=== PATIENT | female | born 1985 | race Caucasian/White ===

== ENCOUNTER 2018-05-10 10:38 | Emergency (ER) | payer MEDICAID ==
[2018-05-10] MEDS ORDERED: HYDROCOD 2.5mg-ACETAMIN 108mg/5mL Soln ONE (12:02)
[2018-05-10] MEDS ORDERED: DEXAMETHASONE 10 MG/ML VIAL ONE (12:02)
--- NOTE | 2018-05-10 12:57 | ER ---
Nurse's Notes [facility] Name: March Fernandes Age: 33 yrs Sex: Female : 1985 Arrival Date: 05/10/2018 Time: 10:41 Bed 15 Private MD: Diagnosis: Acute pharyngitis Presentation: 05/10 10:48 Presenting complaint: Patient states: Sinus pressure and pain with swallowing x 2 days. hb Denies fever. Transition of care: patient was not received from another setting of care. Onset of symptoms was May 09, 2018. Risk Assessment: Do you want to hurt yourself or someone else? Patient reports no desire to harm self or others. Initial Sepsis Screen: Does the patient meet any 2 criteria? No. Patient's initial sepsis screen is negative. Does the patient have a suspected source of infection? No. Patient's initial sepsis screen is negative. Care prior to arrival: None. 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 - Social history:: Smoking status: Patient uses tobacco products, smokes one-half pack cigarettes per day. - Ebola Screening: : No symptoms or risks identified at this time. Screenin:57 Abuse screen: Denies threats or abuse. Denies injuries from another. Nutritional aj1 screening: No deficits noted. Tuberculosis screening: No symptoms or risk factors identified. 13:26 Fall Risk None identified. aj1 Assessment: 10:57 General: Appears in no apparent distress. uncomfortable, Behavior is calm, cooperative, aj1 appropriate for age. Pain: Complains of pain in nose, left aspect of posterior pharynx, right aspect of posterior pharynx and submental area Pain does not radiate. Pain currently is 8 out of 10 on a pain scale. Quality of pain is described as "like somebody punched you in the throat" Pain began 1 day ago. Is continuous, Alleviated by nothing. Aggravated by swallowing. Neuro: Level of Consciousness is awake, alert, obeys commands, Oriented to person, place, time, situation, Speech is normal. Cardiovascular: Patient's skin is warm and dry. Respiratory: Airway is patent Respiratory effort is even, unlabored, Respiratory pattern is regular, symmetrical. GI: No signs and/or symptoms were reported involving the gastrointestinal system. : No signs and/or symptoms were reported regarding the genitourinary system. EENT: Throat is clear Patient has had a tonsilectomy. Reports nasal congestion pressure in her nose and pain with swallowing. Derm: No signs and/or symptoms reported regarding the dermatologic system. Skin is pink, warm \\T\\ dry. normal. Musculoskeletal: No signs and/or symptoms reported regarding the musculoskeletal system. Circulation, motion, and sensation intact. 12:21 Reassessment: Patient appears in no apparent distress at this time. No changes from aj1 previously documented assessment. Patient and/or family updated on plan of care and expected duration. Pain level reassessed. Patient is alert, oriented x 3, equal unlabored respirations, skin warm/dry/pink. 13:20 Reassessment: Patient appears in no apparent distress at this time. No changes from aj1 previously documented assessment. Patient and/or family updated on plan of care and expected duration. Pain level reassessed. Patient is alert, oriented x 3, equal unlabored respirations, skin warm/dry/pink. Vital Signs: 10:50 BP 139 / 98; Pulse 76; Resp 16; Temp 97.8(TE); Pulse Ox 100% ; Weight 111.13 kg; Height hb 5 ft. 3 in. (160.02 cm); Pain 8/10; 12:25 BP 112 / 58; Pulse 62; Resp 18; Pulse Ox 99% on R/A; aj1 13:20 BP 118 / 68; Pulse 76; Resp 18; Pulse Ox 100% on R/A; aj1 10:50 Body Mass Index 43.40 (111.13 kg, 160.02 cm) hb ED Course: 10:41 Patient arrived in ED. rg4 10:47 Gladys Verduzco FNP-C is PHCP. snw 10:47 Nicolas Gonzalez MD is Attending Physician. snw 10:49 Triage completed. hb 10:50 Arm band placed on right wrist. hb 10:52 Veena Mcdonough RN is Primary Nurse. aj1 10:57 Patient has correct armband on for positive identification. Bed in low position. Call aj1 light in reach. Side rails up X 1. 10:57 No provider procedures requiring assistance completed. aj1 13:26 Patient did not have IV access during this emergency room visit. aj1 Administered Medications: 12:11 Drug: Decadron - Dexamethasone 10 mg {Note: Given PO per orders.} Route: IVP; Site: [facility] Other; 13:27 Follow up: Response: No adverse reaction aj1 12:11 Drug: Lortab Liquid 10 ml Route: PO; aj1 13:26 Follow up: Response: No adverse reaction aj1 Outcome: 12:56 Discharge ordered by . kathrine 13:26 Discharged to home ambulatory. aj1 13:26 Condition: good 13:26 Discharge instructions given to patient. 13:26 Instructed on discharge instructions, follow up and referral plans. medication usage, Demonstrated understanding of instructions, follow-up care, medications, Prescriptions given X 1. 13:27 Patient left the ED. aj1 Signatures: Veena Mcdonough RN RN aj1 Gladys Verduzco, AIRLINE DISPATCHER-C AIRLINE DISPATCHER-Csnw Jimena Cruz, RN RN Irladna Boone rg4
--- NOTE | 2018-05-10 12:57 | EDPHYS ---
Physician Documentation [facility] Name: March Age: 33 yrs Sex: Female : 1985 Arrival Date: 05/10/2018 Time: 10:41 Bed 15 Private MD: ED Physician Nicolas Gonzalez HPI: 05/10 11:57 This 33 yrs old Female presents to ER via Ambulatory with complaints of Nose snw Pain, THROAT PAIN. 11:57 The patient presents with pressure. Onset: The symptoms/episode began/occurred snw suddenly, 2 day(s) ago, and became persistent. Modifying factors: The symptoms are alleviated by nothing. Associated signs and symptoms: Loss of consciousness: the patient experienced no loss of consciousness, Pertinent positives: sore throat, swelling to left anterior lymph node. Severity of symptoms: At their worst the symptoms were moderate. The patient has not experienced similar symptoms in the past. The patient has not recently seen a physician. 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 - Social history:: Smoking status: Patient uses tobacco products, smokes one-half pack cigarettes per day. - Ebola Screening: : No symptoms or risks identified at this time. ROS: 11:40 Constitutional: Negative for fever, chills, and weight loss, Eyes: Negative for injury, snw pain, redness, and discharge, Cardiovascular: Negative for chest pain, palpitations, and edema, Respiratory: Negative for shortness of breath, cough, wheezing, and pleuritic chest pain, Abdomen/GI: Negative for abdominal pain, nausea, vomiting, diarrhea, and constipation, Back: Negative for injury and pain, : Negative for injury, bleeding, discharge, and swelling, MS/Extremity: Negative for injury and deformity, Skin: Negative for injury, rash, and discoloration, Neuro: Negative for headache, weakness, numbness, tingling, and seizure. 11:40 ENT: Positive for sinus pain, sore throat. Exam: 11:38 Constitutional: This is a well developed, well nourished patient who is awake, alert, snw and in no acute distress. Head/Face: Normocephalic, atraumatic. Eyes: Pupils equal round and reactive to light, extra-ocular motions intact. Lids and lashes normal. Conjunctiva and sclera are non-icteric and not injected. Cornea within normal limits. Periorbital areas with no swelling, redness, or edema. Chest/axilla: Normal chest wall appearance and motion. Nontender with no deformity. No lesions are appreciated. Cardiovascular: Regular rate and rhythm with a normal S1 and S2. No gallops, murmurs, or rubs. Normal PMI, no JVD. No pulse deficits. Respiratory: Lungs have equal breath sounds bilaterally, clear to auscultation and percussion. No rales, rhonchi or wheezes noted. No increased work of breathing, no retractions or nasal flaring. Abdomen/GI: Soft, non-tender, with normal bowel sounds. No distension or tympany. No guarding or rebound. No evidence of tenderness throughout. Back: No spinal tenderness. No costovertebral tenderness. Full range of motion. Skin: Warm, dry with normal turgor. Normal color with no rashes, no lesions, and no evidence of cellulitis. MS/ Extremity: Pulses equal, no cyanosis. Neurovascular intact. Full, normal range of motion. Neuro: Awake and alert, GCS 15, oriented to person, place, time, and situation. Cranial nerves II-XII grossly intact. Motor strength 5/5 in all extremities. Sensory grossly intact. Cerebellar exam normal. Normal gait. Psych: Awake, alert, with orientation to person, place and time. Behavior, mood, and affect are within normal limits. 11:38 ENT: External ear(s): are unremarkable, Ear canal(s): are normal, TM's: are normal, Nose: is normal, Mouth: is normal, Posterior pharynx: erythema, that is moderate, Voice: is normal. 11:38 Neck: External neck: swelling, tenderness, that is moderate, of the left submandibular area, ROM/movement: is normal, Lymph nodes: lymphadenopathy is appreciated, anterior cervical nodes. Vital Signs: 10:50 BP 139 / 98; Pulse 76; Resp 16; Temp 97.8(TE); Pulse Ox 100% ; Weight 111.13 kg; Height hb 5 ft. 3 in. (160.02 cm); Pain 8/10; 12:25 BP 112 / 58; Pulse 62; Resp 18; Pulse Ox 99% on R/A; aj1 13:20 BP 118 / 68; Pulse 76; Resp 18; Pulse Ox 100% on R/A; aj1 10:50 Body Mass Index 43.40 (111.13 kg, 160.02 cm) hb MDM: 10:58 Patient medically screened. sparkle 12:58 Data reviewed: vital signs, nurses notes. Data interpreted: Pulse oximetry: on room air snw is 99 %. Interpretation: normal. Counseling: I had a detailed discussion with the patient and/or guardian regarding: the historical points, exam findings, and any diagnostic results supporting the discharge/admit diagnosis, lab results, the need for outpatient follow up, to return to the emergency department if symptoms worsen or persist or if there are any questions or concerns that arise at home. Special discussion: Based on the history and exam findings, there is no indication for further emergent testing or inpatient evaluation. I discussed with the patient/guardian the need to see the ENT specialist for further evaluation of the symptoms. I discussed with the patient/guardian the need to see the primary care provider for further evaluation of the symptoms. 05/10 11:12 Order name: Strep; Complete Time: 12:47 snw 05/10 12:31 Order name: Throat Culture EDMS Administered Medications: 12:11 Drug: Decadron - Dexamethasone 10 mg {Note: Given PO per orders.} Route: IVP; Site: [facility] Other; 13:27 Follow up: Response: No adverse reaction aj 12:11 Drug: Lortab Liquid 10 ml Route: PO; aj 13:26 Follow up: Response: No adverse reaction aj Disposition: 05/10/18 12:56 Discharged to Home. Impression: Acute pharyngitis. - Condition is Stable. - Discharge Instructions: Pharyngitis, Rehydration, Adult. - Prescriptions for Prednisone 20 mg Oral Tablet - take 1 tablet by ORAL route every 12 hours for 5 days; 10 tablet. - Medication Reconciliation Form, Thank You Letter, Antibiotic Education, Prescription Opioid Use form. - Follow up: Private Physician; When: 1 - 2 days; Reason: Recheck today's complaints, Continuance of care, Re-evaluation by your physician. Follow up: Emergency Department; When: As needed; Reason: Worsening of condition. Addendum: 05/12/2018 08:40 Co-signature as Attending Physician, Nicolas Gonzalez MD I agree with the assessment and c thakkar plan of care. Signatures: Dispatcher [employer] Veena Austin RN RN aj1 Nicolas Gnozalez MD MD cha Therrien, Shelly, GLOBAL RISK MANAGEMENT DIRECTOR-C GLOBAL RISK MANAGEMENT DIRECTOR-Csnw Jimena Cruz RN RN Corrections: (The following items were deleted from the chart) 05/10 13:27 12:56 05/10/2018 12:56 Discharged to Home. Impression: Acute pharyngitis. Condition is aj1 Stable. Forms are Medication Reconciliation Form, Thank You Letter, Antibiotic Education, Prescription Opioid Use. Follow up: Private Physician; When: 1 - 2 days; Reason: Recheck today's complaints, Continuance of care, Re-evaluation by your physician. Follow up: Emergency Department; When: As needed; Reason: Worsening of condition. snw
[2018-05-10 13:33] VITALS: TEMP 97.8
[2018-05-10 13:35] VITALS: BP 118/68; O2SAT 100
== END 2018-05-10 13:27 | disposition home or self-care (01) ==
LOC: ER 10:38
DX: J02.9 Acute pharyngitis, unspecified (principal); F17.210 Nicotine dependence, cigarettes, uncomplicated; Z88.0 Allergy status to penicillin
CPT/HCPCS: 87070; 87081; 96374; 99283; J1100

== ENCOUNTER 2018-08-13 03:28 | Emergency (ER) | payer MEDICAID ==
[2018-08-13] MEDS ORDERED: MORPHINE 4 MG/ML SYR ONE ×2 (04:13→05:57)
[2018-08-13] MEDS ORDERED: NA CHLORIDE 0.9% 1,000 ML ONE (04:14)
[2018-08-13] MEDS ORDERED: ONDANSETRON 4 MG/2 ML VIAL ONE ×2 (04:14→06:00)
[2018-08-13 04:32] LABS: Absolute Lymphocytes (CBC) 2.6 K/uL (0.7-4.9); Absolute Monocytes 1.2 K/uL (0.1-1.3); Absolute Neutrophil 8.8 K/uL (1.8-8.0); Basophils % 0.6 % (0-1.3); Eosinophils % 2.1 % (0-4.4); Hematocrit 39.5 % (36.0-45.0); MCH 31.2 pg (27.0-35.0); MCV 92.7 fL (80-100); MPV 8.5 fL (7.6-11.3); Monocytes % 9.1 % (3.3-12.3); RBC Red Blood Cell Count 4.26 M/uL (3.86-4.86)
[2018-08-13 04:47] LABS: BUN Blood Urea Nitrogen 10 mg/dL (7-18); Bicarbonate 23 mmol/L (21-32); Glucose Level 132 mg/dL (74-106); Potassium 4.1 mmol/L (3.5-5.1); Sodium Level 137 mmol/L (136-145)
--- NOTE | 2018-08-13 05:50 | EDPHYS ---
Physician Documentation [facility] Name: March Age: 33 yrs Sex: Female : 1985 Arrival Date: 08/13/2018 Time: 03:33 Bed 17 Private MD: None, None ED Physician Jah Morfin HPI: 08/13 04:06 This 33 yrs old Female presents to ER via Ambulatory with complaints of Ear pkl Pain, neck pain, Headache, Vomiting. 04:06 The patient presents with pain, that is acute. The complaints affect the right ear. pkl Onset: The symptoms/episode began/occurred 2 day(s) ago. Associated signs and symptoms: Pertinent positives: Pain right side neck, headache and vomiting, sore throat. 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 - Social history:: Smoking status: Patient uses tobacco products, denies chronic smoking, but will smoke occasionally. - Ebola Screening: : Patient negative for fever greater than or equal to 101.5 degrees Fahrenheit, and additional compatible Ebola Virus Disease symptoms. ROS: 04:06 Eyes: Negative for injury, pain, redness, and discharge. pkl 04:06 ENT: Positive for ear pain, of the right ear. 04:06 Neck: Positive for swollen nodes, of the right side of neck. 04:06 Cardiovascular: Negative for chest pain. 04:06 Respiratory: Negative for cough, shortness of breath. 04:06 Abdomen/GI: Positive for nausea and vomiting. 04:06 Back: Negative for acute changes. 04:06 : Negative for urinary symptoms. 04:06 MS/extremity: Negative for acute changes. 04:06 Skin: Negative for rash. 04:06 Neuro: Negative for altered mental status, loss of consciousness. Exam: 04:06 Head/Face: Normocephalic, atraumatic. Eyes: Pupils equal round and reactive to light, pkl extra-ocular motions intact. Lids and lashes normal. Conjunctiva and sclera are non-icteric and not injected. Cornea within normal limits. Periorbital areas with no swelling, redness, or edema. 04:06 ENT: TM's: erythema, that is mild, on the right. 04:06 Neck: Lymph nodes: lymphadenopathy is appreciated, right side neck. 04:06 Chest/axilla: Exam negative for acute changes. 04:06 Cardiovascular: Rate: normal, Rhythm: regular. 04:06 Respiratory: the patient does not display signs of respiratory distress, Respirations: normal, Breath sounds: are clear throughout. 04:06 Abdomen/GI: Bowel sounds: normal, Palpation: abdomen is soft and non-tender, in all quadrants. 04:06 Back: Exam negative for acute changes. 04:06 : Exam negative for acute changes. 04:06 Musculoskeletal/extremity: Exam is negative for acute changes. 04:06 Skin: Exam negative for rash. 04:06 Neuro: Orientation: is normal, Mentation: is normal, Cranial nerves: grossly normal, Motor: is normal, Gait: is steady. Vital Signs: 03:45 BP 125 / 79; Pulse 73; Resp 18 S; Temp 97.7(TE); Pulse Ox 98% on R/A; Weight 108.86 kg jd3 (R); Height 5 ft. 3 in. (160.02 cm) (R); Pain 9/10; 04:47 BP 118 / 61; Pulse 65; Resp 16 S; Pulse Ox 98% on R/A; jd3 05:32 Pulse 55; Resp 18 S; Pulse Ox 97% on R/A; jd3 06:44 BP 141 / 78; Pulse 67; Resp 16 S; Pulse Ox 98% on R/A; jd3 03:45 Body Mass Index 42.51 (108.86 kg, 160.02 cm) jd3 MDM: 03:54 Patient medically screened. pkl 05:48 Data reviewed: vital signs, nurses notes, lab test result(s). pkl 08/13 04:04 Order name: CBC with Diff; Complete Time: 05:02 pkl 08/13 04:04 Order name: Chem 7; Complete Time: 05:02 pkl 08/13 04:04 Order name: Strep; Complete Time: 05:44 pkl 08/13 04:05 Order name: [place] Screen Profile; Complete Time: 05:44 pkl Administered Medications: 04:22 Drug: morphine 4 mg Route: IVP; Site: left antecubital; jd3 05:49 Follow up: Response: No adverse reaction jd3 04:22 Drug: Zofran 4 mg Route: IVP; Site: left antecubital; jd3 05:49 Follow up: Response: No adverse reaction jd3 04:23 Drug: NS 0.9% 1000 ml Route: IV; Rate: 1000 ml; Site: left antecubital; jd3 05:49 Follow up: Response: No adverse reaction; IV Status: Completed infusion; IV Intake: jd3 1000ml 06:03 Drug: morphine 4 mg Route: IVP; Site: left antecubital; jd3 06:44 Follow up: Response: No adverse reaction jd3 06:03 Drug: Clindamycin 900 mg Route: IVPB; Infused Over: 30 mins; Site: left antecubital; jd3 06:45 Follow up: Response: No adverse reaction; IV Status: Completed infusion jd3 06:03 Drug: Zofran 4 mg Route: IVP; Site: left antecubital; jd3 06:45 Follow up: Response: No adverse reaction jd3 Disposition: 08/13/18 05:50 Discharged to Home. Impression: Strep Pharyngitis. - Condition is Stable. - Prescriptions for Clindamycin HCl 300 mg Oral Capsule - take 1 capsule by ORAL route every 6 hours for 7 days; 28 capsule. Ultram 50 mg Oral Tablet - take 1 tablet by ORAL route every 8 hours As needed; 20 tablet. - Medication Reconciliation Form, Thank You Letter, Antibiotic Education, Prescription Opioid Use, School release form form. - Follow up: Private Physician; When: 2 - 3 days; Reason: Re-evaluation by your physician. - Problem is new. - Symptoms have improved. Signatures: Dispatcher [employer] Jah Hollingsworth MD MD pkJosh Shoemaker RN RN jd3 Corrections: (The following items were deleted from the chart) 06:45 05:50 08/13/2018 05:50 Discharged to Home. Impression: Strep Pharyngitis. Condition is jd3 Stable. Forms are Medication Reconciliation Form, Thank You Letter, Antibiotic Education, Prescription Opioid Use. Follow up: Private Physician; When: 2 - 3 days; Reason: Re-evaluation by your physician. Problem is new. Symptoms have improved. pkl
--- NOTE | 2018-08-13 05:50 | ER ---
Nurse's Notes [facility] Name: March Dom Age: 33 yrs Sex: Female : 1985 Arrival Date: 08/13/2018 Time: 03:33 Bed 17 Private MD: None, None Diagnosis: Strep Pharyngitis Presentation: 08/13 03:43 Presenting complaint: Patient states: "I'm not sure if it's an ear infection or swollen jd3 lymph nodes, but my right ear and the right side of my throat and head is hurting really bad.". Transition of care: patient was not received from another setting of care. Onset of symptoms was August 13, 2018. Risk Assessment: Do you want to hurt yourself or someone else? Patient reports no desire to harm self or others. Initial Sepsis Screen: Does the patient meet any 2 criteria? No. Patient's initial sepsis screen is negative. Does the patient have a suspected source of infection? No. Patient's initial sepsis screen is negative. Care prior to arrival: None. 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 - Social history:: Smoking status: Patient uses tobacco products, denies chronic smoking, but will smoke occasionally. - Ebola Screening: : Patient negative for fever greater than or equal to 101.5 degrees Fahrenheit, and additional compatible Ebola Virus Disease symptoms. Screenin:50 Abuse screen: Denies threats or abuse. Nutritional screening: No deficits noted. jd3 Tuberculosis screening: No symptoms or risk factors identified. Fall Risk Ambulatory Aid- None/Bed Rest/Nurse Assist (0 pts). Gait- Normal/Bed Rest/Wheelchair (0 pts) Mental Status- Oriented to own ability (0 pts). Total Hightower Fall Scale indicates No Risk (0-24 pts). Assessment: 03:48 General: Appears in no apparent distress. uncomfortable, Behavior is calm, cooperative, jd3 appropriate for age. Pain: Complains of pain in right ear and right side of neck Quality of pain is described as aching, sharp, Also complains of nausea. Neuro: Level of Consciousness is awake, alert, obeys commands, Oriented to person, place, time, situation. Cardiovascular: Capillary refill < 3 seconds Patient's skin is warm and dry. Respiratory: Airway is patent Respiratory effort is even, unlabored, Respiratory pattern is regular, symmetrical, Breath sounds are clear bilaterally. GI: Abdomen is round non-distended, Bowel sounds present X 4 quads. Abd is soft and non tender X 4 quads. Reports nausea, vomiting. : No signs and/or symptoms were reported regarding the genitourinary system. EENT: Reports pain in right ear. Derm: Skin is intact, Skin is dry, Skin is normal, Skin temperature is warm. Musculoskeletal: Circulation, motion, and sensation intact. Range of motion: intact in all extremities, Swelling present in right side of neck. 04:47 Reassessment: Patient appears in no apparent distress at this time. No changes from jd3 previously documented assessment. Patient and/or family updated on plan of care and expected duration. Pain level reassessed. Patient is alert, oriented x 3, equal unlabored respirations, skin warm/dry/pink. pt reporting pain, provider notified, no new orders at this time. 05:32 Reassessment: Patient appears in no apparent distress at this time. No changes from jd3 previously documented assessment. Patient and/or family updated on plan of care and expected duration. Pain level reassessed. Patient is alert, oriented x 3, equal unlabored respirations, skin warm/dry/pink. 06:43 Reassessment: Patient appears in no apparent distress at this time. Patient and/or jd3 family updated on plan of care and expected duration. Pain level reassessed. Patient is alert, oriented x 3, equal unlabored respirations, skin warm/dry/pink. Vital Signs: 03:45 BP 125 / 79; Pulse 73; Resp 18 S; Temp 97.7(TE); Pulse Ox 98% on R/A; Weight 108.86 kg jd3 (R); Height 5 ft. 3 in. (160.02 cm) (R); Pain 9/10; 04:47 BP 118 / 61; Pulse 65; Resp 16 S; Pulse Ox 98% on R/A; jd3 05:32 Pulse 55; Resp 18 S; Pulse Ox 97% on R/A; jd3 06:44 BP 141 / 78; Pulse 67; Resp 16 S; Pulse Ox 98% on R/A; jd3 03:45 Body Mass Index 42.51 (108.86 kg, 160.02 cm) jd3 ED Course: 03:33 Patient arrived in ED. es 03:33 None, None is Private Physician. es 03:43 Josh Nixon, DUTCH is Primary Nurse. jd3 03:44 Triage completed. jd3 03:48 Arm band placed on. jd3 03:51 Patient has correct armband on for positive identification. Bed in low position. Call jd3 light in reach. Side rails up X 1. Adult w/ patient. 03:53 Jah Morfin MD is Attending Physician. pkl 04:20 Inserted saline lock: 22 gauge in left antecubital area, using aseptic technique. Blood mt collected. 06:43 No provider procedures requiring assistance completed. IV discontinued, intact, jd3 bleeding controlled, No redness/swelling at site. Pressure dressing applied. Administered Medications: 04:22 Drug: morphine 4 mg Route: IVP; Site: left antecubital; jd3 05:49 Follow up: Response: No adverse reaction jd3 04:22 Drug: Zofran 4 mg Route: IVP; Site: left antecubital; jd3 05:49 Follow up: Response: No adverse reaction jd3 04:23 Drug: NS 0.9% 1000 ml Route: IV; Rate: 1000 ml; Site: left antecubital; jd3 05:49 Follow up: Response: No adverse reaction; IV Status: Completed infusion; IV Intake: jd3 1000ml 06:03 Drug: morphine 4 mg Route: IVP; Site: left antecubital; jd3 06:44 Follow up: Response: No adverse reaction jd3 06:03 Drug: Clindamycin 900 mg Route: IVPB; Infused Over: 30 mins; Site: left antecubital; jd3 06:45 Follow up: Response: No adverse reaction; IV Status: Completed infusion jd3 06:03 Drug: Zofran 4 mg Route: IVP; Site: left antecubital; jd3 06:45 Follow up: Response: No adverse reaction jd3 Intake: 05:49 IV: 1000ml; Total: 1000ml. jd3 Outcome: 05:50 Discharge ordered by . [email or web address] 06:43 Discharged to home ambulatory, with family. jd3 06:43 Condition: stable 06:43 Discharge instructions given to patient, family, Instructed on discharge instructions, follow up and referral plans. medication usage, Demonstrated understanding of instructions, follow-up care, medications, Prescriptions given X 2. 06:45 Patient left the ED. jd3 Signatures: Jah Morfin MD MD pkl Salyer, Edna es Thompson, Moriah mt Davies, Jonathon, RN RN jd3 Corrections: (The following items were deleted from the chart) 03:51 03:48 Musculoskeletal: Circulation, motion, and sensation intact. Range of motion: jd3 intact in all extremities, jd3 04:49 04:47 Reassessment: Patient appears in no apparent distress at this time. No changes jd3 from previously documented assessment. Patient and/or family updated on plan of care and expected duration. Pain level reassessed. Patient is alert, oriented x 3, equal unlabored respirations, skin warm/dry/pink. jd3
[2018-08-13] MEDS ORDERED: CLINDAMYCIN 900MG/D5W 900 MG/50 ML BAG IV ONE (05:57)
[2018-08-13 06:54] VITALS: TEMP 97.7
[2018-08-13 06:58] VITALS: BP 141/78; O2SAT 98
== END 2018-08-13 06:45 | disposition home or self-care (01) ==
LOC: ER 03:28
DX: J02.0 Streptococcal pharyngitis (principal); Z72.0 Tobacco use; Z88.0 Allergy status to penicillin
CPT/HCPCS: 36415; 80048; 85025; 86308; 87081; 96361; 96365; 96375; 99284; J2405; J7030

== ENCOUNTER 2018-08-17 09:33 | Emergency (ER) | payer MEDICAID ==
[2018-08-17] MEDS ORDERED: ONDANSETRON 4 MG (ODT) TAB ONE (10:18)
[2018-08-17] MEDS ORDERED: BENZONATATE 100 MG CAP PO ONE (10:18)
[2018-08-17] MEDS ORDERED: ACETAMINOPHEN 500 MG TAB ONE (10:18)
--- NOTE | 2018-08-17 11:12 | EDPHYS ---
Physician Documentation [facility] Name: March Age: 33 yrs Sex: Female : 1985 Arrival Date: 08/17/2018 Time: 09:39 Bed 14 Private MD: None, None ED Physician Ascencion Brennan HPI: 08/17 10:10 This 33 yrs old Female presents to ER via Ambulatory with complaints of cp Cough, Headache, Vomiting/Diarrhea. 10:10 The patient or guardian reports cough, that is intermittent. cp 10:10 Onset: The symptoms/episode began/occurred last week. Severity of symptoms: in the emergency department the symptoms are unchanged. 10:10 Associated signs and symptoms: Pertinent positives: diarrhea, fever, rhinorrhea, cp vomiting, headache. The patient has been recently seen at the [facility] Emergency Department, last week, diagnosed with strep throat and currently taking clindamycin. patient reports vomiting and diarrhea after taking clindamycin. 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 - Social history:: Smoking status: Patient uses tobacco products, 2-3 cigarettes a day . - Ebola Screening: : No symptoms or risks identified at this time. ROS: 10:15 Constitutional: Negative for body aches, chills, fever, poor PO intake. cp 10:15 Eyes: Negative for injury, pain, redness, and discharge. cp 10:15 ENT: Positive for rhinorrhea, Negative for drainage from ear(s), ear pain, difficulty swallowing, difficulty handling secretions, hoarseness. 10:15 Neck: Negative for pain with movement, pain at rest, stiffness, tenderness. 10:15 Cardiovascular: Negative for chest pain. 10:15 Respiratory: Positive for cough, "sounds productive", Negative for shortness of breath, wheezing. 10:15 Abdomen/GI: Positive for nausea, vomiting, and diarrhea, anorexia, Negative for abdominal pain, constipation, black/tarry stool, rectal bleeding. 10:15 Back: Negative for pain at rest, pain with movement. 10:15 Skin: Negative for cellulitis, rash. 10:15 Neuro: Positive for headache, Negative for altered mental status, dizziness, weakness. 10:15 All other systems are negative. Exam: 10:22 Constitutional: The patient appears in no acute distress, alert, awake, non-toxic, well cp developed, well nourished. 10:22 Head/Face: Normocephalic, atraumatic. cp 10:22 Eyes: Periorbital structures: appear normal, Pupils: equal, round, and reactive to light and accomodation, Extraocular movements: intact throughout, Conjunctiva: normal, no exudate, no injection, Sclera: no appreciated abnormality, Lids and lashes: appear normal, bilaterally. 10:22 ENT: External ear(s): are unremarkable, Ear canal(s): are normal, clear, TM's: bulging, is not appreciated, bilaterally, dullness, bilaterally, erythema, is not appreciated, bilaterally, Nose: is normal, Mouth: Lips: moist, Oral mucosa: moist, Posterior pharynx: Airway: no evidence of obstruction, patent, Tonsils: with erythema, no enlargement, no exudate, Uvula: midline, swelling, is not appreciated, erythema, that is mild, exudate, is not appreciated, Voice: is normal. 10:22 Neck: ROM/movement: is normal, is supple, without pain, no range of motions limitations, no meningismus, no nuchal rigidity, Lymph nodes: no appreciated lymphadenopathy. 10:22 Chest/axilla: Inspection: normal, Palpation: is normal, no crepitus, no tenderness. 10:22 Cardiovascular: Rate: normal, Rhythm: regular. 10:22 Respiratory: the patient does not display signs of respiratory distress, Respirations: normal, no use of accessory muscles, no retractions, no splinting, no tachypnea, labored breathing, is not present, Breath sounds: bronchial sounds, that are mild, are heard diffusely, decreased breath sounds, are not appreciated, stridor, is not appreciated, + upper airway congestion. wheezing: is not appreciated. 10:22 Abdomen/GI: Inspection: abdomen appears normal, Bowel sounds: active, all quadrants, Palpation: soft, in all quadrants, nontender, in all quadrants, rebound tenderness, is not appreciated, involuntary guarding, is not appreciated. 10:22 Back: pain, is absent, ROM is normal. 10:22 Skin: cellulitis, is not appreciated, no rash present. 10:22 Neuro: Orientation: to person, place \\T\\ time. Mentation: lucid, able to follow commands, Cerebellar function: is grossly normal, Motor: moves all fours, strength is normal, Sensation: no obvious gross deficits, Gait: is steady. Vital Signs: 09:49 BP 137 / 102; Pulse 65; Resp 18; Temp 99.4(O); Pulse Ox 99% on R/A; Pain 8/10; tw2 11:00 BP 135 / 72; Pulse 65; Resp 17; Temp 99.1; Pulse Ox 98% on R/A; tw2 MDM: 09:47 Patient medically screened. cp 10:00 Differential Diagnosis: Bronchitis Influenza Pharyngitis Otitis Media Viral Syndrome cp Pneumonia. 11:10 Data reviewed: vital signs, nurses notes, lab test result(s), radiologic studies, plain cp films, and as a result, I will discharge patient. 11:10 Test interpretation: by ED physician or midlevel provider: plain radiologic studies. cp Counseling: I had a detailed discussion with the patient and/or guardian regarding: the historical points, exam findings, and any diagnostic results supporting the discharge/admit diagnosis, lab results, radiology results, to return to the emergency department if symptoms worsen or persist or if there are any questions or concerns that arise at home. Response to treatment: the patient's symptoms have markedly improved after treatment. ED course: VSS. Patient to stop clindamycin and start Z-aram. 08/17 10:24 Order name: Urine Dipstick--Ancillary (enter results) 08/17 10:24 Order name: Urine --Ancillary (enter results) ag 08/17 09:58 Order name: XRAY Chest Pa And Lat (2 Views) 08/17 09:58 Order name: Urine Dipstick-Ancillary (obtain specimen); Complete Time: 10:14 cp 08/17 09:58 Order name: Urine Test (obtain specimen); Complete Time: 10:14 cp Administered Medications: 10:14 Drug: Zofran 4 mg Route: PO; tw2 11:01 Follow up: Response: No adverse reaction tw2 10:14 Drug: Tessalon Perle 200 mg Route: PO; tw2 11:01 Follow up: Response: No adverse reaction tw2 10:14 Drug: Tylenol 1000 mg Route: PO; tw2 11:01 Follow up: Response: No adverse reaction tw2 Disposition: 08/17/18 11:11 Discharged to Home. Impression: Cough, Vomiting, Diarrhea, unspecified. - Condition is Stable. - Discharge Instructions: Diarrhea, Adult, Cool Mist Vaporizer, Cough, Adult, Vomiting, Adult. - Prescriptions for Zofran 4 mg Oral Tablet - take 1 tablet by ORAL route every 12 hours As needed; 20 tablet. Tessalon Perles 100 mg Oral Capsule - take 2 capsule by ORAL route every 8 hours As needed; 30 capsule. Zithromax Z- Aram 250 mg Oral Tablet - take 1 tablet by ORAL route as directed for 5 days Day 1 - take two (2) tablets one time. Day 2, 3, 4 , 5 take one (1) tablet once daily.; 6 tablet. - Medication Reconciliation Form, Thank You Letter, Antibiotic Education, Prescription Opioid Use, Work release form form. - Follow up: Private Physician; When: 2 - 3 days; Reason: Recheck today's complaints. - Problem is new. - Symptoms have improved. Signatures: Dispatcher [employer] EDСветлана Perez RN RN aa5 Nicolas Hager PA PA cp Wise, Tara, RN RN tw2 Corrections: (The following items were deleted from the chart) 11:19 11:11 08/17/2018 11:11 Discharged to Home. Impression: Cough; Vomiting; Diarrhea, tw2 unspecified. Condition is Stable. Forms are Work release form, Medication Reconciliation Form, Thank You Letter, Antibiotic Education, Prescription Opioid Use. Follow up: Private Physician; When: 2 - 3 days; Reason: Recheck today's complaints. Problem is new. Symptoms have improved. cp
--- NOTE | 2018-08-17 11:12 | ER ---
Nurse's Notes [facility] Name: March Dom Age: 33 yrs Sex: Female : 1985 Arrival Date: 08/17/2018 Time: 09:39 Bed 14 Private MD: None, None Diagnosis: Cough;Vomiting;Diarrhea, unspecified Presentation: 08/17 09:43 Presenting complaint: Patient states: cough, vomiting, diarrhea, and headache that aa5 began Saturday. Pt states "I had strep last week and I am still taking the clindamycin". Transition of care: patient was not received from another setting of care. Onset of symptoms was August 2018. Risk Assessment: Do you want to hurt yourself or someone else? Patient reports no desire to harm self or others. Initial Sepsis Screen: Does the patient meet any 2 criteria? No. Patient's initial sepsis screen is negative. Does the patient have a suspected source of infection? No. Patient's initial sepsis screen is negative. Care prior to arrival: None. 09:43 Method Of Arrival: Ambulatory aa5 09:43 Acuity: NAWAF 4 aa5 Triage Assessment: 09:56 Headache History: The patient has had previous headaches and this one is similar to tw2 previous episodes. General: Appears in no apparent distress. Pain: Pain currently is 8 out of 10 on a pain scale. Pain began 2-3 days ago. Also complains of cough and body aches. 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 - Social history:: Smoking status: Patient uses tobacco products, 2-3 cigarettes a day . - Ebola Screening: : No symptoms or risks identified at this time. Screenin:56 Abuse screen: Denies threats or abuse. Nutritional screening: No deficits noted. tw2 Tuberculosis screening: No symptoms or risk factors identified. Fall Risk None identified. Assessment: 09:54 General: Appears in no apparent distress. obese, Behavior is calm, cooperative, tw2 appropriate for age. Pain: Complains of pain in headache and body ache. Neuro: Level of Consciousness is awake, alert, obeys commands. Cardiovascular: Heart tones S1 S2. Respiratory: Reports cough that is non-productive, Airway is patent Respiratory effort is even, unlabored, Respiratory pattern is regular, symmetrical, Breath sounds are clear bilaterally. Respiratory: Reports i have strep throat and last week they put me on antibiotics. GI: Abdomen is round non-distended, obese, Bowel sounds present X 4 quads. : No signs and/or symptoms were reported regarding the genitourinary system. EENT: No signs and/or symptoms were reported regarding the EENT system. Derm: No signs and/or symptoms reported regarding the dermatologic system. Musculoskeletal: Range of motion: intact in all extremities. 11:01 Reassessment: Patient appears in no apparent distress at this time. No changes from tw2 previously documented assessment. Patient and/or family updated on plan of care and expected duration. Pain level reassessed. Patient is alert, oriented x 3, equal unlabored respirations, skin warm/dry/pink. 11:18 Reassessment: Patient appears in no apparent distress at this time. No changes from tw2 previously documented assessment. Patient and/or family updated on plan of care and expected duration. Pain level reassessed. Patient is alert, oriented x 3, equal unlabored respirations, skin warm/dry/pink. Vital Signs: 09:49 BP 137 / 102; Pulse 65; Resp 18; Temp 99.4(O); Pulse Ox 99% on R/A; Pain 8/10; tw2 11:00 BP 135 / 72; Pulse 65; Resp 17; Temp 99.1; Pulse Ox 98% on R/A; tw2 ED Course: 09:39 Patient arrived in ED. mr 09:40 None, None is Private Physician. mr 09:45 Triage completed. aa5 09:45 Arm band placed on. aa5 09:46 Nicolas Hager PA is PHCP. cp 09:47 Ascencion Brennan MD is Attending Physician. cp 09:48 Beti Galo, DUTCH is Primary Nurse. tw2 09:56 Bed in low position. Call light in reach. Pulse ox on. NIBP on. tw2 10:52 XRAY Chest Pa And Lat (2 Views) In Process Unspecified. EDMS 11:18 No provider procedures requiring assistance completed. Patient did not have IV access tw2 during this emergency room visit. Administered Medications: 10:14 Drug: Zofran 4 mg Route: PO; tw2 11:01 Follow up: Response: No adverse reaction tw2 10:14 Drug: Tessalon Perle 200 mg Route: PO; tw2 11:01 Follow up: Response: No adverse reaction tw2 10:14 Drug: Tylenol 1000 mg Route: PO; tw2 11:01 Follow up: Response: No adverse reaction tw2 Outcome: 11:11 Discharge ordered by . rickey 11:18 Discharged to home ambulatory. tw2 11:18 Condition: stable 11:18 Discharge instructions given to patient, Instructed on discharge instructions, follow up and referral plans. medication usage, Demonstrated understanding of instructions, follow-up care, medications, Prescriptions given X 3. 11:19 Patient left the ED. tw2 Signatures: Dispatcher [employer] Geno Jacobs PattenСветлана pacheco, RN RN aa5 Nicolas Hager PA PA cp Wise, Tara, RN RN tw2
--- NOTE | 2018-08-17 11:12 | RAD REPORT ---
EXAM DESCRIPTION: RAD - Chest Pa And Lat (2 Views) - 08/17/2018 10:53 am CLINICAL HISTORY: Cough, abdominal pain, smoking history COMPARISON: Portable chest December 2014, two view chest April 2012 TECHNIQUE: PA and lateral views of the chest were obtained. FINDINGS: The lungs are clear of a peripheral mass, consolidation or significant failure finding. In terstitial markings are increased fractionally over prior imaging. A very minimal interstitial edema or infiltrate would be a consideration. Heart size is normal and central vasculature is within norm al limits. No pleural effusion or pneumothorax seen. No acute bony finding noted. No aortic abnorm ality. IMPRESSION: No focal consolidation to suspect bacterial pneumonia. There is a minimal increase in the interstitial markings compared to prior imaging. A mild viral infi ltrate or minimal interstitial edema would be considerations.
[2018-08-17 11:25] VITALS: BP 135/72; TEMP 99.1; O2SAT 98
[2018-08-17 14:54] LABS: Urine Blood 2+ (NEG); Urine Glucose NEGATIVE (NEG); Urine Protein NEGATIVE (NEG); Urine pH 7.5 (5.0-7.0)
== END 2018-08-17 11:19 | disposition home or self-care (01) ==
LOC: ER 09:33
DX: R11.10 Vomiting, unspecified (principal); R19.7 Diarrhea, unspecified; F17.210 Nicotine dependence, cigarettes, uncomplicated; Z88.0 Allergy status to penicillin
CPT/HCPCS: 71046; 81003; 81025; 99284

== ENCOUNTER 2018-08-31 15:35 | Emergency (ER) | payer MEDICAID ==
[2018-08-31] MEDS ORDERED: KETOROLAC 30 MG/ML INJ ONE (16:56)
--- NOTE | 2018-08-31 17:14 | RAD REPORT ---
EXAM DESCRIPTION: RAD - Chest Pa And Lat (2 Views) - 08/31/2018 5:02 pm CLINICAL HISTORY: CHEST PAIN Chest pain. COMPARISON: Chest Pa And Lat (2 Views) dated 08/17/2018; CHEST SINGLE VIEW dated 12/25/2014; CHEST PA AND LAT 2 VIEW dated 04/02/2012 FINDINGS: The lungs are clear. The heart is normal in size. No displaced fractures. IMPRESSION: No acute or concerning finding suspected.
--- NOTE | 2018-08-31 17:16 | RAD REPORT ---
EXAM DESCRIPTION: RAD - Ribs Left - 08/31/2018 5:01 pm CLINICAL HISTORY: Left-sided rib pain COMPARISON: None. FINDINGS: No displaced rib fracture is evident. No aggressive rib lesion. No underlying pneumothorax, effusion, infiltrate or pulmunary contusion. IMPRESSION: Negative left rib series.
--- NOTE | 2018-08-31 17:32 | ER ---
Nurse's Notes [facility] Name: March Dom Age: 33 yrs Sex: Female : 1985 Arrival Date: 08/31/2018 Time: 15:37 Bed 5 Private MD: None, None Diagnosis: Pleurisy Presentation: 08/31 15:55 Transition of care: patient was not received from another setting of care. Onset of sg symptoms was August 31, 2018. Risk Assessment: Do you want to hurt yourself or someone else? Patient reports no desire to harm self or others. Care prior to arrival: None. 15:55 Acuity: NAWAF 4 sg 15:55 Method Of Arrival: Ambulatory sg 15:55 Presenting complaint: Patient states: for about a week now barb had a really bad cough, sg Barb been coughing up thick white spit and just havent felt right. 16:00 Initial Sepsis Screen: Does the patient meet any 2 criteria? No. Patient's initial iw sepsis screen is negative. Does the patient have a suspected source of infection? No. Patient's initial sepsis screen is negative. 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 - Social history:: Smoking status: Patient/guardian denies using tobacco. - Ebola Screening: : Patient negative for fever greater than or equal to 101.5 degrees Fahrenheit, and additional compatible Ebola Virus Disease symptoms Patient denies exposure to infectious person Patient denies travel to an Ebola-affected area in the 21 days before illness onset No symptoms or risks identified at this time. Screenin:35 Abuse screen: Denies threats or abuse. Denies injuries from another. Nutritional iw screening: No deficits noted. Tuberculosis screening: No symptoms or risk factors identified. Fall Risk None identified. Assessment: 16:34 General: Appears in no apparent distress. Behavior is calm, cooperative. Pain: iw Complains of pain in left low back and left mid back. Neuro: Level of Consciousness is awake, alert, obeys commands. 17:17 Reassessment: Patient appears in no apparent distress at this time. Patient and/or iw family updated on plan of care and expected duration. Pain level reassessed. Patient is alert, oriented x 3, equal unlabored respirations, skin warm/dry/pink. Vital Signs: 16:33 BP 117 / 74; Pulse 90; Resp 16 S; Temp 98.2; Pulse Ox 98% on R/A; Weight 107.95 kg; iw Height 5 ft. 3 in. (160.02 cm); Pain 9/10; 16:33 Body Mass Index 42.16 (107.95 kg, 160.02 cm) iw ED Course: 15:37 Patient arrived in ED. mr 15:37 None, None is Private Physician. mr 15:55 Arm band placed on. sg 15:56 Triage completed. sg 15:59 [facility] kb 15:59 Estuardo Ceballos MD is Attending Physician. kb 16:00 Patient has correct armband on for positive identification. iw 16:18 Tamra Brown is Primary Nurse. ag2 16:51 Jigna James, DUTCH is Primary Nurse. iw 17:00 Chest Pa And Lat (2 Views) XRAY In Process Unspecified. EDMS 17:00 Ribs Left XRAY In Process Unspecified. EDMS 17:17 No provider procedures requiring assistance completed. Patient did not have IV access iw during this emergency room visit. Administered Medications: 17:09 Drug: TORadol 60 mg Route: IM; Site: left gluteus; iw 17:30 Follow up: Response: No adverse reaction; Pain is decreased iw Outcome: 17:31 Discharge ordered by MD. kb 17:35 Discharged to home ambulatory. iw 17:35 Condition: good 17:35 Discharge instructions given to patient, Instructed on discharge instructions, follow up and referral plans. medication usage, Demonstrated understanding of instructions, follow-up care, medications, Prescriptions given X 2. 17:36 Patient left the ED. iw Signatures: Dispatcher [employer] EDMS Roz Fine FNP-C FNP-Ckb Gay, Steven RN DUTCH Pinky Villafuerte mr Jgina James, RN RN iw Tamra Brown ag2 Corrections: (The following items were deleted from the chart) 16:35 16:34 Pain: Complains of pain in right mid back and right low back iw iw
--- NOTE | 2018-08-31 17:32 | EDPHYS ---
Physician Documentation [facility] Name: March Age: 33 yrs Sex: Female : 1985 Arrival Date: 08/31/2018 Time: 15:37 Bed 5 Private MD: None, None ED Physician Estuardo Ceballos HPI: 08/31 17:08 This 33 yrs old Female presents to ER via Ambulatory with complaints of Back kb Pain. 17:08 The patient presents with pain that is acute, with no known mechanism of injury. The kb symptoms are located in the left subscapular area. Onset: The symptoms/episode began/occurred 1 week(s) ago. The pain radiates to the left lateral posterior chest and left lateral anterior chest. 17:08 Associated signs and symptoms: Pertinent positives: cough. The problem was sustained kb from unknown cause. Modifying factors: The patient symptoms are alleviated by nothing, the patient symptoms are aggravated by coughing, movement. Severity of symptoms: At their worst the symptoms were moderate, in the emergency department the symptoms are unchanged. The patient has not experienced similar symptoms in the past. The patient has not recently seen a physician. 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 - Social history:: Smoking status: Patient/guardian denies using tobacco. - Ebola Screening: : Patient negative for fever greater than or equal to 101.5 degrees Fahrenheit, and additional compatible Ebola Virus Disease symptoms Patient denies exposure to infectious person Patient denies travel to an Ebola-affected area in the 21 days before illness onset No symptoms or risks identified at this time. ROS: 17:08 Constitutional: Negative for fever, chills, and weight loss, Abdomen/GI: Negative for kb abdominal pain, nausea, vomiting, diarrhea, and constipation, Back: Negative for injury and pain, : Negative for injury, bleeding, discharge, and swelling, MS/Extremity: Negative for injury and deformity, Skin: Negative for injury, rash, and discoloration, Neuro: Negative for headache, weakness, numbness, tingling, and seizure. 17:08 Cardiovascular: Positive for chest pain, with cough, with movement, of the left lateral anterior chest and left lateral posterior chest and left subscapular area. 17:08 Respiratory: Positive for cough, Negative for dyspnea on exertion, hemoptysis, orthopnea, pleurisy, shortness of breath, sputum production, wheezing. Exam: 17:08 Constitutional: This is a well developed, well nourished patient who is awake, alert, kb and in no acute distress. Head/Face: Normocephalic, atraumatic. Cardiovascular: Regular rate and rhythm with a normal S1 and S2. No gallops, murmurs, or rubs. Normal PMI, no JVD. No pulse deficits. Respiratory: Lungs have equal breath sounds bilaterally, clear to auscultation and percussion. No rales, rhonchi or wheezes noted. No increased work of breathing, no retractions or nasal flaring. Abdomen/GI: Soft, non-tender, with normal bowel sounds. No distension or tympany. No guarding or rebound. No evidence of tenderness throughout. Back: No spinal tenderness. No costovertebral tenderness. Full range of motion. Skin: Warm, dry with normal turgor. Normal color with no rashes, no lesions, and no evidence of cellulitis. MS/ Extremity: Pulses equal, no cyanosis. Neurovascular intact. Full, normal range of motion. Neuro: Awake and alert, GCS 15, oriented to person, place, time, and situation. Cranial nerves II-XII grossly intact. Motor strength 5/5 in all extremities. Sensory grossly intact. Cerebellar exam normal. Normal gait. 17:08 Chest/axilla: Inspection: normal, Palpation: tenderness, that is moderate, of the left lateral posterior chest and left lateral anterior chest, that totally reproduces the patient's complaints. Vital Signs: 16:33 BP 117 / 74; Pulse 90; Resp 16 S; Temp 98.2; Pulse Ox 98% on R/A; Weight 107.95 kg; iw Height 5 ft. 3 in. (160.02 cm); Pain 9/10; 16:33 Body Mass Index 42.16 (107.95 kg, 160.02 cm) iw MDM: 15:59 Patient medically screened. kb 17:11 Data reviewed: vital signs, nurses notes. Data interpreted: Pulse oximetry: on room air kb is 98 %. Interpretation: normal. 17:31 Counseling: I had a detailed discussion with the patient and/or guardian regarding: the kb historical points, exam findings, and any diagnostic results supporting the discharge/admit diagnosis, radiology results, the need for outpatient follow up, a family practitioner, to return to the emergency department if symptoms worsen or persist or if there are any questions or concerns that arise at home. 08/31 16:03 Order name: Chest Pa And Lat (2 Views) XRAY; Complete Time: 17:16 kb 08/31 16:03 Order name: Ribs Left XRAY; Complete Time: 17:16 kb Administered Medications: 17:09 Drug: TORadol 60 mg Route: IM; Site: left gluteus; iw 17:30 Follow up: Response: No adverse reaction; Pain is decreased iw Disposition: 18:37 Co-signature as Attending Physician, Estuardo Ceballos MD. Disposition: 08/31/18 17:31 Discharged to Home. Impression: Pleurisy. - Condition is Stable. - Discharge Instructions: Pleurisy, [id number]. - Prescriptions for Prednisone 20 mg Oral Tablet - take 1 tablet by ORAL route once daily for 5 days; 5 tablet. Diclofenac Sodium 75 mg Oral Tablet, Delayed Release (E.C.) - take 1 tablet by ORAL route 2 times per day As needed; 30 tablet. - Medication Reconciliation Form, Thank You Letter, Antibiotic Education, Prescription Opioid Use form. - Follow up: Emergency Department; When: As needed; Reason: Worsening of condition. Follow up: Private Physician; When: 2 - 3 days; Reason: Recheck today's complaints, Continuance of care, Re-evaluation by your physician. Signatures: Dispatcher [employer] Roz Escalera, FRANCISCO JAVIER-C FILM MASKER-CkMichael Shannon RN RN Jigna Thomas RN RN iw Starr, Gregory, MD MD Corrections: (The following items were deleted from the chart) 17:36 17:31 08/31/2018 17:31 Discharged to Home. Impression: Pleurisy. Condition is Stable. iw Forms are Medication Reconciliation Form, Thank You Letter, Antibiotic Education, Prescription Opioid Use. Follow up: Emergency Department; When: As needed; Reason: Worsening of condition. Follow up: Private Physician; When: 2 - 3 days; Reason: Recheck today's complaints, Continuance of care, Re-evaluation by your physician. kb
[2018-08-31 17:48] VITALS: BP 117/74; TEMP 98.2; O2SAT 98
== END 2018-08-31 17:36 | disposition home or self-care (01) ==
LOC: ER 15:35
DX: R09.1 Pleurisy (principal); Z88.0 Allergy status to penicillin
CPT/HCPCS: 71046; 96372; 99283

== ENCOUNTER 2018-09-11 08:53 | Emergency (ER) | payer MEDICAID ==
[2018-09-11] MEDS ORDERED: KETOROLAC 30 MG/ML INJ ONE (09:47)
[2018-09-11 09:59] LABS: Absolute Lymphocytes (CBC) 2.8 K/uL (0.7-4.9); Absolute Monocytes 0.9 K/uL (0.1-1.3); Absolute Neutrophil 6.6 K/uL (1.8-8.0); Basophils % 0.7 % (0-1.3); Eosinophils % 2.4 % (0-4.4); Hematocrit 40.7 % (36.0-45.0); Lymphocytes % 26.7 % (15.3-44.8); MCH 31.9 pg (27.0-35.0); MCV 93.4 fL (80-100); MPV 8.8 fL (7.6-11.3); Monocytes % 8.2 % (3.3-12.3); RBC Red Blood Cell Count 4.36 M/uL (3.86-4.86)
[2018-09-11 10:15] LABS: Protime INR 0.93
[2018-09-11 10:19] LABS: ALT/SGPT 33 U/L (12-78); AST/SGOT 14 U/L (15-37); Albumin 3.6 g/dL (3.4-5.0); Alkaline Phosphatase 87 U/L (45-117); BUN Blood Urea Nitrogen 8 mg/dL (7-18); Bicarbonate 24 mmol/L (21-32); Bilirubin Direct 0.1 mg/dL (0-0.2); Bilirubin Total 0.3 mg/dL (0.2-1.0); Glucose Level 126 mg/dL (74-106); Magnesium 2.2 mg/dL (1.8-2.4); NT PRO-BNP 14 pg/mL (<125); Protein, Total 6.9 g/dL (6.4-8.2); Sodium Level 140 mmol/L (136-145); Troponin (Emerg Dept Use Only) < 0.02 ng/mL (0.0-0.045)
--- NOTE | 2018-09-11 10:46 | RAD REPORT ---
EXAM DESCRIPTION: Tony Single View09/11/2018 10:34 am CLINICAL HISTORY: Chest pain COMPARISON: August 2018 FINDINGS: The lungs appear clear of acute infiltrate. The heart is normal size IMPRESSION: No acute abnormalities displayed
[2018-09-11] MEDS ORDERED: MORPHINE 4 MG/ML SYR ONE (10:54)
[2018-09-11] MEDS ORDERED: ONDANSETRON 4 MG/2 ML VIAL ONE (10:54)
--- NOTE | 2018-09-11 12:06 | EDPHYS ---
Physician Documentation [facility] Name: March Age: 33 yrs Sex: Female : 1985 Arrival Date: 09/11/2018 Time: 08:55 Bed 24 Private MD: ED Physician Ashwin Liu HPI: 09/11 10:00 This 33 yrs old Female presents to ER via Ambulatory with complaints of Chest pm1 Pain, Shortness Of Breath. 10:00 The patient or guardian reports chest pain that is located primarily in the mid-sternal pm1 area. The pain does not radiate. Associated signs and symptoms: Pertinent positives: cough, shortness of breath, Pertinent negatives: abdominal pain, dizziness, headache, nausea, palpitations, vomiting. The chest pain is described as sharp. Modifying factors: the symptoms are aggravated by Deep breathing causes back pain and chest pain. Severity of pain: in the emergency department the pain is actually worse. The patient has been recently seen at the [facility] Emergency Department, for similar complaints X-rays were performed, 08/21/2018 for the same complaint. 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 - Social history:: Smoking status: Patient/guardian denies using tobacco. - Ebola Screening: : Patient negative for fever greater than or equal to 101.5 degrees Fahrenheit, and additional compatible Ebola Virus Disease symptoms Patient denies exposure to infectious person Patient denies travel to an Ebola-affected area in the 21 days before illness onset No symptoms or risks identified at this time. ROS: 10:30 Constitutional: Negative for fever, chills, and weight loss, Eyes: Negative for injury, pm1 pain, redness, and discharge, ENT: Negative for injury, pain, and discharge, Neck: Negative for injury, pain, and swelling, Respiratory: Negative for shortness of breath, cough, wheezing, and pleuritic chest pain, Abdomen/GI: Negative for abdominal pain, nausea, vomiting, diarrhea, and constipation. 10:30 Back: Negative for injury and pain, MS/Extremity: Negative for injury and deformity, Skin: Negative for injury, rash, and discoloration, Neuro: Negative for headache, weakness, numbness, tingling, and seizure. 10:30 Cardiovascular: Positive for chest pain, Negative for edema, orthopnea, palpitations. 10:30 Respiratory: Positive for cough, with no reported sputum, Negative for shortness of breath, sputum production, wheezing. Exam: 10:30 Constitutional: This is a well developed, well nourished patient who is awake, alert, pm1 and in no acute distress. Head/Face: Normocephalic, atraumatic. Neck: Trachea midline, no thyromegaly or masses palpated, and no cervical lymphadenopathy. Supple, full range of motion without nuchal rigidity, or vertebral point tenderness. No Meningismus. Chest/axilla: Normal chest wall appearance and motion. Nontender with no deformity. No lesions are appreciated. Cardiovascular: Regular rate and rhythm with a normal S1 and S2. No gallops, murmurs, or rubs. Normal PMI, no JVD. No pulse deficits. Respiratory: Lungs have equal breath sounds bilaterally, clear to auscultation and percussion. No rales, rhonchi or wheezes noted. No increased work of breathing, no retractions or nasal flaring. Abdomen/GI: Soft, non-tender, with normal bowel sounds. No distension or tympany. No guarding or rebound. No evidence of tenderness throughout. 10:30 Skin: Warm, dry with normal turgor. Normal color with no rashes, no lesions, and no evidence of cellulitis. MS/ Extremity: Pulses equal, no cyanosis. Neurovascular intact. Full, normal range of motion. 10:30 Back: normal spinal alignment noted, muscle spasm, is appreciated in the left scapular area, right scapular area, left subscapular area and right subscapular area. 10:30 Neuro: Orientation: is normal, Motor: is normal, moves all fours, Sensation: is normal, no obvious gross deficits. Vital Signs: 09:02 BP 121 / 64; Pulse 67; Resp 16; Temp 98.4; Pulse Ox 98% on R/A; Weight 107.95 kg; dm5 Height 5 ft. 3 in. (160.02 cm); Pain 10/10; 10:27 BP 105 / 74; Pulse 63; Resp 16; Pulse Ox 95% on R/A; Pain 8/10; em 11:00 BP 117 / 53; Pulse 58; Resp 18; Pulse Ox 99% on R/A; Pain 9/10; em 12:08 BP 114 / 67; Pulse 85; Resp 18; Pulse Ox 97% on R/A; Pain 7/10; em 09:02 Body Mass Index 42.16 (107.95 kg, 160.02 cm) dm5 MDM: 09:26 Patient medically screened. pm1 12:04 Data reviewed: vital signs. Data interpreted: Pulse oximetry: on room air is 95 %. pm1 Interpretation: normal. Counseling: I had a detailed discussion with the patient and/or guardian regarding: the historical points, exam findings, and any diagnostic results supporting the discharge/admit diagnosis, lab results, radiology results, the need for outpatient follow up, to return to the emergency department if symptoms worsen or persist or if there are any questions or concerns that arise at home. 09/11 09:33 Order name: Flu; Complete Time: 12:01 pm1 09/11 09:34 Order name: Basic Metabolic Panel; Complete Time: 10:39 pm1 09/11 09:34 Order name: CBC with Diff pm1 09/11 09:34 Order name: LFT's; Complete Time: 10:39 pm1 09/11 09:34 Order name: Magnesium; Complete Time: 10:39 pm1 09/11 09:34 Order name: NT PRO-BNP; Complete Time: 10:39 pm1 09/11 09:04 Order name: Chest Single View XRAY; Complete Time: 12:01 dm5 09/11 09:34 Order name: PT-INR; Complete Time: 10:39 pm1 09/11 09:34 Order name: Troponin (emerg Dept Use Only); Complete Time: 10:39 pm1 09/11 09:34 Order name: EKG; Complete Time: 09:35 pm1 09/11 10:43 Order name: CBC Smear Scan EDMS 09/11 09:34 Order name: Cardiac monitoring; Complete Time: 10:07 pm1 09/11 09:34 Order name: EKG - Nurse/Tech; Complete Time: 10:07 pm1 09/11 09:34 Order name: IV Saline Lock; Complete Time: 10:07 pm1 09/11 09:34 Order name: Labs collected and sent; Complete Time: 10:08 pm1 09/11 09:34 Order name: O2 Per Protocol; Complete Time: 10:08 pm1 09/11 09:34 Order name: O2 Sat Monitoring; Complete Time: 10:08 pm1 Administered Medications: 09:45 Drug: TORadol 30 mg Route: IVP; Site: right antecubital; hb 10:30 Follow up: Response: No adverse reaction; Pain is decreased iw 10:57 Drug: morphine 4 mg Route: IVP; Site: right antecubital; iw 12:06 Follow up: Response: No adverse reaction; Pain is decreased em 10:58 Drug: Zofran 4 mg Route: IVP; Site: right antecubital; iw 12:06 Follow up: Response: No adverse reaction em Disposition: 13:57 Co-signature as Attending Physician, Ashwin Liu MD I agree with the assessment and kdr plan of care. Disposition: 09/11/18 12:05 Discharged to Home. Impression: Chest pain, unspecified. - Condition is Stable. - Discharge Instructions: Nonspecific Chest Pain, Pleurisy. - Prescriptions for Naprosyn 500 mg Oral Tablet - take 1 tablet by ORAL route 2 times per day take with food; 30 tablet. Cyclobenzaprine 10 mg Oral Tablet - take 1 tablet by ORAL route every 8 hours As needed; 30 tablet. Guaifenesin AC 10- 100 mg/5 mL Oral Liquid - take 10 milliliter by ORAL route every 4 hours As needed; 240 milliliter. - Medication Reconciliation Form, Thank You Letter, Antibiotic Education, Prescription Opioid Use form. - Follow up: Emergency Department; When: As needed; Reason: Worsening of condition. Follow up: Private Physician; When: 2 - 3 days; Reason: Recheck today's complaints, Continuance of care, Re-evaluation by your physician. - Problem is new. - Symptoms have improved. Signatures: Dispatcher [employer] Fela Negrete RN RN dm5 Ashwin Liu MD MD kdr Julian Rucker, MULTIPLE PRESSURE RIVETER OPERATOR MULTIPLE PRESSURE RIVETER OPERATOR em Jigna James RN RN iw Ahmet Murphy, MADHU GEOSPATIAL APPLICATIONS DEVELOPER pm1 Jimena Cruz RN RN hb Corrections: (The following items were deleted from the chart) 12:29 12:05 09/11/2018 12:05 Discharged to Home. Impression: Chest pain, unspecified. em Condition is Stable. Forms are Medication Reconciliation Form, Thank You Letter, Antibiotic Education, Prescription Opioid Use. Follow up: Emergency Department; When: As needed; Reason: Worsening of condition. Follow up: Private Physician; When: 2 - 3 days; Reason: Recheck today's complaints, Continuance of care, Re-evaluation by your physician. Problem is new. Symptoms have improved. pm1
--- NOTE | 2018-09-11 12:06 | ER ---
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 Pain rated at 10/10 at this time. Transition of care: patient was not received from another setting of care. Onset of symptoms was August 21, 2018. Risk Assessment: Do you want to hurt yourself or someone else? Patient reports no desire to harm self or others. 09:01 Method Of Arrival: Ambulatory dm5 09:01 Acuity: NAWAF 3 dm5 10:26 Initial Sepsis Screen: Does the patient meet any 2 criteria? No. Patient's initial em sepsis screen is negative. Does the patient have a suspected source of infection? No. Patient's initial sepsis screen is negative. Care prior to arrival: None. 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 - Social history:: Smoking status: Patient/guardian denies using tobacco. - Ebola Screening: : Patient negative for fever greater than or equal to 101.5 degrees Fahrenheit, and additional compatible Ebola Virus Disease symptoms Patient denies exposure to infectious person Patient denies travel to an Ebola-affected area in the 21 days before illness onset No symptoms or risks identified at this time. Screenin:25 Abuse screen: Denies threats or abuse. Nutritional screening: No deficits noted. em Tuberculosis screening: No symptoms or risk factors identified. Fall Risk None identified. Assessment: 10:20 General: Appears in no apparent distress. uncomfortable, Behavior is calm, cooperative. em Pain: Complains of pain in left mid back and right mid back Pain does not radiate. Pain currently is 8 out of 10 on a pain scale. Pain began 10 days ago. Neuro: Level of Consciousness is awake, alert, obeys commands, Oriented to person, place, time, situation. Cardiovascular: Capillary refill < 3 seconds Patient's skin is warm and dry. Respiratory: Airway is patent Respiratory effort is even, unlabored, Respiratory pattern is regular, symmetrical, Breath sounds are clear bilaterally. GI: Abdomen is round non-distended. : No signs and/or symptoms were reported regarding the genitourinary system. Derm: Skin is intact. Musculoskeletal: Capillary refill < 3 seconds, Range of motion: intact in all extremities. 10:30 Reassessment: Patient appears in no apparent distress at this time. I agree with above iw assessment by Julian Rucker LVN. 10:55 Reassessment: Patient appears in no apparent distress at this time. Patient and/or em family updated on plan of care and expected duration. Pain level reassessed. Patient is alert, oriented x 3, equal unlabored respirations, skin warm/dry/pink. pt pain level is 9/10, provider notified, new medication orders received. 12:20 Reassessment: Patient appears in no apparent distress at this time. Patient and/or em family updated on plan of care and expected duration. Pain level reassessed. Patient is alert, oriented x 3, equal unlabored respirations, skin warm/dry/pink. Vital Signs: 09:02 BP 121 / 64; Pulse 67; Resp 16; Temp 98.4; Pulse Ox 98% on R/A; Weight 107.95 kg; dm5 Height 5 ft. 3 in. (160.02 cm); Pain 10/10; 10:27 BP 105 / 74; Pulse 63; Resp 16; Pulse Ox 95% on R/A; Pain 8/10; em 11:00 BP 117 / 53; Pulse 58; Resp 18; Pulse Ox 99% on R/A; Pain 9/10; em 12:08 BP 114 / 67; Pulse 85; Resp 18; Pulse Ox 97% on R/A; Pain 7/10; em 09:02 Body Mass Index 42.16 (107.95 kg, 160.02 cm) dm5 ED Course: 08:55 Patient arrived in ED. as 09:02 Triage completed. dm5 09:02 Arm band placed on right wrist. EKG completed in triage. Results shown to MD. dm5 09:23 Ahmet Murphy NP is PHCP. pm1 09:23 Ashwin Liu MD is Attending Physician. pm1 10:19 Julian Rucker LVN is Primary Nurse. em 10:25 Patient has correct armband on for positive identification. personnel monitor on. Pulse em ox on. NIBP on. 10:25 No provider procedures requiring assistance completed. Inserted saline lock: 22 gauge. em Patient maintains SpO2 saturation greater than 95% on room air. 10:33 X-ray completed. Portable x-ray completed in exam room. Patient tolerated procedure ml well. 10:34 Chest Single View XRAY In Process Unspecified. EDMS 10:40 EKG done, by tool technician. reviewed by Ashwin Liu MD. tc 12:26 IV discontinued, intact, bleeding controlled, No redness/swelling at site. Pressure em dressing applied. Administered Medications: 09:45 Drug: TORadol 30 mg Route: IVP; Site: right antecubital; hb 10:30 Follow up: Response: No adverse reaction; Pain is decreased iw 10:57 Drug: morphine 4 mg Route: IVP; Site: right antecubital; iw 12:06 Follow up: Response: No adverse reaction; Pain is decreased em 10:58 Drug: Zofran 4 mg Route: IVP; Site: right antecubital; iw 12:06 Follow up: Response: No adverse reaction em Outcome: 12:05 Discharge ordered by MD. pm1 12:26 Discharged to home ambulatory. em 12:26 Condition: good 12:26 Discharge instructions given to patient, Instructed on discharge instructions, follow up and referral plans. medication usage, Demonstrated understanding of instructions, follow-up care, medications, Prescriptions given X 3. 12:29 Patient left the ED. em Signatures: Dispatcher [employer] Fela Negrete, RN RN dm5 Julian Rucker, BACK GRINDER BACK GRINDER em Karina Del Cid Irene, Jessica Mckeon RN, Tiffany, computer processing scheduler EKG Ttc Ahmet Murphy, STAIN DIPPER STAIN DIPPER pm1 Jimena Cruz, DUTCH JUDD hb
--- NOTE | 2018-09-11 12:26 | EKG ---
Test Date: 2018-09-11 Test Time: 09:00:34 Crozer: GENEVIEVE MEASUREMENT RESULTS: Intervals: Rate: 78 AK: 102 QRSD: 90 QT: 348 QTc: 396 [place]: P: 10 AK: 102 QRS: 38 T: 43 INTERPRETIVE STATEMENTS: Sinus rhythm with marked sinus arrhythmia with short AK Otherwise normal ECG Compared to ECG 12/25/2014 08:24:39 No significant changes Electronically Signed On 09-11-18 12:25:23 CDT by Mal Hill
[2018-09-11 12:34] VITALS: TEMP 98.4
[2018-09-11 12:38] VITALS: BP 114/67; O2SAT 97
[2018-09-11 12:56] LABS: Blood Morphology Comment NOT SEEN (NOT SEEN); Platelet Estimate ADEQ; Urine White Blood Cell Casts OK
--- NOTE | 2018-09-12 08:16 | EKG ---
Test Date: 2018-09-11 Test Time: 10:23:47 Continuing Education Director: HUBERT MEASUREMENT RESULTS: Intervals: Rate: 67 VA: 100 QRSD: 100 QT: 364 QTc: 384 [place]: P: 11 VA: 100 QRS: 40 T: 39 INTERPRETIVE STATEMENTS: Sinus rhythm with short VA Otherwise normal ECG Compared to ECG 09/11/2018 09:00:34 Sinus arrhythmia no longer present Electronically Signed On 09-12-18 08:15:39 CDT by Mal Hill
== END 2018-09-11 12:29 | disposition home or self-care (01) ==
LOC: ER 08:53
DX: R07.9 Chest pain, unspecified (principal); Z88.0 Allergy status to penicillin
CPT/HCPCS: 36415; 71045; 80048; 80076; 83735; 83880; 84484; 85025; 85610; 87804; 93005; 96374; 96375; 99285; J2405

== ENCOUNTER 2018-10-06 19:16 | Emergency (ER) | payer MEDICAID ==
--- NOTE | 2018-10-06 19:41 | ER ---
Nurse's Notes [facility] Name: March Dom Age: 33 yrs Sex: Female : 1985 Arrival Date: 10/06/2018 Time: 19:18 Bed 26 Private MD: Diagnosis: Cracked tooth;Unspecified diseases of pulp and periapical tissues Presentation: 10/06 19:21 Presenting complaint: Patient states: left sided facial pain, left ear and jaw started tl3 hurting yesterday afternoon, feels like she has been running fever, vomited X 5-6, diarrhea X 4 all started yesterday. Transition of care: patient was not received from another setting of care. Onset of symptoms was October 05, 2018. Risk Assessment: Do you want to hurt yourself or someone else? Patient reports no desire to harm self or others. Initial Sepsis Screen: Does the patient meet any 2 criteria? No. Patient's initial sepsis screen is negative. Does the patient have a suspected source of infection? No. Patient's initial sepsis screen is negative. Care prior to arrival: None. 19:21 Method Of Arrival: Ambulatory tl3 19:21 Acuity: NAWAF 3 tl3 Triage Assessment: 19:24 General: Appears distressed, uncomfortable, Behavior is calm, cooperative, appropriate tl3 for age. Pain: Complains of pain in left ear and left jaw. 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 - Social history:: Smoking status: Patient uses tobacco products, smokes one-half pack cigarettes per day. - Ebola Screening: : No symptoms or risks identified at this time. Screenin:34 Abuse screen: Denies threats or abuse. Denies injuries from another. Nutritional mg2 screening: No deficits noted. Tuberculosis screening: No symptoms or risk factors identified. Fall Risk None identified. Assessment: 19:56 General: Appears uncomfortable, Behavior is cooperative, crying. Pain: Complains of mg2 pain in left mandible and left cheek and left jaw Pain does not radiate. Pain currently is 8 out of 10 on a pain scale. Quality of pain is described as aching, Pain began gradually, 2-3 days ago. Neuro: Level of Consciousness is awake, alert, obeys commands, Oriented to person, place, time, situation. Cardiovascular: Capillary refill < 3 seconds Patient's skin is warm and dry. Respiratory: Airway is patent Respiratory effort is even, unlabored, Respiratory pattern is regular, symmetrical. GI: Reports nausea, vomiting. : No deficits noted. EENT: dental caries. Derm: Skin is intact, is healthy with good turgor, Skin is pink, warm \T\ dry. normal. Musculoskeletal: No signs and/or symptoms reported regarding the musculoskeletal system. Vital Signs: 19:24 BP 129 / 86; Pulse 76; Resp 18; Temp 99.2; Pulse Ox 98% on R/A; tl3 ED Course: 19:18 Patient arrived in ED. am2 19:22 Gladys Verduzco [facility]-C [facility]. snw 19:22 Estuardo Ceballos MD is Attending Physician. snw 19:23 Triage completed. tl3 19:24 Arm band placed on right wrist. tl3 19:33 Carlos Lindsey, DUTCH is Primary Nurse. mg2 19:58 No provider procedures requiring assistance completed. Patient did not have IV access mg2 during this emergency room visit. 19:59 Patient has correct armband on for positive identification. mg2 Administered Medications: 19:54 Drug: fentaNYL (PF) 50 mcg Route: IM; Site: right gluteus; mg2 19:56 Follow up: Response: No adverse reaction; Medication administered at discharge. mg2 19:54 Drug: Clindamycin 300 mg Route: PO; mg2 19:56 Follow up: Response: No adverse reaction; Medication administered at discharge. mg2 Outcome: 19:40 Discharge ordered by . snw 19:59 Discharged to home ambulatory, with family. mg2 19:59 Condition: stable 19:59 Discharge instructions given to patient, family, Instructed on discharge instructions, follow up and referral plans. medication usage, Demonstrated understanding of instructions, follow-up care, medications, Prescriptions given X 3. 20:00 Patient left the ED. mg2 Signatures: Gladys Verduzco FNP-C TERRAZZO LAYER HELPER-Csnw Jillian Branch am2 Barbara Arciniega RN RN tl3 Carlos Lindsey RN RN mg2
--- NOTE | 2018-10-06 19:41 | EDPHYS ---
Physician Documentation [facility] Name: March Age: 33 yrs Sex: Female : 1985 Arrival Date: 10/06/2018 Time: 19:18 Bed 26 Private MD: ED Physician Estuardo Ceballos HPI: 10/06 19:44 This 33 yrs old Female presents to ER via Ambulatory with complaints of Ear snw Pain, left Facial pain, Nausea/Vomiting/Diarrhea. 19:44 The patient presents with pain, that is acute. The complaints affect the left ear, left snw jaw, left zygomatic area, left cheek and left mandible. Onset: The symptoms/episode began/occurred suddenly, today. Modifying factors: The symptoms are alleviated by nothing. Severity of symptoms: At their worst the symptoms were moderate. The patient has experienced similar episodes in the past. The patient has not recently seen a physician. 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 - Social history:: Smoking status: Patient uses tobacco products, smokes one-half pack cigarettes per day. - Ebola Screening: : No symptoms or risks identified at this time. ROS: 19:43 Constitutional: Negative for fever, chills, and weight loss, Eyes: Negative for injury, snw pain, redness, and discharge, Neck: Negative for injury, pain, and swelling, Cardiovascular: Negative for chest pain, palpitations, and edema, Respiratory: Negative for shortness of breath, cough, wheezing, and pleuritic chest pain, Abdomen/GI: Negative for abdominal pain, nausea, vomiting, diarrhea, and constipation, Back: Negative for injury and pain, : Negative for injury, bleeding, discharge, and swelling, MS/Extremity: Negative for injury and deformity, Skin: Negative for injury, rash, and discoloration, Neuro: Negative for headache, weakness, numbness, tingling, and seizure. 19:43 ENT: Positive for dental pain, ear pain, left facial and submandibular pain. Exam: 19:42 Constitutional: This is a well developed, well nourished patient who is awake, alert, snw and in no acute distress. Head/Face: Normocephalic, atraumatic. Eyes: Pupils equal round and reactive to light, extra-ocular motions intact. Lids and lashes normal. Conjunctiva and sclera are non-icteric and not injected. Cornea within normal limits. Periorbital areas with no swelling, redness, or edema. Chest/axilla: Normal chest wall appearance and motion. Nontender with no deformity. No lesions are appreciated. Cardiovascular: Regular rate and rhythm with a normal S1 and S2. No gallops, murmurs, or rubs. Normal PMI, no JVD. No pulse deficits. Respiratory: Lungs have equal breath sounds bilaterally, clear to auscultation and percussion. No rales, rhonchi or wheezes noted. No increased work of breathing, no retractions or nasal flaring. Abdomen/GI: Soft, non-tender, with normal bowel sounds. No distension or tympany. No guarding or rebound. No evidence of tenderness throughout. Back: No spinal tenderness. No costovertebral tenderness. Full range of motion. Skin: Warm, dry with normal turgor. Normal color with no rashes, no lesions, and no evidence of cellulitis. MS/ Extremity: Pulses equal, no cyanosis. Neurovascular intact. Full, normal range of motion. Neuro: Awake and alert, GCS 15, oriented to person, place, time, and situation. Cranial nerves II-XII grossly intact. Motor strength 5/5 in all extremities. Sensory grossly intact. Cerebellar exam normal. Normal gait. 19:42 ENT: External ear(s): are unremarkable, Ear canal(s): are normal, TM's: are normal, Nose: is normal, Mouth: is normal, Posterior pharynx: is normal, Dental exam: missing teeth, diffusely, pain, that is moderate, that is severe, specifically in the lower left second molar (#18). Vital Signs: 19:24 BP 129 / 86; Pulse 76; Resp 18; Temp 99.2; Pulse Ox 98% on R/A; tl3 MDM: 19:28 Patient medically screened. snw 19:44 Data reviewed: vital signs, nurses notes. Data interpreted: Pulse oximetry: on room air snw is 98 %. Interpretation: normal. Counseling: I had a detailed discussion with the patient and/or guardian regarding: the historical points, exam findings, and any diagnostic results supporting the discharge/admit diagnosis, the presence of at least one elevated blood pressure reading (>120/80) during this emergency department visit, the need for outpatient follow up, to return to the emergency department if symptoms worsen or persist or if there are any questions or concerns that arise at home. Special discussion: I have referred the patient to see his PCP for further evaluation of high blood pressure. Based on the history and exam findings, there is no indication for further emergent testing or inpatient evaluation. I discussed with the patient/guardian the need to see a dentist for further evaluation of the symptoms. I discussed with the patient/guardian the need to see the primary care provider for further evaluation of the symptoms. Administered Medications: 19:54 Drug: fentaNYL (PF) 50 mcg Route: IM; Site: right gluteus; mg2 19:56 Follow up: Response: No adverse reaction; Medication administered at discharge. mg2 19:54 Drug: Clindamycin 300 mg Route: PO; mg2 19:56 Follow up: Response: No adverse reaction; Medication administered at discharge. mg2 Disposition: 10/07 17:24 Co-signature as Attending Physician, Estuardo Ceballos MD. gs Disposition: 10/06/18 19:40 Discharged to Home. Impression: Cracked tooth, Unspecified diseases of pulp and periapical tissues. - Condition is Stable. - Discharge Instructions: Dental Pain, Tooth Injuries, Dental Pain, [id number], Diet and Dental Disease, Preventive Dental Care, Adult. - Prescriptions for chlorhexidine gluconate 0.12 % Mucous Membrane mouthwash - place 15 milliliter by MUCOUS MEMBRANE route 2 times per day after brushing teeth, swish in mouth for 30 seconds then spit out; 480 milliliter. Clindamycin HCl 300 mg Oral Capsule - take 1 capsule by ORAL route every 6 hours for 10 days; 40 capsule. Diclofenac Sodium 75 mg Oral Tablet Sustained Release - take 1 tablet by ORAL route 2 times per day; 30 tablet. - Medication Reconciliation Form, Thank You Letter, Antibiotic Education, Prescription Opioid Use form. - Follow up: Private Physician; When: Tomorrow; Reason: Recheck today's complaints, Continuance of care, Re-evaluation by your physician. Follow up: Emergency Department; When: As needed; Reason: Worsening of condition. Signatures: Gladys Verduzco, INSURANCE AGENCY SALES MANAGER-C INSURANCE AGENCY SALES MANAGER-Csnw Estuardo Ceballos MD MD gs Barabra Arciniega, RN RN tl3 Carlos Lindsey, DUTCH RN mg2 Corrections: (The following items were deleted from the chart) 10/06 20:00 19:40 10/06/2018 19:40 Discharged to Home. Impression: Cracked tooth; Unspecified mg2 diseases of pulp and periapical tissues. Condition is Stable. Forms are Medication Reconciliation Form, Thank You Letter, Antibiotic Education, Prescription Opioid Use. Follow up: Private Physician; When: Tomorrow; Reason: Recheck today's complaints, Continuance of care, Re-evaluation by your physician. Follow up: Emergency Department; When: As needed; Reason: Worsening of condition. snw
[2018-10-06] MEDS ORDERED: FENTANYL CITR 100 MCG/2 ML ONE (19:49)
[2018-10-06] MEDS ORDERED: CLINDAMYCIN HCL 150 MG CAP ONE (19:49)
[2018-10-06 20:08] VITALS: BP 129/86; TEMP 99.2; O2SAT 98
== END 2018-10-06 20:00 | disposition home or self-care (01) ==
LOC: ER 19:16
DX: K03.81 Cracked tooth (principal); K04.90 Unspecified diseases of pulp and periapical tissues; F17.210 Nicotine dependence, cigarettes, uncomplicated
CPT/HCPCS: 96372; 99283; J3010

== ENCOUNTER 2018-10-07 14:31 | Emergency (ER) | payer MEDICAID, SELFPAY ==
--- NOTE | 2018-10-07 15:31 | RAD REPORT ---
EXAM DESCRIPTION: CT - Soft Tissue Neck W/Contr CLINICAL HISTORY: FACIAL PAIN Fever COMPARISON: Soft Tissue Neck W/Contr dated 07/17/[address] scans are performed using dose optimization technique as appropriate and may includ e automated exposure control or mA/KV adjustment according to patient size. FINDINGS: Nasopharyngeal tissues are normal in appearance. Fossa Rosenmller are normal. The tongue base region and palatine tonsils are mildly prominent. No peritonsillar abscess seen. No p revertebral fluid collection or abscess present. No bulky adenopathy along the jugular chains.. Dental caries are present with periapical abscesses involving several of the molars bilaterally. IMPRESSION: No acute abnormality is detected.
--- NOTE | 2018-10-07 15:37 | ER ---
Nurse's Notes [facility] Name: March Dom Age: 33 yrs Sex: Female : 1985 Arrival Date: 10/07/2018 Time: 14:32 Bed 23 Private MD: Diagnosis: Periapical abscess without sinus Presentation: 10/07 14:33 Presenting complaint: Patient states: i came in last night for neck pain, was told from a tooth problem, its gotten worse over night, reports fever, nausea and vomiting and diarrhea; T- 101.1;. Transition of care: patient was not received from another setting of care. Acute neurological deficit: none identified. Onset of symptoms was October 07, 2018. Risk Assessment: Do you want to hurt yourself or someone else? Patient reports no desire to harm self or others. Initial Sepsis Screen: Does the patient meet any 2 criteria? No. Patient's initial sepsis screen is negative. Does the patient have a suspected source of infection? No. Patient's initial sepsis screen is negative. Care prior to arrival: None. 14:33 Method Of Arrival: Ambulatory 14:33 Acuity: NAWAF 3 Triage Assessment: 14:36 General: Appears in no apparent distress. uncomfortable, Behavior is calm, cooperative, hj appropriate for age. Pain: Complains of pain in jaw, neck. 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 - Social history:: Smoking status: Patient/guardian denies using tobacco, Patient/guardian denies using alcohol. - Ebola Screening: : Patient negative for fever greater than or equal to 101.5 degrees Fahrenheit, and additional compatible Ebola Virus Disease symptoms Patient denies exposure to infectious person Patient denies travel to an Ebola-affected area in the 21 days before illness onset. Screenin:36 Abuse screen: Denies threats or abuse. Denies injuries from another. Nutritional screening: No deficits noted. Tuberculosis screening: No symptoms or risk factors identified. Fall Risk None identified. Assessment: 14:36 Neuro: Level of Consciousness is awake, alert, obeys commands. hj 14:54 General: Appears in no apparent distress. uncomfortable, Behavior is calm, cooperative. aj1 Pain: Complains of pain in left jaw Pain radiates to anterior aspect of left shoulder, posterior aspect of left shoulder and neck Pain currently is 10 out of 10 on a pain scale. Quality of pain is described as "like someone is trying to rip my jaw off". Neuro: Level of Consciousness is awake, alert, obeys commands. Cardiovascular: Patient's skin is warm and dry. Respiratory: Airway is patent Respiratory effort is even, unlabored, Respiratory pattern is regular, symmetrical. GI: No signs and/or symptoms were reported involving the gastrointestinal system. : No signs and/or symptoms were reported regarding the genitourinary system. EENT: Reports jaw pain, started on antibiotics and pain medication yesterday with no relief. Derm: No signs and/or symptoms reported regarding the dermatologic system. Skin is pink, warm \\T\\ dry. normal. Musculoskeletal: No signs and/or symptoms reported regarding the musculoskeletal system. Circulation, motion, and sensation intact. 16:09 Reassessment: Patient states that she is still in a lot of pain despite previously [facility] administered pain medication, she would like to stay until the [place] has had a change to kick in prior to being discharged. 16:48 Reassessment: Patient states that she is ready to go now. aj1 Vital Signs: 14:37 BP 139 / 86; Pulse 69; Resp 18; Temp 97.6(TE); Pulse Ox 100% on R/A; Weight 112.49 kg; hj Height 5 ft. 3 in. (160.02 cm); Pain 10/10; 14:37 Body Mass Index 43.93 (112.49 kg, 160.02 cm) ED Course: 14:32 Patient arrived in ED. as 14:35 Triage completed. hj 14:36 Arm band placed on right wrist. hj 14:38 Patient has correct armband on for positive identification. Bed in low position. Call light in reach. Side rails up X 1. 14:40 Veena Mcdonough RN is Primary Nurse. aj1 14:49 Roz Fine FNP-C is PHCP. kb 14:49 David Jim MD is Attending Physician. kb 14:54 No provider procedures requiring assistance completed. aj1 15:[address] vr 15:10 Inserted saline lock: 22 gauge in left antecubital area, using aseptic technique. Blood ds4 collected. 15:11 CT completed. Patient tolerated procedure well. Patient moved back from CT. vr 15:11 Creatinine for Radiology Sent. ds4 15:15 CT Soft Tissue Neck W/contr In Process Unspecified. EDMS 16:49 IV discontinued, intact, bleeding controlled, No redness/swelling at site. Pressure aj1 dressing applied. Administered Medications: 15:37 Drug: Zofran 4 mg Route: IVP; Site: left antecubital; iw 16:48 Follow up: Response: No adverse reaction aj1 15:37 Drug: fentaNYL (PF) 50 mcg Route: IVP; Site: left antecubital; iw 16:48 Follow up: Response: No adverse reaction aj1 15:48 Drug: [place] 10 mg-325 mg 1 tabs Route: PO; iw 16:48 Follow up: Response: No adverse reaction aj1 Outcome: 15:37 Discharge ordered by MD. kb 16:49 Discharged to home ambulatory. aj1 16:49 Condition: good 16:49 Discharge instructions given to patient, Instructed on discharge instructions, follow up and referral plans. medication usage, Demonstrated understanding of instructions, follow-up care, medications, Prescriptions given X 2. 16:49 Patient left the ED. aj1 Signatures: Dispatcher [employer] EDMS Roz Fine, BOX SEALING MACHINE FEEDER-C BOX SEALING MACHINE FEEDER-CkVeena Plascencia RN RN aj1 Karina Del Cid Irene, Leila Durant RN, Donovan ds4 Josué Roberto RN RN hj Corrections: (The following items were deleted from the chart) 14:39 14:37 Pulse 69bpm; Resp 18bpm; Pulse Ox 100% RA; Temp 97.6F Temporal; 112.49 kg; Height hj 5 ft. 3 in.; BMI: 43.9; Pain 10/10; hj 14:42 14:33 Presenting complaint: Patient states: i came in last night for neck pain, from a hj tooth problem, its gotten worse over night, reports fever, nausea and vomiting and diarrhea; T- 101.1; hj
--- NOTE | 2018-10-07 15:37 | EDPHYS ---
Physician Documentation [facility] Name: March Age: 33 yrs Sex: Female : 1985 Arrival Date: 10/07/2018 Time: 14:32 Bed 23 Private MD: ED Physician David Jim HPI: 10/07 14:58 This 33 yrs old Female presents to ER via Ambulatory with complaints of Jaw kb Pain, Neck Pain, >24Hrs Old, Nausea/Vomiting. 14:59 The patient or guardian complains of pain, swelling, tenderness. The symptoms are kb located on the left jaw and left zygomatic area. Onset: The symptoms/episode began/occurred 3 day(s) ago, and became worse last night. Context: The neck injury/problem resulted from from unknown cause. Associated signs and symptoms: Pertinent positives: nausea, vomiting, The patient denies any alcohol use. The patient is not apparently intoxicated. No neurological symptoms were experienced by the patient prior to arrival in the emergency department. The pain does not radiate. Modifying factors: The symptoms are alleviated by nothing. the symptoms are aggravated by pressure. Severity of symptoms: At their worst the symptoms were moderate, in the emergency department the symptoms are unchanged. The patient has not experienced similar symptoms in the past. The patient has been recently seen at the [facility] Emergency Department, yesterday, for similar complaints was given a prescription for antibiotics, was given a prescription for pain medications. 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 - Social history:: Smoking status: Patient/guardian denies using tobacco, Patient/guardian denies using alcohol. - Ebola Screening: : Patient negative for fever greater than or equal to 101.5 degrees Fahrenheit, and additional compatible Ebola Virus Disease symptoms Patient denies exposure to infectious person Patient denies travel to an Ebola-affected area in the 21 days before illness onset. ROS: 14:59 Constitutional: Negative for fever, chills, and weight loss, Cardiovascular: Negative kb for chest pain, palpitations, and edema, Respiratory: Negative for shortness of breath, cough, wheezing, and pleuritic chest pain, Abdomen/GI: Negative for abdominal pain, nausea, vomiting, diarrhea, and constipation, MS/Extremity: Negative for injury and deformity, Skin: Negative for injury, rash, and discoloration, Neuro: Negative for headache, weakness, numbness, tingling, and seizure. 14:59 ENT: Positive for dental pain, jaw pain. Exam: 14:59 Constitutional: This is a well developed, well nourished patient who is awake, alert, kb and in no acute distress. Head/Face: Normocephalic, atraumatic. Chest/axilla: Normal chest wall appearance and motion. Nontender with no deformity. No lesions are appreciated. Cardiovascular: Regular rate and rhythm with a normal S1 and S2. No gallops, murmurs, or rubs. Normal PMI, no JVD. No pulse deficits. Respiratory: Lungs have equal breath sounds bilaterally, clear to auscultation and percussion. No rales, rhonchi or wheezes noted. No increased work of breathing, no retractions or nasal flaring. Abdomen/GI: Soft, non-tender, with normal bowel sounds. No distension or tympany. No guarding or rebound. No evidence of tenderness throughout. Skin: Warm, dry with normal turgor. Normal color with no rashes, no lesions, and no evidence of cellulitis. MS/ Extremity: Pulses equal, no cyanosis. Neurovascular intact. Full, normal range of motion. Neuro: Awake and alert, GCS 15, oriented to person, place, time, and situation. Cranial nerves II-XII grossly intact. Motor strength 5/5 in all extremities. Sensory grossly intact. Cerebellar exam normal. Normal gait. 14:59 ENT: Dental exam: dental caries, that is moderate, specifically in the lower left first molar (#19), pain, that is moderate. Vital Signs: 14:37 BP 139 / 86; Pulse 69; Resp 18; Temp 97.6(TE); Pulse Ox 100% on R/A; Weight 112.49 kg; hj Height 5 ft. 3 in. (160.02 cm); Pain 10/10; 14:37 Body Mass Index 43.93 (112.49 kg, 160.02 cm) hj MDM: 14:49 Patient medically screened. kb 15:12 Data reviewed: vital signs, nurses notes. Data interpreted: Pulse oximetry: on room air kb is 100 %. Interpretation: normal. 15:36 Counseling: I had a detailed discussion with the patient and/or guardian regarding: the kb historical points, exam findings, and any diagnostic results supporting the discharge/admit diagnosis, radiology results, the need for outpatient follow up, a dentist, to return to the emergency department if symptoms worsen or persist or if there are any questions or concerns that arise at home. ED course: Pt has appt with dentist next week. Educated to continue previously prescribed antibiotics for periapical abscess. . 10/07 14:53 Order name: Creatinine for Radiology; Complete Time: 16:11 kb 10/07 14:53 Order name: CT Soft Tissue Neck W/contr; Complete Time: 15:32 kb 10/07 14:53 Order name: IV Start; Complete Time: 15:11 kb Administered Medications: 15:37 Drug: Zofran 4 mg Route: IVP; Site: left antecubital; iw 16:48 Follow up: Response: No adverse reaction aj1 15:37 Drug: fentaNYL (PF) 50 mcg Route: IVP; Site: left antecubital; iw 16:48 Follow up: Response: No adverse reaction aj1 15:48 Drug: [place] 10 mg-325 mg 1 tabs Route: PO; iw 16:48 Follow up: Response: No adverse reaction aj1 Disposition: 17:45 Co-signature as Attending Physician, David Jim MD. rn Disposition: 10/07/18 15:37 Discharged to Home. Impression: Periapical abscess without sinus. - Condition is Stable. - Discharge Instructions: Dental Pain, [id number], Dental Abscess, [id number]. - Prescriptions for Zofran 4 mg Oral Tablet - take 1 tablet by ORAL route every 6 hours As needed; 20 tablet. Tramadol 50 mg Oral Tablet - take 1 tablet by ORAL route every 8 hours as needed; 12 tablet. - Medication Reconciliation Form, Thank You Letter, Antibiotic Education, Prescription Opioid Use form. - Follow up: Emergency Department; When: As needed; Reason: Worsening of condition. Follow up: Private Physician; When: 2 - 3 days; Reason: Recheck today's complaints, Continuance of care, Re-evaluation by your physician. Signatures: Dispatcher [employer] EDRoz Villanueva, ENGINEERING INSPECTOR-C ENGINEERING INSPECTOR-Veena Cates RN RN aj1 Jigna James RN RN iw Nieto, Roman, MD MD rn Joaquin, Henry, RN RN hj Corrections: (The following items were deleted from the chart) 16:49 15:37 10/07/2018 15:37 Discharged to Home. Impression: Periapical abscess without aj1 sinus. Condition is Stable. Forms are Medication Reconciliation Form, Thank You Letter, Antibiotic Education, Prescription Opioid Use. Follow up: Emergency Department; When: As needed; Reason: Worsening of condition. Follow up: Private Physician; When: 2 - 3 days; Reason: Recheck today's complaints, Continuance of care, Re-evaluation by your physician. kb
[2018-10-07] MEDS ORDERED: FENTANYL CITR 100 MCG/2 ML ONE (15:40)
[2018-10-07] MEDS ORDERED: ONDANSETRON 4 MG/2 ML VIAL ONE (15:40)
[2018-10-07] MEDS ORDERED: HYDROCODONE/APAP 10/325 TAB ONE (15:53)
[2018-10-07 17:00] VITALS: BP 139/86; TEMP 97.6; O2SAT 100
== END 2018-10-07 16:49 | disposition home or self-care (01) ==
LOC: ER 14:31
DX: K04.7 Periapical abscess without sinus (principal); Z88.0 Allergy status to penicillin
CPT/HCPCS: 36415; 70491; 96374; 96375; 99284; J2405; J3010; Q9967

== ENCOUNTER 2018-10-27 15:40 | Emergency (ER) | payer SELFPAY ==
--- NOTE | 2018-10-27 17:45 | ER ---
Nurse's Notes [facility] Name: March Fernandes Age: 33 yrs Sex: Female : 1985 Arrival Date: 10/27/2018 Time: 15:44 Bed 9 Private MD: None, None Diagnosis: Otitis media, unspecified, left ear;Acute sinusitis Presentation: 10/27 16:01 Presenting complaint: Patient states: pain to left side of neck, intermittent, feels sg like an ear infection, also has vomiting that started last night, fever since Saturday and also diarrhea, hx of Crohns disease. Transition of care: patient was not received from another setting of care. Onset of symptoms was October 25, 2018. Risk Assessment: Do you want to hurt yourself or someone else? Patient reports no desire to harm self or others. Initial Sepsis Screen: Does the patient meet any 2 criteria? No. Patient's initial sepsis screen is negative. Does the patient have a suspected source of infection? No. Patient's initial sepsis screen is negative. Care prior to arrival: None. 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 - Social history:: Smoking status: Patient uses tobacco products, smokes one-half pack cigarettes per day. - Ebola Screening: : Patient negative for fever greater than or equal to 101.5 degrees Fahrenheit, and additional compatible Ebola Virus Disease symptoms Patient denies exposure to infectious person Patient denies travel to an Ebola-affected area in the 21 days before illness onset No symptoms or risks identified at this time. Screenin:20 Abuse screen: Denies threats or abuse. Denies injuries from another. Nutritional mg2 screening: No deficits noted. Tuberculosis screening: No symptoms or risk factors identified. Fall Risk None identified. Assessment: 17:25 General: Appears in no apparent distress. uncomfortable, Behavior is calm, cooperative. mg2 Pain: Complains of pain in throat, neck, upper abdomen Pain does not radiate. Pain currently is 8 out of 10 on a pain scale. Quality of pain is described as aching, Pain began gradually, Is intermittent. Neuro: Level of Consciousness is awake, alert, obeys commands, Oriented to person, place, time, situation. Cardiovascular: Capillary refill < 3 seconds Patient's skin is warm and dry. Respiratory: Airway is patent Respiratory effort is even, unlabored, Respiratory pattern is regular, symmetrical. GI: Abdomen is round non-distended, Reports upper abdominal pain, vomiting. : No signs and/or symptoms were reported regarding the genitourinary system. EENT: Reports pain in throat. Derm: Skin is intact, is healthy with good turgor, Skin is pink, warm \T\ dry. normal. Musculoskeletal: No signs and/or symptoms reported regarding the musculoskeletal system. Vital Signs: 16:03 BP 137 / 82; Pulse 84; Resp 18; Temp 98.3; Pulse Ox 98% on R/A; Weight 112.49 kg; sg Height 5 ft. 3 in. (160.02 cm); Pain 10/10; 17:28 BP 145 / 75; Pulse 63; Resp 17; Temp 97.7; Pulse Ox 97% on R/A; Pain 8/10; mg2 16:03 Body Mass Index 43.93 (112.49 kg, 160.02 cm) sg ED Course: 15:44 Patient arrived in ED. sb2 15:45 None, None is Private Physician. sb2 16:03 Triage completed. sg 16:03 Arm band placed on. sg 17:04 Cralos Lindsey, DUTCH is Primary Nurse. mg2 17:05 Ahmet Murphy NP is PHCP. pm1 17:05 Nicolas Gonzalez MD is Attending Physician. pm1 17:20 No provider procedures requiring assistance completed. mg2 17:28 Patient has correct armband on for positive identification. mg2 18:03 Patient did not have IV access during this emergency room visit. mg2 Administered Medications: 18:02 Drug: SOLU-Medrol 125 mg Route: IM; Site: left gluteus; mg2 18:02 Follow up: Response: No adverse reaction; Medication administered at discharge. mg2 18:02 Drug: [place] 5 mg-325 mg 1 tabs Route: PO; mg2 18:03 Follow up: Response: No adverse reaction; Medication administered at discharge. mg2 Outcome: 17:44 Discharge ordered by MD. pm1 18:03 Discharged to home ambulatory, with family. mg2 18:03 Condition: stable 18:03 Discharge instructions given to patient, family, Instructed on discharge instructions, follow up and referral plans. medication usage, Demonstrated understanding of instructions, follow-up care, medications, Prescriptions given X 4. 18:03 Patient left the ED. mg2 Signatures: Michael Collier RN RN Ahmet Murphy NP CUTTING PRESSMAN pm1 Sparkle Alvarez sb2 Carlos Lindsey RN RN mg2 Corrections: (The following items were deleted from the chart) 17:27 16:03 Home Meds: None; mg2
--- NOTE | 2018-10-27 17:45 | EDPHYS ---
Physician Documentation [facility] Name: March Fernandes Age: 33 yrs Sex: Female : 1985 Arrival Date: 10/27/2018 Time: 15:44 Bed 9 Private MD: None, None ED Physician Nicolas Gonzalez HPI: 10/27 18:00 This 33 yrs old Female presents to ER via Ambulatory with complaints of Left pm1 ear pain. 18:00 The patient reports fever, not measured (subjective). Onset: The symptoms/episode pm1 began/occurred today. Modifying factors: there are no obvious modifying factors. Associated signs and symptoms: Pertinent positives: earache, Pertinent negatives: cough, nausea, shortness of breath, sore throat, vomiting. Severity of symptoms:. The patient has not experienced similar symptoms in the past. The patient has not recently seen a physician. Patient presenting with left ear pain with pain to lymph nodes on the left side of her neck. Left ear pain with nausea and dizziness. Patient denies abdominal pain to me. Had one episode of diarrhea yesterday. 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 - Social history:: Smoking status: Patient uses tobacco products, smokes one-half pack cigarettes per day. - Ebola Screening: : Patient negative for fever greater than or equal to 101.5 degrees Fahrenheit, and additional compatible Ebola Virus Disease symptoms Patient denies exposure to infectious person Patient denies travel to an Ebola-affected area in the 21 days before illness onset No symptoms or risks identified at this time. ROS: 18:00 Constitutional: Negative for fever, chills, and weight loss, Eyes: Negative for injury, pm1 pain, redness, and discharge. 18:00 Cardiovascular: Negative for chest pain, palpitations, and edema. 18:00 Respiratory: Negative for shortness of breath, cough, wheezing, and pleuritic chest pain, Abdomen/GI: Negative for abdominal pain, nausea, vomiting, diarrhea, and constipation, Back: Negative for injury and pain, MS/Extremity: Negative for injury and deformity, Skin: Negative for injury, rash, and discoloration. 18:00 ENT: Positive for ear pain, Negative for drainage from ear(s), sore throat, dental pain, difficulty swallowing, difficulty handling secretions. 18:00 Neck: Positive for swollen nodes. 18:00 Neuro: Positive for dizziness, Negative for headache, numbness, tingling, weakness. Exam: 18:00 Constitutional: This is a well developed, well nourished patient who is awake, alert, pm1 and in no acute distress. Eyes: Pupils equal round and reactive to light, extra-ocular motions intact. Lids and lashes normal. Conjunctiva and sclera are non-icteric and not injected. Cornea within normal limits. Periorbital areas with no swelling, redness, or edema. 18:00 Neck: Trachea midline, no thyromegaly or masses palpated, and no cervical lymphadenopathy. Supple, full range of motion without nuchal rigidity, or vertebral point tenderness. No Meningismus. Chest/axilla: Normal chest wall appearance and motion. Nontender with no deformity. No lesions are appreciated. Cardiovascular: Regular rate and rhythm with a normal S1 and S2. No gallops, murmurs, or rubs. Normal PMI, no JVD. No pulse deficits. Respiratory: Lungs have equal breath sounds bilaterally, clear to auscultation and percussion. No rales, rhonchi or wheezes noted. No increased work of breathing, no retractions or nasal flaring. Abdomen/GI: Soft, non-tender, with normal bowel sounds. No distension or tympany. No guarding or rebound. No evidence of tenderness throughout. Back: No spinal tenderness. No costovertebral tenderness. Full range of motion. Skin: Warm, dry with normal turgor. Normal color with no rashes, no lesions, and no evidence of cellulitis. MS/ Extremity: Pulses equal, no cyanosis. Neurovascular intact. Full, normal range of motion. 18:00 Head/face: Sinus tenderness, that is moderate, is located over the right frontal sinus, left frontal sinus and left maxillary sinus. 18:00 ENT: External ear(s): are unremarkable, Ear canal(s): are normal, TM's: bulging, on the left, erythema, on the left. 18:00 Neuro: Orientation: is normal, Motor: moves all fours, Gait: is steady, at a normal pace, without difficulty. Vital Signs: 16:03 BP 137 / 82; Pulse 84; Resp 18; Temp 98.3; Pulse Ox 98% on R/A; Weight 112.49 kg; sg Height 5 ft. 3 in. (160.02 cm); Pain 10/10; 17:28 BP 145 / 75; Pulse 63; Resp 17; Temp 97.7; Pulse Ox 97% on R/A; Pain 8/10; mg2 16:03 Body Mass Index 43.93 (112.49 kg, 160.02 cm) sg MDM: 17:[address] [facility] 17:43 Data reviewed: vital signs. Data interpreted: Pulse oximetry: on room air is 97 %. pm1 Interpretation: normal. Counseling: I had a detailed discussion with the patient and/or guardian regarding: the historical points, exam findings, and any diagnostic results supporting the discharge/admit diagnosis, the need for outpatient follow up, to return to the emergency department if symptoms worsen or persist or if there are any questions or concerns that arise at home. Administered Medications: 18:02 Drug: SOLU-Medrol 125 mg Route: IM; Site: left gluteus; mg2 18:02 Follow up: Response: No adverse reaction; Medication administered at discharge. mg2 18:02 Drug: Echo 5 mg-325 mg 1 tabs Route: PO; mg2 18:03 Follow up: Response: No adverse reaction; Medication administered at discharge. mg2 Disposition: 10/28 07:23 Co-signature as Attending Physician, Nicolas Gonzalez MD I agree with the assessment and [facility] plan of care. Disposition: 10/27/18 17:44 Discharged to Home. Impression: Otitis media, unspecified, left ear, Acute sinusitis. - Condition is Stable. - Discharge Instructions: Otitis Media, Adult, Sinusitis, Adult. - Prescriptions for Tylenol- Codeine #3 300-30 mg Oral Tablet - take 2 tablets by ORAL route every 6 hours As needed; 20 tablet. Zyrtec- D 5-120 mg Oral Tablet Sustained Release 12 hr - take 1 tablet by ORAL route every 12 hours As needed; 20 tablet. Medrol (Aram) 4 mg Oral Tablets, Dose Pack - take 1 tablet by ORAL route as directed - follow package instructions; 1 packet. Zithromax 500 mg Oral Tablet - take 1 tablet by ORAL route once daily for 3 days; 3 tablet. - Medication Reconciliation Form, Thank You Letter, Antibiotic Education, Prescription Opioid Use form. - Follow up: Emergency Department; When: As needed; Reason: Worsening of condition. Follow up: Private Physician; When: 2 - 3 days; Reason: Recheck today's complaints, Continuance of care, Re-evaluation by your physician. - Problem is new. - Symptoms have improved. Signatures: Michael Collier RN RN Nicolas Dietz MD MD cha Marinas, Patrick, PLANT UTILITY PERSON PLANT UTILITY PERSON pm1 Carlos Lindsey RN RN mg2 Corrections: (The following items were deleted from the chart) 10/27 17:27 16:03 Home Meds: None; sg mg2 18:03 17:44 10/27/2018 17:44 Discharged to Home. Impression: Otitis media, unspecified, left mg2 ear; Acute sinusitis. Condition is Stable. Forms are Medication Reconciliation Form, Thank You Letter, Antibiotic Education, Prescription Opioid Use. Follow up: Emergency Department; When: As needed; Reason: Worsening of condition. Follow up: Private Physician; When: 2 - 3 days; Reason: Recheck today's complaints, Continuance of care, Re-evaluation by your physician. Problem is new. Symptoms have improved. pm1
[2018-10-27] MEDS ORDERED: HYDROCODONE/APAP 5/325 MG TAB ONE (17:58)
[2018-10-27] MEDS ORDERED: METHYLPREDNISOLONE 125 MG INJ ONE (17:58)
[2018-10-27 23:27] VITALS: BP 145/75; TEMP 97.7; O2SAT 97
== END 2018-10-27 18:03 | disposition home or self-care (01) ==
LOC: ER 15:40
DX: H66.92 Otitis media, unspecified, left ear (principal); J01.90 Acute sinusitis, unspecified; F17.210 Nicotine dependence, cigarettes, uncomplicated; K50.90 Crohn's disease, unspecified, without complications; Z79.1 Long term (current) use of non-steroidal anti-inflammatories (NSAID)
CPT/HCPCS: 96372; 99283; J2930

== ENCOUNTER 2018-11-24 23:35 | Emergency (ER) | payer SELFPAY ==
[2018-11-25] MEDS ORDERED: MEPERIDINE HCL 50 MG/ML AMP ONE (00:55)
[2018-11-25] MEDS ORDERED: DIPHENOX/ATROP SULF 1 TAB PO ONE (00:56)
[2018-11-25] MEDS ORDERED: ONDANSETRON 4 MG/2 ML VIAL ONE (00:56)
[2018-11-25] MEDS ORDERED: NA CHLORIDE 0.9% 1,000 ML ONE (00:56)
[2018-11-25 01:30] LABS: Absolute Lymphocytes (CBC) 3.2 K/uL (0.7-4.9); Absolute Monocytes 0.8 K/uL (0.1-1.3); Absolute Neutrophil 5.3 K/uL (1.8-8.0); Basophils % 0.8 % (0-1.3); Eosinophils % 2.6 % (0-4.4); Hematocrit 39.3 % (36.0-45.0); Lymphocytes % 33.2 % (15.3-44.8); MPV 8.9 fL (7.6-11.3); Monocytes % 8.1 % (3.3-12.3); RBC Red Blood Cell Count 4.09 M/uL (3.86-4.86)
[2018-11-25 01:47] LABS: ALT/SGPT 29 U/L (12-78); AST/SGOT 15 U/L (15-37); Albumin 3.6 g/dL (3.4-5.0); Alkaline Phosphatase 81 U/L (45-117); BUN Blood Urea Nitrogen 9 mg/dL (7-18); Bicarbonate 26 mmol/L (21-32); Bilirubin Direct < 0.1 mg/dL (0-0.2); Bilirubin Total 0.2 mg/dL (0.2-1.0); Glucose Level 89 mg/dL (74-106); Lipase 65 U/L (73-393); Potassium 3.7 mmol/L (3.5-5.1); Protein, Total 6.6 g/dL (6.4-8.2); Sodium Level 141 mmol/L (136-145)
--- NOTE | 2018-11-25 01:58 | ER ---
Nurse's Notes [facility] Name: March Dom Age: 33 yrs Sex: Female : 1985 Arrival Date: 11/24/2018 Time: 23:39 Bed 14 Private MD: None, None Diagnosis: Gastroenteritis Presentation: 11/24 23:55 Presenting complaint: Patient states: I have been having nausea, vomiting and diarrhea kr2 since Saturday, I started having some bladder pain on Saturday. I get hot and cold but have not checked my temperature. Transition of care: patient was not received from another setting of care. Onset of symptoms was November 21, 2018. Risk Assessment: Do you want to hurt yourself or someone else? Patient reports no desire to harm self or others. Initial Sepsis Screen: Does the patient meet any 2 criteria? No. Patient's initial sepsis screen is negative. Does the patient have a suspected source of infection? Yes: Dysuria/Frequency/Urgency/UTI. Care prior to arrival: None. 23:55 Method Of Arrival: Ambulatory kr2 23:55 Acuity: NAWAF 4 kr2 Triage Assessment: 23:58 General: Appears in no apparent distress. comfortable, obese, Behavior is calm, kr2 cooperative, appropriate for age. Pain: Complains of pain in back of head, bladder. GI: Reports diarrhea, nausea, vomiting. 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 - Social history:: Smoking status: Patient uses tobacco products, denies chronic smoking, but will smoke occasionally. - Ebola Screening: : No symptoms or risks identified at this time. Screenin/25 00:00 Abuse screen: Denies threats or abuse. Nutritional screening: No deficits noted. jb4 Tuberculosis screening: No symptoms or risk factors identified. Fall Risk None identified. Assessment: 00:00 General: Appears in no apparent distress. comfortable, Behavior is calm, cooperative, jb4 appropriate for age. Pain: Complains of pain in abdomen Pain currently is 8 out of 10 on a pain scale. Quality of pain is described as crampy. Neuro: Level of Consciousness is awake, alert, obeys commands, Oriented to person, place, time, situation. Cardiovascular: Patient's skin is warm and dry. Respiratory: Airway is patent Respiratory effort is even, unlabored, Respiratory pattern is regular, symmetrical. GI: Abdomen is non-distended, obese, Bowel sounds present X 4 quads. Abd is soft X 4 quads Abd is non tender in right upper quadrant and left upper quadrant Abdomen is tender to palpation in suprapubic area, right lower quadrant and left lower quadrant. : No signs and/or symptoms were reported regarding the genitourinary system. EENT: No signs and/or symptoms were reported regarding the EENT system. Derm: Skin is intact, Skin is pink, warm \T\ dry. Musculoskeletal: Circulation, motion, and sensation intact. 01:00 Reassessment: Patient appears in no apparent distress at this time. Patient and/or jb4 family updated on plan of care and expected duration. Pain level reassessed. Patient is alert, oriented x 3, equal unlabored respirations, skin warm/dry/pink. 02:01 Reassessment: Patient appears in no apparent distress at this time. Patient and/or jb4 family updated on plan of care and expected duration. Pain level reassessed. Patient is alert, oriented x 3, equal unlabored respirations, skin warm/dry/pink. Vital Signs: 11/24 23:57 BP 134 / 90; Pulse 66; Resp 17; Temp 98.2; Pulse Ox 98% on R/A; Weight 117.93 kg; kr2 Height 5 ft. 3 in. (160.02 cm); Pain 7/10; 11/25 01:50 BP 118 / 75; Pulse 56; Resp 16; Pulse Ox 100% on R/A; jb4 11/24 23:57 Body Mass Index 46.06 (117.93 kg, 160.02 cm) kr2 ED Course: 11/24 23:39 Patient arrived in ED. es 23:40 None, None is Private Physician. es 23:53 Jah Morfin MD is Attending Physician. pkl 23:55 Vickie Mejia, DUTCH is Primary Nurse. kr2 23:56 Triage completed. kr2 23:59 Arm band placed on left wrist. kr2 11/25 00:00 Patient has correct armband on for positive identification. Bed in low position. Call jb4 light in reach. Side rails up X 1. Pulse ox on. NIBP on. 00:40 Initial lab(s) drawn, by me, sent to lab. gm 00:41 Román Mullen, RN is Primary Nurse. jb4 00:45 Inserted saline lock: 22 gauge in left antecubital area, using aseptic technique. Blood gm collected. 02:10 No provider procedures requiring assistance completed. IV discontinued, intact, jb4 bleeding controlled. Administered Medications: 01:00 Drug: LoMOTIL 2 tabs Route: PO; jb4 02:14 Follow up: Response: No adverse reaction jb4 01:05 Drug: NS 0.9% 1000 ml Route: IV; Rate: 1000 ml; Site: left antecubital; jb4 02:14 Follow up: Response: No adverse reaction; IV Status: Completed infusion jb4 01:06 Drug: Zofran 4 mg Route: IVP; Site: left antecubital; jb4 02:14 Follow up: Response: No adverse reaction; Nausea is decreased jb4 01:10 Drug: Demerol 50 mg Route: IVP; Site: left antecubital; jb4 02:14 Follow up: Response: No adverse reaction; Pain is decreased jb4 Outcome: 01:57 Discharge ordered by . [email or web address] 02:10 Discharged to home ambulatory, with family. jb4 02:10 Condition: stable 02:10 Discharge instructions given to patient, significant other, Instructed on discharge instructions, follow up and referral plans. medication usage, Demonstrated understanding of instructions, follow-up care, medications, Prescriptions given X 3. 02:15 Patient left the ED. jb4 Signatures: Jah Morfin MD MD pkStephanie Escoto James, RN RN jb4 Vickie Mejia RN RN kr2 Khadijah Ann
--- NOTE | 2018-11-25 01:58 | EDPHYS ---
Physician Documentation [facility] Name: March Age: 33 yrs Sex: Female : 1985 Arrival Date: 11/24/2018 Time: 23:39 Bed 14 Private MD: None, None ED Physician Jah Morfin HPI: 11/25 00:21 This 33 yrs old Female presents to ER via Ambulatory with complaints of pkl Nausea/Vomiting/Diarrhea, Headache, Urinary Problem. 00:21 The patient presents to the emergency department with nausea, vomiting, diarrhea. pkl Onset: The symptoms/episode began/occurred 3 day(s) ago. Associated signs and symptoms: Pertinent positives: headache. 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 - Social history:: Smoking status: Patient uses tobacco products, denies chronic smoking, but will smoke occasionally. - Ebola Screening: : No symptoms or risks identified at this time. ROS: 11/25 00:21 Eyes: Negative for injury, pain, redness, and discharge, ENT: Negative for injury, pkl pain, and discharge, Neck: Negative for injury, pain, and swelling, Cardiovascular: Negative for chest pain, palpitations, and edema, Respiratory: Negative for shortness of breath, cough, wheezing, and pleuritic chest pain. Abdomen/GI: Positive for nausea, vomiting, and diarrhea. Back: Negative for acute changes. : Positive for bladder pain. MS/extremity: Negative for acute changes. Skin: Negative for rash. Neuro: Negative for altered mental status. Exam: 00:21 Head/Face: Normocephalic, atraumatic. Eyes: Pupils equal round and reactive to light, pkl extra-ocular motions intact. Lids and lashes normal. Conjunctiva and sclera are non-icteric and not injected. Cornea within normal limits. Periorbital areas with no swelling, redness, or edema. ENT: Nares patent. No nasal discharge, no septal abnormalities noted. Tympanic membranes are normal and external auditory canals are clear. Oropharynx with no redness, swelling, or masses, exudates, or evidence of obstruction, uvula midline. Mucous membranes moist. Neck: Trachea midline, no thyromegaly or masses palpated, and no cervical lymphadenopathy. Supple, full range of motion without nuchal rigidity, or vertebral point tenderness. No Meningismus. Chest/axilla: Normal chest wall appearance and motion. Nontender with no deformity. No lesions are appreciated. Cardiovascular: Regular rate and rhythm with a normal S1 and S2. No gallops, murmurs, or rubs. Normal PMI, no JVD. No pulse deficits. Respiratory: Lungs have equal breath sounds bilaterally, clear to auscultation and percussion. No rales, rhonchi or wheezes noted. No increased work of breathing, no retractions or nasal flaring. 00:21 Abdomen/GI: Bowel sounds: active, Palpation: soft, mild abdominal tenderness, in the suprapubic area. 00:21 Back: Exam negative for acute changes. 00:21 : Exam negative for acute changes. 00:21 Musculoskeletal/extremity: Exam is negative for acute changes. 00:21 Skin: Exam negative for rash. 00:21 Neuro: Orientation: is normal, Mentation: is normal, Cranial nerves: grossly normal, Motor: is normal. Vital Signs: 11/24 23:57 BP 134 / 90; Pulse 66; Resp 17; Temp 98.2; Pulse Ox 98% on R/A; Weight 117.93 kg; kr2 Height 5 ft. 3 in. (160.02 cm); Pain 7/10; 11/25 01:50 BP 118 / 75; Pulse 56; Resp 16; Pulse Ox 100% on R/A; jb4 11/24 23:57 Body Mass Index 46.06 (117.93 kg, 160.02 cm) kr2 MDM: 11/24 23:53 Patient medically screened. pkl 11/25 01:57 Data reviewed: vital signs, nurses notes, lab test result(s). pkl 11/25 00:20 Order name: UA; Complete Time: 02:27 pkl 11/25 00:54 Order name: Basic Metabolic Panel; Complete Time: 02:01 EDMS 11/25 00:54 Order name: Liver (Hepatic) Function; Complete Time: 02:01 EDMS 11/25 00:54 Order name: Lipase; Complete Time: 02:01 EDMS 11/25 00:54 Order name: Creatinine (Radiology Only); Complete Time: 01:46 EDMS 11/25 00:54 Order name: CBC with Automated Diff; Complete Time: :46 EDAZ 11/25 01:56 Order name: Urine Dipstick--Ancillary (enter results); Complete Time: 02:27 em1 11/25 01:56 Order name: Urine --Ancillary (enter results); Complete Time: 02: em1 11/25 00:20 Order name: IV Saline Lock; Complete Time: 00:50 pkl 11/25 00:20 Order name: Labs collected and sent; Complete Time: 00:50 pkl Administered Medications: 01:00 Drug: LoMOTIL 2 tabs Route: PO; jb4 02:14 Follow up: Response: No adverse reaction jb4 01:05 Drug: NS 0.9% 1000 ml Route: IV; Rate: 1000 ml; Site: left antecubital; jb4 02:14 Follow up: Response: No adverse reaction; IV Status: Completed infusion jb4 01:06 Drug: Zofran 4 mg Route: IVP; Site: left antecubital; jb4 02:14 Follow up: Response: No adverse reaction; Nausea is decreased jb4 01:10 Drug: Demerol 50 mg Route: IVP; Site: left antecubital; jb4 02:14 Follow up: Response: No adverse reaction; Pain is decreased jb4 Disposition: 11/25/18 01:57 Discharged to Home. Impression: Gastroenteritis. - Condition is Stable. - Prescriptions for Cipro 500 mg Oral Tablet - take 1 tablet by ORAL route every 12 hours for 5 days; 10 tablet. Zofran 4 mg Oral Tablet - take 1 tablet by ORAL route every 12 hours As needed; 6 tablet. Lomotil 2.5- 0.025 mg Oral Tablet - take 2 tablets by ORAL route once daily As needed; 10 tablet. - Work release form, Medication Reconciliation Form, Thank You Letter, Antibiotic Education, Prescription Opioid Use form. - Follow up: Private Physician; When: 2 - 3 days; Reason: Re-evaluation by your physician. - Problem is new. - Symptoms have improved. Signatures: [facility] Jah Morfin MD MD pkl Román Mullen RN RN jb4 Jackie, Vickie, RN RN kr2 Corrections: (The following items were deleted from the chart) 01:45 01:38 Creatinine for Radiology+C.LAB.BRZ ordered. EDAZ EDMS 01:46 01:38 BASIC METABOLIC PANEL+C.LAB.BRZ ordered. EDAZ EDMS 01:46 01:38 CBC+H.LAB.BRZ ordered. EDAZ EDMS 01:46 01:38 HEPATIC FUNCTION+C.LAB.BRZ ordered. EDAZ EDMS 01:46 01:38 LIPASE+C.LAB.BRZ ordered. [facility] EDMS 02:15 01:57 11/25/2018 01:57 Discharged to Home. Impression: Gastroenteritis. Condition is jb4 Stable. Forms are Medication Reconciliation Form, Thank You Letter, Antibiotic Education, Prescription Opioid Use. Follow up: Private Physician; When: 2 - 3 days; Reason: Re-evaluation by your physician. Problem is new. Symptoms have improved. pkl
[2018-11-25 02:00] LABS: Urine Appearance CLEAR; Urine Bilirubin NEGATIVE (NEG); Urine Blood NEGATIVE (NEG); Urine Color YELLOW; Urine Glucose NEGATIVE (NEG); Urine Protein NEGATIVE (NEG); Urine Urobilinogen 0.2 mg/dL (0.2-1.0)
[2018-11-25 02:05] LABS: Urine Microscopic Reflex NO UMIC
[2018-11-25 02:07] LABS: Urine Blood NEGATIVE (NEG); Urine Glucose NEGATIVE (NEG); Urine Protein NEGATIVE (NEG)
[2018-11-25 02:23] VITALS: TEMP 98.2
[2018-11-25 02:25] VITALS: BP 118/75; O2SAT 100
== END 2018-11-25 02:15 | disposition home or self-care (01) ==
LOC: ER 23:35
DX: K29.70 Gastritis, unspecified, without bleeding (principal); Z72.0 Tobacco use; Z88.0 Allergy status to penicillin
CPT/HCPCS: 36415; 80048; 80076; 81003; 81025; 83690; 85025; 96361; 96374; 96375; 99284; J2175; J2405; J7030

== ENCOUNTER 2018-11-29 09:41 | Emergency (ER) | payer SELFPAY ==
[2018-11-29] MEDS ORDERED: NA CHLORIDE 0.9% 1,000 ML ONE (11:16)
--- NOTE | 2018-11-29 11:55 | RAD REPORT ---
EXAM DESCRIPTION: RAD - Chest Pa And Lat (2 Views) - 11/29/2018 10:20 am CLINICAL HISTORY: Chest congestion, fever COMPARISON: September 11, 2018, August 31, 2018 TECHNIQUE: PA and lateral views of the chest were obtained. FINDINGS: The lungs are normal volume. Patient has prominent pericardial fat at the left base. There is subtle increase opacification along the lateral lower left heart border not seen on prior imaging . Early anterior lung base pneumonia should be considered. Heart size is normal and central vasculature is within normal limits. No pleural effusion or pneu mothorax seen. No acute bony finding noted. No aortic abnormality. IMPRESSION: Possible early anterior left lung base pneumonia. Correlation is needed with exam nel torres.
[2018-11-29 12:06] LABS: Absolute Lymphocytes (CBC) 2.4 K/uL (0.7-4.9); Absolute Monocytes 0.9 K/uL (0.1-1.3); Absolute Neutrophil 6.1 K/uL (1.8-8.0); Basophils % 1.3 % (0-1.3); Eosinophils % 1.7 % (0-4.4); Hematocrit 42.8 % (36.0-45.0); Lymphocytes % 25.1 % (15.3-44.8); MPV 9.1 fL (7.6-11.3); Monocytes % 8.8 % (3.3-12.3); RBC Red Blood Cell Count 4.45 M/uL (3.86-4.86)
[2018-11-29 12:14] LABS: Potassium 3.8 mmol/L (3.5-5.1)
--- NOTE | 2018-11-29 12:33 | ER ---
Nurse's Notes [facility] Name: March Fernandes Age: 33 yrs Sex: Female : 1985 Arrival Date: 11/29/2018 Time: 09:45 Bed 6 Private MD: None, None Diagnosis: Pneumonia, unspecified organism;Nausea and vomiting;Diarrhea, unspecified;Hemorrhoids and perianal venous thrombosis Presentation: 11/29 09:46 Presenting complaint: Patient states: n/v/d, chest congestion, productive green sputum, sv chills, TMax 100.4 started 11/24/18. Transition of care: patient was not received from another setting of care. Onset of symptoms was November 24, 2018. Care prior to arrival: None. 09:46 Method Of Arrival: Ambulatory sv 09:46 Acuity: NAWAF 3 sv 11:24 Risk Assessment: Do you want to hurt yourself or someone else? Patient reports no tw2 desire to harm self or others. Initial Sepsis Screen: Does the patient meet any 2 criteria? No. Patient's initial sepsis screen is negative. Does the patient have a suspected source of infection? No. Patient's initial sepsis screen is negative. Triage Assessment: 09:46 General: Appears in no apparent distress. uncomfortable, Behavior is calm, cooperative, sv appropriate for age. General: Reports fever. Neuro: Level of Consciousness is awake, alert, obeys commands, Oriented to person, place, time, situation, Moves all extremities. Full function Gait is steady. Respiratory: Respiratory effort is even, unlabored, Respiratory pattern is regular, symmetrical. GI: Reports diarrhea, nausea, vomiting. 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 - Social history:: Smoking status: Patient uses tobacco products, smokes one-half pack cigarettes per day. - Ebola Screening: : No symptoms or risks identified at this time. Screenin:22 Abuse screen: Denies threats or abuse. Nutritional screening: No deficits noted. tw2 Tuberculosis screening: No symptoms or risk factors identified. Fall Risk None identified. Assessment: 11:22 General: Appears in no apparent distress. slender, Behavior is calm, cooperative, tw2 appropriate for age. Pain: Denies pain. Neuro: Level of Consciousness is awake, alert, obeys commands, Oriented to person, place, time, situation. Cardiovascular: Heart tones S1 S2 Capillary refill < 3 seconds Patient's skin is warm and dry. Respiratory: Airway is patent Respiratory effort is even, unlabored, Respiratory pattern is regular, symmetrical, Breath sounds are clear bilaterally. Respiratory: Reports cough that is. GI: Reports diarrhea. : No signs and/or symptoms were reported regarding the genitourinary system. EENT: Reports nasal congestion nasal discharge. Derm: No signs and/or symptoms reported regarding the dermatologic system. Musculoskeletal: No signs and/or symptoms reported regarding the musculoskeletal system. Range of motion: intact in all extremities. 12:00 Reassessment: Patient appears in no apparent distress at this time. No changes from tw2 previously documented assessment. Patient and/or family updated on plan of care and expected duration. Pain level reassessed. Patient is alert, oriented x 3, equal unlabored respirations, skin warm/dry/pink. 13:02 Reassessment: Patient appears in no apparent distress at this time. No changes from tw2 previously documented assessment. Patient and/or family updated on plan of care and expected duration. Pain level reassessed. Patient is alert, oriented x 3, equal unlabored respirations, skin warm/dry/pink. Vital Signs: 09:48 BP 127 / 76; Pulse 66; Resp 20; Temp 98.9; Pulse Ox 96% ; Weight 97.98 kg; Height 5 ft. sv 3 in. (160.02 cm); Pain 7/10; 11:21 BP 117 / 61; Pulse 75; Resp 17; Pulse Ox 97% on R/A; tw2 13:01 BP 108 / 65; Pulse 69; Resp 17; Pulse Ox 99% on R/A; tw2 09:48 Body Mass Index 38.26 (97.98 kg, 160.02 cm) sv ED Course: 09:45 Patient arrived in ED. sb2 09:46 None, None is Private Physician. sb2 09:46 Triage completed. sv 09:48 Arm band placed on. sv 10:17 X-ray completed. Patient tolerated procedure well. sg4 10:18 Chest Pa And Lat (2 Views) XRAY In Process Unspecified. EDMS 10:43 Bed in low position. Call light in reach. Adult w/ patient. Pulse ox on. NIBP on. tw2 10:44 [facility]oz Fine [facility]C [facility]. kb 10:44 Ascencion Brennan MD is Attending Physician. kb 10:56 Beti Galo, RN is Primary Nurse. tw2 11:15 Inserted saline lock: 22 gauge in left antecubital area, using aseptic technique. Blood tw2 collected. 11:24 No provider procedures requiring assistance completed. tw2 13:03 IV discontinued, intact, bleeding controlled, No redness/swelling at site. Pressure tw2 dressing applied. Administered Medications: 11:20 Drug: NS 0.9% 1000 ml Route: IV; Rate: 1000 ml; Site: left antecubital; tw2 12:30 Follow up: Response: No adverse reaction; IV Status: Completed infusion; IV Intake: tw2 1000ml 13:01 Drug: LevaQUIN 500 mg Route: PO; tw2 13:03 Follow up: Response: No adverse reaction; per pt she has taken this medicine before tw2 Intake: 12:30 IV: 1000ml; Total: 1000ml. tw2 Outcome: 12:32 Discharge ordered by . kb 13:02 Discharged to home ambulatory, with family. tw2 13:02 Condition: stable 13:02 Discharge instructions given to patient, family, Instructed on discharge instructions, follow up and referral plans. medication usage, Demonstrated understanding of instructions, follow-up care, medications, Prescriptions given X 3. 13:04 Patient left the ED. tw2 Signatures: Dispatcher [employer] [facility] Roz Fine FNP-C FNP-Ckb Verde, Stephanie, RN RN sv Beti aGlo, RN RN tw2 Sparkle Alvarez Susana 4
--- NOTE | 2018-11-29 12:33 | EDPHYS ---
Physician Documentation [facility] Name: March Age: 33 yrs Sex: Female : 1985 Arrival Date: 11/29/2018 Time: 09:45 Bed 6 Private MD: None, None ED Physician Ascencion Brennan HPI: 11/29 12:30 This 33 yrs old Female presents to ER via Ambulatory with complaints of kb Diarrhea, Flu Symptoms. 12:30 The patient presents to the emergency department with nausea, vomiting, diarrhea, kb abdominal pain. Onset: The symptoms/episode began/occurred 1 week(s) ago. Possible causes: unknown. The symptoms are aggravated by nothing. The symptoms are alleviated by nothing. Associated signs and symptoms: Pertinent positives: abdominal pain, diarrhea, fever, nausea, vomiting, Pertinent negatives: anorexia, belching, constipation, dysuria, flatulence, GI bleeding, hematuria, vaginal discharge. Severity of symptoms: At their worst the symptoms were moderate in the emergency department the symptoms are unchanged. The patient has not experienced similar symptoms in the past. The patient has been recently seen at the [facility] Emergency Department, last week. Pt reports n/v/d and fever for a week. Was seen here 5 days ago for same symptoms and is not any better. Also reports cough and congestion for the last 2 days. C/o bleeding external hemorrhoid for 3 days.. 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 - Social history:: Smoking status: Patient uses tobacco products, smokes one-half pack cigarettes per day. - Ebola Screening: : No symptoms or risks identified at this time. ROS: 12:28 ENT: Negative for injury, pain, and discharge, Neck: Negative for injury, pain, and kb swelling, Cardiovascular: Negative for chest pain, palpitations, and edema, Back: Negative for injury and pain, : Negative for injury, bleeding, discharge, and swelling, MS/Extremity: Negative for injury and deformity, Skin: Negative for injury, rash, and discoloration, Neuro: Negative for headache, weakness, numbness, tingling, and seizure. 12:28 Constitutional: Positive for fever, Negative for body aches, chills, fatigue, malaise, poor PO intake, weight loss. 12:28 Respiratory: Positive for cough, with no reported sputum, Negative for dyspnea on exertion, hemoptysis, orthopnea, pleurisy, shortness of breath, sputum production, wheezing. 12:28 Abdomen/GI: Positive for abdominal pain, nausea, vomiting, and diarrhea. Exam: 12:29 Constitutional: This is a well developed, well nourished patient who is awake, alert, kb and in no acute distress. Head/Face: Normocephalic, atraumatic. ENT: Nares patent. No nasal discharge, no septal abnormalities noted. Tympanic membranes are normal and external auditory canals are clear. Oropharynx with no redness, swelling, or masses, exudates, or evidence of obstruction, uvula midline. Mucous membranes moist. Neck: Trachea midline, no thyromegaly or masses palpated, and no cervical lymphadenopathy. Supple, full range of motion without nuchal rigidity, or vertebral point tenderness. No Meningismus. Chest/axilla: Normal chest wall appearance and motion. Nontender with no deformity. No lesions are appreciated. Cardiovascular: Regular rate and rhythm with a normal S1 and S2. No gallops, murmurs, or rubs. Normal PMI, no JVD. No pulse deficits. Respiratory: Lungs have equal breath sounds bilaterally, clear to auscultation and percussion. No rales, rhonchi or wheezes noted. No increased work of breathing, no retractions or nasal flaring. Skin: Warm, dry with normal turgor. Normal color with no rashes, no lesions, and no evidence of cellulitis. MS/ Extremity: Pulses equal, no cyanosis. Neurovascular intact. Full, normal range of motion. Neuro: Awake and alert, GCS 15, oriented to person, place, time, and situation. Cranial nerves II-XII grossly intact. Motor strength 5/5 in all extremities. Sensory grossly intact. Cerebellar exam normal. Normal gait. 12:29 Abdomen/GI: Inspection: abdomen appears normal, Bowel sounds: normal, in all quadrants, Palpation: soft, in all quadrants, mild abdominal tenderness, in the right upper quadrant and right lower quadrant, moderate abdominal tenderness, in the left upper quadrant and left lower quadrant, Rectal exam: hemorrhoid(s), external, with inflammation, with pain, without bleeding, without thrombosis. Vital Signs: 09:48 BP 127 / 76; Pulse 66; Resp 20; Temp 98.9; Pulse Ox 96% ; Weight 97.98 kg; Height 5 ft. sv 3 in. (160.02 cm); Pain 7/10; 11:21 BP 117 / 61; Pulse 75; Resp 17; Pulse Ox 97% on R/A; tw2 13:01 BP 108 / 65; Pulse 69; Resp 17; Pulse Ox 99% on R/A; tw2 09:48 Body Mass Index 38.26 (97.98 kg, 160.02 cm) sv MDM: 10:45 Patient medically screened. kb 12:28 Data reviewed: vital signs, nurses notes. Data interpreted: Pulse oximetry: on room air kb is 97 %. Interpretation: normal. Counseling: I had a detailed discussion with the patient and/or guardian regarding: the historical points, exam findings, and any diagnostic results supporting the discharge/admit diagnosis, lab results, radiology results, the need for outpatient follow up, a family practitioner, to return to the emergency department if symptoms worsen or persist or if there are any questions or concerns that arise at home. 11/29 09:49 Order name: Flu; Complete Time: 10:45 sv 11/29 11:44 Order name: Basic Metabolic Panel; Complete Time: 12:16 EDMS 11/29 11:44 Order name: CBC with Automated Diff; Complete Time: 12:11 EDMS 11/29 09:49 Order name: Chest Pa And Lat (2 Views) XRAY; Complete Time: 12:06 sv 11/29 10:53 Order name: IV Saline Lock; Complete Time: 11:20 kb 11/29 10:53 Order name: Labs collected and sent; Complete Time: 11:20 kb 11/29 11:44 Order name: Group A Streptococcus Rapid Sc; Complete Time: 12:26 EDMS 11/29 12:22 Order name: Throat Culture EDMS Administered Medications: 11:20 Drug: NS 0.9% 1000 ml Route: IV; Rate: 1000 ml; Site: left antecubital; tw2 12:30 Follow up: Response: No adverse reaction; IV Status: Completed infusion; IV Intake: tw2 1000ml 13:01 Drug: LevaQUIN 500 mg Route: PO; tw2 13:03 Follow up: Response: No adverse reaction; per pt she has taken this medicine before tw2 Disposition: 17:26 Co-signature as Attending Physician, Ascencion Brennan MD. ma2 Disposition: 11/29/18 12:32 Discharged to Home. Impression: Pneumonia, unspecified organism, Nausea and vomiting, Diarrhea, unspecified, Hemorrhoids and perianal venous thrombosis. - Condition is Stable. - Discharge Instructions: Food Choices to Help Relieve Diarrhea, Adult, Nausea and Vomiting, Adult, [id number], Diarrhea, Adult, [id number], Community-Acquired Pneumonia, Adult, [id number]-[id number], Hemorrhoids, [id number]. - Prescriptions for Anusol- HC 2.5 % Rectal Cream - Apply to affected area 1 application by TOPICAL route every 8 hours As needed; 30 gram. Levaquin 500 mg Oral Tablet - take 1 tablet by ORAL route once daily for 7 days; 7 tablet. Zofran 4 mg Oral Tablet - take 1 tablet by ORAL route every 6 hours As needed; 20 tablet. - Medication Reconciliation Form, Thank You Letter, Antibiotic Education, Prescription Opioid Use, Work release form form. - Follow up: Private Physician; When: 2 - 3 days; Reason: Recheck today's complaints, Continuance of care, Re-evaluation by your physician. Follow up: Emergency Department; When: As needed; Reason: Worsening of condition. Signatures: Dispatcher [employer] Roz Escalera FNP-C FNP-Ckb Verde, Stephanie, RN RN sv Wise, Tara, RN RN [facility] Ascencion Brennan MD MD [facility] Corrections: (The following items were deleted from the chart) 12:31 12:29 Abdomen/GI: Inspection: abdomen appears normal, Bowel sounds: normal, in all kb quadrants, Palpation: soft, in all quadrants, mild abdominal tenderness, in the right upper quadrant and right lower quadrant, moderate abdominal tenderness, in the left upper quadrant and left lower quadrant, kb 12:31 12:30 Pt reports n/v/d and fever for a week. Was seen here 5 days ago for same symptoms kb and is not any better. Also reports cough and congestion for the last 2 days. . kb 13:04 12:32 11/29/2018 12:32 Discharged to Home. Impression: Pneumonia, unspecified organism; tw2 Nausea and vomiting; Diarrhea, unspecified; Hemorrhoids and perianal venous thrombosis. Condition is Stable. Forms are Work release form, Medication Reconciliation Form, Thank You Letter, Antibiotic Education, Prescription Opioid Use. Follow up: Private Physician; When: 2 - 3 days; Reason: Recheck today's complaints, Continuance of care, Re-evaluation by your physician. Follow up: Emergency Department; When: As needed; Reason: Worsening of condition. kb
[2018-11-29] MEDS ORDERED: levoFLOXacin 500 MG TAB ONE (13:07)
[2018-11-29 13:22] VITALS: TEMP 98.9
[2018-11-29 13:23] VITALS: BP 108/65; O2SAT 99
== END 2018-11-29 13:04 | disposition home or self-care (01) ==
LOC: ER 09:41
DX: J18.9 Pneumonia, unspecified organism (principal); R11.2 Nausea with vomiting, unspecified; R19.7 Diarrhea, unspecified; K64.5 Perianal venous thrombosis; K64.4 Residual hemorrhoidal skin tags; F17.210 Nicotine dependence, cigarettes, uncomplicated
CPT/HCPCS: 36415; 71046; 80048; 85025; 87070; 87081; 87804; 96360; 99284; J7030

== ENCOUNTER 2019-01-12 17:29 | Emergency (ER) | payer SELFPAY ==
[2019-01-12 17:50] LABS: Absolute Lymphocytes (CBC) 3.4 K/uL (0.7-4.9); Absolute Monocytes 0.9 K/uL (0.1-1.3); Absolute Neutrophil 6.2 K/uL (1.8-8.0); Eosinophils % 1.6 % (0-4.4); Hematocrit 40.5 % (36.0-45.0); Lymphocytes % 31.1 % (15.3-44.8); MPV 8.2 fL (7.6-11.3); Monocytes % 8.7 % (3.3-12.3); RBC Red Blood Cell Count 4.23 M/uL (3.86-4.86)
[2019-01-12 18:14] LABS: ALT/SGPT 26 U/L (12-78); AST/SGOT 18 U/L (15-37); Albumin 3.9 g/dL (3.4-5.0); Alkaline Phosphatase 89 U/L (45-117); BUN Blood Urea Nitrogen 9 mg/dL (7-18); Bicarbonate 26 mmol/L (21-32); Bilirubin Direct < 0.1 mg/dL (0-0.2); Bilirubin Total 0.3 mg/dL (0.2-1.0); Glucose Level 104 mg/dL (74-106); Lipase 212 U/L (73-393); Potassium 3.9 mmol/L (3.5-5.1); Sodium Level 142 mmol/L (136-145)
[2019-01-12] MEDS ORDERED: METHYLPREDNISOLONE 125 MG INJ ONE (18:47)
[2019-01-12] MEDS ORDERED: NA CHLORIDE 0.9% 1,000 ML ONE (18:48)
[2019-01-12] MEDS ORDERED: ONDANSETRON 4 MG/2 ML VIAL ONE ×2 (18:48→19:44)
[2019-01-12] MEDS ORDERED: MORPHINE 4 MG/ML SYR ONE ×2 (18:48→19:44)
[2019-01-12 19:22] LABS: Urine Blood NEGATIVE (NEG); Urine Glucose NEGATIVE (NEG); Urine Protein NEGATIVE (NEG); Urine Specific Gravity 1.015 (1.005-1.030)
--- NOTE | 2019-01-12 20:33 | ER ---
Nurse's Notes [facility] Name: March Age: 33 yrs Sex: Female : 1985 Arrival Date: 01/12/2019 Time: 17:26 Bed 28 Private MD: Diagnosis: Generalized abdominal pain Presentation: 01/12 17:34 Presenting complaint: EMS states: Crohns flare up, hx of same. Transition of care: tl3 patient was not received from another setting of care. Onset of symptoms was January 12, 2019. Risk Assessment: Do you want to hurt yourself or someone else? Patient reports no desire to harm self or others. Initial Sepsis Screen: Does the patient meet any 2 criteria? No. Patient's initial sepsis screen is negative. Does the patient have a suspected source of infection? No. Patient's initial sepsis screen is negative. Care prior to arrival: None. 17:34 Method Of Arrival: EMS: [facility] tl3 17:34 Acuity: NAWAF 3 tl3 Triage Assessment: 17:36 General: Appears uncomfortable, well groomed, well developed, well nourished, Behavior tl3 is calm, cooperative, appropriate for age. Pain: Complains of pain in abdomen Pain currently is 7 out of 10 on a pain scale. EENT: No signs and/or symptoms were reported regarding the EENT system. Neuro: Level of Consciousness is awake, alert, obeys commands, Oriented to person, place, time, situation, Appropriate for age. GI: Bowel sounds Reports cramping. PATIENT REPRESENTATIVE: 17:41 LMP 12/2018 tl3 Historical: - Allergies: 17:36 PENICILLINS; tl3 - PMHx: 17:36 Crohn's; tl3 - PSHx: 17:36 Tonsillectomy; Adenoids; Tubal ligation; tl3 - Immunization history:: Adult Immunizations up to date. - Social history:: Smoking status: unknown Patient/guardian denies using alcohol, street drugs, The patient lives with family. - Ebola Screening: : No symptoms or risks identified at this time. - Family history:: not pertinent. Screenin:42 Abuse screen: Denies threats or abuse. Nutritional screening: No deficits noted. tl3 Tuberculosis screening: No symptoms or risk factors identified. Fall Risk None identified. Assessment: 17:42 Reassessment: No changes from previously documented assessment. tl3 18:48 Reassessment: No changes from previously documented assessment. Patient and/or family tl3 updated on plan of care and expected duration. Pain level reassessed. Patient is alert, oriented x 3, equal unlabored respirations, skin warm/dry/pink. pt lights dimmed, meds administered, no other needs at this time. 19:43 Reassessment: Patient and/or family updated on plan of care and expected duration. Pain tl3 level reassessed. Patient is alert, oriented x 3, equal unlabored respirations, skin warm/dry/pink. pt complains of pain again, new orders received. 21:16 GI: Abd is soft and non tender X 4 quads. mg2 Vital Signs: 17:41 BP 147 / 87; Pulse 102; Resp 18; Temp 98.7(O); tl3 ED Course: 17:26 Patient arrived in ED. tl3 17:27 Barbara Arciniega, RN is Primary Nurse. tl3 17:35 Triage completed. tl3 17:41 Arm band placed on right wrist. tl3 17:42 Patient has correct armband on for positive identification. Bed in low position. NIBP tl3 on. Warm blanket given. 17:42 No provider procedures requiring assistance completed. Inserted saline lock: 20 gauge tl3 in left forearm, using aseptic technique. Blood collected. 18:05 Ascencion Brennan MD is Attending Physician. ma2 21:15 IV discontinued, intact, bleeding controlled, No redness/swelling at site. Pressure mg2 dressing applied. Administered Medications: 18:47 Drug: Zofran 4 mg Route: IVP; Infused Over: 2 mins; Site: left antecubital; tl3 20:14 Follow up: Response: No adverse reaction tl3 18:47 Drug: MethylPrednisoLONE 125 mg Route: IVP; Infused Over: 2 mins; Site: left tl3 antecubital; 20:14 Follow up: Response: No adverse reaction tl3 18:48 Drug: NS 0.9% 1000 ml Route: IV; Rate: 1 bolus; Site: left antecubital; Delivery: tl3 Primary tubing; 19:45 Follow up: IV Status: Completed infusion; IV Intake: 1000ml tl3 18:48 Drug: morphine 4 mg Route: IVP; Infused Over: 2 mins; Site: left antecubital; tl3 20:15 Follow up: Response: No adverse reaction tl3 19:34 Drug: Zofran 4 mg Route: IVP; Infused Over: 2 mins; Site: left antecubital; tl3 20:14 Follow up: Response: No adverse reaction tl3 19:35 Drug: morphine 4 mg Route: IVP; Infused Over: 2 mins; Site: left antecubital; tl3 20:14 Follow up: Response: Pain is decreased tl3 Intake: 19:45 IV: 1000ml; Total: 1000ml. tl3 Outcome: 20:32 Discharge ordered by . ricardo 21:15 Discharged to Law Enforcement mg2 21:15 Condition: stable 21:15 Discharge instructions given to patient, Instructed on discharge instructions, follow up and referral plans. medication usage, Demonstrated understanding of instructions, follow-up care, medications, Prescriptions given X 3. 21:16 Patient left the ED. mg2 Signatures: Ascencion Brennan MD MD ma2 Barbara Arciniega RN RN tl3 Carlos Lindsey RN RN mg2
--- NOTE | 2019-01-12 20:33 | EDPHYS ---
Physician Documentation [facility] Name: March Age: 33 yrs Sex: Female : 1985 Arrival Date: 01/12/2019 Time: 17:26 Bed 28 Private MD: ED Physician Ascencion Brennan HPI: 01/12 18:37 This 33 yrs old Female presents to ER via EMS with complaints of Abdominal ma2 Pain. 18:37 The patient presents with abdominal pain. Onset: The symptoms/episode began/occurred ma2 gradually, 1 day(s) ago. Associated signs and symptoms: Pertinent negatives: anorexia, constipation, diarrhea, palpitations, vomiting blood. Severity of pain: At its worst the pain was moderate in the emergency department the pain is unchanged. The patient has experienced similar episodes in the past, has Crohns disease. 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 - Social history:: Smoking status: unknown Patient/guardian denies using alcohol, street drugs, The patient lives with family. - Ebola Screening: : No symptoms or risks identified at this time. - Family history:: not pertinent. ROS: 18:37 Constitutional: Negative for fever, chills, and weight loss, Neck: Negative for injury, ma2 pain, and swelling, Cardiovascular: Negative for chest pain, palpitations, and edema. 18:37 Abdomen/GI: Positive for abdominal pain, abdominal cramps, Negative for nausea, rectal pain, rectal bleeding. 18:37 All other systems are negative. Exam: 18:37 Constitutional: This is a well developed, well nourished patient who is awake, alert, ma2 and in no acute distress. Chest/axilla: Normal chest wall appearance and motion. Nontender with no deformity. No lesions are appreciated. Cardiovascular: Regular rate and rhythm with a normal S1 and S2. No gallops, murmurs, or rubs. Normal PMI, no JVD. No pulse deficits. Respiratory: Lungs have equal breath sounds bilaterally, clear to auscultation and percussion. No rales, rhonchi or wheezes noted. No increased work of breathing, no retractions or nasal flaring. Abdomen/GI: Soft, non-tender, with normal bowel sounds. No distension or tympany. No guarding or rebound. No evidence of tenderness throughout. MS/ Extremity: Pulses equal, no cyanosis. Neurovascular intact. Full, normal range of motion. Neuro: Awake and alert, GCS 15, oriented to person, place, time, and situation. Cranial nerves II-XII grossly intact. Motor strength 5/5 in all extremities. Sensory grossly intact. Cerebellar exam normal. Normal gait. Vital Signs: 17:41 BP 147 / 87; Pulse 102; Resp 18; Temp 98.7(O); tl3 MDM: 18:05 Patient medically screened. ma2 18:37 Differential diagnosis: Ectopic , gastritis, gastroesophageal reflux disease, ma2 Irritable bowel syndrome, pancreatitis. Data reviewed: vital signs, nurses notes. Counseling: I had a detailed discussion with the patient and/or guardian regarding: the historical points, exam findings, and any diagnostic results supporting the discharge/admit diagnosis, the presence of at least one elevated blood pressure reading (>120/80) during this emergency department visit, the need for outpatient follow up. Response to treatment: the patient's symptoms have markedly improved after treatment. 01/12 17:37 Order name: Basic Metabolic Panel; Complete Time: 18:25 tl3 01/12 17:37 Order name: CBC with Diff; Complete Time: 18:06 3 01/12 17:37 Order name: Creatinine for Radiology; Complete Time: 18:25 3 01/12 17:37 Order name: Hepatic Function; Complete Time: 18:25 3 01/12 17:37 Order name: Lipase; Complete Time: 18:25 3 01/12 17:51 Order name: Urine Dipstick--Ancillary (enter results); Complete Time: 19:28 eb 01/12 17:37 Order name: IV Saline Lock; Complete Time: 17:37 tl3 01/12 17:51 Order name: Urine --Ancillary (enter results); Complete Time: 19:28 eb 01/12 17:37 Order name: Labs collected and sent; Complete Time: 17:37 tl3 Administered Medications: 18:47 Drug: Zofran 4 mg Route: IVP; Infused Over: 2 mins; Site: left antecubital; tl3 20:14 Follow up: Response: No adverse reaction tl3 18:47 Drug: MethylPrednisoLONE 125 mg Route: IVP; Infused Over: 2 mins; Site: left tl3 antecubital; 20:14 Follow up: Response: No adverse reaction tl3 18:48 Drug: NS 0.9% 1000 ml Route: IV; Rate: 1 bolus; Site: left antecubital; Delivery: tl3 Primary tubing; 19:45 Follow up: IV Status: Completed infusion; IV Intake: 1000ml tl3 18:48 Drug: morphine 4 mg Route: IVP; Infused Over: 2 mins; Site: left antecubital; tl3 20:15 Follow up: Response: No adverse reaction tl3 19:34 Drug: Zofran 4 mg Route: IVP; Infused Over: 2 mins; Site: left antecubital; tl3 20:14 Follow up: Response: No adverse reaction tl3 19:35 Drug: morphine 4 mg Route: IVP; Infused Over: 2 mins; Site: left antecubital; tl3 20:14 Follow up: Response: Pain is decreased tl3 Disposition: 01/12/19 20:32 Discharged to Home. Impression: Generalized abdominal pain. - Condition is Fair. - Discharge Instructions: Abdominal Pain, Adult. - Prescriptions for Tylenol- Codeine #3 300-30 mg Oral Tablet - take 2 tablet by ORAL route every 6 hours As needed; 30 tablet. Medrol (Aram) 4 mg Oral Tablets, Dose Pack - take 1 tablet by ORAL route as directed - follow package instructions; 1 packet. Pepcid 20 mg Oral Tablet - take 1 tablet by ORAL route once daily for 10 days; 10 tablet. - Medication Reconciliation Form, Thank You Letter, Antibiotic Education, Prescription Opioid Use form. - Follow up: Private Physician; When: Tomorrow; Reason: Continuance of care. Signatures: Dispatcher [employer] EDMS Ascencion Brennan MD MD ma2 Barbara Arciniega RN RN tl3 Carlos Lindsey RN RN mg2 Corrections: (The following items were deleted from the chart) 21:16 20:32 01/12/2019 20:32 Discharged to Home. Impression: Generalized abdominal pain. mg2 Condition is Fair. Prescriptions for Tylenol-Codeine #3 300-30 mg Oral Tablet - take 2 tablet by ORAL route every 6 hours As needed; 30 tablet, Medrol (Aram) 4 mg Oral Tablets, Dose Pack - take 1 tablet by ORAL route as directed - follow package instructions; 1 packet. and Forms are Medication Reconciliation Form, Thank You Letter, Antibiotic Education, Prescription Opioid Use. Follow up: Private Physician; When: Tomorrow; Reason: Continuance of care. ma2
[2019-01-12] MEDS ORDERED: ACETAMINOPHEN 500 MG TAB ONE (21:12)
[2019-01-12 21:50] VITALS: BP 147/87; TEMP 98.7
== END 2019-01-12 21:16 | disposition home or self-care (01) ==
LOC: ER 17:29
DX: R10.84 Generalized abdominal pain (principal); K50.90 Crohn's disease, unspecified, without complications; Z88.0 Allergy status to penicillin
CPT/HCPCS: 36415; 80048; 80076; 81003; 81025; 83690; 85025; 96361; 96374; 96375; 99284; J2405; J2930; J7030

== ENCOUNTER 2019-08-23 16:14 | Emergency (ER) | payer SELFPAY ==
--- OUTSIDE RECORDS SUMMARY | 2019-08-23 16:16 | XMS REPORT ---
:1985 [facility] Address [address] [place] [address] Dr. Villa [address] [place] [id number] Care Team Providers Name Role Phone Unavailable Unavailable Unavailable Problems This patient has no known problems. Allergies, Adverse Reactions, Alerts This patient has no known allergies or adverse reactions. Medications This patient has no known medications.
--- NOTE | 2019-08-23 17:37 | EDPHYS ---
Physician Documentation [facility] Name: Yina Dom Age: 34 yrs Sex: Female : 1985 Arrival Date: 08/23/2019 Time: 16:17 Bed 8 Private MD: ED Physician Ascencion Brennan HPI: 08/23 16:41 This 34 yrs old Female presents to ER via Ambulatory with complaints of kb Fever, Sinus Congestion. 16:41 The patient or guardian reports cough, that is intermittent, described as mild, flu kb symptoms, low-grade fever, myalgias. Onset: The symptoms/episode began/occurred 3 day(s) ago. Severity of symptoms: At their worst the symptoms were moderate, in the emergency department the symptoms are unchanged. Modifying factors: The symptoms are alleviated by nothing, the symptoms are aggravated by nothing. Associated signs and symptoms: Pertinent positives: fever, sore throat, Pertinent negatives: chest pain, diarrhea, ear ache, nausea, rhinorrhea, vomiting. The patient has not experienced similar symptoms in the past. The patient has not recently seen a physician. Historical: - Allergies: 16:20 PENICILLINS; la1 - PMHx: 16:20 Crohn's; la1 - Immunization history:: Adult Immunizations up to date. - Social history:: Smoking status: Patient uses tobacco products, denies chronic smoking, but will smoke occasionally. - Ebola Screening: : No symptoms or risks identified at this time. ROS: 16:41 Neck: Negative for injury, pain, and swelling, Cardiovascular: Negative for chest pain, kb palpitations, and edema, Abdomen/GI: Negative for abdominal pain, nausea, vomiting, diarrhea, and constipation, Back: Negative for injury and pain, MS/Extremity: Negative for injury and deformity, Skin: Negative for injury, rash, and discoloration, Neuro: Negative for headache, weakness, numbness, tingling, and seizure. 16:41 Constitutional: Positive for chills, fatigue, fever. 16:41 ENT: Positive for sinus congestion, sinus pain, sore throat. Exam: 16:40 Constitutional: This is a well developed, well nourished patient who is awake, alert, kb and in no acute distress. Head/Face: Normocephalic, atraumatic. Neck: Trachea midline, no thyromegaly or masses palpated, and no cervical lymphadenopathy. Supple, full range of motion without nuchal rigidity, or vertebral point tenderness. No Meningismus. Chest/axilla: Normal chest wall appearance and motion. Nontender with no deformity. No lesions are appreciated. Cardiovascular: Regular rate and rhythm with a normal S1 and S2. No gallops, murmurs, or rubs. Normal PMI, no JVD. No pulse deficits. Respiratory: Lungs have equal breath sounds bilaterally, clear to auscultation and percussion. No rales, rhonchi or wheezes noted. No increased work of breathing, no retractions or nasal flaring. Abdomen/GI: Soft, non-tender, with normal bowel sounds. No distension or tympany. No guarding or rebound. No evidence of tenderness throughout. Skin: Warm, dry with normal turgor. Normal color with no rashes, no lesions, and no evidence of cellulitis. MS/ Extremity: Pulses equal, no cyanosis. Neurovascular intact. Full, normal range of motion. Neuro: Awake and alert, GCS 15, oriented to person, place, time, and situation. Cranial nerves II-XII grossly intact. Motor strength 5/5 in all extremities. Sensory grossly intact. Cerebellar exam normal. Normal gait. 16:40 Head/face: Sinus tenderness, that is moderate, is located over the right frontal sinus, left frontal sinus, right maxillary sinus and left maxillary sinus. 16:40 ENT: External ear(s): are unremarkable, Ear canal(s): are normal, TM's: are normal, Nose: is normal, Mouth: is normal, Posterior pharynx: erythema, that is moderate. Vital Signs: 16:21 BP 133 / 91; Pulse 94; Resp 16; Temp 99.1; Pulse Ox 100% on R/A; Weight 107.05 kg; la1 Height 5 ft. 3 in. (160.02 cm); 17:46 BP 131 / 85; Pulse 85; Resp 17; Temp 98; Pulse Ox 100% ; bp 16:21 Body Mass Index 41.81 (107.05 kg, 160.02 cm) la1 MDM: 16:21 Patient medically screened. kb 16:40 Data reviewed: vital signs, nurses notes. Data interpreted: Pulse oximetry: on room air kb is 100 %. Interpretation: normal. 08/23 16:22 Order name: Flu; Complete Time: 17:19 kb 08/23 16:31 Order name: Strep; Complete Time: 17:13 kb 08/23 17:14 Order name: Throat Culture EDMS Administered Medications: 17:45 Drug: Decadron 8 mg Route: PO; bp 17:45 Drug: Pepcid 20 mg Route: PO; bp Disposition: 18:23 Co-signature as Attending Physician, Ascencion Brennan MD. ma2 Disposition: 08/23/19 17:36 Discharged to Home. Impression: Acute sinusitis. - Condition is Stable. - Discharge Instructions: Sinusitis, Adult. - Prescriptions for Bactroban 2 % Topical Ointment - apply 1 application by INTRANASAL route every 12 hours for 5 days; 15 gram. Zyrtec 10 mg Oral Tablet - take 1 tablet by ORAL route once daily As needed; 20 tablet. Prednisone 20 mg Oral Tablet - take 2 tablet by ORAL route once daily for 5 days; 10 tablet. Pepcid 20 mg Oral Tablet - take 1 tablet by ORAL route once daily; 20 tablet. - Medication Reconciliation Form, Thank You Letter, Antibiotic Education, Prescription Opioid Use form. - Follow up: Emergency Department; When: As needed; Reason: Worsening of condition. Follow up: Private Physician; When: 2 - 3 days; Reason: Recheck today's complaints, Continuance of care, Re-evaluation by your physician. Signatures: Dispatcher [employer] EDIA Roz Fine, WAX BLEACHER-C WAX BLEACHER-Ckb Gladys Verduzco FNP-C WAX BLEACHER-Csnw Kvng Piña RN RN la1 Peltier, Brian, RN RN bp Alzahri, Mohammad, MD MD ma2 Corrections: (The following items were deleted from the chart) 17:47 17:36 08/23/2019 17:36 Discharged to Home. Impression: Acute sinusitis. Condition is bp Stable. Prescriptions for Bactroban 2 % Topical Ointment - apply 1 application by INTRANASAL route every 12 hours for 5 days; 15 gram. and Forms are Medication Reconciliation Form, Thank You Letter, Antibiotic Education, Prescription Opioid Use. Follow up: Emergency Department; When: As needed; Reason: Worsening of condition. Follow up: Private Physician; When: 2 - 3 days; Reason: Recheck today's complaints, Continuance of care, Re-evaluation by your physician. snw
--- NOTE | 2019-08-23 17:37 | ER ---
Nurse's Notes [facility] Name: Yina Fernandes Age: 34 yrs Sex: Female : 1985 Arrival Date: 08/23/2019 Time: 16:17 Bed 8 Private MD: Diagnosis: Acute sinusitis Presentation: 08/23 16:20 Presenting complaint: Patient states: I am all congested, cant breathe through my nose, la1 running fever for the last three days. Transition of care: patient was not received from another setting of care. Onset of symptoms was August 23, 2019. Risk Assessment: Do you want to hurt yourself or someone else? Patient reports no desire to harm self or others. Initial Sepsis Screen: Does the patient meet any 2 criteria? No. Patient's initial sepsis screen is negative. Does the patient have a suspected source of infection? No. Patient's initial sepsis screen is negative. Care prior to arrival: None. 16:20 Method Of Arrival: Ambulatory la1 16:20 Acuity: NAWAF 4 la1 Triage Assessment: 16:20 General: Appears in no apparent distress. comfortable, Behavior is calm, cooperative, bp appropriate for age. Pain: Complains of pain in left maxillary sinus and right maxillary sinus and left frontal sinus and right frontal sinus. EENT: Reports nasal congestion. Neuro: No deficits noted. Cardiovascular: No deficits noted. Respiratory: No deficits noted. GI: No signs and/or symptoms were reported involving the gastrointestinal system. : No signs and/or symptoms were reported regarding the genitourinary system. Derm: No deficits noted. Musculoskeletal: No deficits noted. Historical: - Allergies: 16:20 PENICILLINS; la1 - PMHx: 16:20 Crohn's; la1 - Immunization history:: Adult Immunizations up to date. - Social history:: Smoking status: Patient uses tobacco products, denies chronic smoking, but will smoke occasionally. - Ebola Screening: : No symptoms or risks identified at this time. Screenin:44 Abuse screen: Denies threats or abuse. Denies injuries from another. Nutritional iw screening: No deficits noted. Tuberculosis screening: No symptoms or risk factors identified. Fall Risk None identified. Assessment: 16:43 General: Appears in no apparent distress. Behavior is calm, cooperative. Pain: iw Complains of pain in left frontal sinus and right frontal sinus. Neuro: Level of Consciousness is awake, alert, obeys commands, Oriented to person, place, time, situation, Moves all extremities. Cardiovascular: Patient's skin is warm and dry. Respiratory: Respiratory effort is even, unlabored, Respiratory pattern is regular, symmetrical. Derm: Skin is intact, is healthy with good turgor. 17:45 Reassessment: PT D/C HOME AMBULATORY WITH FAMILY, DX WITH SINUSITIS. bp Vital Signs: 16:21 BP 133 / 91; Pulse 94; Resp 16; Temp 99.1; Pulse Ox 100% on R/A; Weight 107.05 kg; la1 Height 5 ft. 3 in. (160.02 cm); 17:46 BP 131 / 85; Pulse 85; Resp 17; Temp 98; Pulse Ox 100% ; bp 16:21 Body Mass Index 41.81 (107.05 kg, 160.02 cm) la1 ED Course: 16:17 Patient arrived in ED. mr 16:20 Triage completed. la1 16:21 Roz Fine FNP-C is PHCP. kb 16:21 Ascencion Brennan MD is Attending Physician. kb 16:21 Arm band placed on right wrist. la1 16:27 Josh Enciso, DUTCH is Primary Nurse. bp 16:43 No provider procedures requiring assistance completed. Flu and/or RSV swab sent to lab. iw Strep swab sent to lab. Patient did not have IV access during this emergency room visit. 17:10 PHCP role handed off by Roz Fine FNP-C snw 17:10 Gladys Verduzco FNP-C is PHCP. snw 17:47 Patient has correct armband on for positive identification. Bed in low position. Call bp light in reach. Side rails up X2. Adult w/ patient. Administered Medications: 17:45 Drug: Decadron 8 mg Route: PO; bp 17:45 Drug: Pepcid 20 mg Route: PO; bp Outcome: 17:36 Discharge ordered by . snw 17:47 Discharged to home ambulatory, with family. bp 17:47 Condition: stable 17:47 Discharge instructions given to patient, Instructed on discharge instructions, follow up and referral plans. medication usage, Demonstrated understanding of instructions, follow-up care, medications, Prescriptions given X 4. 17:47 Patient left the ED. bp Signatures: Roz Fine JEWELRY BENCH MOLDER-C JEWELRY BENCH MOLDER-Ckb Gladys Verduzco, JEWELRY BENCH MOLDER-C JEWELRY BENCH MOLDER-Csnw Pinky Villafuerte mr Jigna James, RN RN iw Kvng Piña RN RN la1 Josh Enciso, RN RN bp
[2019-08-23] MEDS ORDERED: predniSONE 20 MG TAB ONE (17:41)
[2019-08-23] MEDS ORDERED: dexAMETHasone 4 MG TAB ONE (17:41)
[2019-08-23] MEDS ORDERED: FAMOTIDINE 20 MG TAB ONE (17:50)
[2019-08-23 18:09] VITALS: O2SAT 100
[2019-08-23 18:10] VITALS: BP 131/85; TEMP 98
== END 2019-08-23 17:47 | disposition home or self-care (01) ==
LOC: ER 16:14
DX: J01.90 Acute sinusitis, unspecified (principal); Z72.0 Tobacco use; Z88.0 Allergy status to penicillin
CPT/HCPCS: 87070; 87081; 87804; 99283; J7512

== ENCOUNTER 2019-10-11 13:22 | Emergency (ER) | payer MEDICAID ==
[2019-10-11] MEDS ORDERED: ALBUTEROL 2.5 MG/3 ML NEB SOL ONE (14:31)
[2019-10-11] MEDS ORDERED: dexAMETHasone 4 MG TAB ONE (14:31)
--- NOTE | 2019-10-11 15:13 | ER ---
Nurse's Notes [facility] Michelle Name: Yina Fernandes Age: 34 yrs Sex: Female : 1985 Arrival Date: 10/11/2019 Time: 13:26 Bed 12 Private MD: None, None Diagnosis: Acute bronchitis Presentation: 10/11 13:30 Presenting complaint: Patient states: for the the last 4-5 days I have been having a la1 lot of congestion, body aches, productive cough. Transition of care: patient was not received from another setting of care. Onset of symptoms was October 11, 2019. Risk Assessment: Do you want to hurt yourself or someone else? Patient reports no desire to harm self or others. Initial Sepsis Screen: Does the patient meet any 2 criteria? No. Patient's initial sepsis screen is negative. Does the patient have a suspected source of infection? No. Patient's initial sepsis screen is negative. Care prior to arrival: None. 13:30 Method Of Arrival: Ambulatory la1 13:30 Acuity: NAWAF 4 la1 Historical: - Allergies: 13:31 PENICILLINS; la1 - PMHx: 13:31 Crohn's; la1 - Immunization history:: Adult Immunizations up to date. - Social history:: Smoking status: Patient uses tobacco products, smokes one-half pack cigarettes per day. - Ebola Screening: : No symptoms or risks identified at this time. Screenin:59 Abuse screen: Denies threats or abuse. Nutritional screening: No deficits noted. la1 Tuberculosis screening: No symptoms or risk factors identified. Fall Risk None identified. Assessment: 13:58 General: Appears in no apparent distress. Behavior is calm, cooperative. Pain: Denies la1 pain. Neuro: Level of Consciousness is awake, alert, obeys commands, Oriented to person, place, time, situation, Gait is steady. Cardiovascular: Capillary refill < 3 seconds Thorax. Respiratory: Airway is patent Respiratory effort is even, unlabored, Respiratory pattern is regular, symmetrical, Breath sounds are clear bilaterally. GI: No signs and/or symptoms were reported involving the gastrointestinal system. : No signs and/or symptoms were reported regarding the genitourinary system. Vital Signs: 13:31 BP 115 / 76; Pulse 79; Resp 18; Temp 98.5(TE); Pulse Ox 98% on R/A; Weight 99.79 kg; la1 Height 5 ft. 3 in. (160.02 cm); 13:31 Body Mass Index 38.97 (99.79 kg, 160.02 cm) la1 ED Course: 13:26 Patient arrived in ED. mr 13:26 None, None is Private Physician. mr 13:31 Triage completed. la1 13:31 Arm band placed on left wrist. la1 13:32 Gladys Verduzco [facility]-C [facility]. snw 13:32 Ascencion Brennan MD is Attending Physician. snw 13:58 Kvng Piña, DUTCH is Primary Nurse. la1 13:59 Patient has correct armband on for positive identification. la1 13:59 No provider procedures requiring assistance completed. Patient did not have IV access la1 during this emergency room visit. Administered Medications: 14:35 Drug: Albuterol 2.5 mg Route: Inhalation; ss 14:35 Drug: Decadron 8 mg Route: PO; ss Outcome: 15:12 Discharge ordered by . snw 15:38 Discharged to home ambulatory. la1 15:38 Condition: stable 15:38 Discharge instructions given to patient, Instructed on discharge instructions, follow up and referral plans. medication usage, Demonstrated understanding of instructions, follow-up care, medications, Prescriptions given X 4. 15:39 Patient left the ED. la1 Signatures: Gladys Verduzco FNP-C FNP-Xiao Pinky VillafuertePattie RN RN Kvng Piña RN RN la1
--- NOTE | 2019-10-11 15:13 | EDPHYS ---
Physician Documentation [facility] Michelle Name: Yina Fernandes Age: 34 yrs Sex: Female : 1985 Arrival Date: 10/11/2019 Time: 13:26 Bed 12 Private MD: None, None ED Physician Ascencion Brennan HPI: 10/11 14:34 This 34 yrs old Female presents to ER via Ambulatory with complaints of Flu snw Symptoms. 14:34 Onset: The symptoms/episode began/occurred suddenly, 4 day(s) ago, and became snw persistent. Associated signs and symptoms: Pertinent positives: cough, shortness of breath, sore throat, Pertinent negatives: fever. It is unknown whether or not the patient has had similar symptoms in the past. The patient has not recently seen a physician. Historical: - Allergies: 13:31 PENICILLINS; la1 - PMHx: 13:31 Crohn's; la1 - Immunization history:: Adult Immunizations up to date. - Social history:: Smoking status: Patient uses tobacco products, smokes one-half pack cigarettes per day. - Ebola Screening: : No symptoms or risks identified at this time. ROS: 14:33 Eyes: Negative for injury, pain, redness, and discharge. snw 14:33 Neck: Negative for injury, pain, and swelling, Cardiovascular: Negative for chest pain, palpitations, and edema. 14:33 Abdomen/GI: Negative for abdominal pain, nausea, vomiting, diarrhea, and constipation, Back: Negative for injury and pain, : Negative for injury, bleeding, discharge, and swelling, MS/Extremity: Negative for injury and deformity, Skin: Negative for injury, rash, and discoloration, Neuro: Negative for headache, weakness, numbness, tingling, and seizure. 14:33 Constitutional: Positive for body aches, malaise. 14:33 ENT: Positive for sore throat. 14:33 Respiratory: Positive for cough, wheezing. Exam: 14:21 Constitutional: This is a well developed, well nourished patient who is awake, alert, snw and in no acute distress. Head/Face: Normocephalic, atraumatic. Eyes: Pupils equal round and reactive to light, extra-ocular motions intact. Lids and lashes normal. Conjunctiva and sclera are non-icteric and not injected. Cornea within normal limits. Periorbital areas with no swelling, redness, or edema. 14:21 Neck: Trachea midline, no thyromegaly or masses palpated, and no cervical lymphadenopathy. Supple, full range of motion without nuchal rigidity, or vertebral point tenderness. No Meningismus. Chest/axilla: Normal chest wall appearance and motion. Nontender with no deformity. No lesions are appreciated. Cardiovascular: Regular rate and rhythm with a normal S1 and S2. No gallops, murmurs, or rubs. Normal PMI, no JVD. No pulse deficits. 14:21 Abdomen/GI: Soft, non-tender, with normal bowel sounds. No distension or tympany. No guarding or rebound. No evidence of tenderness throughout. Back: No spinal tenderness. No costovertebral tenderness. Full range of motion. Skin: Warm, dry with normal turgor. Normal color with no rashes, no lesions, and no evidence of cellulitis. MS/ Extremity: Pulses equal, no cyanosis. Neurovascular intact. Full, normal range of motion. Neuro: Awake and alert, GCS 15, oriented to person, place, time, and situation. Cranial nerves II-XII grossly intact. Motor strength 5/5 in all extremities. Sensory grossly intact. Cerebellar exam normal. Normal gait. Psych: Awake, alert, with orientation to person, place and time. Behavior, mood, and affect are within normal limits. 14:21 ENT: TM's: are normal, Nose: is normal, Mouth: is normal, Posterior pharynx: swelling, that is mild, erythema, that is moderate, Voice: is normal. 14:21 Respiratory: the patient does not display signs of respiratory distress, Respirations: normal, Breath sounds: + upper airway congestion. wheezing: bronchitic cough. Vital Signs: 13:31 BP 115 / 76; Pulse 79; Resp 18; Temp 98.5(TE); Pulse Ox 98% on R/A; Weight 99.79 kg; la1 Height 5 ft. 3 in. (160.02 cm); 13:31 Body Mass Index 38.97 (99.79 kg, 160.02 cm) la1 MDM: 13:57 Patient medically screened. snw 15:13 Data reviewed: vital signs, nurses notes. Data interpreted: Pulse oximetry: on room air snw is 98 %. Interpretation: normal. Counseling: I had a detailed discussion with the patient and/or guardian regarding: the historical points, exam findings, and any diagnostic results supporting the discharge/admit diagnosis, lab results, the need for outpatient follow up, to return to the emergency department if symptoms worsen or persist or if there are any questions or concerns that arise at home. Special discussion: Based on the history and exam findings, there is no indication for further emergent testing or inpatient evaluation. I discussed with the patient/guardian the need to see the primary care provider for further evaluation of the symptoms. 10/11 13:32 Order name: Flu; Complete Time: 14:13 la1 10/11 14:20 Order name: Strep; Complete Time: 15:13 snw 10/11 14:56 Order name: Throat Culture EDMS Administered Medications: 14:35 Drug: Albuterol 2.5 mg Route: Inhalation; ss 14:35 Drug: Decadron 8 mg Route: PO; ss Disposition: 10/11/19 15:12 Discharged to Home. Impression: Acute bronchitis. - Condition is Stable. - Discharge Instructions: Acute Bronchitis, Adult, Fever, Adult, Cough, Adult, Rehydration, Adult. - Prescriptions for Zyrtec 10 mg Oral Tablet - take 1 tablet by ORAL route once daily As needed; 20 tablet. Tessalon Perles 100 mg Oral Capsule - take 1 capsule by ORAL route every 8 hours As needed; 15 capsule. Albuterol Sulfate 90 mcg/actuation - inhale 1-2 puff by INHALATION route every 4-6 hours; 1 Inhaler. - Work release form, Medication Reconciliation Form, Thank You Letter, Antibiotic Education, Prescription Opioid Use form. - Follow up: Private Physician; When: 2 - 3 days; Reason: Recheck today's complaints, Continuance of care, Re-evaluation by your physician. Follow up: Emergency Department; When: As needed; Reason: Worsening of condition. Addendum: 10/12/2019 16:44 Co-signature as Attending Physician, Ascencion Brennan MD. m a2 Signatures: Dispatcher [employer] EDPR Gladys Verduzco, FRANCISCO JAVIER-C [employer] MANAGER [employer]ibran[employer] Pattie Paul RN RN ss Kvng Piña RN RN la1 Ascencion Brennan MD MD ma2 Corrections: (The following items were deleted from the chart) 10/11 15:39 15:12 10/11/2019 15:12 Discharged to Home. Impression: Acute bronchitis. Condition is la1 Stable. Forms are Medication Reconciliation Form, Thank You Letter, Antibiotic Education, Prescription Opioid Use. Follow up: Private Physician; When: 2 - 3 days; Reason: Recheck today's complaints, Continuance of care, Re-evaluation by your physician. Follow up: Emergency Department; When: As needed; Reason: Worsening of condition. snw
[2019-10-11 16:03] VITALS: BP 115/76; TEMP 98.5; O2SAT 98
--- OUTSIDE RECORDS SUMMARY | 2019-10-12 07:09 | XMS REPORT ---
:1985 [facility] Address [address] [place] [address] Care Team Providers Name Role Phone Unavailable Unavailable Unavailable Problems This patient has no known problems. Allergies, Adverse Reactions, Alerts This patient has no known allergies or adverse reactions. Medications This patient has no known medications.
== END 2019-10-11 15:39 | disposition home or self-care (01) ==
LOC: ER 13:22
DX: J20.9 Acute bronchitis, unspecified (principal); F17.210 Nicotine dependence, cigarettes, uncomplicated; Z88.0 Allergy status to penicillin
CPT/HCPCS: 87070; 87081; 87804 ×2; 99284; J8540

== ENCOUNTER 2019-10-16 21:52 | Emergency (ER) | payer MEDICAID ==
--- OUTSIDE RECORDS SUMMARY | 2019-10-16 21:55 | XMS REPORT ---
:1985 [facility] [address] [place] [address] Care Team Providers Name Role Phone Unavailable Unavailable Unavailable Problems This patient has no known problems. Allergies, Adverse Reactions, Alerts This patient has no known allergies or adverse reactions. Medications This patient has no known medications.
[2019-10-16] MEDS ORDERED: dexAMETHasone 10 MG/ML VIAL ONE (22:44)
[2019-10-16] MEDS ORDERED: ALBUTEROL 2.5 MG/3 ML NEB SOL ONE (23:51)
--- NOTE | 2019-10-16 23:54 | EDPHYS ---
Physician Documentation [facility] Name: Yina Fernandes Age: 34 yrs Sex: Female : 1985 Arrival Date: 10/16/2019 Time: 21:56 Bed 28 Private MD: ED Physician John Clements HPI: 10/16 22:32 This 34 yrs old Female presents to ER via Ambulatory with complaints of Chest jmm Congestion, Nausea, Fever. 22:32 The patient or guardian reports cough. Onset: The symptoms/episode began/occurred jmm gradually, 1 week(s) ago. Modifying factors: The symptoms are alleviated by nothing. the symptoms are aggravated by nothing. This is a 34 year old female with a history of crohns that presents to the ED with complaints of cough, sore throat beginning 1 week ago. Cough is productive. Patient complains of subjective fever and chills. . Historical: - Allergies: 22:13 PENICILLINS; rv - Home Meds: 22:13 None [Active]; rv - PMHx: 22:13 Crohn's; rv - PSHx: 22:13 Tubal ligation; Adenoids; Cholecystectomy; rv - Immunization history:: Adult Immunizations up to date, Flu vaccine is not up to date. - Social history:: Smoking status: Patient uses tobacco products, 1/2 pack per week. - Ebola Screening: : No symptoms or risks identified at this time. ROS: 22:32 Abdomen/GI: Negative for abdominal pain, nausea, vomiting, diarrhea, and constipation, jmm Back: Negative for injury and pain, Neuro: Negative for headache, weakness, numbness, tingling, and seizure. 22:32 Constitutional: Positive for body aches, fever. 22:32 ENT: Positive for sore throat. 22:32 Cardiovascular: Positive for chest pain, with cough. 22:32 Respiratory: Positive for cough. 22:32 All other systems are negative. Exam: 22:32 Head/Face: atraumatic. Eyes: EOMI, no conjunctival erythema appreciated jmm 22:32 Neck: Trachea midline, Supple Chest/axilla: Normal chest wall appearance and motion. 22:32 Abdomen/GI: Non distended, soft Back: Normal ROM Skin: General appearance color normal MS/ Extremity: Moves all extremities, no obvious deformities appreciated, no edema noted to the lower extremities Neuro: Awake and alert, normal gait Psych: Behavior is normal, Mood is normal, Patient is cooperative and pleasant 22:32 Constitutional: The patient appears in no acute distress, alert, awake. 22:32 ENT: TM's: erythema, that is moderate, bilaterally, Posterior pharynx: erythema, that is moderate. 22:32 Cardiovascular: Rate: normal, Rhythm: regular, Pulses: no pulse deficits are appreciated. 22:32 Respiratory: the patient does not display signs of respiratory distress, Respirations: normal, Breath sounds: are clear throughout. Vital Signs: 22:11 BP 124 / 80; Pulse 92; Resp 17; Temp 98.1; Pulse Ox 97% on R/A; Weight 58.74 kg; Height rv 5 ft. 3 in. (160.02 cm); 23:00 BP 107 / 66; Pulse 89; Resp 18; Pulse Ox 97% on R/A; rv 10/17 00:29 BP 118 / 84; Pulse 86; Resp 19; Temp 98; Pulse Ox 98% on R/A; rv 10/16 22:11 Body Mass Index 22.94 (58.74 kg, 160.02 cm) rv MDM: 10/16 22:32 Patient medically screened. clyde 23:52 Data reviewed: vital signs, nurses notes. Counseling: I had a detailed discussion with clyde the patient and/or guardian regarding: the historical points, exam findings, and any diagnostic results supporting the discharge/admit diagnosis, lab results, radiology results, the need for outpatient follow up, to return to the emergency department if symptoms worsen or persist or if there are any questions or concerns that arise at home. ED course: Patient is alert and non toxic in appearance in the ED. Patient advised to follow up with pcp and otherwise given strict return precautions. patient understood and agrees with the plan of care. . 10/16 22:41 Order name: Flu; Complete Time: 23:47 rv 10/16 22:41 Order name: Strep; Complete Time: 23:47 rv 10/16 23:40 Order name: Throat Culture EDMS Administered Medications: 22:54 Drug: Decadron 10 mg Route: IM; Site: left deltoid; rv 23:28 Follow up: Response: No adverse reaction rv 23:54 Drug: Albuterol 2.5 mg Route: Inhalation; rv 10/17 00:29 Follow up: Response: Marked relief of symptoms rv Disposition: 10/16/19 23:53 Discharged to Home. Impression: Acute bronchitis, Acute pharyngitis. - Condition is Stable. - Discharge Instructions: Acute Bronchitis, Adult, Pharyngitis. - Prescriptions for Bromfed DM 2- 30-10 mg/5 mL Oral syrup - take 10 milliliter by ORAL route every 4 hours; 120 milliliter. Zithromax Z- Aram 250 mg Oral Tablet - take 1 tablet by ORAL route as directed for 5 days Day 1 - take two (2) tablets one time. Day 2, 3, 4 , 5 take one (1) tablet once daily.; 6 tablet. Albuterol Sulfate 90 mcg/actuation - inhale 1-2 puff by INHALATION route every 4-6 hours; 1 Inhaler. - Medication Reconciliation Form, Thank You Letter, Antibiotic Education, Prescription Opioid Use form. - Follow up: Private Physician; When: 2 - 3 days; Reason: Recheck today's complaints, Continuance of care, Re-evaluation by your physician. Addendum: 10/19/2019 21:57 Co-signature as Attending Physician, John Clements MD I agree with the assessment and t w4 plan of care. Signatures: Dispatcher [employer] EDMS Heber Zeng, John Moran MD MD tw4 Rob Trinidad RN RN rv Corrections: (The following items were deleted from the chart) 10/17 00:31 10/16 23:53 10/16/2019 23:53 Discharged to Home. Impression: Acute bronchitis; Acute rv pharyngitis. Condition is Stable. Forms are Medication Reconciliation Form, Thank You Letter, Antibiotic Education, Prescription Opioid Use. Follow up: Private Physician; When: 2 - 3 days; Reason: Recheck today's complaints, Continuance of care, Re-evaluation by your physician. clyde
--- NOTE | 2019-10-16 23:54 | ER ---
Nurse's Notes [facility] Michelle Name: Yina Fernandes Age: 34 yrs Sex: Female : 1985 Arrival Date: 10/16/2019 Time: 21:56 Bed 28 Private MD: Diagnosis: Acute bronchitis;Acute pharyngitis Presentation: 10/16 22:07 Presenting complaint: Patient states: I was here last week diagnosed and treated for rv Bronchitis. the pill for cough and congestion that was prescribed to me is not working. i am not getting better. and my chest is hurting. patient claims is a smoker and claims to have not smoke for two days now. Transition of care: patient was not received from another setting of care. Onset of symptoms was October 16, 2019 at 15:00. Risk Assessment: Do you want to hurt yourself or someone else? Patient reports no desire to harm self or others. Initial Sepsis Screen: Does the patient meet any 2 criteria? No. Patient's initial sepsis screen is negative. Does the patient have a suspected source of infection? No. Patient's initial sepsis screen is negative. Care prior to arrival: None. 22:07 Method Of Arrival: Ambulatory rv 22:07 Acuity: NAWAF 4 rv Triage Assessment: 23:30 General: Appears in no apparent distress. comfortable, Behavior is calm, cooperative. rv GI: Reports nausea. Historical: - Allergies: 22:13 PENICILLINS; rv - Home Meds: 22:13 None [Active]; rv - PMHx: 22:13 Crohn's; rv - PSHx: 22:13 Tubal ligation; Adenoids; Cholecystectomy; rv - Immunization history:: Adult Immunizations up to date, Flu vaccine is not up to date. - Social history:: Smoking status: Patient uses tobacco products, 1/2 pack per week. - Ebola Screening: : No symptoms or risks identified at this time. Screenin:29 Abuse screen: Denies threats or abuse. Denies injuries from another. Nutritional rv screening: No deficits noted. Tuberculosis screening: No symptoms or risk factors identified. Fall Risk None identified. Assessment: 23:28 General: Appears in no apparent distress. comfortable, Behavior is calm, cooperative. rv Pain: Complains of pain in chest. Neuro: Level of Consciousness is awake, alert, obeys commands, Oriented to person, place, time, situation. Cardiovascular: Patient's skin is warm and dry. Respiratory: Airway is patent Breath sounds are clear bilaterally. GI: Abdomen is round non-distended. : No signs and/or symptoms were reported regarding the genitourinary system. EENT: No signs and/or symptoms were reported regarding the EENT system. Derm: Skin is intact. Musculoskeletal: No signs and/or symptoms reported regarding the musculoskeletal system. Vital Signs: 22:11 BP 124 / 80; Pulse 92; Resp 17; Temp 98.1; Pulse Ox 97% on R/A; Weight 58.74 kg; Height rv 5 ft. 3 in. (160.02 cm); 23:00 BP 107 / 66; Pulse 89; Resp 18; Pulse Ox 97% on R/A; rv 10/17 00:29 BP 118 / 84; Pulse 86; Resp 19; Temp 98; Pulse Ox 98% on R/A; rv 10/16 22:11 Body Mass Index 22.94 (58.74 kg, 160.02 cm) rv ED Course: 10/16 21:56 Patient arrived in ED. es 22:02 Rob Trinidad, DUTCH is Primary Nurse. rv 22:10 Triage completed. rv 22:20 Heber Zeng PA is PHCP. [facility] 22:20 John Clements MD is Attending Physician. [facility] 23:29 Patient has correct armband on for positive identification. Placed in gown. Bed in low rv position. Call light in reach. Side rails up X 1. Pulse ox on. NIBP on. 23:30 Patient placed in the treatment room, on a stretcher, on pulse oximetry, Patient rv notified of wait time. 10/17 00:30 No provider procedures requiring assistance completed. Patient did not have IV access rv during this emergency room visit. Administered Medications: 10/16 22:54 Drug: Decadron 10 mg Route: IM; Site: left deltoid; rv 23:28 Follow up: Response: No adverse reaction rv 23:54 Drug: Albuterol 2.5 mg Route: Inhalation; rv 10/17 00:29 Follow up: Response: Marked relief of symptoms rv Outcome: 10/16 23:53 Discharge ordered by . clyde 10/17 00:31 Discharged to home ambulatory. rv Condition: good Discharge instructions given to patient, Instructed on discharge instructions, follow up and referral plans. medication usage, Demonstrated understanding of instructions, follow-up care, medications, Prescriptions given X 3. 00:31 Patient left the ED. rv Signatures: Heber Zeng PA PA jmm Salyer, Edna es Vicente, Ronaldo RN RN rv
[2019-10-17 01:18] VITALS: BP 118/84; TEMP 98; O2SAT 98
== END 2019-10-17 00:31 | disposition home or self-care (01) ==
LOC: ER 21:52
DX: J20.9 Acute bronchitis, unspecified (principal); J02.9 Acute pharyngitis, unspecified; Z72.0 Tobacco use; Z88.0 Allergy status to penicillin
CPT/HCPCS: 87070; 87081; 87804 ×2; 96372; 99284; J1100

== ENCOUNTER 2019-12-28 11:22 | Emergency (ER) | payer MEDICAID ==
--- OUTSIDE RECORDS SUMMARY | 2019-12-28 11:24 | XMS REPORT ---
:1985 [facility] Address [address] [place] [id number] Care Team Providers Name Role Phone Unavailable Unavailable Unavailable Problems This patient has no known problems. Allergies, Adverse Reactions, Alerts This patient has no known allergies or adverse reactions. Medications This patient has no known medications.
--- NOTE | 2019-12-28 13:06 | EDPHYS ---
Physician Documentation [facility] – [place], [place] Michelle Name: Yina Fernandes Age: 34 yrs Sex: Female : 1985 Arrival Date: 12/28/2019 Time: 11:25 Bed 23 Private MD: ED Physician Nicolas Gonzalez HPI: 12/28 12:41 This 34 yrs old Female presents to ER via Ambulatory with complaints of Flu pm1 Symptoms. 12:41 The patient or guardian reports congestion, runny nose, and left ear pain. Onset: The pm1 symptoms/episode began/occurred 4 day(s) ago. Severity of symptoms: in the emergency department the symptoms are unchanged. Modifying factors: The symptoms are alleviated by nothing, the symptoms are aggravated by nothing. Associated signs and symptoms: Pertinent negatives: chest pain, fever, sore throat. The patient has been recently seen by a physician: Mary FRANCES yesterday and given ear drops. Patient presenting to the ER with her daughter who has the same complaints for the same number of days. 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 - Coronavirus screen:: The patient has NOT traveled to [place], [place], or [place] in the past 14 days. Proceed with normal triage process as indicated. - Social history:: Smoking status: Patient reports the use of cigarette tobacco products, smokes one-half pack cigarettes per day, Patient/guardian denies using street drugs, IV drugs. - Ebola Screening: : No symptoms or risks identified at this time. ROS: 12:45 Eyes: Negative for injury, pain, redness, and discharge. pm1 12:45 Neck: Negative for injury, pain, and swelling, Cardiovascular: Negative for chest pain, palpitations, and edema, Respiratory: Negative for shortness of breath, cough, wheezing, and pleuritic chest pain, Abdomen/GI: Negative for abdominal pain, nausea, vomiting, diarrhea, and constipation, Back: Negative for injury and pain, MS/Extremity: Negative for injury and deformity, Skin: Negative for injury, rash, and discoloration, Neuro: Negative for headache, weakness, numbness, tingling, and seizure. 12:45 Constitutional: Positive for body aches, Negative for fever, poor PO intake. 12:45 ENT: Positive for ear pain, rhinorrhea, sinus congestion, Negative for sore throat. Exam: 12:45 Constitutional: This is a well developed, well nourished patient who is awake, alert, pm1 and in no acute distress. Head/Face: Normocephalic, atraumatic. Eyes: Pupils equal round and reactive to light, extra-ocular motions intact. Lids and lashes normal. Conjunctiva and sclera are non-icteric and not injected. Cornea within normal limits. Periorbital areas with no swelling, redness, or edema. ENT: Nares patent. No nasal discharge, no septal abnormalities noted. Tympanic membranes are normal and external auditory canals are clear. Oropharynx with no redness, swelling, or masses, exudates, or evidence of obstruction, uvula midline. Mucous membranes moist. Neck: Trachea midline, no thyromegaly or masses palpated, and no cervical lymphadenopathy. Supple, full range of motion without nuchal rigidity, or vertebral point tenderness. No Meningismus. Chest/axilla: Normal chest wall appearance and motion. Nontender with no deformity. No lesions are appreciated. Cardiovascular: Regular rate and rhythm with a normal S1 and S2. No gallops, murmurs, or rubs. Normal PMI, no JVD. No pulse deficits. Respiratory: Lungs have equal breath sounds bilaterally, clear to auscultation and percussion. No rales, rhonchi or wheezes noted. No increased work of breathing, no retractions or nasal flaring. Abdomen/GI: Soft, non-tender, with normal bowel sounds. No distension or tympany. No guarding or rebound. No evidence of tenderness throughout. Back: No spinal tenderness. No costovertebral tenderness. Full range of motion. Skin: Warm, dry with normal turgor. Normal color with no rashes, no lesions, and no evidence of cellulitis. MS/ Extremity: Pulses equal, no cyanosis. Neurovascular intact. Full, normal range of motion. 12:45 Neuro: Orientation: is normal, Motor: is normal, moves all fours. Vital Signs: 12:19 BP 114 / 96; Pulse 79; Resp 18; Temp 98.7; Pulse Ox 98% on R/A; Weight 108.86 kg; mg2 Height 5 ft. 2 in. (157.48 cm); 13:13 BP 115 / 78; Pulse 85; Resp 18; Temp 98; Pulse Ox 100% on R/A; mg2 12:19 Body Mass Index 43.90 (108.86 kg, 157.48 cm) mg2 MDM: 11:40 Patient medically screened. [facility] 13:02 Data reviewed: vital signs. Data interpreted: Pulse oximetry: on room air is 98 %. pm1 Interpretation: normal. Counseling: I had a detailed discussion with the patient and/or guardian regarding: the historical points, exam findings, and any diagnostic results supporting the discharge/admit diagnosis, lab results, the need for outpatient follow up, to return to the emergency department if symptoms worsen or persist or if there are any questions or concerns that arise at home. 12/28 11:55 Order name: Strep; Complete Time: 13:02 pm1 12/28 11:55 Order name: Flu; Complete Time: 12:41 pm1 12/28 12:49 Order name: Throat Culture EDMS Administered Medications: No medications were administered Disposition: 14:49 Co-signature as Attending Physician, Nicolas Gonzalez MD I agree with the assessment and [facility] plan of care. Disposition: 12/28/19 13:04 Discharged to Home. Impression: Acute upper respiratory infection, unspecified. - Condition is Stable. - Discharge Instructions: Antibiotic Resistance, Upper Respiratory Infection, Adult, Viral Respiratory Infection. - Medication Reconciliation Form, Thank You Letter, Antibiotic Education, Prescription Opioid Use form. - Follow up: Emergency Department; When: As needed; Reason: Worsening of condition. Follow up: Private Physician; When: 2 - 3 days; Reason: Recheck today's complaints, Continuance of care, Re-evaluation by your physician. - Problem is new. - Symptoms have improved. Signatures: Dispatcher [employer] EDMS Nicolas Gonzalez MD MD cha Marinas, Patrick, WIRE FRAME LAMP SHADE MAKER WIRE FRAME LAMP SHADE MAKER pm1 Carlos Lindsey RN RN mg2 Corrections: (The following items were deleted from the chart) 13:14 13:04 12/28/2019 13:04 Discharged to Home. Impression: Acute upper respiratory mg2 infection, unspecified. Condition is Stable. Forms are Medication Reconciliation Form, Thank You Letter, Antibiotic Education, Prescription Opioid Use. Follow up: Emergency Department; When: As needed; Reason: Worsening of condition. Follow up: Private Physician; When: 2 - 3 days; Reason: Recheck today's complaints, Continuance of care, Re-evaluation by your physician. Problem is new. Symptoms have improved. pm1
--- NOTE | 2019-12-28 13:06 | ER ---
Nurse's Notes [facility] Name: Yina Fernandes Age: 34 yrs Sex: Female : 1985 Arrival Date: 12/28/2019 Time: 11:25 Bed 23 Private MD: Diagnosis: Acute upper respiratory infection, unspecified Presentation: 12/28 12:01 Presenting complaint: Patient states: i have colds and cough for the last 4 days. mg2 Transition of care: patient was not received from another setting of care. Onset of symptoms was December 2019. Risk Assessment: Do you want to hurt yourself or someone else? Patient reports no desire to harm self or others. Initial Sepsis Screen: Does the patient meet any 2 criteria? No. Patient's initial sepsis screen is negative. Does the patient have a suspected source of infection? No. Patient's initial sepsis screen is negative. Care prior to arrival: None. 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 - Coronavirus screen:: The patient has NOT traveled to [place], [place], or [place] in the past 14 days. Proceed with normal triage process as indicated. - Social history:: Smoking status: Patient reports the use of cigarette tobacco products, smokes one-half pack cigarettes per day, Patient/guardian denies using street drugs, IV drugs. - Ebola Screening: : No symptoms or risks identified at this time. Screenin:45 Abuse screen: Denies threats or abuse. Denies injuries from another. Nutritional mg2 screening: No deficits noted. Tuberculosis screening: No symptoms or risk factors identified. Fall Risk None identified. Assessment: 12:44 General: Appears in no apparent distress. comfortable, Behavior is calm, cooperative. mg2 Pain: Denies pain. Neuro: Level of Consciousness is awake, alert, obeys commands, Oriented to person, place, time, situation. Cardiovascular: Capillary refill < 3 seconds Patient's skin is warm and dry. Respiratory: Reports cough that is Airway is patent Respiratory effort is even, unlabored, Respiratory pattern is regular, symmetrical. GI: No signs and/or symptoms were reported involving the gastrointestinal system. : No signs and/or symptoms were reported regarding the genitourinary system. EENT: No signs and/or symptoms were reported regarding the EENT system. Derm: Skin is intact, is healthy with good turgor, Skin is pink, warm \T\ dry. normal. Musculoskeletal: Circulation, motion, and sensation intact. Capillary refill < 3 seconds. 13:13 Reassessment: No changes from previously documented assessment. mg2 Vital Signs: 12:19 BP 114 / 96; Pulse 79; Resp 18; Temp 98.7; Pulse Ox 98% on R/A; Weight 108.86 kg; mg2 Height 5 ft. 2 in. (157.48 cm); 13:13 BP 115 / 78; Pulse 85; Resp 18; Temp 98; Pulse Ox 100% on R/A; mg2 12:19 Body Mass Index 43.90 (108.86 kg, 157.48 cm) mg2 ED Course: 11:25 Patient arrived in ED. mr 11:39 Ahmet Murphy NP is PHCP. pm1 11:39 Nicolas Gonzalez MD is Attending Physician. pm1 11:51 Carlos Lindsey, DUTCH is Primary Nurse. mg2 12:19 Triage completed. mg2 12:44 Arm band placed on. mg2 12:45 Patient has correct armband on for positive identification. mg2 12:45 No provider procedures requiring assistance completed. Patient did not have IV access mg2 during this emergency room visit. Administered Medications: No medications were administered Outcome: 13:04 Discharge ordered by . pm1 13:13 Discharged to home ambulatory, with family. mg2 13:13 Condition: good 13:13 Discharge instructions given to patient, family, Instructed on discharge instructions, follow up and referral plans. Demonstrated understanding of instructions, follow-up care. 13:14 Patient left the ED. mg2 Signatures: Christo Pinky pena Ahmet Murphy, REAL ESTATE APPRAISER REAL ESTATE APPRAISER pm1 Carlos Lindsey, RN RN mg2
[2019-12-28 13:50] VITALS: BP 115/78; TEMP 98; O2SAT 100
== END 2019-12-28 13:14 | disposition home or self-care (01) ==
LOC: ER 11:22
DX: J06.9 Acute upper respiratory infection, unspecified (principal); Z88.0 Allergy status to penicillin
CPT/HCPCS: 87070; 87081; 87804; 99281

== ENCOUNTER 2020-05-29 15:36 | Emergency (ER) | payer MEDICAID ==
--- OUTSIDE RECORDS SUMMARY | 2020-05-29 15:38 | XMS REPORT | Continuity of Care Document ---
:1985 Author Organization [facility] t Address [address] [place] [address] Care Team Providers Name Role Phone Ileana Alas Attending Clinician Torrey Guardado MD Attending Clinician Sergei MCINTYRE Attending Clinician Bessie Lewis MD Attending Clinician Problems This patient has no known problems. Allergies, Adverse Reactions, Alerts This patient has no known allergies or adverse reactions. Medications This patient has no known medications. Procedures This patient has no known procedures. Encounters Start End Encounter Admission Attending Care Care Encounter Source Date/Time Date/Time Type Type Clinicians Facility Department ID 2020-04-09 2020-04-09 Emergency [place] [facility] [id number] 13:11:51 16:26:00 Leigh Perdomo [id number] [place] [id number] [place] [id number] 2019-12-26 2019-12-26 Emergency Deb[place] [facility] [id number] 02:03:08 03:42:00 Adrian Perdomo [id number] [place] [id number] [place] [id number] 2019-12-19 2019-12-19 Emergency Radha Mai [facility] [id number] 14:29:58 16:35:00 Kat Lewis [place] [id number] [place] [id number] [place] [id number] Results This patient has no known results.
--- OUTSIDE RECORDS SUMMARY | 2020-05-29 15:39 | XMS REPORT | Summary of Care ---
:1985 Author Organization [facility] - [facility] Address [address] [place] [id number] Care Team Providers Name Role Phone Pcp, Does Not Have A Primary Care Provider Reason for Referral MRI/CAT Scan (STAT) Status Reason Specialty Diagnoses / Referred By Referred To Procedures Contact Contact New Request Diagnostic Diagnoses Right flank pain Leigh Wang Radiology Procedures CT ABDOMEN PELVIS WO CONTRAST R, EMNP [address] [facility] [id number] [place] [id number] Reason for Visit Reason Comments Flank Pain right Auth/Cert Status Reason Specialty Diagnoses / Referred By Referred To Procedures Contact Contact Emergency Medicine [facility] Em ergency Dept [address] [place] [address] Fax: Encounter Details Date Type Department Care Team Description 04/09/2020 Emergency ADC-Emergency Leigh Wang R, Right flan k pain (Primary Dx); Department EMNP Adrenal nodule; [address] [place] [address] [address] [facility] [place] [address] [id number] [place], [place] [id number] Allergies Active Allergy Reactions Severity Noted Date Comments Penicillin Swelling 02/18/2016 documented as of this encounter (statuses as of 04/09/2020) Medications Medication Sig Dispensed Refills Start Date End Date Status pantoprazole 40 mg EC Take 1 tablet 30 tablet 0 09/15/2019 Active tabletIndications: by mouth daily. Generalized abdominal pain, Lower GI bleed albuterol 90 Inhale 2 Puffs 8.5 g 0 09/19/2019 A ctive mcg/actuation every 4 (four) inhalerIndications: hours as needed Cough with fever, Viral for Wheezing or pharyngitis Shortness of Breath. benzonatate 100 mg Take 1 capsule 14 capsule 0 09/19/2019 Active capsuleIndications: by mouth 3 Cough with fever, Viral (three) times pharyngitis daily as needed for Cough. traMADol (ULTRAM) 50 mg Take 1 tablet 9 tablet 0 11/22/2019 Active tabletIndications: TMJ by mouth every (dislocation of 8 (eight) hours temporomandibular as needed for joint), initial Pain (scale encounter 4-6). dicyclomine 20 mg Take 1 tablet 20 tablet 0 12/19/2019 Active tabletIndications: Lower by mouth every abdominal pain 6 (six) hours as needed for Abdominal pain. ondansetron (ZOFRAN) 4 Take 1 tablet 12 tablet 0 12/19/2019 Active mg tabletIndications: by mouth every Lower abdominal pain 8 (eight) hours as needed for Nausea and Vomiting (N/V). phenazopyridine 200 mg Take 1 tablet 9 tablet 0 12/19/2019 Active tabletIndications: by mouth 3 Dysuria (three) times daily. ibuprofen 800 mg Take 1 tablet 40 tablet 0 04/09/2020 Active tabletIndications: Right by mouth every flank pain 6 (six) hours as needed for Pain (scale 4-6). traMADol 50 mg Take 1 tablet 12 tablet 0 04/09/2020 Active tabletIndications: Right by mouth every flank pain 6 (six) hours as needed for Pain (scale 7-10). documented as of this encounter (statuses as of 04/09/2020) Active Problems Problem Noted Date Drug-seeking behavior 10/20/2017 Obesity (BMI 30-39.9) 10/23/2016 documented as of this encounter (statuses as of 04/09/2020) Social History Tobacco Use Types Packs/Day Years Used Date Current Every Day Smoker Cigarettes 0.5 13 Smokeless Tobacco: Never Used Alcohol Use Drinks/Week oz/Week Comments No 0 Standard drinks or equivalent 0.0 Sex Assigned at Date Recorded Not on file Job Start Date Occupation Industry Not on file Not on file Not on file Travel History Travel Start Travel End No recent travel history available. COVID-19 Exposure Response Date Recorded In the last month, have you been in contact with No / Unsure 04/09/2020 1:04 PM CDT someone who was confirmed or suspected to have Coronavirus / COVID-19? documented as of this encounter Last Filed Vital Signs Vital Sign Reading Time Taken Comments Blood Pressure 142/77 04/09/2020 4:00 PM CDT Pulse 62 04/09/2020 4:00 PM CDT Temperature 36.9 C (98.4 F) 04/09/2020 1:10 PM CDT Respiratory Rate 18 04/09/2020 4:00 PM CDT Oxygen Saturation 98% 04/09/2020 4:00 PM CDT Inhaled Oxygen Concentration - - Weight 108.9 kg (240 lb) 04/09/2020 1:10 PM CDT Height - - Body Mass Index 43.9 12/26/2019 2:07 AM [employer] documented in this encounter Discharge Instructions Leigh Robb EMNP - 04/09/2020NO LIFE-THREATENING FINDINGS ON TODAY'S EXAM. SPECIAL INSTRUCTIONS: 1. Take medicines as prescribed 2. May take 2 tylenol every 4 hours for pain 3. Increase fluids 4. See attached information FOLLOW-UP RECOMMENDATIONS: RECOMMEND FOLLOW-UP WITH A PRIMARY CARE PROVIDER OR SPECIALIST IN 2-5 DAYS, ESPECIALLY IF NO IMPROVEMENT IN SYMPTOMS. TO FOLLOW-UP WITHIN THE [facility], TRY THESE OPTIONS (CLINIC APPOINTMENTS AVAILABLE ON [id number] BASIS): 1. SCHEDULE AN APPOINTMENT ONLINE AT [email or web address].[facility] 2. OR CALL THE [facility] AT OR 3. OR CALL YOUR [facility] PHYSICIAN'S OFFICE DIRECTLY IF YOU ARE ALREADY AN ESTABLISHED [facility] PATIENT. OR, YOU MAY FOLLOW-UP WITH A PROVIDER OF YOUR CHOICE, SUCH : 1. A PHYSICIAN OF YOUR CHOICE 2. [facility] AND [facility], . LOCATIONS IN [place] AND [place] 3. [facility], [address] [facility], [place], [place]; [phone] RETURN TO ER FOR WORSENING OF SYMPTOMS. AttachmentsThe following attachments cannot be sent through Care Everywhere. Flank Pain, Uncertain Cause (Taiwanese)Ibuprofen tablets and capsules (Taiwanese) Tramadol tablets (Taiwanese)documented in this encounter Plan of Treatment Health Maintenance Due Date Last Done Comments VARICELLA VACCINES (1 of 2 - 2-dose childhood series) 1985 PNEUMOCOCCAL 0-64 YEARS COMBINED SERIES (1 of 1 - 1990 PPSV23) DTaP,Tdap,and Td Vaccines (1 - Tdap) 1995 PAP SMEAR 2005 INFLUENZA VACCINE (Season Ended) 2020 documented as of this encounter Procedures Procedure Name Priority Date/Time Associated Comments Diagnosis CT ABDOMEN PELVIS WO STAT 04/09/2020 3:27 Right flank pain Results for this CONTRAST PM CDT procedure are i n the results section. CBC WITH DIFFERENTIAL STAT 04/09/2020 1:25 Right flank sally n Results for this PM CDT procedure are i n the results section. URINALYSIS STAT 04/09/2020 1:25 Right flank pain Results for this PM CDT procedure are i n the results section. COMP. METABOLIC PANEL STAT 04/09/2020 1:25 Right flank sally n Results for this (50244) PM CDT procedure are i n the results section. POCT TEST FARIDA 04/09/2020 1:19 Right flank pain Results for this PM CDT procedure are i n the results section. documented in this encounter Results CT ABDOMEN PELVIS WO CONTRAST (04/09/2020 3:27 PM CDT) Specimen Impressions Performed At PACS/VR/DOSE No hydronephrosis or radiopaque nephroli thiasis. Right adrenal nodule measuring 2.1 cm with central den sity of 14 Hounsfield units, stable from at least September 2019 , likely representing lipid poor adenoma. Attention to follow-up exam is recommended to document two-year stability. Focal opacity in the right lower lobe is nonspecific, possibly related to atelectasis versus an early infectious or inflammatory process. Recommend a follow-up chest CT in 6 months to ensure resolution. Preliminary Report Dictated by Resident: William Garcia I, Odell Bojorquez MD., have reviewed this study and agree with the above report. Narrative Performed At CT ABDOMEN PELVIS WO CONTRAST PACS/VR/DOSE HISTORY: 35 years-old; Female; Flank sally n, stone disease suspected COMPARISON: 12/19/2019 TECHNIQUE AND FINDINGS: Contiguous axial imaging from the level of the lung bases through the pubic symphysis was pe rformed without the intravenous administration of contrast. Coronal and sagittal reconstructions were obtained. Auto mA and/or iterative rec onstruction were used to reduce radiation dose. FINDINGS: LOWER THORAX: A focal opacity is noted i n the right lower lobe (2:9). LIVER: The liver is enlarged measuring approximately 2 0 cm craniocaudally. GALLBLADDER AND BILIARY TREE: Prior chol ecystectomy. No intra or extrahepatic biliary ductal dilatation. SPLEEN: Unremarkable. PANCREAS: No ductal dilation or masses. ADRENAL GLANDS: Right adrenal nodule measuring 2.1 cm with average central density of 14 Hounsfield units. Left adr enal is unremarkable. KIDNEYS: No hydronephrosis, stones, or m asses. PERITONEUM AND RETROPERITONEUM: No free air or fluid collection. LYMPH NODES: No intra-abdominal or pelvi c lymph node enlargement. GI TRACT: No dilation or bowel wall thic kening. Appendix is normal. PELVIS/BLADDER: Bladder is distended wit h no wall thickening. The uterus and adnexa are unremarkable. VESSELS: Unremarkable. BONES AND SOFT TISSUES: No suspicious ly tic or sclerotic bony lesions. Chronic healed fracture of left ninth ri b. Procedure Note [facility], Radiant Results Inft User - 2019 4:[address] ABDOMEN PELVIS WO CONTRAST HISTORY: 35 years-old; Female; Flank sally n, stone disease suspected COMPARISON: 12/19/2019 TECHNIQUE AND FINDINGS: Contiguous axial imaging from the level of the lung bases through the pubic symphysis was pe rformed without the intravenous administration of contrast. Coronal and sagittal reconstructions were obtained. Auto mA and/or iterative elena nstruction were used to reduce radiation dose. FINDINGS: LOWER THORAX: A focal opacity is noted i n the right lower lobe (2:9). LIVER: The liver is enlarged measuring a pproximately 20 cm craniocaudally. GALLBLADDER AND BILIARY TREE: Prior chol ecystectomy. No intra or extrahepatic biliary ductal dilatation. SPLEEN: Unremarkable. PANCREAS: No ductal dilation or masses. ADRENAL GLANDS: Right adrenal nodule nayana suring 2.1 cm with average central density of 14 Hounsfield units. Left adr enal is unremarkable. KIDNEYS: No hydronephrosis, stones, or m asses. PERITONEUM AND RETROPERITONEUM: No free air or fluid collection. LYMPH NODES: No intra-abdominal or pelvi c lymph node enlargement. GI TRACT: No dilation or bowel wall thic kening. Appendix is normal. PELVIS/BLADDER: Bladder is distended wit h no wall thickening. The uterus and adnexa are unremarkable. VESSELS: Unremarkable. BONES AND SOFT TISSUES: No suspicious ly tic or sclerotic bony lesions. Chronic healed fracture of left ninth ri b. IMPRESSION No hydronephrosis or radiopaque nephroli thiasis. Right adrenal nodule measuring 2.1 cm wi th central density of 14 Hounsfield units, stable from at least September 2019 , likely representing lipid poor adenoma. Attention to follow-up exam is recommended to document two-year stability. Focal opacity in the right lower lobe is nonspecific, possibly related to atelectasis versus an early infectious o r inflammatory process. Recommend a follow-up chest CT in 6 months to ensure resolution. Preliminary Report Dictated by Resident: William Garcia I, Odell Bojorquez MD., have reviewed this study and agree with the above report. Performing Organization Address City/State/Zipcode Phone Number PACS/VR/DOSE COMP. METABOLIC PANEL (43302) (04/09/2020 1:25 PM CDT) Pathologist Sig nature NA 140 135 - 145 mmol/L [facility] K 4.2 3.5 - 5.0 mmol/L [facility] CL 108 98 - 108 mmol/L [facility] CO2 TOTAL 25 23 - 31 mmol/L [facility] AGAP 7 2 - 16 [facility] BUN 13 7 - 23 mg/dL [facility] GLUCOSE 97 70 - 110 mg/dL [facility] CREATININE 0.98 0.50 - 1.04 [facility] mg/dL [facility] TOTAL BILI 0.1 0.1 - 1.1 mg/dL [facility] CALCIUM 9.2 8.6 - 10.6 mg/dL [facility] T PROTEIN 6.8 6.3 - 8.2 g/dL [facility] ALBUMIN 4.1 3.5 - 5.0 g/dL [facility] ALK PHOS 68 34 - 122 U/L [facility] ALTv 19 5 - 35 U/L [facility] AST(SGOT) 24 13 - 40 U/L [facility] eGFR Calculation 64.2 mL/min/1.73m2 [facility] (Non-) [facility] Y eGFR Calculation 77.8 mL/min/1.73m2 [facility] () [facility] Specimen Blood - ARM, RIGHT Narrative Performed At Association of Glomerular Filtration Rate (GFR) [facility] and Staging of Kidney Disease* + + +- + | GFR (mL/min/1.73 m2) | With Kidney Damage | Without Kidney Damage + + +- + | >90 | Stage one | Normal + + +- + | 60-89 | Stage two | Decreased GFR + + +- + | 30-59 | Stage three | Stage three + + +- + | 15-29 | Stage four | Stage four + + +- + | <15 (or dialysis) | Stage five | Stage five + + +- + *Each stage assumes the associated GFR level has been in effect for at least three months. Stages 1 to 5, with or without kidney disease, indicate chronic kidney disease. Notes: Determination of stages one and two (with eGFR >59mL/min/1.73 m2) requires estimation of kidney damage for at least three months as defined by structural or functional abnormalities of the kidney, manifested by either: Pathological abnormalities or Markers of kidney damage (including abnormalities in the composition of the blood or urine or abnormalities in imaging tests). Performing Organization Address City/State/Zipcode Phone Number [facility] CLIA: [id number], [address] [place] [address] CBC WITH DIFFERENTIAL (04/09/2020 1:25 PM CDT) Pathologist [facility] nature WBC 11.59 (H) 4.30 - 11.10 [facility] 10*3/L [facility] RBC 4.18 3.93 - 5.25 [facility] 10*6/L [facility] HGB 13.0 11.6 - 15.0 [facility] g/dL [facility] HCT 38.6 35.7 - 45.2 % [facility] MCV 92.3 80.6 - 95.5 fL [facility] MCH 31.1 25.9 - 32.8 pg [facility] MCHC 33.7 31.6 - 35.1 [facility] g/dL [facility] RDW-SD 43.3 39.0 - 49.9 fL [facility] RDW-CV 12.8 12.0 - 15.5 % [facility] PLT 385 (H) 166 - 358 [facility] 10*3/L [facility] MPV 9.6 9.5 - 12.9 fL [facility] NRBC/100 WBC 0.0 0.0 - 10.0 /100 [facility] WBCs [facility] NRBC x10^3 <0.01 10*3/L [facility] GRAN MAT (NEUT) % 61.2 % [facility] IMM GRAN % 0.40 % [facility] LYMPH % 25.5 % [facility] MONO % 9.3 % [facility] EOS % 2.9 % [facility] BASO % 0.7 % [facility] GRAN MAT x10^3(ANC) 7.09 1.88 - 7.09 [facility] 10*3/uL [facility] IMM GRAN x10^3 0.05 0.00 - 0.06 [facility] 10*3/uL [facility] LYMPH x10^3 2.95 1.32 - 3.29 [facility] 10*3/uL [facility] MONO x10^3 1.08 (H) 0.33 - 0.92 [facility] 10*3/uL [facility] EOS x10^3 0.34 0.03 - 0.39 [facility] 10*3/uL [facility] BASO x10^3 0.08 (H) 0.01 - 0.07 [facility] 10*3/uL [facility] Specimen Blood - ARM, RIGHT Performing Organization Address City/State/Zipcode Phone Number [facility] CLIA: [id number], [address] [place], [place] [address] URINALYSIS (04/09/2020 1:25 PM CDT) Pathologist Sig nature APPEARANCE Hazy (A) Clear [facility] COLOR Yellow Yellow [facility] PH 5.0 4.8 - 8.0 [facility] SP GRAVITY 1.032 (H) 1.003 - 1.030 [facility] GLU U QUAL Normal Normal [facility] BLOOD 3+ (A) Negative [facility] KETONES Negative Negative [facility] PROTEIN Negative Negative [facility] UROBILIN Normal Normal [facility] BILIRUBIN Negative Negative [facility] NITRITE Negative Negative [facility] LEUK RACHAEL Negative Negative [facility] RBC/HPF 5 (H) 0 - 3 HPF [facility] WBC/HPF 1 0 - 5 HPF [facility] BACTERIA Negative Negative [facility] MUCOUS Slight (A) Negative LPF [facility] SQ EPITH 14 HPF [facility] Specimen Urine - URINE, CLEAN CATCH Performing Organization Address City/State/Zipcode Phone Number [facility] CLIA: [id number], [address] [place], [place] [address] POCT TEST (04/09/2020 1:19 PM CDT) Pathologist Sig nature POCT PREG negative On board controls acceptable present with C Line Specimen Urine - URINE, CLEAN CATCH documented in this encounter Visit Diagnoses Diagnosis Right flank pain - Primary Abdominal pain, unspecified site Adrenal nodule Benign neoplasm of adrenal gland Microscopic hematuria documented in this encounter Administered Medications Medication Order MAR Action Action Date Dose Rate Site FENTanyl PF (SUBLIMAZE (PF)) Given 04/09/2020 3:01 PM CDT 50 mc g injection 50 mcg 50 mcg, Slow IV Push, ONCE, 1 dose, 04/09/20 at 1530, Routine ketorolac (TORADOL) injection 15 mg Given 04/09/2020 1:27 PM CDT 15 mg 15 mg, Slow IV Push, ONCE, 1 dose, 04/09/20 at 1430, Routine, hospitality team member approving Restricted medication: LEIGH WANG ondansetron (ZOFRAN (PF)) injection 4 mg Given 04/09/2020 3:01 PM CDT 4 mg 4 mg, Slow IV Push, ONCE, 1 dose, 04/09/20 at 1530, FARIDA documented in this encounter Insurance Payer Benefit Plan / Subscriber ID Effective Phone Address [facility] [employer] Dates PETR HUMPHREYS xxxxxxxxx 2014-Pres [address] [employer] - [place]ALTHCARE ent [id number] MANAGED MEDICAID [place], [place]ICA[place] documented as of this encounter"
[2020-05-29] MEDS ORDERED: KETOROLAC 30 MG/ML INJ ONE (16:54)
[2020-05-29] MEDS ORDERED: NA CHLORIDE 0.9% 1,000 ML ONE (16:54)
--- NOTE | 2020-05-29 17:02 | RAD REPORT ---
EXAM DESCRIPTION: CT - Stone Protocol - 05/29/2020 4:44 pm CLINICAL HISTORY: Abdominal pain. Flank pain COMPARISON: 2017 TECHNIQUE: Computed axial tomography of the abdomen pelvis was obtained without oral or IV contrast. Lack of IV and oral contrast limits evaluation of solid organs, bowel, and vessels. Coronal reformat alex images were obtained and reviewed. All CT scans are performed using dose optimization technique as appropriate and may include automated exposure control or mA/KV adjustment according to patient size. FINDINGS: A renal calculus is not seen. An ureteral calculus is not noted. A bladder calculus is not present. The liver, spleen, pancreas and right adrenal gland appear grossly normal. 20 millimeter right adrenal mass is unchanged. Hounsfield unit 5 There is no evidence of diverticulitis. The appendix appears normal Cholecystectomy IMPRESSION: Negative for a genitourinary calculus 20 millimeter right adrenal mass is unchanged probably an adenoma
[2020-05-29 17:23] LABS: Absolute Lymphocytes (CBC) 2.9 K/uL (0.7-4.9); Basophils % 1.3 % (0-1.3); Hematocrit 39.7 % (36.0-45.0); Lymphocytes % 26.3 % (15.3-44.8); MPV 8.5 fL (7.6-11.3); RBC Red Blood Cell Count 4.29 M/uL (3.86-4.86)
[2020-05-29] MEDS ORDERED: TRAMADOL HCL 50 MG TAB ONE (17:30)
[2020-05-29 17:32] LABS: ALT/SGPT 22 U/L (12-78); AST/SGOT 15 U/L (15-37); Albumin 3.4 g/dL (3.4-5.0); Alkaline Phosphatase 93 U/L (45-117); BUN Blood Urea Nitrogen 11 mg/dL (7-18); Bicarbonate 26 mmol/L (21-32); Bilirubin Direct < 0.1 mg/dL (0-0.2); Bilirubin Total 0.2 mg/dL (0.2-1.0); Glucose Level 117 mg/dL (74-106); Lipase 72 U/L (73-393); Potassium 4.3 mmol/L (3.5-5.1); Protein, Total 6.8 g/dL (6.4-8.2); Sodium Level 140 mmol/L (136-145)
[2020-05-29 17:36] LABS: Urine Blood 2+ (NEG); Urine Glucose NEGATIVE (NEG); Urine Protein NEGATIVE (NEG)
[2020-05-29 18:29] LABS: Urine Bacteria >50 /HPF (<20); Urine Culture Reflex Order REFLEXED
--- NOTE | 2020-05-29 18:35 | EDPHYS ---
Physician Documentation [facility] Name: Yina Fernandes Age: 35 yrs Sex: Female : 1985 Arrival Date: 05/29/2020 Time: 15:38 Bed 15 Private MD: ED Physician David Jim HPI: 05/29 16:30 This 35 yrs old Female presents to ER via Ambulatory with complaints of cp Kidney Problem. 16:30 The patient complains of pain in the right flank. cp 16:30 The pain radiates to the abdomen. Onset: The symptoms/episode began/occurred this morning, at 03:00. Associated signs and symptoms: Pertinent negatives: diarrhea, dysuria, fever, hematuria, pain radiating to the lower extremities, vomiting. Severity of pain: in the emergency department the pain is unchanged despite home interventions. 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 - Social history:: Smoking status: Patient reports the use of cigarette tobacco products, smokes one-half pack cigarettes per day. ROS: 16:35 Back: Positive for flank pain, on the right, Negative for injury or acute deformity. cp 16:35 Constitutional: Negative for body aches, chills, fever. cp 16:35 Cardiovascular: Negative for chest pain, palpitations. 16:35 Respiratory: Negative for cough, shortness of breath, wheezing. 16:35 Abdomen/GI: Positive for abdominal pain, of the posterior aspect of right lateral abdomen, anterior aspect of right lateral abdomen and right lower quadrant, Negative for vomiting, diarrhea, constipation. 16:35 : Negative for urinary symptoms, vaginal bleeding, vaginal discharge. 16:35 Skin: Negative for rash. 16:35 Neuro: Negative for altered mental status, headache, weakness. 16:35 All other systems are negative. Exam: 16:40 Constitutional: The patient appears in no acute distress, alert, awake, non-toxic, well cp developed, well nourished, obese. 16:40 Head/Face: Normocephalic, atraumatic. cp 16:40 Eyes: Periorbital structures: appear normal, Conjunctiva: normal, no exudate, no injection, Sclera: no appreciated abnormality, Lids and lashes: appear normal, bilaterally. 16:40 ENT: External ear(s): are unremarkable, Nose: is normal, Mouth: Lips: moist, Oral mucosa: moist, Posterior pharynx: is normal, airway is patent, no erythema, no exudate. 16:40 Chest/axilla: Inspection: normal, Palpation: is normal, no crepitus, no tenderness. 16:40 Cardiovascular: Rate: normal, Rhythm: regular. 16:40 Respiratory: the patient does not display signs of respiratory distress, Respirations: normal, no use of accessory muscles, no retractions, labored breathing, is not present, Breath sounds: are clear throughout, no decreased breath sounds. 16:40 Abdomen/GI: Inspection: abdomen appears normal, Bowel sounds: active, all quadrants, Palpation: soft, in all quadrants, moderate abdominal tenderness, in the posterior aspect of right lateral abdomen, anterior aspect of right lateral abdomen and right lower quadrant, rebound tenderness, is not appreciated, involuntary guarding, is not appreciated. 16:40 Back: pain, that is moderate, of the right mid back and right low back, ROM is painful, with flexion, muscle spasm, is not present, Straight leg raises: of both lower extremities does not illicit pain. 16:40 Skin: no rash present. Vital Signs: 15:46 BP 144 / 91; Pulse 98; Resp 17; Temp 97.2; Pulse Ox 98% ; Weight 113.4 kg; Height 5 ft. jl7 3 in. (160.02 cm); Pain 8/10; 17:14 BP 128 / 74; Pulse 84; Resp 17; Pulse Ox 98% on R/A; Pain 7/10; ls4 15:46 Body Mass Index 44.29 (113.40 kg, 160.02 cm) jl7 MDM: 15:56 Patient medically screened. cp 16:30 Differential diagnosis: nephrolithiasis, pyelonephritis, UTI, appendicitis, ovarian cp cyst. 18:32 ED course: No active prescriptions for narcotic medications noted on website of [facility] prescription monitoring program. 18:33 Data reviewed: vital signs, nurses notes, lab test result(s), radiologic studies, CT cp scan. 18:33 Counseling: I had a detailed discussion with the patient and/or guardian regarding: the cp historical points, exam findings, and any diagnostic results supporting the discharge/admit diagnosis, lab results, radiology results, to return to the emergency department if symptoms worsen or persist or if there are any questions or concerns that arise at home. 18:33 Response to treatment: the patient's symptoms have mildly improved after treatment, and cp as a result, I will discharge patient. 05/29 16:28 Order name: Urine Microscopic Only; Complete Time: 18:29 cp 05/29 18:29 Interpretation: Normal except: URBC 5-10; UBACT >50; SQEPI 10-20. cp 05/29 16:28 Order name: Basic Metabolic Panel; Complete Time: 17:40 cp 05/29 17:40 Interpretation: Normal except: CL 108; GLUC 117. 05/29 16:28 Order name: CBC with Diff; Complete Time: 17:40 cp 05/29 17:40 Interpretation: Normal except: WBC 11.0; MCV 92.3. cp 05/29 16:28 Order name: Hepatic Function; Complete Time: 17:40 cp 05/29 16:28 Order name: Lipase; Complete Time: 17:40 cp 05/29 17:24 Order name: Urine Dipstick--Ancillary (enter results); Complete Time: 17:40 eb 05/29 17:41 Interpretation: Normal except: UBLD 2+; UESTR TRACE. 05/29 16:28 Order name: CT Stone Protocol; Complete Time: 17:07 cp 05/29 17:24 Order name: Urine --Ancillary (enter results); Complete Time: 17:40 eb 05/29 18:29 Order name: Urine Culture EDWI 05/29 16:28 Order name: Urine Dipstick-Ancillary (obtain specimen); Complete Time: 18:03 cp 05/29 16:28 Order name: IV Saline Lock; Complete Time: 18:03 cp 05/29 16:28 Order name: Labs collected and sent; Complete Time: 18:03 cp 05/29 16:28 Order name: Urine Test (obtain specimen); Complete Time: 18:02 cp 05/29 17:41 Order name: PO challenge; Complete Time: 18:02 cp Administered Medications: 17:07 Drug: NS 0.9% 1000 ml Route: IV; Rate: 1 bolus; Site: right antecubital; ls4 18:07 Follow up: IV Status: Completed infusion; IV Intake: 1000ml ls4 17:07 Drug: TORadol - Ketorolac 15 mg Route: IVP; Site: right antecubital; ls4 18:30 Drug: [place] (7.5 mg-325 mg) 1 tabs Route: PO; ls4 18:45 Follow up: Response: No adverse reaction; Marked relief of symptoms ls4 18:56 Not Given (Other Intervention Used; o): Bactrim (160 mg-800 mg (DS) 1 tablet PO once ls4 18:56 Not Given (Duplicate Order): Hydrocodone-Acetaminophen (7.5 mg-325 mg) 1 tabs PO once; ls4 RASS on ADMIN: Combtv4, Very Agttd3, Agttd2, Rstlss1, AlertClm0, Drwsy-1, Lt Sdtn-2, Mod Sdtn-3, Dp Sdtn-4, UnArsble-5 Disposition: 19:00 Chart complete. cp Disposition: 05/29/20 18:34 Discharged to Home. Impression: Low back pain. - Condition is Stable. - Discharge Instructions: Back Pain, Adult, Back Exercises. - Prescriptions for Cyclobenzaprine 10 mg Oral Tablet - take 1 tablet by ORAL route every 8 hours As needed no driving while taking medication; 20 tablet. Tramadol 50 mg Oral Tablet - take 1 tablet by ORAL route every 8 hours as needed. no driving while taking medication; 12 tablet. Bactrim DS 800- 160 mg Oral Tablet - take 1 tablet by ORAL route every 12 hours for 5 days; 10 tablet. - Medication Reconciliation Form, Thank You Letter, Antibiotic Education, Prescription Opioid Use form. - Follow up: Private Physician; When: 2 - 3 days; Reason: Recheck today's complaints. - Problem is new. - Symptoms have improved. Addendum: 06/04/2020 21:06 Co-signature as Attending Physician, David Jim MD. r n Signatures: Dispatcher [employer] David Vora MD MD rn Nicolas Hager PA PA cp Leal, Jahala, RN RN jl7 Cristy hCavis RN RN ls4 Corrections: (The following items were deleted from the chart) 05/29 18:57 18:34 05/29/2020 18:34 Discharged to Home. Impression: Low back pain. Condition is ls4 Stable. Forms are Medication Reconciliation Form, Thank You Letter, Antibiotic Education, Prescription Opioid Use. Follow up: Private Physician; When: 2 - 3 days; Reason: Recheck today's complaints. Problem is new. Symptoms have improved. cp
--- NOTE | 2020-05-29 18:35 | ER ---
Nurse's Notes [facility] Name: Yina Fernandes Age: 35 yrs Sex: Female : 1985 Arrival Date: 05/29/2020 Time: 15:38 Bed 15 Private MD: Diagnosis: Low back pain Presentation: 05/29 15:46 Chief complaint: Patient states: "I know I have a 2 MM mass on my right kidney, I have jl7 not had it checked out or anything though." Reports severe right flank pain since 299 and it's just getting worse. Denies urinary symptoms. Coronavirus screen: Proceed with normal triage. Patient denies a cough. Patient denies shortness of breath or difficulty breathing. Patient denies measured and/or subjective temperature greater than 100.4F prior to today's visit. Patient denies travel on a cruise ship or to a country the [facility] currently lists as an affected area. Patient denies contact with known and/or suspected case of COVID-19. Ebola Screen: No symptoms or risks identified at this time. Initial Sepsis Screen: Does the patient meet any 2 criteria? No. Patient's initial sepsis screen is negative. Does the patient have a suspected source of infection? No. Patient's initial sepsis screen is negative. Risk Assessment: Do you want to hurt yourself or someone else? Patient reports no desire to harm self or others. Onset of symptoms was May 29, 2020 at 03:00. Care prior to arrival: None. 15:46 Method Of Arrival: Ambulatory jl7 15:46 Acuity: NAWAF 3 jl7 Triage Assessment: 15:50 General: Appears in no apparent distress. uncomfortable, Behavior is calm, cooperative, jl7 appropriate for age. Pain: Complains of pain in right flank Pain currently is 8 out of 10 on a pain scale. 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 - Social history:: Smoking status: Patient reports the use of cigarette tobacco products, smokes one-half pack cigarettes per day. Screenin:15 Abuse screen: Denies threats or abuse. Denies injuries from another. Nutritional ls4 screening: No deficits noted. Tuberculosis screening: No symptoms or risk factors identified. Fall Risk None identified. Assessment: 18:04 Reassessment: Patient appears in no apparent distress at this time. Patient and/or ls4 family updated on plan of care and expected duration. Pain level reassessed. Patient is alert, oriented x 3, equal unlabored respirations, skin warm/dry/pink. Vital Signs: 15:46 BP 144 / 91; Pulse 98; Resp 17; Temp 97.2; Pulse Ox 98% ; Weight 113.4 kg; Height 5 ft. jl7 3 in. (160.02 cm); Pain 8/10; 17:14 BP 128 / 74; Pulse 84; Resp 17; Pulse Ox 98% on R/A; Pain 7/10; ls4 15:46 Body Mass Index 44.29 (113.40 kg, 160.02 cm) jl7 ED Course: 15:38 Patient arrived in ED. ag5 15:49 Triage completed. jl7 15:50 Arm band placed on right wrist. jl7 15:53 Nicolas Hager PA is PHCP. cp 15:53 David Jim MD is Attending Physician. cp 15:58 Cristy Chavis, DUTCH is Primary Nurse. ls4 16:44 CT Stone Protocol In Process Unspecified. EDMS 17:02 No provider procedures requiring assistance completed. Initial lab(s) drawn, by nc, ls4 sent to lab. Inserted saline lock: 20 gauge in left antecubital area, using aseptic technique. Blood collected. 17:02 Patient maintains SpO2 saturation greater than 95% on room air. ls4 17:16 No apparent distress. Resting quietly. ls4 18:04 No apparent distress. Resting quietly. ls4 18:57 IV discontinued, intact, bleeding controlled, No redness/swelling at site. Pressure ls4 dressing applied. 23:10 Patient has correct armband on for positive identification. Bed in low position. Call ls4 light in reach. Side rails up X 1. Pulse ox on. NIBP on. Warm blanket given. Verbal reassurance given. Administered Medications: 17:07 Drug: NS 0.9% 1000 ml Route: IV; Rate: 1 bolus; Site: right antecubital; ls4 18:07 Follow up: IV Status: Completed infusion; IV Intake: 1000ml ls4 17:07 Drug: TORadol - Ketorolac 15 mg Route: IVP; Site: right antecubital; ls4 18:30 Drug: [place] (7.5 mg-325 mg) 1 tabs Route: PO; ls4 18:45 Follow up: Response: No adverse reaction; Marked relief of symptoms ls4 18:56 Not Given (Other Intervention Used; o): Bactrim (160 mg-800 mg (DS) 1 tablet PO once ls4 18:56 Not Given (Duplicate Order): Hydrocodone-Acetaminophen (7.5 mg-325 mg) 1 tabs PO once; ls4 RASS on ADMIN: Combtv4, Very Agttd3, Agttd2, Rstlss1, AlertClm0, Drwsy-1, Lt Sdtn-2, Mod Sdtn-3, Dp Sdtn-4, UnArsble-5 Intake: 18:07 IV: 1000ml; Total: 1000ml. ls4 Outcome: 18:34 Discharge ordered by . rickey 18:57 Patient left the ED. ls4 18:57 Discharged to home ls4 18:57 Condition: stable 18:57 Discharge instructions given to patient, Instructed on discharge instructions, follow up and referral plans. medication usage, Demonstrated understanding of instructions, follow-up care, medications, Prescriptions given X 2. Signatures: Dispatcher [employer] EDNicolas Desir PA PA cp Leal, Jahala, RN RN jl7 Cristy Chavis RN RN ls4 Ebony Patrick 5
[2020-05-29] MEDS ORDERED: HYDROCODONE/APAP 7.5/325 MG TAB ONE (18:37)
[2020-05-29 19:09] VITALS: TEMP 97.2; O2SAT 98
[2020-05-29 19:40] VITALS: BP 128/74
== END 2020-05-29 18:57 | disposition home or self-care (01) ==
LOC: ER 15:36
DX: M54.5 Low back pain (principal); F17.210 Nicotine dependence, cigarettes, uncomplicated; Z88.0 Allergy status to penicillin
CPT/HCPCS: 96361; 87088; 85025; 87086; 80048; 36415; 81025; 80076; 83690; 76377; 74176; 96374; 99284; J7030; 81003; 81015

== ENCOUNTER 2022-04-18 17:12 | Emergency (ER) | payer SELFPAY ==
--- OUTSIDE RECORDS SUMMARY | 2022-04-18 17:17 | XMS REPORT | Continuity of Care Document ---
:1985 Author Organization [facility] t Address [address] [place] [address] Care Team Providers Name Role Phone PCP, DOES NOT HAVE A Primary Care Physician Unavailable DAYA SOTO Attending Clinician Unavailable DAYA SOTO Attending Clinician Unavailable Burak MCINTYRE Attending Clinician RADIOLOGY Attending Clinician Unavailable Daya Soto MD Attending Clinician Doctor Unassigned, Name Attending Clinician Unavailable Marc MCINTYRE, F Attending Clinician Sergei MCINTYRE Attending Clinician Cary Acosta Attending Clinician Cary GRANDE, R Attending Clinician Ileana WANG Attending Clinician Unavailable Torrey Guardado MD Attending Clinician Debbie VELA S Attending Clinician Ileana WANG Admitting Clinician Unavailable Payers Payer Name Policy Type Policy Number Effective Date Expiration Date [facility] [id number] 2014 MEDICAID 00:00:00 Problems Condition Condition Condition Status Onset Resolution Last Treating Co mments Source Name Details Category Date Date Treatment Clinician Date Drug-seeki Drug-seeki Disease Active 2016-12 U gabbie alarcon ng - ity of behavior behavior 00:00: [place] 00 Medical Branch Obesity Obesity Disease Active 2015-12 Univers (BMI (BMI 1-22 ity of 30-39.9) 30-39.9) 00:00: [place] 00 Medical Branch Allergies, Adverse Reactions, Alerts Allergy Allergy Status Severity Reaction(s) Onset Inactive Treating Comm ents Source Name Type Date Date Clinician Penicill Propensi Active Swelling Univ ers in ty to 02-17 ity of adverse 00:00: [place] reaction 00 Medical s Branch PENICILL DRUG Active Swelling Univer s IN INGREDI 02-17 ity of 00:00: [place] 00 Medical Branch Penicill Propensi Active Swelling Univ ers in ty to 02-17 ity of adverse 00:00: [place] reaction 00 Medical s Branch Social History Social Habit Start Date Stop Date Quantity Comments Source Exposure to Not sure [facility] SARS-CoV-2 (event) [facility] History of tobacco Cigarette Smoker University of use [facility] Tobacco use and 2021-04-21 2021-04-21 Never used Universit y of exposure 00:00:00 00:00:00 [facility] Cigarettes smoked 2021-04-21 2021-04-21 Univers ity of current (pack per 00:00:00 00:00:00 ) - Reported Branch Cigarette 2021-04-21 2021-04-21 University of pack-years 00:00:00 00:00:00 [facility] Alcohol intake 2021-04-21 2021-04-21 Current University of 00:00:00 00:00:00 non-drinker of [facility] alcohol Branch (finding) Sex [birth year] Universit y of 00:00:00 00:00:00 [facility] Smoking Status Start Date Stop Date Source Current every day smoker 2021-04-21 00:00:00 Uni versity of [facility] Medications Ordered Filled Start Stop Current Ordering Indication Dosage Frequency Signature Comments Components Source Medication Medication Date Date Medication? Clinician (SIG) Name Name predniSONE 2020- No [id number] 40mg Take 2 Univers 20 mg 6-25 06-29 tablets by ity of tablet 00:00: 04:59 mouth [place] 00 :00 daily for Medical 3 days. Branch ketorolac No 60mg 60 mg, Unive rs (TORADOL) 05-25 Intramuscu ity of injection 17:45: 16:37 lar, ONCE, [place] 60 mg 00 :00 1 dose, Medical Karen Branch 05/25/21 at 1245, FARIDA
Fa culty member approving Restricted medication : EMERGENCY ROOM, dexamethaso 2020- No 10mg 10 mg, Uni vers ne 05-25 Intramuscu ity of (DECADRON 17:30: 16:36 lar, ONCE, [place] PHOSPHATE) 00 :00 1 dose, Medica l injection Karen Branch 10 mg 05/25/21 at 1230, STAT ciprofloxac 2020- No [id number] 4[drp] Place 4 Univers in-dexameth 05-25 07-05 Drops in ity of asone 00:00: 04:59 left ear 2 [place] 0.3-0.1 % 00 :00 (two) Medical otic drops times Branch daily for 10 days. ketorolac No 30mg 30 mg, Unive rs (TORADOL) 04-21 Slow IV ity of injection 18:15: 17:14 Push, [place] 30 mg 00 :00 ONCE, 1 Medical dose, Fri Branch 04/21/21 at 1315, FARIDA
Fa culty member approving Restricted medication : CARLOS TRAN ondansetron 2020- No 4mg 4 mg, Univ ers (ZOFRAN-ODT 04-21 Oral, ity of ) 18:15: 17:07 ONCE, 1 [place] disintegrat 00 :00 dose, Fri Med ical ing tablet 04/21/21 at [facility] 4 mg 1315, Routine diphenhydrA 2020- No 25mg 25 mg, Uni vers MINE 04-21 Oral, ity of (BENADRYL) 17:00: 17:03 ONCE, 1 [place] tablet 25 00 :00 dose, Fri Medic al mg 04/21/21 at Branch 1200, FARIDA dexamethaso 2020- No 10mg 10 mg, Uni vers ne 04-21- Oral, ity of (DECADRON 17:00: 17:02 ONCE, 1 [place] PHOSPHATE) 00 :00 dose, Fri Medi ricky injection 04/21/21 at Bran ch 10 mg 1200, Routine albuterol 2020- No 2{puff} 2 Puff, U nivers (VENTOLIN) 04-21 Inhalation it y of inhaler 2 17:00: 16:05 , ONCE, 1 [place] Puff 00 :00 dose, Fri Medical 04/21/21 at Branch 1200, FARIDA
Is this order for a patient with suspected or confirmed COVID-19 infection? Yes benzonatate Yes [id number] 100mg Take 1 Univers 100 mg 5-21 capsule by ity of capsule 00:00: mouth 3 [place] 00 (three) Medical times Branch daily as needed for Cough. albuterol Yes [id number] 2{puff} Inhale 2 Univers 90 5-21 Puffs ity of mcg/actuati 00:00: every 4 [place] as on inhaler 00 (four) Medical hours as Branch needed for Wheezing or Shortness of Breath. benzonatate Yes [id number] 100mg Take 1 Univers 100 mg 5-21 capsule by ity of capsule 00:00: mouth 3 (three) Medical times Branch daily as needed for Cough. albuterol Yes [id number] 2{puff} Inhale 2 Univers 90 5-21 Puffs ity of mcg/actuati 00:00: every 4 [place] on inhaler 00 (four) Medical hours as Branch needed for Wheezing or Shortness of Breath. benzonatate Yes [id number] 100mg Take 1 [facility] 100 mg 5-21 capsule by ity of capsule 00:00: mouth 3 00 (three) Medical times Branch daily as needed for Cough. albuterol 0 Yes [id number] 2{puff} Inhale 2 Univers 90 5-21 Puffs ity of mcg/actuati 00:00: every 4 [place] on inhaler 00 (four) Medical hours as Branch needed for Wheezing or Shortness of Breath. benzonatate Yes [id number] 100mg Take 1 Univers 100 mg 5-21 capsule by ity of capsule 00:00: mouth 3 [place] 00 (three) Medical times Branch daily as needed for Cough. albuterol Yes [id number] 2{puff} Inhale 2 Univers 90 5-21 Puffs ity of mcg/actuati 00:00: every 4 [place] on inhaler 00 (four) Medical hours as Branch needed for Wheezing or Shortness of Breath. dicyclomine No 20mg 20 mg, Uni vers (BENTYL) 01-14 Oral, ONCE ity of tablet 20 03:30: 02:40 NOW, 1 [place] mg 00 :00 dose, Fri Medical 01/13/21 at Branch 2130, Routine NaCl 0.9% No 1000mL at 999 Uni vers (NS) bolus 01-14 mL/hr, ity of infusion 03:30: 04:06 1,000 mL, [place] 1,000 mL 00 :00 IV Medical Infusion, Branch ONCE, 1 dose, 01/13/21 at 2130, STAT ondansetron No 4mg 4 mg, Slow Univers (ZOFRAN 01-14 IV Push, ity of (PF)) 03:30: 02:34 ONCE, 1 [place] injection 4 00 :00 dose, Fri Med ical mg 01/13/21 at Branch 2130, Routine ondansetron 2020-0 Yes [id number] 4mg Take 1 Univers (ZOFRAN 2-12 tablet by ity of ODT) 4 mg 00:00: mouth [place] disintegrat 00 every 8 Medic al ing tablet (eight) Branch hours as needed for Nausea and Vomiting (N/V). dicyclomine 2020-0 Yes [id number] 20mg Take 1 Univers 20 mg 2-12 tablet by ity of tablet 00:00: mouth 3 [place] 00 (three) Medical times Branch daily as needed for Abdominal pain. ondansetron 2020-0 Yes [id number] 4mg Take 1 Univers (ZOFRAN 2-12 tablet by ity of ODT) 4 mg 00:00: mouth [place] disintegrat 00 every 8 Medic al ing tablet (eight) Branch hours as needed for Nausea and Vomiting (N/V). dicyclomine 2020-0 Yes [id number] 20mg Take 1 Univers 20 mg 2-12 tablet by ity of tablet 00:00: mouth 3 [place] 00 (three) Medical times Branch daily as needed for Abdominal pain. ondansetron 2020-0 Yes [id number] 4mg Take 1 Univers (ZOFRAN 2-12 tablet by ity of ODT) 4 mg 00:00: mouth [place] disintegrat 00 every 8 Medic al ing tablet (eight) Branch hours as needed for Nausea and Vomiting (N/V). dicyclomine 0 Yes [id number] 20mg Take 1 Univers 20 mg 2-12 tablet by ity of tablet 00:00: mouth 3 [place] 00 (three) Medical times Branch daily as needed for Abdominal pain. ondansetron 0 Yes [id number] 4mg Take 1 Univers (ZOFRAN 2-12 tablet by ity of ODT) 4 mg 00:00: mouth [place] disintegrat 00 every 8 Medic al ing tablet (eight) Branch hours as needed for Nausea and Vomiting (N/V). dicyclomine 0 Yes [id number] 20mg Take 1 Univers 20 mg 2-12 tablet by ity of tablet 00:00: mouth 3 [place] 00 (three) Medical times Branch daily as needed for Abdominal pain. ondansetron 0 Yes [id number] 4mg Take 1 Univers (ZOFRAN 2-12 tablet by ity of ODT) 4 mg 00:00: mouth [place] disintegrat 00 every 8 Medic al ing tablet (eight) Branch hours as needed for Nausea and Vomiting (N/V). dicyclomine 0 Yes [id number] 20mg Take 1 Univers 20 mg 2-12 tablet by ity of tablet 00:00: mouth 3 [place] 00 (three) Medical times Branch daily as needed for Abdominal pain. dicyclomine 2019-12- No 20mg 20 mg, Uni vers (BENTYL) 09-27 Oral, ity of capsule 20 20:00: 19:04 ONCE, 1 [place] mg 00 :00 dose, [facility] 09/27/20 Branch at 1500, Routine maalox:diph 2019-12- No 15mL 15 mL, Uni vers enhydrAMINE 09-27 Oral ity of :lidocaine 19:30: 18:25 ([place] & [place] 2 % viscous 00 :00 Swallow), Med ical 1:1:1 ONCE, 1 Branch (FIRST-MOUT dose, [facility] BLM) 09/27/20 oral at 1430, suspension Routine 15 mL iohexol 2019-12 2020- No 120mL 120 mL, Unive rs (OMNIPAQUE 0-27 10-27 Intravenou it y of 350 18:15: 17:57 s, ONCE, 1 [place] BULK-150 00 :00 dose, Tue Medica l mL) 09/27/20 Branch injection at 1315, 120 mL Routine ondansetron 2019-12 2020- No 4mg 4 mg, Slow Univers (ZOFRAN 0-27 10-27 IV Push, ity of (PF)) 18:00: 16:56 ONCE, 1 [place] injection 4 00 :00 dose, [facility] Med ical mg 09/27/20 Branch at 1300, FARIDA morpHINE 2019-12 2020- No 4mg 4 mg, Slow Un marine injection 4 0-27 10-27 IV Push, ity of mg 18:00: 16:57 ONCE, 1 [place] 00 :00 dose, [facility] Medical 09/27/20 Branch at 1300, STAT famotidine 2019-12 Yes [id number] 40mg Take 1 Univers (PEPCID) 40 0-27 tablet by ity of mg tablet 00:00: mouth [place] 00 daily. Medical Branch dicyclomine 2019-12 Yes [id number] 20mg Take 1 Univers 20 mg 0-27 tablet by ity of tablet 00:00: mouth 4 [place] 00 (four) Medical times Branch daily. famotidine 2019-12 Yes [id number] 40mg Take 1 Univers (PEPCID) 40 0-27 tablet by ity of mg tablet 00:00: mouth [place] 00 daily. Medical Branch dicyclomine 2019-12 Yes [id number] 20mg Take 1 Univers 20 mg 0-27 tablet by ity of tablet 00:00: mouth 4 [place] 00 (four) Medical times Branch daily. famotidine 2019-12 Yes [id number] 40mg Take 1 Univers (PEPCID) 40 0-27 tablet by ity of mg tablet 00:00: mouth [place] 00 daily. Medical Branch dicyclomine 2019-12 Yes [id number] 20mg Take 1 Univers 20 mg 0-27 tablet by ity of tablet 00:00: mouth 4 [place] 00 (four) Medical times Branch daily. famotidine 2019- Yes [id number] 40mg Take 1 Univers (PEPCID) 40 0-27 tablet by ity of mg tablet 00:00: mouth [place] 00 daily. Medical Branch dicyclomine 2019-12 Yes [id number] 20mg Take 1 Univers 20 mg 0-27 tablet by ity of tablet 00:00: mouth 4 [place] (four) Medical times Branch daily. famotidine 2019-12 Yes [id number] 40mg Take 1 Univers (PEPCID) 40 0-27 tablet by ity of mg tablet 00:00: mouth [place] 00 daily. Medical Branch dicyclomine 2019-12 Yes [id number] 20mg Take 1 Univers 20 mg 0-27 tablet by ity of tablet 00:00: mouth 4 [place] ([facility]) Medical times Branch daily. famotidine 2019-12 Yes [id number] 40mg Take 1 Univers (PEPCID) 40 0-27 tablet by ity of mg tablet 00:00: mouth [place] 00 daily. Medical Branch dicyclomine 2019-12 Yes [id number] 20mg Take 1 Univers 20 mg 0-27 tablet by ity of tablet 00:00: mouth [place] ([facility]) Medical times Branch daily. ondansetron 2019- No 4mg 4 mg, Slow Univers (ZOFRAN 04-09 IV Push, ity of (PF)) 20:30: 20:01 ONCE, 1 [place] injection 4 00 :00 dose, Sat Med ical mg 04/09/20 at Branch 1530, FARIDA FENTanyl PF 2019- No 50ug 50 mcg, Un marine (SUBLIMAZE 04-09 Slow IV ity o f (PF)) 20:30: 20:01 Push, [place] injection 00 :00 ONCE, 1 Medical 50 mcg dose, [facility] 04/09/20 at 1530, Routine ketorolac 2019- No 15mg 15 mg, Unive rs (TORADOL) 04-09 Slow IV ity of injection 19:30: 18:27 Push, [place] 15 mg 00 :00 ONCE, 1 Medical dose, [facility] 04/09/20 at 1430, Routine
solar crew member approving Restricted medication : WILLIS WANG ibuprofen 2020-0 Yes [id number] 800mg Take 1 Univers 800 mg 5-09 tablet by ity of tablet 00:00: mouth [place] 00 every 6 Medical (six) Branch hours as needed for Pain (scale 4-6). traMADol 50 2020-0 Yes [id number] 50mg Take 1 Univers mg tablet 5-09 tablet by ity o f 00:00: mouth [place] 00 every 6 Medical (six) Branch hours as needed for Pain (scale 7-10). ibuprofen 2020-0 Yes [id number] 800mg Take 1 Univers 800 mg 5-09 tablet by ity of tablet 00:00: mouth [place] 00 every 6 Medical (six) Branch hours as needed for Pain (scale 4-6). traMADol 50 2020-0 Yes [id number] 50mg Take 1 Univers mg tablet 5-09 tablet by ity o f 00:00: mouth [place] 00 every 6 Medical (six) Branch hours as needed for Pain (scale 7-10). ibuprofen 2020-0 Yes [id number] 800mg Take 1 Univers 800 mg 5-09 tablet by ity of tablet 00:00: mouth [place] 00 every 6 Medical (six) Branch hours as needed for Pain (scale 4-6). traMADol 50 2020-0 Yes [id number] 50mg Take 1 Univers mg tablet 5-09 tablet by ity o f 00:00: mouth [place] 00 every 6 Medical (six) Branch hours as needed for Pain (scale 7-10). ibuprofen 2020-0 Yes [id number] 800mg Take 1 Univers 800 mg 5-09 tablet by ity of tablet 00:00: mouth [place] 00 every 6 Medical (six) Branch hours as needed for Pain (scale 4-6). traMADol 50 2020-0 Yes [id number] 50mg Take 1 Univers mg tablet 5-09 tablet by ity o f 00:00: mouth [place] 00 every 6 Medical (six) Branch hours as needed for Pain (scale 7-10). ibuprofen 2020-0 Yes [id number] 800mg Take 1 Univers 800 mg 5-09 tablet by ity of tablet 00:00: mouth [place] 00 every 6 Medical (six) Branch hours as needed for Pain (scale 4-6). traMADol 50 2020-0 Yes [id number] 50mg Take 1 Univers mg tablet 5-09 tablet by ity o f 00:00: mouth [place] 00 every 6 Medical (six) Branch hours as needed for Pain (scale 7-10). ibuprofen 2020-0 Yes [id number] 800mg Take 1 Univers 800 mg 5-09 tablet by ity of tablet 00:00: mouth [place] 00 every 6 Medical (six) Branch hours as needed for Pain (scale 4-6). traMADol 50 2020-0 Yes [id number] 50mg Take 1 Univers mg tablet 5-09 tablet by ity o f 00:00: mouth [place] 00 every 6 Medical (six) Branch hours as needed for Pain (scale 7-10). ibuprofen 2020-0 Yes [id number] 800mg Take 1 Univers 800 mg 5-09 tablet by ity of tablet 00:00: mouth [place] 00 every 6 Medical (six) Branch hours as needed for Pain (scale 4-6). traMADol 50 2020-0 Yes [id number] 50mg Take 1 Univers mg tablet 5-09 tablet by ity o f 00:00: mouth [place] 00 every 6 Medical (six) Branch hours as needed for Pain (scale 7-10). ibuprofen 2020-0 Yes [id number] 800mg Take 1 Univers 800 mg 5-09 tablet by ity of tablet 00:00: mouth [place] 00 every 6 Medical (six) Branch hours as needed for Pain (scale 4-6). traMADol 50 2020-0 Yes [id number] 50mg Take 1 Univers mg tablet 5-09 tablet by ity o f 00:00: mouth [place] 00 every 6 Medical (six) Branch hours as needed for Pain (scale 7-10). ondansetron 2019- No 4mg 4 mg, Univ ers (ZOFRAN-ODT 12-26 Oral, ity of ) 10:00: 08:58 ONCE, 1 [place] disintegrat 00 :00 dose, Sat Med ical ing tablet 12/26/19 at Bra nch 4 mg 0400, Routine ketorolac 2019- No 60mg 60 mg, Unive rs (TORADOL) 12-26 Intramuscu ity of injection 09:45: 09:07 lar, ONCE, [place] 60 mg 00 :00 1 dose, Medical Sat Branch 12/26/19 at 0345, FARIDA
Fa culty member approving Restricted medication : ADRIAN GUARDADO FENTanyl PF 2019-2019- No 50ug 50 mcg, Un marine (SUBLIMAZE 12-26 Intramuscu it y of (PF)) 09:45: 08:59 lar, ONCE, [place] injection 00 :00 1 dose, Medical 50 mcg Sat Branch 12/26/19 at 0345, Routine ofloxacin 2019-0 2020- No [id number] 5[drp] Place 5 Univers 0.3 % otic 12-26 [id number] Drops in ity of drops 00:00: 05:59 left ear 2 [place] 00 :00 (two) Medical times Branch daily for 7 days. ketorolac 2019-2019- No 30mg 30 mg, Unive rs (TORADOL) 12-19 Slow IV ity of injection 22:00: 21:03 Push, [place] 30 mg 00 :00 ONCE, 1 Medical dose, Sat Branch 12/19/19 at 1600, Routine
solar crew member approving Restricted medication : KATALINA LEWIS iohexol 2019- No 120mL 120 mL, Unive rs (OMNIPAQUE 12-19 Intravenou it y of 350 21:30: 21:24 s, ONCE, 1 [place] BULK-100 00 :00 dose, Sat Medica l mL) 12/19/19 at Branch injection 1530, 120 mL Routine dicyclomine 2019-0 Yes [id number] 20mg Take 1 Univers 20 mg 1-18 tablet by ity of tablet 00:00: mouth [place] 00 every 6 Medical (six) Branch hours as needed for Abdominal pain. ondansetron 2019-0 Yes [id number] 4mg Take 1 Univers (ZOFRAN) 4 1-18 tablet by ity of mg tablet 00:00: mouth [place] 00 every 8 Medical (eight) Branch hours as needed for Nausea and Vomiting (N/V). phenazopyri 2020-0 Yes [id number] 200mg Take 1 Univers dine 200 mg 1-18 tablet by ity of tablet 00:00: mouth 3 [place] 00 (three) Medical times Branch daily. dicyclomine 2020-0 Yes [id number] 20mg Take 1 Univers 20 mg 1-18 tablet by ity of tablet 00:00: mouth [place] 00 every 6 Medical (six) Branch hours as needed for Abdominal pain. ondansetron 2020-0 Yes [id number] 4mg Take 1 Univers (ZOFRAN) 4 1-18 tablet by ity of mg tablet 00:00: mouth [place] 00 every 8 Medical (eight) Branch hours as needed for Nausea and Vomiting (N/V). phenazopyri 2020-0 Yes [id number] 200mg Take 1 Univers dine 200 mg 1-18 tablet by ity of tablet 00:00: mouth 3 [place] 00 (three) Medical times Branch daily. dicyclomine 2020-0 Yes [id number] 20mg Take 1 Univers 20 mg 1-18 tablet by ity of tablet 00:00: mouth [place] 00 every 6 Medical (six) Branch hours as needed for Abdominal pain. ondansetron 2020-0 Yes [id number] 4mg Take 1 Univers (ZOFRAN) 4 1-18 tablet by ity of mg tablet 00:00: mouth [place] 00 every 8 Medical (eight) Branch hours as needed for Nausea and Vomiting (N/V). phenazopyri 2020-0 Yes [id number] 200mg Take 1 Univers dine 200 mg 1-18 tablet by ity of tablet 00:00: mouth 3 [place] 00 (three) Medical times Branch daily. dicyclomine 2020-0 Yes [id number] 20mg Take 1 Univers 20 mg 1-18 tablet by ity of tablet 00:00: mouth [place] 00 every 6 Medical (six) Branch hours as needed for Abdominal pain. ondansetron 2020-0 Yes [id number] 4mg Take 1 Univers (ZOFRAN) 4 1-18 tablet by ity of mg tablet 00:00: mouth [place] 00 every 8 Medical (eight) Branch hours as needed for Nausea and Vomiting (N/V). phenazopyri 2020-0 Yes [id number] 200mg Take 1 Univers dine 200 mg 1-18 tablet by ity of tablet 00:00: mouth 3 [place] 00 (three) Medical times Branch daily. dicyclomine 2020-0 Yes [id number] 20mg Take 1 Univers 20 mg 1-18 tablet by ity of tablet 00:00: mouth [place] 00 every 6 Medical (six) Branch hours as needed for Abdominal pain. ondansetron 2020-0 Yes [id number] 4mg Take 1 Univers (ZOFRAN) 4 1-18 tablet by ity of mg tablet 00:00: mouth [place] 00 every 8 Medical (eight) Branch hours as needed for Nausea and Vomiting (N/V). phenazopyri 2020-0 Yes [id number] 200mg Take 1 Univers dine 200 mg 1-18 tablet by ity of tablet 00:00: mouth 3 [place] 00 (three) Medical times Branch daily. dicyclomine 2020-0 Yes [id number] 20mg Take 1 Univers 20 mg 1-18 tablet by ity of tablet 00:00: mouth [place] 00 every 6 Medical (six) Branch hours as needed for Abdominal pain. ondansetron 2020-0 Yes [id number] 4mg Take 1 Univers (ZOFRAN) 4 1-18 tablet by ity of mg tablet 00:00: mouth [place] 00 every 8 Medical (eight) Branch hours as needed for Nausea and Vomiting (N/V). phenazopyri 2020-0 Yes [id number] 200mg Take 1 Univers dine 200 mg 1-18 tablet by ity of tablet 00:00: mouth 3 00 (three) Medical times Branch daily. dicyclomine 2020-0 Yes [id number] 20mg Take 1 Univers 20 mg 1-18 tablet by ity of tablet 00:00: mouth [place] 00 every 6 Medical (six) Branch hours as needed for Abdominal pain. ondansetron 2020-0 Yes [id number] 4mg Take 1 Univers (ZOFRAN) 4 1-18 tablet by ity of mg tablet 00:00: mouth [place] 00 every 8 Medical (eight) Branch hours as needed for Nausea and Vomiting (N/V). phenazopyri 2020-0 Yes [id number] 200mg Take 1 Univers dine 200 mg 1-18 tablet by ity of tablet 00:00: mouth 3 00 (three) Medical times Branch daily. dicyclomine 2020-0 Yes [id number] 20mg Take 1 Univers 20 mg 1-18 tablet by ity of tablet 00:00: mouth [place] 00 every 6 Medical (six) Branch hours as needed for Abdominal pain. ondansetron 2020-0 Yes [id number] 4mg Take 1 Univers (ZOFRAN) 4 1-18 tablet by ity of mg tablet 00:00: mouth [place] 00 every 8 Medical (eight) Branch hours as needed for Nausea and Vomiting (N/V). phenazopyri 2020-0 Yes [id number] 200mg Take 1 Univers dine 200 mg 1-18 tablet by ity of tablet 00:00: mouth 3 [place] 00 (three) Medical times Branch daily. dicyclomine 2020-0 Yes [id number] 20mg Take 1 Univers 20 mg 1-18 tablet by ity of tablet 00:00: mouth [place] 00 every 6 Medical (six) Branch hours as needed for Abdominal pain. ondansetron 2020-0 Yes [id number] 4mg Take 1 Univers (ZOFRAN) 4 1-18 tablet by ity of mg tablet 00:00: mouth [place] 00 every 8 Medical (eight) Branch hours as needed for Nausea and Vomiting (N/V). phenazopyri 2020-0 Yes [id number] 200mg Take 1 Univers dine 200 mg 1-18 tablet by ity of tablet 00:00: mouth 3 [place] 00 (three) Medical times Branch daily. dicyclomine 2020-0 Yes [id number] 20mg Take 1 Univers 20 mg 1-18 tablet by ity of tablet 00:00: mouth [place] 00 every 6 Medical (six) Branch hours as needed for Abdominal pain. ondansetron 2020-0 Yes [id number] 4mg Take 1 Univers (ZOFRAN) 4 1-18 tablet by ity of mg tablet 00:00: mouth [place] 00 every 8 Medical (eight) Branch hours as needed for Nausea and Vomiting (N/V). phenazopyri 2020-0 Yes [id number] 200mg Take 1 Univers dine 200 mg 1-18 tablet by ity of tablet 00:00: mouth 3 00 (three) Medical times Branch daily. traMADol 2018-12 Yes [id number] 50mg Take 1 Un marine (ULTRAM) 50 2-22 tablet by ity of mg tablet 00:00: mouth [place] 00 every 8 Medical (eight) Branch hours as needed for Pain (scale 4-6). traMADol 2018-12 Yes [id number] 50mg Take 1 Un marine (ULTRAM) 50 2-22 tablet by ity of mg tablet 00:00: mouth [place] 00 every 8 Medical (eight) Branch hours as needed for Pain (scale 4-6). traMADol 2018-12 Yes [id number] 50mg Take 1 Un marine (ULTRAM) 50 2-22 tablet by ity of mg tablet 00:00: mouth [place] 00 every 8 Medical (eight) Branch hours as needed for Pain (scale 4-6). traMADol 2018-12 Yes [id number] 50mg Take 1 Un marine (ULTRAM) 50 2-22 tablet by ity of mg tablet 00:00: mouth [place] 00 every 8 Medical (eight) Branch hours as needed for Pain (scale 4-6). traMADol 2018-12 Yes [id number] 50mg Take 1 Un marine (ULTRAM) 50 2-22 tablet by ity of mg tablet 00:00: mouth [place] 00 every 8 Medical (eight) Branch hours as needed for Pain (scale 4-6). traMADol 2018-12 Yes [id number] 50mg Take 1 Un marine (ULTRAM) 50 2-22 tablet by ity of mg tablet 00:00: mouth [place] 00 every 8 Medical (eight) Branch hours as needed for Pain (scale 4-6). traMADol 2018-12 Yes [id number] 50mg Take 1 Un marine (ULTRAM) 50 2-22 tablet by ity of mg tablet 00:00: mouth [place] 00 every 8 Medical (eight) Branch hours as needed for Pain (scale 4-6). traMADol 2018-12 Yes [id number] 50mg Take 1 Un marine (ULTRAM) 50 2-22 tablet by ity of mg tablet 00:00: mouth [place] 00 every 8 Medical (eight) Branch hours as needed for Pain (scale 4-6). traMADol 2018-12 Yes [id number] 50mg Take 1 Un marine (ULTRAM) 50 2-22 tablet by ity of mg tablet 00:00: mouth [place] 00 every 8 Medical (eight) Branch hours as needed for Pain (scale 4-6). traMADol 2018-12 Yes [id number] 50mg Take 1 Un marine (ULTRAM) 50 2-22 tablet by ity of mg tablet 00:00: mouth [place] 00 every 8 Medical (eight) Branch hours as needed for Pain (scale 4-6). albuterol 2018-12 Yes [id number] 2{puff} Inhale 2 Univers 90 0-19 Puffs ity of mcg/actuati 00:00: every 4 [place] on inhaler 00 (four) Medical hours as Branch needed for Wheezing or Shortness of Breath. benzonatate 2018-12 Yes [id number] 100mg Take 1 Univers 100 mg 0-19 capsule by ity of capsule 00:00: mouth 3 [place] 00 (three) Medical times Branch daily as needed for Cough. albuterol 2018-12 Yes [id number] 2{puff} Inhale 2 Univers 90 0-19 Puffs ity of mcg/actuati 00:00: every 4 [place] on inhaler 00 (four) Medical hours as Branch needed for Wheezing or Shortness of Breath. benzonatate 2018-12 Yes [id number] 100mg Take 1 Univers 100 mg 0-19 capsule by ity of capsule 00:00: mouth 3 (three) Medical times Branch daily as needed for Cough. albuterol 2018-12 Yes [id number] 2{puff} Inhale 2 Univers 90 0-19 Puffs ity of mcg/actuati 00:00: every 4 Nathen as on inhaler 00 (four) Medical hours as Branch needed for Wheezing or Shortness of Breath. benzonatate 2018-12 Yes [id number] 100mg Take 1 Univers 100 mg 0-19 capsule by ity of capsule 00:00: mouth 3 (three) Medical times Branch daily as needed for Cough. albuterol 2018-12 Yes [id number] 2{puff} Inhale 2 Univers 90 0-19 Puffs ity of mcg/actuati 00:00: every 4 Nathen as on inhaler 00 (four) Medical hours as Branch needed for Wheezing or Shortness of Breath. benzonatate 2018-12 Yes [id number] 100mg Take 1 Univers 100 mg 0-19 capsule by ity of capsule 00:00: mouth 3 (three) Medical times Branch daily as needed for Cough. albuterol 2018-12 Yes [id number] 2{puff} Inhale 2 Univers 90 0-19 Puffs ity of mcg/actuati 00:00: every 4 Nathen as on inhaler 00 (four) Medical hours as Branch needed for Wheezing or Shortness of Breath. benzonatate 2018-12 Yes [id number] 100mg Take 1 Univers 100 mg 0-19 capsule by ity of capsule 00:00: mouth 3 00 (three) Medical times Branch daily as needed for Cough. albuterol 2018-12 Yes [id number] 2{puff} Inhale 2 Univers 90 0-19 Puffs ity of mcg/actuati 00:00: every 4 Nathen as on inhaler 00 (four) Medical hours as Branch needed for Wheezing or Shortness of Breath. benzonatate 2018-12 Yes [id number] 100mg Take 1 Univers 100 mg 0-19 capsule by ity of capsule 00:00: mouth 3 [place] 00 (three) Medical times Branch daily as needed for Cough. albuterol 2018-12 Yes [id number] 2{puff} Inhale 2 Univers 90 0-19 Puffs ity of mcg/actuati 00:00: every 4 Nathen as on inhaler 00 (four) Medical hours as Branch needed for Wheezing or Shortness of Breath. benzonatate 2018-12 Yes [id number] 100mg Take 1 [facility] 100 mg 0-19 capsule by ity of capsule 00:00: mouth 3 (three) Medical times Branch daily as needed for Cough. albuterol 2018-12 Yes [id number] 2{puff} Inhale 2 Univers 90 0-19 Puffs ity of mcg/actuati 00:00: every 4 Nathen as on inhaler 00 (four) Medical hours as Branch needed for Wheezing or Shortness of Breath. benzonatate 2018-12 Yes [id number] 100mg Take 1 [facility] 100 mg 0-19 capsule by ity of capsule 00:00: mouth 3 (three) Medical times Branch daily as needed for Cough. albuterol 2018-12 Yes [id number] 2{puff} Inhale 2 Univers 90 0-19 Puffs ity of mcg/actuati 00:00: every 4 Nathen as on inhaler 00 (four) Medical hours as Branch needed for Wheezing or Shortness of Breath. benzonatate 2018-12 Yes [id number] 100mg Take 1 [facility] 100 mg 0-19 capsule by ity of capsule 00:00: mouth 3 [place] 00 (three) Medical times Branch daily as needed for Cough. albuterol 2018-12 Yes [id number] 2{puff} Inhale 2 Univers 90 0-19 Puffs ity of mcg/actuati 00:00: every 4 [place] as on inhaler 00 (four) Medical hours as Branch needed for Wheezing or Shortness of Breath. benzonatate 2018-12 Yes [id number] 100mg Take 1 [facility] 100 mg 0-19 capsule by ity of capsule 00:00: mouth 3 [place] 00 (three) Medical times Branch daily as needed for Cough. pantoprazol 2018-12 Yes [id number] 40mg Take 1 Univers e 40 mg EC 0-15 tablet by ity of tablet 00:00: mouth [place] 00 daily. Medical Branch pantoprazol 2018-12 Yes [id number] 40mg Take 1 Univers e 40 mg EC 0-15 tablet by ity of tablet 00:00: mouth [place] 00 daily. Medical Branch pantoprazol 2018-12 Yes [id number] 40mg Take 1 Univers e 40 mg EC 0-15 tablet by ity of tablet 00:00: mouth [place] 00 daily. Medical Branch pantoprazol 2018-12 Yes [id number] 40mg Take 1 Univers e 40 mg EC 0-15 tablet by ity of tablet 00:00: mouth [place] 00 daily. Medical Branch pantoprazol 2018-12 Yes [id number] 40mg Take 1 Univers e 40 mg EC 0-15 tablet by ity of tablet 00:00: mouth [place] 00 daily. Medical Branch pantoprazol 2018-12 Yes [id number] 40mg Take 1 Univers e 40 mg EC 0-15 tablet by ity of tablet 00:00: mouth [place] 00 daily. Medical Branch pantoprazol 2018-12 Yes [id number] 40mg Take 1 Univers e 40 mg EC 0-15 tablet by ity of tablet 00:00: mouth [place] 00 daily. Medical Branch pantoprazol 2018-12 Yes [id number] 40mg Take 1 Univers e 40 mg EC 0-15 tablet by ity of tablet 00:00: mouth [place] 00 daily. Medical Branch pantoprazol 2018-12 Yes [id number] 40mg Take 1 Univers e 40 mg EC 0-15 tablet by ity of tablet 00:00: mouth [place] 00 daily. Medical Branch pantoprazol 2018-12 Yes [id number] 40mg Take 1 Univers e 40 mg EC 0-15 tablet by ity of tablet 00:00: mouth [place] 00 daily. Medical Branch Vital Signs Vital Name Observation Time Observation Value Comments Source Systolic blood 2021-05-25 16:22:03 135 mm[Hg] Univer sity [facility] Diastolic blood 2021-05-25 16:22:03 [facility] 2021-05-25 16:22:03 75 /min [facility]i [facility] Body temperature 2021-05-25 16:22:03 37.67 Suha [facility] [place] [facility] Respiratory rate 2021-05-25 16:22:03 17 /min [facility] [place] [facility] Body height 2021-05-25 16:18:00 160 cm [facility] [place] [facility] Body weight 2021-05-25 16:18:00 101.152 kg [facility] [place] [facility] BMI 2021-05-25 16:18:00 39.50 kg/m2 [facility] [place] [facility] Oxygen saturation in 2021-05-25 16:18:00 98 /min University of Arterial blood by [facility] ricky Pulse oximetry Branch Systolic blood 2021-04-21 18:22:31 132 mm[Hg] Univer [facility]ity [facility] [place] [facility] Diastolic blood 2021-04-21 18:22:31 89 mm[Hg] Unive rsity [facility] [place] [facility] Heart rate 2021-04-21 18:22:31 77 /min [facility] [place] [facility] Respiratory rate 2021-04-21 18:22:31 16 /min [facility] [place] [facility] Oxygen saturation in 2021-04-21 18:22:31 97 /min University of Arterial blood by [facility] Pulse oximetry Branch Body temperature 2021-04-21 15:20:00 36.78 Suha [facility] [place] [facility] Body weight 2021-04-21 15:20:00 127.007 kg [facility] [place] [facility] BMI 2021-04-21 15:20:00 51.21 kg/m2 [facility] [place] [facility] Systolic blood 2021-01-14 04:08:00 124 mm[Hg] Univer sity [facility] [place] [facility] Diastolic blood 2021-01-14 04:08:00 84 mm[Hg] Unive rsity [facility] [place] [facility] Heart rate 2021-01-14 04:08:00 69 /min [facility] [place] [facility] Respiratory rate 2021-01-14 04:08:00 16 /min [facility] [place] [facility] Oxygen saturation in 2021-01-14 04:08:00 98 /min University of Arterial blood by [facility] Pulse oximetry Branch Body temperature 2021-01-14 00:34:00 37.56 Suha [facility] [place] [facility] Body weight 2021-01-14 00:34:00 127.007 kg [facility] [place] [facility] BMI 2021-01-14 00:34:00 51.21 kg/m2 [facility] [place] [facility] Systolic blood 2020-09-27 18:30:00 127 mm[Hg] [facility] [place] [facility] Diastolic blood 2020-09-27 18:30:00 77 mm[Hg] Unive rsity [facility] [place] [facility] Heart rate 2020-09-27 18:30:00 66 /min [facility] [place] [facility] Respiratory rate 2020-09-27 18:30:00 18 /min [facility] [place] [facility] Oxygen saturation in 2020-09-27 18:30:00 97 /min [facility] of Arterial blood by [facility] ricky Pulse oximetry Branch Body temperature 2020-09-27 16:14:00 37.33 Suha [facility] [place] [facility] Body weight 2020-09-27 16:14:00 127.007 kg [facility] [place] [facility] BMI 2020-09-27 16:14:00 51.21 kg/m2 [facility] [place] [facility] Systolic blood 2020-04-09 21:00:00 142 mm[Hg] [facility] [place] [facility] Diastolic blood 2020-04-09 21:00:00 77 mm[Hg] Unive rsity [facility] [place] [facility] Heart rate 2020-04-09 21:00:00 62 /min [facility] [place] [facility] Respiratory rate 2020-04-09 21:00:00 18 /min [facility] [place] [facility] Oxygen saturation in 2020-04-09 21:00:00 98 /min [facility] of Arterial blood by [facility] ricky Pulse oximetry Branch Body temperature 2020-04-09 18:10:00 36.89 Suha [facility] [place] [facility] Body weight 2020-04-09 18:10:00 108.863 kg [facility] [place] [facility] BMI 2020-04-09 18:10:00 43.90 kg/m2 [facility] [place] [facility] Systolic blood 2020-04-09 21:00:00 142 mm[Hg] Univer [facility]ity [facility] [place] [facility] Diastolic blood 2020-04-09 21:00:00 77 mm[Hg] Unive rsity [facility] [place] [facility] Heart rate 2020-04-09 21:00:00 62 /min [facility] [place] [facility] Respiratory rate 2020-04-09 21:00:00 18 /min [facility] [place] [facility] Oxygen saturation in 2020-04-09 21:00:00 98 /min [facility] Arterial blood by [facility] ricky Pulse oximetry Branch Body temperature 2020-04-09 18:10:00 36.89 Suha [facility] [place] [facility] Body weight 2020-04-09 18:10:00 108.863 kg [facility] [place] [facility] BMI 2020-04-09 18:10:00 43.90 kg/m2 [facility] [place] [facility] Systolic blood 2019-12-26 09:36:00 130 mm[Hg] [facility] [place] [facility] Diastolic blood 2019-12-26 09:36:00 81 mm[Hg] Unive rsity [facility] [place] [facility] Heart rate 2019-12-26 09:36:00 77 /min [facility] [place] [facility] Respiratory rate 2019-12-26 09:36:00 18 /min [facility] [place] [facility] Oxygen saturation in 2019-12-26 09:36:00 98 /min University of Arterial blood by [facility] Pulse oximetry Branch Body temperature 2019-12-26 08:07:00 36.61 Suha [facility] [place] [facility] Body height 2019-12-26 08:07:00 157.5 cm [facility] [place] [facility] Body weight 2019-12-26 08:07:00 108.863 kg [facility] [place] [facility] BMI 2019-12-26 08:07:00 43.90 kg/m2 [facility] [place] [facility] Systolic blood 2019-12-26 09:36:00 130 mm[Hg] [facility]iver [facility] [place] [facility] Diastolic blood 2019-12-26 09:36:00 81 mm[Hg] Unive rsity [facility] [place] [facility] Heart rate 2019-12-26 09:36:00 77 /min [facility] [place] [facility] Respiratory rate 2019-12-26 09:36:00 18 /min [facility] [place] [facility] Oxygen saturation in 2019-12-26 09:36:00 98 /min University of Arterial blood by [facility] ricky Pulse oximetry Branch Body temperature 2019-12-26 08:07:00 36.61 Suha [facility] [place] [facility] Body height 2019-12-26 08:07:00 157.5 cm [facility] [place] [facility] Body weight 2019-12-26 08:07:00 108.863 kg [facility] [place] [facility] BMI 2019-12-26 08:07:00 43.90 kg/m2 [facility] [place] [facility] Systolic blood 2019-12-19 22:00:00 140 mm[Hg] [facility] [place] [facility] Diastolic blood 2019-12-19 22:00:00 79 mm[Hg] Unive rsity [facility] [place] [facility] Heart rate 2019-12-19 22:00:00 77 /min [facility] [place] [facility] Oxygen saturation in 2019-12-19 22:00:00 98 /min [facility] Arterial blood by [place] [facility]icky Pulse oximetry Branch Respiratory rate 2019-12-19 21:00:00 18 /min Univ ersity of [facility] Body temperature 2019-12-19 20:36:00 37.33 Suha [facility] [place] [facility] Body weight 2019-12-19 20:36:00 108.863 kg [facility] [place] [facility] BMI 2019-12-19 20:36:00 42.51 kg/m2 [facility] [place] [facility] Systolic blood 2019-12-19 22:00:00 140 mm[Hg] [facility]iver [facility]ity [facility] [place] [facility] Diastolic blood 2019-12-19 22:00:00 79 mm[Hg] Unive rsity [facility] [place] [facility] Heart rate 2019-12-19 22:00:00 77 /min [facility] [place] [facility] Oxygen saturation in 2019-12-19 22:00:00 98 /min [facility] [place] by [place] [facility] Pulse oximetry Branch Respiratory rate 2019-12-19 21:00:00 18 /min [facility] [place] [facility] Body temperature 2019-12-19 20:36:00 37.33 Suha [facility] [place] [facility] Body weight 2019-12-19 20:36:00 108.863 kg [facility] [place] [facility] BMI 2019-12-19 20:36:00 42.51 kg/m2 [facility] [place] [facility] Procedures Procedure Date / Time Performing Clinician Source Performed NOTICE OF PRIVACY 2021-05-25 16:10:28 [facility] 2021-05-25 16:09:55 Doctor Unassigned, No [facility] Name Medical Branch REFERRAL- 2021-05-18 05:01:00 Doctor Unassigned, No [facility] REQUEST/RESPONSE Name Medical Branch XR CHEST 1 VW 2021-04-21 17:07:37 Carlos Tran [facility] COVID-19 (ID NOW RAPID 2021-04-21 17:02:00 Carlos Tran [facility] TESTING) Medical Branch CONSENT/REFUSAL FOR 2021-04-21 15:01:21 [facility], [facility] Name Medical Branch LIPASE 2021-01-14 01:45:00 [facility] HEPATIC FUNCTION PANEL 2021-01-14 01:45:00 Burak [facility] ([id number]) (ALB,T.PRO,BILI [facility] Branch T,BU/BC,ALT,AST,ALK PHOS) BASIC METABOLIC PANEL 2021-01-14 01:45:00 [facility] (NA, K, CL, CO2, Medical Branch GLUCOSE, BUN, CREATININE, CA) CBC WITH DIFF 2021-01-14 01:45[facility] 2021-01-14 01:41:00 Burak [facility] POCT TEST 2021-01-14 01:41:00 Celena Sumner [facility] CONSENT/REFUSAL FOR 2021-01-14 00:30:05 Doctor Unassigned, No [facility] Name Medical Branch CT ABDOMEN PELVIS W 2020-09-27 18:03:47 Daily Howell [facility] CONTRAST Medical Branch LIPASE 2020-09-27 16:54:00 Daily Howell Cary [facility] COMP. METABOLIC PANEL 2020-09-27 16:54:00 Daily Howell [facility] ([id number]) Medical Branch CBC WITH DIFF 2020-09-27 16:22:00 Daily Howell [place] [facility] URINALYSIS 2020-09-27 16:22:00 Daily Howell [facility] POCT TEST 2020-09-27 16:22:00 Daily Howell [facility] NOTICE OF PRIVACY 2020-09-27 15:51:58 Doctor Unassigned, No Univ [facility] PRACTICES Name [facility] Branch CONSENT/REFUSAL FOR 2020-09-27 15:51:41 Doctor Unassigned, No [facility] DIAGNOSIS AND TREATMENT Name Medical Branch CT ABDOMEN PELVIS WO 2020-04-09 20:27:49 Willis Wang [facility] COMP. METABOLIC PANEL 2020-04-09 18:25:00 Willis Wang [facility] ([id number]) [facility] Branch URINALYSIS 2020-04-09 18:25:00 Willis Wang [facility] CBC WITH DIFFERENTIAL 2020-04-09 18:25:00 Willis Wang [facility] POCT TEST 2020-04-09 18:19:00 Willis Wang [facility] EKG-12 LEAD 2019-12-26 08:35:47 Adrian Guardado [facility] CT ABDOMEN PELVIS W 2019-12-19 21:28:52 Katalina Lewis [facility] URINALYSIS 2019-12-19 21:09:00 Katalina Lewis [facility] LIPASE 2019-12-19 20:46:00 Katalina Lewis [facility] COMP. METABOLIC PANEL 2019-12-19 20:46:00 Katalina Lewis [facility] ([id number]) [facility] CBC WITH DIFFERENTIAL 2019-12-19 20:46:00 JudikyKatalina lópez [facility] Encounters Start End Encounter Admission Attending Care Care Encounter Source Date/Time Date/Time Type Type Clinicians Facility Department ID 2021-10-02 Emergency [facility] [id number] Univers 03:34:33 ity of [facility] 2021-10-01 Emergency [facility] [id number] Univers 20:30:16 ity [facility] 2021-09-30 Emergency [facility] [id number] Univers 23:28:28 ity of [facility] 2021-09-30 Emergency [facility] [id number] Univers 01:18:04 ity of [facility] 2021-06-02 2021-06-02 Outpatient VINCENT MUNOZ [facility] [id number] Univers 10:00:00 10:00:00 VINCENT SOTO [id number] ity of [facility] 2021-06-02 2021-06-02 Outpatient VINCENT MUNOZ [facility] [id number] Univers 10:00:00 10:00:00 VINCENT SOTO ity of [facility] 2021-05-25 2021-05-25 [facility] [id number] Univers 11:22:00 12:01:00 Celena Perdomo [id number] i ty [place] [id number] [facility] 084 Branch 2021-05-25 2021-05-25 Outpatient [facility] [id number] Univers 11:00:00 11:00:00 [id number] ity of [facility] 2021-05-25 2021-05-25 Outpatient R RADIOLOGY [facility] [id number] Univers 00:00:00 00:00:00 ity of [facility] 2021-05-23 2021-05-23 Candi Brittany [facility] [id number] Univers 00:00:00 00:00:00 (Out) Vincent Perdomo [id number] ity [id number] [place] [address] [facility] [phone] Nm dical nal 092 Branch [facility] 2021-05-18 2021-05-18 Orders Doctor ISHAN [id number] Univers 00:00:00 00:00:00 Only Unassigned, ALE [id number] ity of [place] [facility] [id number] [place] as [phone] [facility] 009 Branch 2021-04-21 2021-04-21 [facility] [id number] Univers 10:21:00 13:26:00 Carlos Cormier Leanne [id number] ity of [place] [id number] [facility] [id number] [address] 2021-01-13 2021-01-13 [facility] [id number] Univers 18:36:00 22:10:00 Radha Leanne [id number] i ty of [place] [id number] [facility] [id number] [address] 2020-09-27 2020-09-27 Emergency Lynda, K [facility] [id number] Univers 11:07:00 14:11:00 Cary Perdomo [id number] i ty of [place] [address] [place] [id number] 2020-09-27 2020-09-27 Orders Doctor ISHAN [id number] Univers 00:00:00 00:00:00 Only Unassigned, ALE [id number] ity of [place] [facility] [id number] [facility] [id number] [address] 2020-04-09 2020-04-09 Emergency [facility] [id number] 13:11:51 16:26:00 Willis Perdomo [id number] [place] 4.2.7.2.686 [place] [id number] [facility] 2020-04-09 2020-04-09 Emergency [facility] [id number] Univers 13:11:51 16:26:00 Willis Perdomo [id number] i ty of [place] [id number] [facility] [id number] [address] 2020-04-09 2020-04-09 Emergency X [facility] ERT [id number] Univers 13:11:51 16:26:00 WILLIS ity of [facility] 2019-12-26 2019-12-26 Emergency Debby [facility] [id number] Univers 02:03:08 03:42:00 Chilango [place] [id number] i ty of [place] [id number] [facility] [id number] [place] [id number] [place] 2019-12-26 2019-12-26 Emergency Debby [facility] [id number] 02:03:08 03:42:00 Ch[place] [id number] [place] [id number] [place] [id number] 084 2019-12-19 2019-12-19 Emergency Radha Mai [facility] 1.2.840. [id number] [facility] 14:29:58 16:35:00 Katalina Lewis [place] [id number] ity of [place] [id number] [facility] [id number] [address] 2019-12-19 2019-12-19 Emergency Radha Mai [facility] 1.2.840. 114 [id number] 14:29:58 16:35:00 Katalina Lewis [place] [id number] [place] [id number] [place] [address] [phone] 084 Results Test Description Test Time Test Comments Results Result [facility] e Comments Chest 1 View 2021-04-02 No acute University o f 1 cardiopulmonary [facility] 18:21:45 abnormality. Mere[place] Preliminary Report Dictated by Resident: Jabari Gaytan MD., have reviewed this study and agree with theabove report.EXAM: XR CHEST 1 VW HISTORY: 36 years-old Female; cough "Cough, congestion, ear "itchiness" x3days "when the rain started".?" TECHNIQUE: Single frontal view of the chest. COMPARISON: Chest radiographs dated 09/19/2019 FINDINGS: The lungs are moderately well-expanded, and clear apart from mild perihilarvascular congestion. A trace opacity in the lingula, unchanged from theprior x-ray consistent with atelectasis. No focal consolidation, pleuraleffusion, or pneumothorax is visualized. The cardiomediastinal silhouette is normal. No acute osseous abnormality is present. [facility], Radiant Results Inft User - 04/21/2021 1:22 PM CDTEXAM: XR CHEST 1 VWHISTORY: 36 years-old Female; cough "Cough, congestion, ear "itchiness" x3days "when the rain started".?"TECHNIQUE: Single frontal view of the chest.COMPARISON: Chest radiographs dated 09/19/2019FINDINGS:Th e lungs are moderately well-expanded, and clear apart from mild perihilarvascular congestion. A trace opacity in the lingula, unchanged from theprior x-ray consistent with atelectasis. No focal consolidation, pleuraleffusion, or pneumothorax is visualized. The cardiomediastinal silhouette is normal. No acute osseous abnormality is present. IMPRESSIONNo acute cardiopulmonary abnormality.Prelimina ry Report Dictated by Resident: Nikita Smith, Jabari Kaur MD., have reviewed this study and agree with theabove report. COVID-19 (ID NOW RAPID TESTING) 2021-04-21 17:28:13 Test Item Value Reference Range Interpretation Comme [facility] SARS-CoV-2 Rapid ID NOW (test code Not Detected Not Detected = 18373-8) PATT (test code = PATT) ID NOW COVID-19 Assay is an isothermal nucleic acid amplification test intended for the qualitative detection of nucleic acid from SARS-CoV-2 viral RNA in nasopharyngeal (REED OR WIND INSTRUMENT TUNER) specimens. It is used under Emergency Use Authorization (EUA) by FDA. The limit of detection (LOD) of the assay is 125 Genome Equivalents/mL. A positive result is indicative of the presence of SARS-CoV-2 RNA. ?Clinical correlation with patient history and other diagnostic information is necessary to determine patient infection status. A negative (Not Detected) result does not preclude SARS-CoV-2 infection. In patients with clinical symptoms and other tests that are consistent with SARS-CoV-2 infection, negative results should be treated as presumptive negative and a new specimen should be tested with alternative PCR molecular test. Invalid: Please collect a new specimen for repeat patient testing if clinically indicated. Lab Interpretation (test code = Normal 61793-3) [facility] Test Item Value Reference Range Interpretation Comments APPEARANCE (test code = Cloudy Clear A 9665089533) COLOR (test code = Natalie Yellow A 3128555465) PH (test code = 4.8-8.0 4384764081) SP GRAVITY (test code = 1.003-1.030 3938979556) GLU U QUAL (test code = Normal Normal 1641083748) BLOOD (test code = Negative Negative 5882590970) KETONES (test code = 5 mg/dL Negative A 6645333253) PROTEIN (test code = 100 mg/dL Negative A 2887-8) UROBILIN (test code = 2.0 mg/dL Normal A 9016425398) BILIRUBIN (test code = 2 mg/dL Negative A 0736581278) NITRITE (test code = Negative Negative 3727544568) LEUK RACHAEL (test code = 25/uL Negative A 0632246530) RBC/HPF (test code = See_Comment H [Autom ated message] 3171784588) The system [employer] generated this result transmit alex reference range : 0 - 3 HPF. The refe rence range was not u sed to interpret th is result as normal/abnormal . WBC/HPF (test code = See_Comment [Autom ated message] 5546491558) The system [employer] generated this result transmit alex reference range : 0 - 5 HPF. The refe rence range was not u sed to interpret th is result as normal/abnormal . BACTERIA (test code = Moderate Negative A 8775346675) MUCOUS (test code = Marked Negative LPF A 3672408473) AMORPHOUS (test code = Rare Rare HPF 0255499162) SQ EPITH (test code = HPF 7117552441) Lab Interpretation (test Abnormal code = 45127-4) [facility] (NA, K, CL, CO2, GLUCOSE, BUN, CREATININE, CA)2021-01-14 02:18:00 Test Item Value Reference Range Interpretation Comments NA (test code = 137 mmol/L 135-145 5115154585) K (test code = 4.1 mmol/L 3.5-5 9514005417) CL (test code = 103 mmol/L 98-108 0913004105) CO2 TOTAL (test code = 29 mmol/L 23-31 6889089606) AGAP (test code = 2-16 5123301994) BUN (test code = 10 mg/dL 7-23 6239761697) GLUCOSE (test code = 100 mg/dL 70-110 4515534122) CREATININE (test code 0.66 mg/dL 0.5-1.04 = 3523037060) CALCIUM (test code = 9.0 mg/dL 8.6-10.6 8498214477) eGFR Calculation mL/min/1.73m2 (Non-) (test code = 2213739763) eGFR Calculation mL/min/1.73m2 () (test code = 8165575762) PATT (test code = PATT) Association of Glomerular Filtration Rate (GFR) and Staging of Kidney Disease* + -+ + ---+| GFR (mL/min/1.73 m2) ?| With Kidney Damage ?| ?Without Kidney Damage+ -------+ ------+ ---------+| ?>90 ?| ?Stage one ?| ? Normal ?+ --+ -+ ----+| ?60-89 ?| ?Stage two ?| ? Decreased GFR ? + -+ + ---+| ?30-59 ?| ?Stage three ?| ? Stage three ? + -+ + ---+| ?15-29 ?| ?Stage four ? | ? Stage four ?+ --+ -+ ----+| ?<15 (or dialysis) ? ?| ?Stage five ? | ? Stage five ?+ --+ -+ ----+ *Each stage assumes the associated GFR level has been in effect for at least three months. ?Stages 1 to 5, with or without kidney disease, indicate chronic kidney disease. Notes: Determination of stages one and two (with eGFR >59mL/min/1.73 m2) requires estimation of kidney damage for at least three months as defined by structural or functional abnormalities of the kidney, manifested by either:Pathological abnormalities or Markers of kidney damage (including abnormalities in the composition of the blood or urine or abnormalities in imaging tests). [facility] (ALB, T.PRO, BILI T, BU/BC, ALT, AST, ALK PHOS)2021-01-14 02:18:00 Test Item Value Reference Range Interpretation Comments TOTAL BILI (test code = 9336200534) 0.4 mg/dL 0.1-1.1 BILI UNCON (test code = 7304340758) 0.3 mg/dL 0.1-1.1 BILI CONJ (test code = 9004334838) 0.0 mg/dL 0-0.3 T PROTEIN (test code = 1570222580) 7.1 g/dL 6.3-8.2 ALBUMIN (test code = 2644401179) 4.3 g/dL 3.5-5 ALK PHOS (test code = 0027464992) 80 U/L 34-122 ALTv (test code = 1742-6) 19 U/L 5-35 AST(SGOT) (test code = 1155279116) 24 U/L 13-40 Lab Interpretation (test code = Normal 05408-9) [facility] [id number] 02:18:00 Test Item Value Reference Range Interpretation Comments LIPASE (test code = 7908223491) 27 U/L 0-220 Lab Interpretation (test code = Normal 55320-5) [facility] with [id number] 02:03:00 Test Item Value Reference Range Interpretation Comments WBC (test code = See_Comment [Automated 7990-2) message] The sy stem which generated this result transmitted reference range : 4.30 - 11.10 10*3/?L. The reference range was not used to interpret this result as normal/abnormal . RBC (test code = See_Comment [Automated 533-8) message] The sy stem which generated this result transmitted reference range : 3.93 - 5.25 10*6/?L. The reference range was not used to interpret this result as normal/abnormal . HGB (test code = 14.0 g/dL 11.6-15 718-7) HCT (test code = 42.9 % 35.7-45.2 4544-3) MCV (test code = 93.5 fL 80.6-95.5 787-2) MCH (test code = 30.5 pg 25.9-32.8 785-6) MCHC (test code = 32.6 g/dL 31.6-35.1 786-4) RDW-SD (test code = 47.5 fL 39-49.9 23335-6) RDW-CV (test code = 13.8 % 12-15.5 788-0) PLT (test code = See_Comment [Automated 777-3) message] The sy stem which generated this result transmitted reference range : 166 - 358 10*3/ ?L. The reference r kwaku was not used to interpret this result as normal/abnormal . MPV (test code = 9.6 fL 9.5-12.9 39996-9) NRBC/100 WBC (test See_Comment [Automat ed code = 7332766990) message] The system which generated this result transmitted reference range : 0.0 - 10.0 /100 WBCs. The refer ence range was not u sed to interpret th is result as normal/abnormal . NRBC x10^3 (test code <0.01 See_Comment [Auto mated = 0414042702) message] The s ystem which generated this result transmitted reference range : 10*3/?L. The reference range was not used to interpret this result as normal/abnormal . GRAN MAT (NEUT) % 54.6 % (test code = 770-8) IMM GRAN % (test code 0.40 % = 7718826235) LYMPH % (test code = 30.3 % 736-9) MONO % (test code = 12.3 % 5905-5) EOS % (test code = 1.6 % 713-8) BASO % (test code = 0.8 % 706-2) GRAN MAT x10^3(ANC) 5.07 10*3/uL 1.88-7.09 (test code = 9480472912) IMM GRAN x10^3 (test 0.04 10*3/uL 0-0.06 code = 1238745291) LYMPH x10^3 (test code 2.81 10*3/uL 1.32-3.29 = 731-0) MONO x10^3 (test code 1.14 10*3/uL 0.33-0.92 H = 742-7) EOS x10^3 (test code = 0.15 10*3/uL 0.03-0.39 711-2) BASO x10^3 (test code 0.07 10*3/uL 0.01-0.07 = 704-7) Lab Interpretation Abnormal (test code = 52677-1) [id number] 01:41:00 Test Item Value Reference Range Interpretation Comments POCT PREG (test code = 1605) Negative On board controls acceptable with Present C Line (test code = 3574) POCT PREG LOT # (test code = HCG [id number]) POCT PREG TEST DATE (test 08/31/2022 code = 3576) Lab Interpretation (test code = Normal 96005-1) [facility] ABDOMEN PELVIS W [id number] 18:13:13CT Abdomen and Pelvis with intravenous contrast. CLINICAL HISTORY: Abdominal infection including peritonitis. DOSE: Up-to-date CT equipment and radiation dose reduction techniques wereemployed. CTDIvol: 16.17 mGy. DLP: 889 mGy-cm. TECHNIQUE : Contiguous axial imaging from the level of the lung basesth rough the pubic symphysis were performed after the uncomplicatedadministration of Omnipaque contrastmaterial. Coronal and sagittalreconstructions were obtained. Auto mA and/or iterative reconstructionwereused to reduce radiation dose. FINDINGS: Comparison is made with 04/09/2020 study. Lower lungs: Clear. Previously described focal opacity in the right lowerlung is not appreciated at the current time. No pleural effusion orpericardial effusion. Liver, Gallbladder and Spleen: Liver is enlarged, measuring 19 cm inlength. Cholecystectomy noted. There is mild generalized dilatation of theintrahepatic as well as extrahepatic bile duct. Pancreatic duct is notdilated. Spleen measures 11.5 x 5 cm. Peritone um: ?No free air or free fluid. No lymphadenopathy. Pancreas and Adrenals: ?Unremarkable pancreas. 21 mm right adrenal glandnodule is unchanged. There is mild hypertrophy noted in the lateral limb ofthe left adrenal gland. Kidneys and Ureters: ?No visible calculi in the renal collecting systems. No hydroureter or hydronephrosis. Vessels: Normal. Retroperitoneum: No abnormal fluid or lymphadenopathy.Bowel: Generalized diverticulosis of the large bowel without any acutechanges. Normal appendix is visualized. Small bowel gas pattern isunremarkable. Bladder and Reproductive Organs: Slightly enlarged left ovary due tomultiple cysts including one corpus luteum of 14 mm size. Multiple smallcystic lesions also noted in the right ovary, consistent with physiologicchanges. Grossly unremarkable unopacified urinary bladder. Bones: Unremarkable. Soft tissues: Unremarkable. CONCLUSION:1. No acute intra-abdominal or pelvic abnormalities.2. Mild hepatomegaly. S/P cholecystectomy. Mild generalized dilatation ofthe biliary ducts could be secondary to cholecystectomy.3. Stable right adrenal gland nodule.4. Bilateral cystic lesions in the ovaries, consistent with physiologicchanges. [facility], Radiant Results Inf t User - 09/27/2020 1:14 PM CDTCT Abdomen and Pelvis with intravenous contrast.CLINICAL HISTORY: Abdominal infection including peritonitis.DOSE: Up-to-date CT equipment and radiation dose reduction techniques wereemployed. CTDIvol: 16.17 mGy. DLP: 889 mGy-cm.TECHNIQUE : Contiguous axial imaging from t he level of the lung basesthrough the pubic symphysis were performed after the uncomplicatedadministration of Omnipaque contrast material. Coronal and sagittalreconstructions were obtained. Auto mA and/or iterative reconstruction wereused to reduce radiation dose.FINDINGS: Comparison is made with 04/09/2020 study.Lower lungs: Clear. Previously described focal opacity in the right lowerlung is not appreciated at the current time. No pleural effusion orpericardial effusion.Liver, Gallbladder and Spleen:Liver is enlarged, measuring 19 cm inlength. Cholecystectomy noted. There is mild generalized dilatation of theintrahepatic as well as extrahepatic bile duct. Pancreatic duct is notdilated. Spleen measures 11.5 x 5 cm.Peritoneum: No free air or free fluid. No lymphadenopathy.Pancreas and Adrenals: Unremarkable pancreas. 21 mm right adrenal glandnodule is unchanged. There is mild hypertrophy noted in the lateral limb ofthe left adrenal gland.Kidneys and Ureters: No visible calculi in the renal collecting systems. No hydroureter or hydronephrosis. Vessels: Normal.Retroperitoneum: No abnormal fluid or lymphadenopathy.Bowel: Generalized diverticulosis of the large bowel without any acutechanges. Normal appendix is visualized. Small bowel gas pattern isunremarkable.Bladder and Reproductive Organs:Slightly enlarged left ovary due tomultiple cysts including one corpus luteum of 14 mm size. Multiple smallcystic lesions also noted in the right ovary, consistent with physiologicchanges.Grossly unremarkable unopacified urinary bladder.Bones: Unremarkable.Soft tissues: Unremarkable.CONCLUSION:1. No acute intra-abdominal or pelvic abnormalities.2. Mild hepatomegaly. S/P cholecystectomy. Mild generalized dilatation ofthe biliary ducts could be secondary to cholecystectomy.3. Stable right adrenal gland nodule.4. Bilateral cystic lesions in the ovaries, consistent with physiologicchanges.[facility] Metabolic [id number] 17:18:00 Test Item Value Reference Range Interpretation Comments NA (test code = 136 mmol/L 135-145 2553885840) K (test code = 4.4 mmol/L 3.5-5 1919255619) CL (test code = 108 mmol/L 98-108 5659832485) CO2 TOTAL (test code = 25 mmol/L 23-31 8592423808) AGAP (test code = 2-16 7942192024) BUN (test code = 7 mg/dL 7-23 0936390255) GLUCOSE (test code = 105 mg/dL 70-110 8108322062) CREATININE (test code 0.57 mg/dL 0.5-1.04 = 5964367180) TOTAL BILI (test code 0.6 mg/dL 0.1-1.1 = 0939150403) CALCIUM (test code = 9.0 mg/dL 8.6-10.6 1585108524) T PROTEIN (test code = 6.5 g/dL 6.3-8.2 4342477455) ALBUMIN (test code = 3.9 g/dL 3.5-5 5117964357) ALK PHOS (test code = 58 U/L 34-122 2600038958) ALTv (test code = 15 U/L 5-35 1742-6) AST(SGOT) (test code = 25 U/L 13-40 8169038261) eGFR Calculation mL/min/1.73m2 (Non-) (test code = 2576048841) eGFR Calculation mL/min/1.73m2 () (test code = 1408323574) PATT (test code = PATT) Association of Glomerular Filtration Rate (GFR) and Staging of Kidney Disease* + -+ + ---+| GFR (mL/min/1.73 m2) ?| With Kidney Damage ?| ?Without Kidney Damage+ -------+ ------+ ---------+| ?>90 ?| ?Stage one ?| ? Normal ?+ --+ -+ ----+| ?60-89 ?| ?Stage two ?| ? Decreased GFR ? + -+ + ---+| ?30-59 ?| ?Stage three ?| ? Stage three ? + -+ + ---+| ?15-29 ?| ?Stage four ? | ? Stage four ?+ --+ -+ ----+| ?<15 (or dialysis) ? ?| ?Stage five ? | ? Stage five ?+ --+ -+ ----+ *Each stage assumes the associated GFR level has been in effect for at least three months. ?Stages 1 to 5, with or without kidney disease, indicate chronic kidney disease. Notes: Determination of stages one and two (with eGFR >59mL/min/1.73 m2) requires estimation of kidney damage for at least three months as defined by structural or functional abnormalities of the kidney, manifested by either:Pathological abnormalities or Markers of kidney damage (including abnormalities in the composition of the blood or urine or abnormalities in imaging tests). [facility], [id number] 17:17:00 Test Item Value Reference Range Interpretation Comments LIPASE (test code = 5150325014) 352 U/L 0-220 H Lab Interpretation (test code = Abnormal 26358-9) [facility] Center[facility]inalysis2020-[facility] 17:16:00 Test Item Value Reference Range Interpretation Comments APPEARANCE (test code = Clear Clear 7434924332) COLOR (test code = Pale Yellow Yellow A 5647767587) PH (test code = 4.8-8.0 8876883919) SP GRAVITY (test code = 1.003-1.030 5385090461) GLU U QUAL (test code = Negative Negative 2933421352) BLOOD (test code = Negative Negative 9301072387) KETONES (test code = Negative Negative 1026827832) PROTEIN (test code = Negative Negative 2887-8) UROBILIN (test code = 0.2 mg/dL See_Comment [Auto mated 5059490055) message] The sy stem which generated this result transmitted reference range : 0-1.0 mg/dL. Th e reference range was not used to interpret this result as normal/abnormal . BILIRUBIN (test code = Negative Negative 5578870975) NITRITE (test code = Negative Negative 3464806432) LEUK RACHAEL (test code = Negative Negative 9490757394) RBC/HPF (test code = See_Comment [Autom ated 3363854095) message] The sy stem which generated this result transmitted reference range : 0 - 3 HPF. The reference range was not used to interpret this result as normal/abnormal . WBC/HPF (test code = See_Comment [Autom ated 4337517149) message] The sy stem which generated this result transmitted reference range : 0 - 5 HPF. The reference range was not used to interpret this result as normal/abnormal . BACTERIA (test code = Few Negative A 0585859471) MUCOUS (test code = Slight Negative LPF A 0876731572) AMORPHOUS (test code = Few Rare HPF A 0469528476) SQ EPITH (test code = HPF 0283366122) Lab Interpretation Abnormal (test code = 77337-2) [facility] with [id number] 16:34:00 Test Item Value Reference Range Interpretation Comments WBC (test code = See_Comment [Automated message] 6690-2) The system [employer] generated this result transmitted ref erence range: 4.30 - 1 1.10 10*3/?L. The re ference range was not u sed to interpret this result as normal/abnor mal. RBC (test code = See_Comment [Automated message] 789-8) The system [employer] generated this result transmitted ref erence range: 3.93 - 5 .25 10*6/?L. The re ference range was not u sed to interpret this result as normal/abnor mal. HGB (test code = 13.1 g/dL 11.6-15 718-7) HCT (test code = 38.5 % 35.7-45.2 4544-3) MCV (test code = 89.7 fL 80.6-95.5 787-2) MCH (test code = 30.5 pg 25.9-32.8 785-6) MCHC (test code = 34.0 g/dL 31.6-35.1 786-4) RDW-SD (test code 42.7 fL 39-49.9 = 23012-3) RDW-CV (test code 13.1 % 12-15.5 = 788-0) PLT (test code = See_Comment [Automated message] 777-3) The system whic h generated this result transmitted ref erence range: 166 - 35 8 10*3/?L. The re ference range was not u sed to interpret this result as normal/abnor mal. MPV (test code = 9.9 fL 9.5-12.9 67220-9) NRBC/100 WBC (test See_Comment [Automat ed message] code = 3868468550) The syste m which generated this result transmitted ref erence range: 0.0 - 10 .0 /100 WBCs. The refer ence range was not u sed to interpret this result as normal/abnor mal. NRBC x10^3 (test <0.01 See_Comment [Automated message] code = 3488904042) The syste m which generated this result transmitted ref erence range: 10*3/?L. The reference range was not used to interpr et this result as normal/abnormal . GRAN MAT (NEUT) % 58.9 % (test code = 770-8) IMM GRAN % (test 0.10 % code = 4081612755) LYMPH % (test code 29.6 % = 736-9) MONO % (test code 8.6 % = 5905-5) EOS % (test code = 2.3 % 713-8) BASO % (test code 0.5 % = 706-2) GRAN MAT 5.94 10*3/uL 1.88-7.09 x10^3(ANC) (test code = 1290848482) IMM GRAN x10^3 <0.03 0-0.06 (test code = 7669812680) LYMPH x10^3 (test 2.99 10*3/uL 1.32-3.29 code = 731-0) MONO x10^3 (test 0.87 10*3/uL 0.33-0.92 code = 742-7) EOS x10^3 (test 0.23 10*3/uL 0.03-0.39 code = 711-2) BASO x10^3 (test 0.05 10*3/uL 0.01-0.07 code = 704-7) [facility] [id number] 16:22:00 Test Item Value Reference Range Interpretation Comments POCT PREG (test code = 1605) negative On board controls acceptable with present C Line (test code = 3574) POCT PREG LOT # (test code = 3575) [id number] POCT PREG TEST DATE (test 2022-03-01 code = 3576) Lab Interpretation (test code = Normal 06137-7) [facility] [id number] 21:25:29 No hydronephrosis or radiopaque nephrolithiasis. 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 Attention to follow-up exam is recommended to document two-yearstability. Focal opacity in the right lower lobe is nonspecific, possibly related toatelectasis versus an early infectious or inflammatory process. Recommend afollow-up chest CT in 6 months to ensure resolution. Preliminary Report Dictated by Resident: William Garcia I, Odell Bojorquez MD., have reviewed this study and agree with the abovereport.CT ABDOMEN PELVIS WO CONTRAST HISTORY: 35 years-old; Female; Flank pain, stone disease suspected COMPARISON: 12/19/2019 TECHNIQUE AND FINDINGS: Contiguous axial imaging from the level of the lungbases through the pubic symphysis was performed without the intravenousadministration of contrast. Coronal and sagittal reconstructions wereobtained. ?Auto mA and/or iterative reconstruction were usedto reduceradiation dose. FINDINGS: LOWER THORAX: A focal opacity is noted in the right lower lobe (2:9). LIVER: The liver is enlarged measuring approximately 20 cm craniocaudally. GALLBLADDER AND BILIARY TREE: Prior cholecystectomy. No intra orextrahepatic biliary ductal dilatation. SPLEEN: Unremarkable. PANCREAS: No ductal dilation or masses. ADRENAL GLANDS: Right adrenal nodule measuring 2.1 cm with average centraldensity of 14 Hounsfield units. Left adrenal is unremarkable. KIDNEYS: No hydronephrosis, stones, or masses. PERITONEUM AND RETROPERITONEUM: No free air or fluid collection. LYMPH NODES: No intra-abdominal or pelvic lymph node enlargement. GI TRACT: No dilation or bowel wall thickening. Appendix is normal. PELVIS/BLADDER: Bladder is distended with no wall thickening. The uterusand adnexa are unremarkable. VESSELS: Unremarkable. BONES AND SOFT TISSUES: No suspicious lytic or sclerotic bony lesions.Chronic healed fracture of left ninth rib. [facility], Radiant Results Inft User - 04/09/2020 4:26 PM CDTCT ABDOMEN PELVIS WO CONTRASTHISTORY: 35 years-old; Female; Flank pain, stone disease suspected COMPARISON: 12/19/2019TECHNIQUE AND FINDINGS: Contiguous axial imaging from the level of the lungbases through the pubic symphysis was performed without the intravenousadministration of contrast.Coronal and sagittal reconstructions wereobtained. Auto mA and/or iterative reconstruction were used to reduceradiation dose.FINDINGS:LOWER THORAX: A focal opacity is noted in the right lower lobe (2:9).LIVER: The liver is enlarged measuring approximately 20 cm craniocaudally.GALLBLADDER AND BILIARY TREE: Prior cholecystectomy. No intra orextrahepatic biliary ductal dilatation.SPLEEN: Unremarkable.PANCREAS: No ductal dilation or masses.ADRENAL GLANDS: Right adrenal nodule measuring 2.1 cm with average centraldensity of 14 Hounsfield units. Left adrenal is unremarkable.KIDNEYS: No hydronephrosis, stones, or masses.PERITONEUM AND RETROPERITONEUM: No free air or fluid collection.LYMPH NODES: No intra-abdominal or pelvic lymph node enlargement.GI TRACT: No dilation or bowel wall thickening. Appendixis normal.PELVIS/BLADDER: Bladder is distended with no wall thickening. 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 Attention to follow-up exam is recommended to document two-yearstability.Focal opacity in the right lower lobe is nonspecific, possibly related toatelectasis versus an early infectious or inflammatory process. Recommend afollow-up chest CT in 6 months to ensure resolution.Preliminary Report Dictated by Resident: Odell Escalante MD., have reviewed this study and agree with the abovereport.[facility] [id number] 19:13:00 Test Item Value Reference Range Interpretation Comments APPEARANCE (test code = Hazy Clear A 9191789273) COLOR (test code = Yellow Yellow 9848695523) PH (test code = 4.8-8.0 2143294446) SP GRAVITY (test code = 1.003-1.030 H 2125010511) GLU U QUAL (test code = Normal Normal 3762904159) BLOOD (test code = 3+ Negative A 5791458654) KETONES (test code = Negative Negative 0884414540) PROTEIN (test code = Negative Negative 2887-8) UROBILIN (test code = Normal Normal 3355106541) BILIRUBIN (test code = Negative Negative 5124883580) NITRITE (test code = Negative Negative 1568430939) LEUK RACHAEL (test code = Negative Negative 7965164610) RBC/HPF (test code = See_Comment H [Autom ated message] 2491288136) The system [employer] generated this result transmitted ref erence range: 0 - 3 HP F. The reference range was not used to int erpret this result as normal/abnormal . WBC/HPF (test code = See_Comment [Autom ated message] 7617479656) The system [employer] generated this result transmitted ref erence range: 0 - 5 HP F. The reference range was not used to int erpret this result as normal/abnormal . BACTERIA (test code = Negative Negative 2612508117) MUCOUS (test code = Slight Negative LPF A 6106329461) SQ EPITH (test code = HPF 9037831201) Lab Interpretation (test Abnormal code = 93267-6) [facility]. METABOLIC PANEL (79380)2020-04-09 18:52:00 Test Item Value Reference Range Interpretation Comments NA (test code = 140 mmol/L 135-145 5851405748) K (test code = 4.2 mmol/L 3.5-5 2830356303) CL (test code = 108 mmol/L 98-108 2025379186) CO2 TOTAL (test code = 25 mmol/L 23-31 2048994651) AGAP (test code = 2-16 5942078228) BUN (test code = 13 mg/dL 7-23 9996529914) GLUCOSE (test code = 97 mg/dL 70-110 7061567433) CREATININE (test code 0.98 mg/dL 0.5-1.04 = 0806500724) TOTAL BILI (test code 0.1 mg/dL 0.1-1.1 = 0250148228) CALCIUM (test code = 9.2 mg/dL 8.6-10.6 0015575592) T PROTEIN (test code = 6.8 g/dL 6.3-8.2 9674695641) ALBUMIN (test code = 4.1 g/dL 3.5-5 3109043819) ALK PHOS (test code = 68 U/L 34-122 4066008692) ALTv (test code = 19 U/L 5-35 1742-6) AST(SGOT) (test code = 24 U/L 13-40 8394963943) eGFR Calculation mL/min/1.73m2 (Non-) (test code = 8606563872) eGFR Calculation mL/min/1.73m2 () (test code = 3970283567) PATT (test code = PATT) Association of Glomerular Filtration Rate (GFR) and Staging of Kidney Disease* + -+ + ---+| GFR (mL/min/1.73 m2) ?| With Kidney Damage ?| ?Without Kidney Damage+ -------+ ------+ ---------+| ?>90 ?| ?Stage one ?| ? Normal ?+ --+ -+ ----+| ?60-89 ?| ?Stage two ?| ? Decreased GFR ? + -+ + ---+| ?30-59 ?| ?Stage three ?| ? Stage three ? + -+ + ---+| ?15-29 ?| ?Stage four ? | ? Stage four ?+ --+ -+ ----+| ?<15 (or dialysis) ? ?| ?Stage five ? | ? Stage five ?+ --+ -+ ----+ *Each stage assumes the associated GFR level has been in effect for at least three months. ?Stages 1 to 5, with or without kidney disease, indicate chronic kidney disease. Notes: Determination of stages one and two (with eGFR >59mL/min/1.73 m2) requires estimation of kidney damage for at least three months as defined by structural or functional abnormalities of the kidney, manifested by either:Pathological abnormalities or Markers of kidney damage (including abnormalities in the composition of the blood or urine or abnormalities in imaging tests). [facility] WITH [id number] 18:40:00 Test Item Value Reference Range Interpretation Comments WBC (test code = See_Comment H [Automated 6690-2) message] The sy stem which generated this result transmitted reference range : 4.30 - 11.10 10*3/?L. The reference range was not used to interpret this result as normal/abnormal . RBC (test code = See_Comment [Automated 789-8) message] The sy stem which generated this result transmitted reference range : 3.93 - 5.25 10*6/?L. The reference range was not used to interpret this result as normal/abnormal . HGB (test code = 13.0 g/dL 11.6-15 718-7) HCT (test code = 38.6 % 35.7-45.2 4544-3) MCV (test code = 92.3 fL 80.6-95.5 787-2) MCH (test code = 31.1 pg 25.9-32.8 785-6) MCHC (test code = 33.7 g/dL 31.6-35.1 786-4) RDW-SD (test code = 43.3 fL 39-49.9 60658-0) RDW-CV (test code = 12.8 % 12-15.5 788-0) PLT (test code = See_Comment H [Automated 777-3) message] The sy stem which generated this result transmitted reference range : 166 - 358 10*3/ ?L. The reference r kwaku was not used to interpret this result as normal/abnormal . MPV (test code = 9.6 fL 9.5-12.9 03037-1) NRBC/100 WBC (test See_Comment [Automat ed code = 4759452016) message] The system which generated this result transmitted reference range : 0.0 - 10.0 /100 WBCs. The refer ence range was not u sed to interpret th is result as normal/abnormal . NRBC x10^3 (test code <0.01 See_Comment [Auto mated = 7228768783) message] The s ystem which generated this result transmitted reference range : 10*3/?L. The reference range was not used to interpret this result as normal/abnormal . GRAN MAT (NEUT) % 61.2 % (test code = 770-8) IMM GRAN % (test code 0.40 % = 7456949230) LYMPH % (test code = 25.5 % 736-9) MONO % (test code = 9.3 % 5905-5) EOS % (test code = 2.9 % 713-8) BASO % (test code = 0.7 % 706-2) GRAN MAT x10^3(ANC) 7.09 10*3/uL 1.88-7.09 (test code = 5265950631) IMM GRAN x10^3 (test 0.05 10*3/uL 0-0.06 code = 5610250853) LYMPH x10^3 (test code 2.95 10*3/uL 1.32-3.29 = 731-0) MONO x10^3 (test code 1.08 10*3/uL 0.33-0.92 H = 742-7) EOS x10^3 (test code = 0.34 10*3/uL 0.03-0.39 711-2) BASO x10^3 (test code 0.08 10*3/uL 0.01-0.07 H = 704-7) Lab Interpretation Abnormal (test code = 37406-7) [id number] 18:19:00 Test Item Value Reference Range Interpretation Comments POCT PREG (test code = 1605) negative On board controls acceptable with C present Line (test code = 3574) Lab Interpretation (test code = Normal 18220-1) [facility] CenterUrinalysis2020-01-18 21:59:00 Test Item Value Reference Range Interpretation Comments APPEARANCE (test code = Clear Clear 7540306813) COLOR (test code = Straw Yellow A 8404004116) PH (test code = 4.8-8.0 3641468320) SP GRAVITY (test code = 1.003-1.030 5110663338) GLU U QUAL (test code = Normal Normal 1836496097) BLOOD (test code = 1+ Negative A 8912253924) KETONES (test code = 20 mg/dL Negative A 9628181498) PROTEIN (test code = Negative Negative 2887-8) UROBILIN (test code = Normal Normal 7728647862) BILIRUBIN (test code = Negative Negative 7531904374) NITRITE (test code = Negative Negative 3877362915) LEUK RACHAEL (test code = Negative Negative 6241113218) RBC/HPF (test code = See_Comment [Autom ated message] 0729703024) The system [employer] generated this result transmitted ref erence range: 0 - 3 HP F. The reference range was not used to int erpret this result as normal/abnormal . WBC/HPF (test code = <1 See_Comment [Autom ated message] 2564363244) The system [employer] generated this result transmitted ref erence range: 0 - 5 HP F. The reference range was not used to int erpret this result as normal/abnormal . BACTERIA (test code = Few Negative A 7276867565) SQ EPITH (test code = HPF 5558499271) Lab Interpretation (test Abnormal code = 51925-9) [facility] P[facility] W [id number] 21:42:26 1. No acute inflammatory changes or signs of bowel obstruction.2. No signs of kidney stones or hydronephrosis.3. 3. A 1.7 cm right adrenal gland nodule is noted. Comparisons priorstudies/reports is recommended. AFC: 48705.RL: 21339. Ordering Physician: Katalina Lewis History: Abdominal pain. Comparison Study: None. Technique: Abdomen andpelvis CT with intravenous contrast. CT scan doneaccording to ALARA (As Low as Reasonably Achievable). Findings: ? Lungs: No infiltrates or effusions. No pneumothorax. No pulmonary nodulesor masses.Cardiovascular: Heart is not enlarged. Aorta and IVC are unremarkable.Liver: Normal.Gallbladder: Surgically absent.Pancreas: Normal.Spleen: Normal.Kidneys: Normal. Adrenal glands: A 1.8 cm heterogeneous nodule involves the right adrenalgland with Hounsfield units in the 70s. Left adrenal gland is unremarkable.Bowel: Normal stomach. Normal small bowel. Normal appendix. Normal colon.Free air or free fluid:None.Lymphadenopathy: None.Reproductive organs: Uterus and adnexal structures are unremarkable.Urinary bladder: Normal.Groins: No signs of hernia or lymphadenopathy.Bones and soft tissues: Bones are unremarkable. Soft tissues areunremarkable. [facility], Radiant Results Inft User - 12/19/2019 3:43 PM CSTOrd ering Physician: Katalina LewisHistory: Abdominal pain.Comparison Study: None. Technique: Abdomen and pelvis CT with intravenous contrast. CT scan doneaccording to ALARA (As Low as Reasonably Achievable).Findings: Lungs: No infiltrates or effusions. No pneumothorax. No pulmonary nodulesor masses.Card iovascular: Heart is not enlarged. Aorta and IVC are unremarkable.Liver: Normal.Gallbladder: Surgically absent.Pancreas: Normal.Spleen: Normal.Kidneys: Normal. Adrenal glands: A 1.8 cm heterogeneous nodule involves the right adrenalgland with Hounsfield units in the 70s. Left adrenal gland is unremarka ble.Bowel: Normal stomach. Normal small bowel. Normal appendix. Normal colon.Free air or free fluid:None.Lymphadenopathy: None.Reproductive organs: Uterus and adnexal structures are unremarkable.Urinary bladder: Normal.Groins: No signs of hernia or lymphadenopathy.Bones and soft tissues: Bones are unr emarkable. Soft tissues areunremarkable.IMPRESSION1. No acute inflammatory changes or signs of bowelobstruction.2. No signs of kidney stones or hydronephrosis.3. 3. A 1.7 cm right adrenal gland noduleis noted. Comparisons priorstudies/reports is recommended.AFC: 22283.RL: 91762.Electronically signedby Yevgeniy Mccoy MD at 12/19/2019 3:42 PMUnHCA [facility] NorthwestComplete Metabolic [id number] 21:13:00 Test Item Value Reference Range Interpretation Comments NA (test code = 139 mmol/L 135-145 1168474673) K (test code = 4.1 mmol/L 3.5-5 6819295164) CL (test code = 106 mmol/L 98-108 5433505385) CO2 TOTAL (test code = 25 mmol/L 23-31 0034091995) AGAP (test code = 2-16 3259453023) BUN (test code = 12 mg/dL 7-23 1615471898) GLUCOSE (test code = 102 mg/dL 70-110 7360987919) CREATININE (test code 0.63 mg/dL 0.5-1.04 = 2817597876) TOTAL BILI (test code 0.4 mg/dL 0.1-1.1 = 0229141166) CALCIUM (test code = 9.8 mg/dL 8.6-10.6 4832334812) T PROTEIN (test code = 7.9 g/dL 6.3-8.2 0390830114) ALBUMIN (test code = 4.6 g/dL 3.5-5 0925309016) ALK PHOS (test code = 78 U/L 34-122 1399346501) ALTv (test code = 19 U/L 5-35 1742-6) AST(SGOT) (test code = 22 U/L 13-40 5335500418) eGFR Calculation mL/min/1.73m2 (Non-) (test code = 1898931411) eGFR Calculation mL/min/1.73m2 () (test code = 3144439552) PATT (test code = PATT) Association of Glomerular Filtration Rate (GFR) and Staging of Kidney Disease* + -+ + ---+| GFR (mL/min/1.73 m2) ?| With Kidney Damage ?| ?Without Kidney Damage+ -------+ ------+ ---------+| ?>90 ?| ?Stage one ?| ? Normal ?+ --+ -+ ----+| ?60-89 ?| ?Stage two ?| ? Decreased GFR ? + -+ + ---+| ?30-59 ?| ?Stage three ?| ? Stage three ? + -+ + ---+| ?15-29 ?| ?Stage four ? | ? Stage four ?+ --+ -+ ----+| ?<15 (or dialysis) ? ?| ?Stage five ? | ? Stage five ?+ --+ -+ ----+ *Each stage assumes the associated GFR level has been in effect for at least three months. ?Stages 1 to 5, with or without kidney disease, indicate chronic kidney disease. Notes: Determination of stages one and two (with eGFR >59mL/min/1.73 m2) requires estimation of kidney damage for at least three months as defined by structural or functional abnormalities of the kidney, manifested by either:Pathological abnormalities or Markers of kidney damage (including abnormalities in the composition of the blood or urine or abnormalities in imaging tests). [facility] CenterLipase, [id number] 21:13:00 Test Item Value Reference Range Interpretation Comments LIPASE (test code = 1277766140) 22 U/L 0-220 Lab Interpretation (test code = Normal 89987-1) [facility] CenterCBC WITH [id number] 20:58:00 Test Item Value Reference Range Interpretation Comments WBC (test code = See_Comment H [Automated 5090-2) message] The sy stem which generated this result transmitted reference range : 4.30 - 11.10 10*3/?L. The reference range was not used to interpret this result as normal/abnormal . RBC (test code = See_Comment [Automated 789-8) message] The sy stem which generated this result transmitted reference range : 3.93 - 5.25 10*6/?L. The reference range was not used to interpret this result as normal/abnormal . HGB (test code = 13.3 g/dL 11.6-15 718-7) HCT (test code = 40.5 % 35.7-45.2 4544-3) MCV (test code = 92.0 fL 80.6-95.5 787-2) MCH (test code = 30.2 pg 25.9-32.8 785-6) MCHC (test code = 32.8 g/dL 31.6-35.1 786-4) RDW-SD (test code = 41.2 fL 39-49.9 42726-4) RDW-CV (test code = 12.2 % 12-15.5 788-0) PLT (test code = See_Comment H [Automated 777-3) message] The sy stem which generated this result transmitted reference range : 166 - 358 10*3/ ?L. The reference r kwaku was not used to interpret this result as normal/abnormal . MPV (test code = 9.8 fL 9.5-12.9 86511-3) NRBC/100 WBC (test See_Comment [Automat ed code = 4442773358) message] The system which generated this result transmitted reference range : 0.0 - 10.0 /100 WBCs. The refer ence range was not u sed to interpret th is result as normal/abnormal . NRBC x10^3 (test code <0.01 See_Comment [Auto mated = 9968153569) message] The s ystem which generated this result transmitted reference range : 10*3/?L. The reference range was not used to interpret this result as normal/abnormal . GRAN MAT (NEUT) % 64.0 % (test code = 770-8) IMM GRAN % (test code 0.40 % = 1916088783) LYMPH % (test code = 26.3 % 736-9) MONO % (test code = 7.2 % 5905-5) EOS % (test code = 1.5 % 713-8) BASO % (test code = 0.6 % 706-2) GRAN MAT x10^3(ANC) 7.19 10*3/uL 1.88-7.09 H (test code = 9490920981) IMM GRAN x10^3 (test 0.04 10*3/uL 0-0.06 code = 3259843841) LYMPH x10^3 (test code 2.96 10*3/uL 1.32-3.29 = 731-0) MONO x10^3 (test code 0.81 10*3/uL 0.33-0.92 = 742-7) EOS x10^3 (test code = 0.17 10*3/uL 0.03-0.39 711-2) BASO x10^3 (test code 0.07 10*3/uL 0.01-0.07 = 704-7) Lab Interpretation Abnormal (test code = 83511-3) [facility]
[2022-04-18 18:08] LABS: Urine Blood 2+ (Negative); Urine Glucose Negative (Negative); Urine Protein Negative (Negative); Urine Specific Gravity >=1.030 (1.005-1.030); Urine pH 6.5 (5.0-7.0)
[2022-04-18 18:14] LABS: Absolute Lymphocytes (CBC) 3.2 K/uL (0.7-4.9); Hematocrit 41.3 % (36.0-45.0); Lymphocytes % 28.3 % (15.3-44.8); RBC Red Blood Cell Count 4.53 M/uL (3.86-4.86)
[2022-04-18 18:21] LABS: Urine Bacteria <20 /HPF (<20); Urine RBC <5 /HPF (NONE SEEN)
[2022-04-18 18:24] LABS: Albumin 3.6 g/dL (3.4-5.0); Bilirubin Total 0.2 mg/dL (0.2-1.0)
--- NOTE | 2022-04-18 18:56 | RAD REPORT ---
EXAM DESCRIPTION: CTAbdomen Pelvis W Contrast - 04/18/2022 6:42 pm CLINICAL HISTORY: Abdominal pain, acute, nonlocalized COMPARISON: Abdomen Pelvis W Contrast dated 01/20/2018 TECHNIQUE: CT of the abdomen and pelvis was performed. All CT scans are performed using dose optimization technique as appropriate and may include automated exposure control or mA/KV adjustment according to patient size. FINDINGS: Lower chest: No acute abnormality. Liver: No acute abnormality or suspicious lesions. Biliary: Cholecystectomy Stomach: No significant focal abnormality. Duodenum: No significant focal abnormality. Pancreas: No significant abnormality. Spleen: No significant abnormality. Adrenal: Unchanged bilateral adrenal nodules which are benign. Kidney/ureter: No hydronephrosis. No renal calculi. Retroperitoneum: No retroperitoneal adenopathy. Vascular: No aneurysm. Bowel: No significant focal abnormality. Normal appendix. Peritoneum: No ascites or free air. Bladder: Grossly unremarkable. Reproductive: No adnexal masses. Bones: No acute fracture. Other: n/a IMPRESSION: No acute intra-abdominal or pelvic finding. Normal appendix.
[2022-04-18] MEDS ORDERED: MORPHINE 4 MG/ML SYR ONE (19:03)
[2022-04-18] MEDS ORDERED: ONDANSETRON 4 MG/2 ML VIAL ONE (19:03)
--- NOTE | 2022-04-18 19:14 | ER ---
Nurse's Notes [facility] Michelle Name: Yina Fernandes Age: 37 yrs Sex: Female : 1985 Arrival Date: 04/18/2022 Time: 17:15 Bed Treatment Private MD: Diagnosis: Abdominal pain, Generalized Presentation: 04/18 17:24 Chief complaint: Patient states: she has lower back pain that began three days ago. ap3 patient also reports nausea and vomiting. patient reports pain 9/10 and nothing is improving the pain. Coronavirus screen: At this time, the client does not indicate any symptoms associated with coronavirus-19. Ebola Screen: No symptoms or risks identified at this time. Initial Sepsis Screen: Does the patient meet any 2 criteria? No. Patient's initial sepsis screen is negative. Does the patient have a suspected source of infection? No. Patient's initial sepsis screen is negative. Risk Assessment: Do you want to hurt yourself or someone else? Patient reports no desire to harm self or others. Onset of symptoms was April 15, 2022. 17:24 Method Of Arrival: Ambulatory ap3 17:24 Acuity: NAWAF 3 ap3 Triage Assessment: 17:26 General: Appears uncomfortable, Behavior is cooperative, appropriate for age. Pain: ap3 Complains of pain in low back area Pain currently is 8 out of 10 on a pain scale. at worst was 10 out of 10 on a pain scale. Alleviated by nothing. Neuro: Level of Consciousness is awake, alert, obeys commands, Oriented to person, place, time, situation, Appropriate for age Speech is normal. Cardiovascular: Patient's skin is warm and dry. Respiratory: Airway is patent Respiratory effort is even, unlabored, Respiratory pattern is regular, symmetrical. GI: Abdomen is round Reports nausea, vomiting. 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 - Social history:: Smoking status: Patient reports the use of cigarette tobacco products, smokes one pack cigarettes per day. Screenin:27 Abuse screen: Denies threats or abuse. Nutritional screening: No deficits noted. ap3 Tuberculosis screening: No symptoms or risk factors identified. Assessment: 17:28 GI: Abdomen is tender to palpation in low back area. ap3 Vital Signs: 17:24 BP 136 / 90; Pulse 71; Resp 15; Temp 98.1; Pulse Ox 100% ; Weight 99.79 kg; Height 5 ap3 ft. 3 in. (160.02 cm); 17:24 Body Mass Index 38.97 (99.79 kg, 160.02 cm) ap3 ED Course: 17:15 Patient arrived in ED. am2 17:17 Amador Carrera DO is Attending Physician. ms3 17:25 Triage completed. ap3 17:27 Arm band placed on right wrist. ap3 17:27 Patient has correct armband on for positive identification. ap3 18:08 Urine Microscopic Only Sent. mh5 18:08 Lipase Sent. mh5 18:08 CMP Sent. 5 18:08 CBC with Diff Sent. mh5 18:08 Initial lab(s) drawn, by nd, sent to lab. Urine collected: clean catch specimen, 5 cloudy. Inserted saline lock: 22 gauge in left antecubital area, using aseptic technique. Blood collected. 18:40 Román Mullen, RN is Primary Nurse. jb4 18:44 CT Abd/Pelvis - IV Contrast Only In Process Unspecified. EDMS 18:52 Attending Physician role handed off by Amador Carrera DO rn 18:52 David Jim MD is Attending Physician. rn 19:06 Amador Carrera DO is Attending Physician. ms3 Administered Medications: 18:55 Drug: Zofran (Ondansetron) 4 mg Route: IVP; Site: left antecubital; jb4 18:57 Drug: morphine 4 mg Route: IVP; Site: left antecubital; jb4 Medication: 17:27 VIS not applicable for this client. ap3 Outcome: 19:14 Discharge ordered by . ms3 20:12 Patient left the ED. jb4 Signatures: Dispatcher [employer] EDMS David Jim MD MD rn Bryson, James, RN RN jb4 Geno Del Cid 5 Jillian Branch Jillian Pineda RN RN ap3 Carrera, Amador, DO DO ms3
--- NOTE | 2022-04-18 19:14 | EDPHYS ---
[facility] Documentation [facility] Name: Yina Dom Age: 37 yrs Sex: Female : 1985 Arrival Date: 04/18/2022 Time: 17:15 Bed Treatment Private MD: ED Physician Amador Carrera HPI: 04/18 17:28 This 37 yrs old Female presents to ER via Ambulatory with complaints of Abdominal Pain ms3 - lower, Low Back Pain, Flank Pain. 17:28 The patient complains of pain in the left mid back and right mid back. The pain does ms3 not radiate. Onset: The symptoms/episode began/occurred 10 day(s) ago. Modifying factors: The symptoms are alleviated by nothing. the symptoms are aggravated by. Associated signs and symptoms: Pertinent positives: nausea, vomiting, Pertinent negatives: diarrhea. Severity of pain: At its worst the pain was severe a 9 / 10. 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 - Social history:: Smoking status: Patient reports the use of cigarette tobacco products, smokes one pack cigarettes per day. ROS: 17:28 Constitutional: Negative for fever, and chills. Eyes: Negative for injury, pain, ms3 redness, and discharge, Neck: Negative for injury, pain, and swelling, Cardiovascular: Negative for chest pain, and palpitations. Respiratory: Negative for shortness of breath, cough, wheezing, and pleuritic chest pain, MS/Extremity: Negative for injury and deformity, Skin: Negative for injury, rash, and discoloration. 17:28 Abdomen/GI: Positive for abdominal pain, nausea and vomiting, Bilateral flank pain. 17:28 All other systems are negative. Exam: 17:28 Constitutional: This is a well developed, well nourished patient who is awake, alert, ms3 and in no acute distress. Eyes: Pupils equal round and reactive to light, extra-ocular motions intact. Lids and lashes normal. Conjunctiva and sclera are non-icteric and not injected. Periorbital areas with no swelling, redness, or edema. Chest/axilla: Normal chest wall appearance and motion. Nontender with no deformity. Cardiovascular: Regular rate and rhythm with a normal S1 and S2. No gallops, murmurs, or rubs. Normal PMI, no JVD. No pulse deficits. Respiratory: Lungs have equal breath sounds bilaterally, clear to auscultation and percussion. No rales, rhonchi or wheezes noted. No increased work of breathing, no retractions or nasal flaring. MS/ Extremity: Pulses equal, no cyanosis. Neurovascular intact. Full, normal range of motion. Psych: Awake, alert, with orientation to person, place and time. Behavior, mood, and affect are within normal limits. 17:28 Abdomen/GI: Inspection: abdomen appears normal, Bowel sounds: normal, Palpation: moderate abdominal tenderness, in all quadrants. 17:28 Back: CVA tenderness, that is moderate, is noted bilaterally. Vital Signs: 17:24 BP 136 / 90; Pulse 71; Resp 15; Temp 98.1; Pulse Ox 100% ; Weight 99.79 kg; Height 5 ap3 ft. 3 in. (160.02 cm); 17:24 Body Mass Index 38.97 (99.79 kg, 160.02 cm) ap3 MDM: 17:28 Differential diagnosis: UTI, Crohn's disease vs bowel obstruction. ms3 17:58 Patient medically screened. ms3 19:14 Data reviewed: vital signs, nurses notes, lab test result(s), radiologic studies, CT ms3 scan. Data interpreted: Pulse oximetry: on room air is 100 %. Interpretation: normal. Counseling: I had a detailed discussion with the patient and/or guardian regarding: the historical points, exam findings, and any diagnostic results supporting the discharge/admit diagnosis, lab results, radiology results, the need for outpatient follow up, to return to the emergency department if symptoms worsen or persist or if there are any questions or concerns that arise at home. ED course: Discussed labs, CT abd/pelvis , physical exam findings with patient. 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 Patient understands and agrees with plan. All questions were answered. Return precautions discussed include worsening symptoms, or any other concerns. On reevaluation patient is alert and oriented x4, in no apparent distress, nontoxic-appearing, speaking full sentences, ambulatory in emergency department.. 04/18 17:27 Order name: CBC with Diff; Complete Time: 18:20 ms3 04/18 17:27 Order name: CMP; Complete Time: 18:26 ms3 04/18 17:27 Order name: Lipase; Complete Time: 18:26 ms3 04/18 17:27 Order name: Urine Microscopic Only; Complete Time: 18:26 ms3 04/18 18:08 Order name: Urine Dipstick-Ancillary; Complete Time: 18:20 EDMS 04/18 17:27 Order name: CT Abd/Pelvis - IV Contrast Only; Complete Time: 19:00 ms3 04/18 17:27 Order name: IV Saline Lock; Complete Time: 18:08 ms3 04/18 17:27 Order name: Labs collected and sent; Complete Time: 18:08 ms3 04/18 17:27 Order name: Urine Dipstick-Ancillary (obtain specimen); Complete Time: 18:08 ms3 Administered Medications: 18:55 Drug: Zofran (Ondansetron) 4 mg Route: IVP; Site: left antecubital; jb4 18:57 Drug: morphine 4 mg Route: IVP; Site: left antecubital; jb4 Disposition Summary: 04/18/22 19:14 Discharge Ordered Location: Home ms3 Problem: new ms3 Symptoms: are unchanged ms3 Condition: Stable ms3 Diagnosis - Abdominal pain, Generalized ms3 Followup: ms3 - With: Private Physician - When: 2 - 3 days - Reason: Recheck today's complaints Discharge Instructions: - Discharge Summary Sheet ms3 - Abdominal Pain, Adult ms3 Forms: - Medication Reconciliation Form ms3 - Thank You Letter ms3 - Antibiotic Education ms3 - Prescription Opioid Use ms3 Signatures: Dispatcher [employer] EDMS Heber Zeng PA PA jmm Nieto, Roman, MD MD rn Bryson, James, RN RN jb4 Jillian Monreal RN RN ap3 Amador Carrera DO DO ms3 Swati Marie PA PA sb3 Corrections: (The following items were deleted from the chart) 17:30 17:27 The patient presents with pain ms3 ms3 17:30 17:27 This 37 yrs old Female presents to ER via Ambulatory with complaints of Abdominal ms3 Pain - lower, Low Back Pain, Flank Pain. ms3
[2022-04-18 20:21] VITALS: BP 136/90; TEMP 98.1; O2SAT 100
== END 2022-04-18 20:12 | disposition home or self-care (01) ==
LOC: ER 17:12
DX: R10.84 Generalized abdominal pain (principal); R11.2 Nausea with vomiting, unspecified; F17.210 Nicotine dependence, cigarettes, uncomplicated; Z88.0 Allergy status to penicillin
CPT/HCPCS: 36415; 74177; 80053; 81003; 81015; 83690; 85025; 96374; 96375; 99284; J2405; Q9967

== ENCOUNTER 2022-05-22 14:05 | Emergency (ER) | payer SELFPAY ==
[2022-05-22] MEDS ORDERED: FAMOTIDINE 20 MG/2 ML VIAL IV ONE (14:47)
[2022-05-22] MEDS ORDERED: MORPHINE 4 MG/ML SYR ONE (14:47)
[2022-05-22] MEDS ORDERED: NA CHLORIDE 0.9% 1,000 ML ONE (14:47)
[2022-05-22] MEDS ORDERED: ONDANSETRON 4 MG/2 ML VIAL ONE (14:48)
[2022-05-22 15:01] LABS: Urine Blood Trace-intact (Negative); Urine Glucose Negative (Negative); Urine Protein Negative (Negative); Urine Specific Gravity 1.015 (1.005-1.030); Urine pH 6.5 (5.0-7.0)
[2022-05-22 15:06] LABS: Absolute Lymphocytes (CBC) 2.9 K/uL (0.7-4.9); Hematocrit 39.1 % (36.0-45.0); Lymphocytes % 32.6 % (15.3-44.8); MPV 8.2 fL (7.6-11.3); RBC Red Blood Cell Count 4.24 M/uL (3.86-4.86)
[2022-05-22 15:13] LABS: Urine Bacteria <20 /HPF (<20); Urine RBC NONE SEEN /HPF (NONE SEEN)
[2022-05-22 15:24] LABS: Albumin 3.5 g/dL (3.4-5.0); Bilirubin Total 0.4 mg/dL (0.2-1.0); Protein, Total 6.4 g/dL (6.4-8.2)
[2022-05-22 15:25] LABS: Potassium 3.9 mmol/L (3.5-5.1)
--- NOTE | 2022-05-22 16:58 | RAD REPORT ---
EXAM DESCRIPTION: CTAbdomen Pelvis W Contrast - 05/22/2022 4:44 pm CLINICAL HISTORY: diffuse, tender abdomen, hx of crohn's COMPARISON: Abdomen Pelvis W Contrast dated 04/18/2022; Abdomen Pelvis W Contrast dated 01/20/2018 TECHNIQUE: CT of the abdomen and pelvis was performed. All CT scans are performed using dose optimization technique as appropriate and may include automated exposure control or mA/KV adjustment according to patient size. FINDINGS: Lower chest: No acute abnormality. Liver: No acute abnormality or suspicious lesions. Biliary: Extrahepatic biliary ductal dilatation which is likely related to postcholecystectomy state. . Cholecystectomy. Stomach: No significant focal abnormality. Duodenum: No significant focal abnormality. Pancreas: No significant abnormality. Spleen: No significant abnormality. Adrenal: Unchanged bilateral adrenal nodules. Kidney/ureter: No hydronephrosis. No renal calculi. Retroperitoneum: No retroperitoneal adenopathy. Vascular: No aneurysm. Bowel: No significant focal abnormality. Normal appendix. Peritoneum: No ascites or free air. Bladder: Grossly unremarkable. Reproductive: No adnexal masses. Bones: No acute fracture. Remote left-sided rib fractures. Other: n/a IMPRESSION: No acute intra-abdominal or pelvic finding. Normal appendix.
[2022-05-22] MEDS ORDERED: FENTANYL CITR 100 MCG/2 ML ONE (17:08)
--- NOTE | 2022-05-22 17:12 | EDPHYS ---
Physician Documentation [facility] Name: Yina Fernandes Age: 37 yrs Sex: Female : 1985 Arrival Date: 05/22/2022 Time: 14:07 Bed 24 Private MD: Nicolas Flores HPI: 05/22 14:30 This 37 yrs old Female presents to ER via Ambulatory with complaints of Abdominal Pain. jh7 14:30 The patient presents with abdominal pain that is diffuse. Associated signs and jh7 symptoms: Pertinent positives: nausea and vomiting, Pertinent negatives: constipation, diarrhea. Patient presents with diffuse abdominal pain and nausea and vomiting over the past 3 days. States that she does not have a GI doctor at this time and has a history of Crohn's.. 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 - Social history:: Smoking status: Patient reports the use of cigarette tobacco products, smokes one-half pack cigarettes per day. ROS: 14:30 Constitutional: Negative for fever, chills, and weight loss, ENT: Negative for injury, jh7 pain, and discharge, Neck: Negative for injury, pain, and swelling, Cardiovascular: Negative for chest pain, palpitations, and edema, Respiratory: Negative for shortness of breath, cough, wheezing, and pleuritic chest pain, Back: Negative for injury and pain, MS/Extremity: Negative for injury and deformity, Skin: Negative for injury, rash, and discoloration, Neuro: Negative for headache, weakness, numbness, tingling, and seizure. 14:30 Abdomen/GI: Positive for abdominal pain, nausea and vomiting, Negative for diarrhea, constipation, abdominal distension, black/tarry stool. 14:30 All other systems are negative. Exam: 14:30 Constitutional: This is a well developed, well nourished patient who is awake, alert, jh7 and in no acute distress. ENT: Nares patent. No nasal discharge, no septal abnormalities noted. Tympanic membranes are normal and external auditory canals are clear. Oropharynx with no redness, swelling, or masses, exudates, or evidence of obstruction, uvula midline. Mucous membranes moist. Neck: Trachea midline, no thyromegaly or masses palpated, and no cervical lymphadenopathy. Supple, full range of motion without nuchal rigidity, or vertebral point tenderness. No Meningismus. Cardiovascular: Regular rate and rhythm with a normal S1 and S2. No gallops, murmurs, or rubs. Normal PMI, no JVD. No pulse deficits. Respiratory: Lungs have equal breath sounds bilaterally, clear to auscultation and percussion. No rales, rhonchi or wheezes noted. No increased work of breathing, no retractions or nasal flaring. Back: No spinal tenderness. No costovertebral tenderness. Full range of motion. Skin: Warm, dry with normal turgor. Normal color with no rashes, no lesions, and no evidence of cellulitis. Neuro: Awake and alert, GCS 15, oriented to person, place, time, and situation. Motor strength 5/5 in all extremities. Sensory grossly intact. Normal gait. 14:30 Abdomen/GI: Inspection: abdomen appears normal, Bowel sounds: normal, Palpation: mild abdominal tenderness, in all quadrants. Vital Signs: 14:19 BP 124 / 76; Pulse 67; Resp 16; Temp 97.9(TE); Pulse Ox 100% ; Weight 99.79 kg; Height vg1 5 ft. 3 in. (160.02 cm); Pain 8/10; 15:06 BP 134 / 77; Pulse 88; Resp 18; Temp 98.3; Pulse Ox 99% on R/A; bh1 16:10 BP 122 / 68; Pulse 76; Resp 20; Pulse Ox 100% on R/A; bh1 16:37 BP 129 / 84; Pulse 57; Resp 18; Pulse Ox 100% on R/A; bh1 17:11 BP 133 / 70; Pulse 78; Resp 20; Temp 98.3(O); Pulse Ox 99% on R/A; bh1 14:19 Body Mass Index 38.97 (99.79 kg, 160.02 cm) vg1 MDM: 14:23 Patient medically screened. [facility] 05/22 14:32 Order name: CBC with Diff; Complete Time: 15:28 [facility] 05/22 14:32 Order name: CMP; Complete Time: 15:28 [facility] 05/22 14:32 Order name: Lipase; Complete Time: 15:28 [facility] 05/22 14:32 Order name: Urine Microscopic Only; Complete Time: 15:28 [facility] 05/22 14:32 Order name: CT Abd/Pelvis - IV Contrast Only; Complete Time: 16:59 [facility] 05/22 15:01 Order name: Urine Dipstick-Ancillary; Complete Time: 15:28 [facility] 05/22 14:32 Order name: IV Saline Lock; Complete Time: 15:04 [facility] 05/22 14:32 Order name: Labs collected and sent; Complete Time: 15:04 [facility] 05/22 14:32 Order name: Urine Dipstick-Ancillary (obtain specimen); Complete Time: 15:04 [facility] Administered Medications: 14:50 Drug: NS 0.9% 1000 ml Route: IV; Rate: 1 bolus; Site: right antecubital; [facility] 14:50 Drug: Pepcid (famotidine) 20 mg Route: IVP; Site: right antecubital; [facility] 15:13 Follow up: Response: No adverse reaction [facility] 14:50 Drug: Zofran (Ondansetron) 4 mg Route: IVP; Site: right antecubital; 1 15:13 Follow up: Response: No adverse reaction [facility] 14:50 Drug: morphine 4 mg Route: IVP; Infused Over: 4 mins; Site: right antecubital; 1 15:13 Follow up: Response: No adverse reaction [facility] 17:05 Drug: fentaNYL (PF) 50 mcg Route: IVP; Site: right antecubital; [facility] 17:05 Follow up: Response: No adverse reaction [facility] Disposition Summary: 05/22/22 17:11 Discharge Ordered Location: Home [facility] Problem: an ongoing problem [facility] Symptoms: have improved [facility] Condition: Stable [facility] Diagnosis - Abdominal pain, Generalized [facility] - Crohn's disease, unspecified, without complications [facility] Followup: [facility] - With: Kelton Richey MD - When: 2 - 3 days - Reason: Further diagnostic work-up Discharge Instructions: - Discharge Summary Sheet [facility] - Abdominal Pain, Adult [facility] - Crohn's Disease [facility] Forms: - Medication Reconciliation Form [facility] - Thank You Letter jh7 Prescriptions: - Zofran 4 mg Oral Tablet - take 1 tablet by ORAL route every 12 hours As needed; 20 tablet; Refills: 0, jh7 Product Selection Permitted - Levsin 0.125 mg Oral Tablet - take 1 tablet by ORAL route every 8 hours; 30 tablet; Refills: 0, Product 7 Selection Permitted Signatures: Dispatcher [employer] Nicolas Roberson MD MD cha Garcia, Victoria RN RN vg1 Arely Lloyd FNP [facility]7 Yady Huynh RN RN bh1
--- NOTE | 2022-05-22 17:12 | ER ---
Nurse's Notes [facility] Name: Yina Fernandes Age: 37 yrs Sex: Female : 1985 Arrival Date: 05/22/2022 Time: 14:07 Bed 24 Private MD: Diagnosis: Abdominal pain, Generalized;Crohn's disease, unspecified, without complications Presentation: 05/22 14:19 Chief complaint: Patient states: ABD pain with nausea x 3 days; states vomited this vg1 morning. Denies diarrhea, last BM this morning. States has hx of Crohns. Coronavirus screen: Vaccine status: Patient reports being unvaccinated. Client denies travel out of the [place] in the last 14 days. Ebola Screen: Patient denies exposure to infectious person. Patient denies travel to an Ebola-affected area in the 21 days before illness onset. Initial Sepsis Screen: Does the patient meet any 2 criteria? No. Patient's initial sepsis screen is negative. Does the patient have a suspected source of infection? No. Patient's initial sepsis screen is negative. Risk Assessment: Do you want to hurt yourself or someone else? Patient reports no desire to harm self or others. Onset of symptoms was May 19, 2022. 14:19 Method Of Arrival: Ambulatory vg1 14:19 Acuity: NAWAF 3 vg1 Triage Assessment: 14:22 General: Appears in no apparent distress. uncomfortable, Behavior is calm, cooperative. vg1 Pain: Complains of pain in abdomen and pelvis Pain currently is 8 out of 10 on a pain scale. GI: Abdomen is round non-distended, Reports nausea, vomiting, Patient currently denies diarrhea. 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 - Social history:: Smoking status: Patient reports the use of cigarette tobacco products, smokes one-half pack cigarettes per day. Screenin:31 Abuse screen: Denies threats or abuse. Nutritional screening: No deficits noted. [facility] Tuberculosis screening: No symptoms or risk factors identified. Fall Risk None identified. Assessment: 14:31 Reassessment: Patient appears in no apparent distress at this time. No changes from [facility] previously documented assessment. General: Appears in no apparent distress. Behavior is calm, cooperative, appropriate for age. GI: Bowel sounds present X 4 quads. Abd is soft Abdomen is tender to palpation X 4 quads. Vital Signs: 14:19 BP 124 / 76; Pulse 67; Resp 16; Temp 97.9(TE); Pulse Ox 100% ; Weight 99.79 kg; Height [facility] 5 ft. 3 in. (160.02 cm); Pain 8/10; 15:06 BP 134 / 77; Pulse 88; Resp 18; Temp 98.3; Pulse Ox 99% on R/A; bh1 16:10 BP 122 / 68; Pulse 76; Resp 20; Pulse Ox 100% on R/A; 1 16:37 BP 129 / 84; Pulse 57; Resp 18; Pulse Ox 100% on R/A; 1 17:11 BP 133 / 70; Pulse 78; Resp 20; Temp 98.3(O); Pulse Ox 99% on R/A; 1 14:19 Body Mass Index 38.97 (99.79 kg, 160.02 cm) [facility] ED Course: 14:07 Patient arrived in ED. mr 14:13 Arely Lloyd FNP [facility] 14:13 Nicolas Gonzalez MD is Attending Physician. [facility] 14:22 Triage completed. [facility] 14:22 Arm band placed on. [facility] 14:31 Yady Huynh, DUTCH is Primary Nurse. [facility] 14:31 No apparent distress. [facility] 14:31 Patient has correct armband on for positive identification. Bed in low position. Call [facility] light in reach. Adult w/ patient. 14:31 No provider procedures requiring assistance completed. [facility] 14:50 Inserted saline lock: 20 gauge in right antecubital area, using aseptic technique. [facility] Blood collected. 15:14 No apparent distress. Awaiting CT Scan. 1 16:09 No apparent distress. [facility] 16:[address] Scan. 1 16:[address] via wheelchair. [facility] 16:46 CT Abd/Pelvis - IV Contrast Only In Process Unspecified. EDMS 17:11 Kelton Richey MD is Referral Physician. [facility] 17:25 IV discontinued, intact, bleeding controlled. [facility] Administered Medications: 14:50 Drug: NS 0.9% 1000 ml Route: IV; Rate: 1 bolus; Site: right antecubital; 1 14:50 Drug: Pepcid (famotidine) 20 mg Route: IVP; Site: right antecubital; 1 15:13 Follow up: Response: No adverse reaction [facility] 14:50 Drug: Zofran (Ondansetron) 4 mg Route: IVP; Site: right antecubital; 1 15:13 Follow up: Response: No adverse reaction [facility] 14:50 Drug: morphine 4 mg Route: IVP; Infused Over: 4 mins; Site: right antecubital; 1 15:13 Follow up: Response: No adverse reaction [facility] 17:05 Drug: fentaNYL (PF) 50 mcg Route: IVP; Site: right antecubital; 1 17:05 Follow up: Response: No adverse reaction [facility] Medication: 14:31 VIS not applicable for this client. [facility] Outcome: 17:11 Discharge ordered by . [facility] 17:25 Discharged to home ambulatory. [facility] 17:25 Condition: good 17:25 Discharge instructions given to patient, Instructed on discharge instructions, follow up and referral plans. medication usage, Demonstrated understanding of instructions, follow-up care, medications, Prescriptions given X 2. 17:26 Patient left the ED. [facility] Signatures: Dispatcher [employer] EDNV Pinky Villafuerte Victoria, RN RN 1 Arely Lloyd, DICE PERSON DICE PERSON [facility] Yady Huynh RN RN [facility]
[2022-05-22 17:53] VITALS: TEMP 98.3
[2022-05-22 17:59] VITALS: BP 133/70; O2SAT 99
== END 2022-05-22 17:26 | disposition home or self-care (01) ==
LOC: ER 14:05
DX: K50.90 Crohn's disease, unspecified, without complications (principal); F17.210 Nicotine dependence, cigarettes, uncomplicated; Z88.0 Allergy status to penicillin
CPT/HCPCS: 36415; 74177; 80053; 81003; 81015; 83690; 85025; J2405; J3010; J3490; J7030; Q9967

== ENCOUNTER 2022-08-21 10:33 | Emergency (ER) | payer SELFPAY ==
[2022-08-21] MEDS ORDERED: HYDROCODONE/APAP 5/325 MG TAB ONE (12:00)
--- NOTE | 2022-08-21 12:45 | RAD REPORT ---
EXAM DESCRIPTION: RAD - Hand Right 3 View - 08/21/2022 12:14 pm CLINICAL HISTORY: right hand injury, blunt force trauma with pain involving the fifth finger COMPARISON: No comparisons FINDINGS: No fracture is identified. There is no dislocation or periosteal reaction noted. Soft tis harjeet swelling is present over the dorsum of the hand and the medial side of the fifth metacarpal. No a ir or foreign body seen. IMPRESSION: Right hand soft tissue swelling without fracture identifiable.
--- NOTE | 2022-08-21 13:00 | ER ---
Nurse's Notes [facility] Name: Yina Fernandes Age: 37 yrs Sex: Female : 1985 Arrival Date: 08/21/2022 Time: 10:35 Bed 24 Private MD: Diagnosis: Contusion of right hand Presentation: 08/21 10:39 Chief complaint: Patient states: closed truck door on right hand, noted swelling - jh5 unable to move pinky finger. Coronavirus screen: Vaccine status: Patient reports receiving the 2nd dose of the covid vaccine. Client denies travel out of the [place] in the last 14 days. Ebola Screen: Patient negative for fever greater than or equal to 101.5 degrees Fahrenheit, and additional compatible Ebola Virus Disease symptoms Patient denies exposure to infectious person. Patient denies travel to an Ebola-affected area in the 21 days before illness onset. Initial Sepsis Screen: Does the patient meet any 2 criteria? No. Patient's initial sepsis screen is negative. Does the patient have a suspected source of infection? No. Patient's initial sepsis screen is negative. Risk Assessment: Do you want to hurt yourself or someone else? Patient reports no desire to harm self or others. Onset of symptoms was August 21, 2022. 10:39 Method Of Arrival: Ambulatory [facility] 10:39 Acuity: NAWAF 3 [facility] Triage Assessment: 10:40 General: Appears in no apparent distress. uncomfortable, obese, well groomed, Behavior 5 is calm, cooperative, appropriate for age. Pain: Complains of pain in right hand. Musculoskeletal: No deficits noted. Injury Description: Crush injury. 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 - Social history:: Smoking status: Patient reports the use of cigarette tobacco products, smokes one-half pack cigarettes per day. Screenin:42 Abuse screen: Denies threats or abuse. Denies injuries from another. Nutritional ss screening: No deficits noted. Tuberculosis screening: Never had TB. Fall Risk None identified. Assessment: 11:42 General: Appears in no apparent distress. comfortable, Behavior is calm, cooperative. ss Pain: Complains of pain in right hand Pain currently is 7 out of 10 on a pain scale. Quality of pain is described as aching, throbbing. Neuro: Level of Consciousness is awake, alert, obeys commands, Oriented to person, place, time, situation. Cardiovascular: Capillary refill < 3 seconds is brisk in bilateral fingers Patient's skin is warm and dry. Respiratory: Respiratory effort is even, unlabored, Respiratory pattern is regular, symmetrical. Derm: Skin is intact, is healthy with good turgor, Skin is pink, warm \T\ dry. normal. Musculoskeletal: Circulation, motion, and sensation intact. Range of motion: intact in all extremities, Swelling present in right hand. Vital Signs: 10:39 BP 146 / 82; Pulse 88; Resp 18; Temp 98.6; Pulse Ox 100% ; Weight 95.25 kg; Height 5 5 ft. 2 in. (157.48 cm); Pain 7/10; 10:39 Body Mass Index 38.41 (95.25 kg, 157.48 cm) [facility] ED Course: 10:35 Patient arrived in ED. rg4 10:38 Heber Zeng PA is [facility]. [facility] 10:38 Supriya Townsend MD is Attending Physician. [facility] 10:40 Triage completed. 5 10:40 Arm band placed on right wrist. [facility] 11:42 Pattie Paul, DUTCH is Primary Nurse. ss 11:42 Patient has correct armband on for positive identification. Bed in low position. ss 12:16 Hand Right 3 View XRAY In Process Unspecified. EDMS 13:06 No provider procedures requiring assistance completed. Patient did not have IV access ss during this emergency room visit. Administered Medications: 11:51 Drug: HYDROcodone-acetaminophen 5 mg-325 mg 1 tabs Route: PO; ss 13:06 Follow up: Response: No adverse reaction; Pain is decreased ss Medication: 11:42 VIS not applicable for this client. ss Outcome: 13:00 Discharge ordered by . [facility] 13:06 Discharged to home ambulatory. ss 13:06 Condition: good 13:06 Discharge instructions given to patient, Instructed on discharge instructions, follow up and referral plans. Demonstrated understanding of instructions, follow-up care. 13:06 Patient left the ED. ss Signatures: Dispatcher [employer] EDMS Heber Zeng PA PA jmm Smirch, Shelby RN RN Irlanda Miles rg4 Leann Bridges RN RN jh5
--- NOTE | 2022-08-21 13:00 | EDPHYS ---
[facility] Documentation [facility] Name: Yina Fernand[facility] Age: 37 yrs Sex: Female : 1985 Arrival Date: 08/21/2022 Time: 10:35 Bed 24 Private MD: ED Physician Supriya Townsend HPI: 08/21 10:41 This 37 yrs old Female presents to ER via Ambulatory with complaints of Hand Injury. [facility] 10:41 The patient or guardian reports injury. Onset: The symptoms/episode began/occurred jm acutely. Modifying factors: The symptoms are alleviated by nothing, the symptoms are aggravated by nothing. Associated signs and symptoms: Pertinent negatives: fever. Is a 37-year-old female with history of anxiety, Crohn's, depression the presents emerged part with complaints of swelling to her right hand. Patient states she accidentally slammed her hand on the car door. Denies other injury.. 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 - Social history:: Smoking status: Patient reports the use of cigarette tobacco products, smokes one-half pack cigarettes per day. ROS: 10:41 Constitutional: Negative for fever, chills, and weight loss, Cardiovascular: Negative jm for chest pain, palpitations, and edema, Respiratory: Negative for shortness of breath, cough, wheezing, and pleuritic chest pain. 10:41 MS/extremity: Positive for injury or acute deformity, pain. 10:41 All other systems are negative. Exam: 10:41 Constitutional: This is a well developed, well nourished patient who is awake, alert, jmm and in no acute distress. Head/Face: atraumatic. Eyes: EOMI, no conjunctival erythema appreciated ENT: Moist Mucus Membranes Neck: Trachea midline, Supple Chest/axilla: Normal chest wall appearance and motion. Cardiovascular: Regular rate and rhythm. No edema appreciated Respiratory: Normal respirations, no respiratory distress appreciated Abdomen/GI: Non distended Back: Normal ROM Skin: General appearance color normal 10:41 Neuro: Awake and alert Psych: Behavior is normal, Mood is normal, Patient is cooperative and pleasant 10:41 Musculoskeletal/extremity: Swelling noted to the right hand along with ecchymosis noted to the proximal fifth metatarsal region, less than 2-second distal cap refill on all fingers, compartments are soft, full radial pulse painful flexion appreciated of all the fingers. Sensation is intact, neurovascular intact. Vital Signs: 10:39 BP 146 / 82; Pulse 88; Resp 18; Temp 98.6; Pulse Ox 100% ; Weight 95.25 kg; Height 5 [facility] ft. 2 in. (157.48 cm); Pain 7/10; 10:39 Body Mass Index 38.41 (95.25 kg, 157.48 cm) 5 MDM: 10:59 Patient medically screened. [facility] 12:59 Data reviewed: vital signs, nurses notes. Counseling: I had a detailed discussion with clyde the patient and/or guardian regarding: the historical points, exam findings, and any diagnostic results supporting the discharge/admit diagnosis, the need for outpatient follow up, to return to the emergency department if symptoms worsen or persist or if there are any questions or concerns that arise at home. 08/21 10:41 Order name: Hand Right 3 View XRAY; Complete Time: 12:47 [facility] Administered Medications: 11:51 Drug: HYDROcodone-acetaminophen 5 mg-325 mg 1 tabs Route: PO; ss 13:06 Follow up: Response: No adverse reaction; Pain is decreased ss Disposition Summary: 08/21/22 13:00 Discharge Ordered Location: Home [facility] Condition: Stable [facility] Diagnosis - Contusion of right hand [facility] Followup: [facility] - With: Private Physician - When: 2 - 3 days - Reason: Recheck today's complaints, Continuance of care, Re-evaluation by your physician Discharge Instructions: - Discharge Summary Sheet [facility] - Hand Contusion [facility] Forms: - Medication Reconciliation Form [facility] - Thank You Letter jose guadalupe - Antibiotic Education [facility] - Prescription Opioid Use [facility] - Work release form ss Prescriptions: - orphenadrine citrate 100 mg Oral Tablet Sustained Release - take 1 tablet by ORAL route 2 times per day As needed; 20 tablet; Refills: 0, [facility] Product Selection Permitted Signatures: Dispatcher [id number] EDMS Heber Zeng PA PA jmm Smirch, Shelby RN RN ss Leann Bridges RN RN jh5 Corrections: (The following items were deleted from the chart) 10:49 10:42 Hand Right 3 View+RAD.RAD.BRZ ordered. EDMS EDMS
[2022-08-22 16:03] VITALS: BP 146/82; TEMP 98.6; O2SAT 100
== END 2022-08-21 13:06 | disposition home or self-care (01) ==
LOC: ER 10:33
DX: S60.221A Contusion of right hand, initial encounter (principal); F17.210 Nicotine dependence, cigarettes, uncomplicated; Z88.0 Allergy status to penicillin
CPT/HCPCS: 99283

== ENCOUNTER 2022-09-19 20:06 | Emergency (ER) | payer SELFPAY ==
--- NOTE | 2022-09-19 21:38 | EDPHYS ---
Physician Documentation [facility] [place] Name: Yina Fernandes Age: 37 yrs Sex: Female : 1985 Arrival Date: 09/19/2022 Time: 20:10 Bed 13 Private MD: ED Physician Supriya Townsend HPI: 09/19 21:29 This 37 yrs old Female presents to ER via Ambulatory with complaints of Ear Pain, sd2 Abdominal Pain. 21:29 37-year-old female presents with chief complaint of left-sided ear pain for the past 2 sd2 days that has progressively worsened with an associated headache. She did take Ibuprofen this morning with some relief. She denies any fever, nausea, vomiting or constipation. Reports diarrhea for the past 2 days and recent sick contacts with coworkers who had a "stomach bug." She reports LLQ abdominal pain, dull and not severe in nature. Denies any swimming or water exposure to the ear outside of her showers. . 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 - Social history:: Smoking status: Patient reports the use of cigarette tobacco products, smokes one-half pack cigarettes per day, Patient/guardian denies using alcohol. ROS: 21:29 Constitutional: Negative for fever, chills, and weight loss, Eyes: Negative for injury, sd2 pain, redness, and discharge, ENT: Negative for injury, Positive for pain, and discharge, Cardiovascular: Negative for chest pain, palpitations, and edema, Respiratory: Negative for shortness of breath, cough, wheezing. Abdomen/GI: Positive for abdominal pain and diarrhea, Negative for nausea, vomiting : Negative for dysuria, urinary frequency, hesitancy, urgency and hematuria. MS/Extremity: Negative for injury and deformity, Skin: Negative for injury, rash, and discoloration, Neuro: Negative for headache, numbness and tingling. Exam: 21:29 Constitutional: This is a well developed, well nourished patient who is awake, alert, sd2 and in no acute distress. Head/Face: Normocephalic, atraumatic. Eyes: EOMI, normal conjunctiva bilaterally ENT: Nares patent. No nasal discharge, no septal abnormalities noted. Tympanic membranes are normal and external auditory canal is clear on the R side but inflamed and painful with small amount of discharge to the L ear. NO mastoid tenderness. Oropharynx with no redness, swelling, or masses, exudates, or evidence of obstruction, uvula midline. Mucous membranes moist. Chest/axilla: Normal chest wall appearance and motion. Nontender with no deformity. Cardiovascular: Regular rate and rhythm with a normal S1 and S2. No gallops, murmurs, or rubs. 2+ distal pulses. Respiratory: Lungs have equal breath sounds bilaterally, clear to auscultation and percussion. No rales, rhonchi or wheezes noted. No increased work of breathing, no retractions or nasal flaring. Abdomen/GI: Soft, non-tender, with normal bowel sounds. No guarding or rebound. No evidence of tenderness throughout. Skin: Warm, dry with normal turgor. Normal color with no rashes, no lesions, and no evidence of cellulitis. MS/ Extremity: Pulses equal, no cyanosis. Neurovascular intact. Full, normal range of motion. Ambulatory without difficulty. Psych: Awake, alert, with orientation to person, place and time. Behavior, mood, and affect are within normal limits. Vital Signs: 20:42 BP 108 / 90; Pulse 63; Resp 18; Temp 97.2(O); Pulse Ox 100% on R/A; Weight 102.06 kg; ld1 Height 5 ft. 2 in. (157.48 cm); Pain 9/10; 21:03 BP 132 / 77; Pulse 60; Resp 16; Pulse Ox 100% on R/A; ha1 20:42 Body Mass Index 41.15 (102.06 kg, 157.48 cm) ld1 MDM: 20:56 Patient medically screened. sd2 21:29 Differential diagnosis: otitis media, otitis externa, ruptured TM, foreign body, acute sd2 otalgia, cerumen impaction, barotrauma , serotympanum, among others. Data reviewed: vital signs, nurses notes. Counseling: I had a detailed discussion with the patient and/or guardian regarding: the historical points, exam findings, and any diagnostic results supporting the discharge/admit diagnosis, the need for outpatient follow up, to return to the emergency department if symptoms worsen or persist or if there are any questions or concerns that arise at home. Medical screen evaluation completed. [facility] emergency medical condition absent. ED course: Patient's clinical exam consistent with acute otitis externa. Will place on Ciprodex and give dose of Toradol for pain control. Pt offered labs for her abdominal pain. Abdominal exam is benign and with diarrhea and recent sick contacts, suspect gastroenteritis. pt declines labs at this time and reports she will return if it worsens. She is comfortable with plan for discharge and outpatient follow up and verbalizes understanding of strict return precautions.. Administered Medications: 22:13 Drug: Ketorolac 60 mg Route: IM; Site: right ventrogluteal; ha1 22:15 Follow up: Response: No adverse reaction ha1 Disposition Summary: 09/19/22 21:38 Discharge Ordered Location: Home sd2 Problem: new sd2 Symptoms: have improved sd2 Condition: Stable sd2 Diagnosis - Acute otitis externa sd2 - Left lower quadrant abdominal pain sd2 - Diarrhea sd2 Followup: sd2 - With: Private Physician - When: 2 - 3 days - Reason: Recheck today's complaints, Continuance of care, Re-evaluation by your physician Discharge Instructions: - Discharge Summary Sheet sd2 - Abdominal Pain, Adult sd2 - Otitis Externa sd2 Forms: - Medication Reconciliation Form sd2 - Work release form ld1 - Thank You Letter sd2 - Antibiotic Education sd2 - Prescription Opioid Use sd2 Prescriptions: - Ciprodex 0.3-0.1 % Otic Drops, Suspension - instill 4 drops by OTIC route every 12 hours for 7 days , for ears ONLY; 1 sd2 Container; Refills: 0, Product Selection Permitted Signatures: Swati Braun RN RN 1 Supriya Townsend MD MD sd2 Alisha Kowalski RN RN ha1
--- NOTE | 2022-09-19 21:38 | ER ---
Nurse's Notes [facility] [place] Name: Yina Fernandes Age: 37 yrs Sex: Female : 1985 Arrival Date: 09/19/2022 Time: 20:10 Bed 13 Private MD: Diagnosis: Acute otitis externa;Left lower quadrant abdominal pain;Diarrhea Presentation: 09/19 20:42 Chief complaint: Patient states: JM ear pain - left side popped this morning, fluid ld1 came out and ear is hurting. Pt c/o left groin pain X 2 days. Coronavirus screen: At this time, the client does not indicate any symptoms associated with coronavirus-19. Ebola Screen: No symptoms or risks identified at this time. Initial Sepsis Screen: Does the patient meet any 2 criteria? No. Patient's initial sepsis screen is negative. Does the patient have a suspected source of infection? No. Patient's initial sepsis screen is negative. Risk Assessment: Do you want to hurt yourself or someone else? Patient reports no desire to harm self or others. Onset of symptoms was September 19, 2022. 20:42 Method Of Arrival: Ambulatory ld1 20:42 Acuity: NAWAF 3 ld1 Triage Assessment: 20:47 General: Appears in no apparent distress. comfortable, Behavior is calm, cooperative, ld1 appropriate for age. Pain: Complains of pain in right ear, left ear and pelvis Pain does not radiate. Pain currently is 9 out of 10 on a pain scale. Quality of pain is described as throbbing. EENT: Reports pain in right ear and left ear. Neuro: Level of Consciousness is awake, alert, obeys commands, Oriented to person, place, time, situation. Cardiovascular: Capillary refill < 3 seconds Patient's skin is warm and dry. Respiratory: Airway is patent Respiratory effort is even, unlabored. GI: Abdomen is round non-distended. : No signs and/or symptoms were reported regarding the genitourinary system. 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 - Social history:: Smoking status: Patient reports the use of cigarette tobacco products, smokes one-half pack cigarettes per day, Patient/guardian denies using alcohol. Screenin:05 Abuse screen: Denies threats or abuse. Denies injuries from another. Nutritional ha1 screening: No deficits noted. Tuberculosis screening: No symptoms or risk factors identified. Fall Risk None identified. Assessment: 21:04 General: Appears uncomfortable, Behavior is calm, cooperative. Pain: Complains of pain ha1 in left ear and abdomen. Neuro: Level of Consciousness is awake, alert, obeys commands, Oriented to person, place, time, situation. Cardiovascular: Patient's skin is warm and dry. Respiratory: Airway is patent Trachea midline Respiratory effort is even, unlabored, Respiratory pattern is regular, symmetrical. Musculoskeletal: Circulation, motion, and sensation intact. Range of motion: intact in all extremities. 22:14 Reassessment: Patient and/or family updated on plan of care and expected duration. Pain ha1 level reassessed. Patient is alert, oriented x 3, equal unlabored respirations, skin warm/dry/pink. Vital Signs: 20:42 BP 108 / 90; Pulse 63; Resp 18; Temp 97.2(O); Pulse Ox 100% on R/A; Weight 102.06 kg; ld1 Height 5 ft. 2 in. (157.48 cm); Pain 9/10; 21:03 BP 132 / 77; Pulse 60; Resp 16; Pulse Ox 100% on R/A; ha1 20:42 Body Mass Index 41.15 (102.06 kg, 157.48 cm) ld1 ED Course: 20:10 Patient arrived in ED. dt4 20:43 Alisha Kowalski, RN is Primary Nurse. ha1 20:47 Triage completed. ld1 20:47 Arm band placed on right wrist. ld1 20:56 Supriya Townsend MD is Attending Physician. sd2 22:14 No provider procedures requiring assistance completed. Patient did not have IV access ha1 during this emergency room visit. 22:15 Patient has correct armband on for positive identification. Bed in low position. Call ha1 light in reach. Side rails up X 1. Administered Medications: 22:13 Drug: Ketorolac 60 mg Route: IM; Site: right ventrogluteal; ha1 22:15 Follow up: Response: No adverse reaction ha1 Medication: 22:15 VIS not applicable for this client. ha1 Outcome: 21:38 Discharge ordered by . sd2 22:14 Discharged to home ambulatory, with family. ha1 22:14 Condition: stable 22:14 Discharge instructions given to patient, family, Instructed on discharge instructions, follow up and referral plans. medication usage, Demonstrated understanding of instructions, follow-up care, medications, Prescriptions given X 1. 22:16 Patient left the ED. ha1 Signatures: Swati Braun RN RN ld1 Supriya Townsend MD MD sd2 Alisha Kowalski RN RN ha1 Melisa Wilkerson dt4
[2022-09-19] MEDS ORDERED: KETOROLAC 30 MG/ML INJ ONE (22:06)
[2022-09-19 22:45] VITALS: TEMP 97.2; O2SAT 100
[2022-09-19 22:47] VITALS: BP 132/77
== END 2022-09-19 22:16 | disposition home or self-care (01) ==
LOC: ER 20:06
DX: H60.502 Unspecified acute noninfective otitis externa, left ear (principal); R19.7 Diarrhea, unspecified; R10.32 Left lower quadrant pain; F17.210 Nicotine dependence, cigarettes, uncomplicated
CPT/HCPCS: 96372; 99283

== ENCOUNTER 2023-06-15 10:44 | Emergency (ER) | payer OTHER ==
--- NOTE | 2023-06-15 11:27 | ER ---
Nurse's Notes [facility] [place] Name: Yina Fernandes Age: 38 yrs Sex: Female : 1985 Arrival Date: 06/15/2023 Time: 10:44 Bed 5 Private MD: Diagnosis: Adjustment disorder with anxiety;Anxiety disorder, unspecified;Other seizures-NOT EPILEPTIC;Tobacco abuse counseling;Tobacco use Presentation: 06/15 10:51 Chief complaint: EMS states: Pt c/o chest pain, had been transported from [facility] to [facility] this morning, prior to transfer pt had 1 seizure, hx of seizures, VSS, 324 ASA given, BGL 99. Coronavirus screen: Vaccine status: Patient reports receiving the 2nd dose of the covid vaccine. Ebola Screen: No symptoms or risks identified at this time. Initial Sepsis Screen: Does the patient meet any 2 criteria? No. Patient's initial sepsis screen is negative. Does the patient have a suspected source of infection? No. Patient's initial sepsis screen is negative. Risk Assessment: Do you want to hurt yourself or someone else? Patient reports no desire to harm self or others. Onset of symptoms was June 15, 2023. 10:51 Method Of Arrival: EMS: [facility] 10:51 Acuity: NAWAF 3 ph Triage Assessment: 10:58 General: Appears in no apparent distress. comfortable, Behavior is cooperative, ph appropriate for age, anxious. Pain: Complains of pain in chest. Neuro: Level of Consciousness is awake, alert, obeys commands, Oriented to person, place, time, situation, Seizure activity reported prior to arrival. Cardiovascular: Reports chest pain, shortness of breath, Denies lightheadedness, nausea, vomiting, Capillary refill < 3 seconds in bilateral fingers Patient's skin is warm and dry. Rhythm is sinus rhythm. Respiratory: Airway is patent Respiratory effort is even, unlabored. Derm: Skin is pink, warm \T\ dry. 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 - Social history:: Smoking status: Patient reports the use of cigarette tobacco products, smokes one pack cigarettes per day. Patient/guardian denies using alcohol, street drugs. Screenin:57 [facility] ED Fall Risk Assessment (Adult) History of falling in the last 3 months, ph including since admission No falls in past 3 months (0 pts) Confusion or Disorientation No (0 pts) Intoxicated or Sedated No (0 pts) Impaired Gait No (0 pts) Mobility Assist Device Used No (0 pt) Altered Elimination No (0 pt) Score/Fall Risk Level 0 - 2 = Low Risk Oriented to surroundings, Maintained a safe environment, Hourly rounding (assess needs \T\ fall precautionary measures) done. Abuse screen: Denies threats or abuse. Denies injuries from another. Nutritional screening: No deficits noted. Tuberculosis screening: No symptoms or risk factors identified. Assessment: 10:59 General: SEE TRIAGE ASSESSMENT. ph Vital Signs: 10:51 BP 144 / 60; Pulse 61; Resp 18; Temp 97.5; Pulse Ox 100% on R/A; Weight 90.72 kg; ph Height 5 ft. 4 in. ; 11:30 BP 164 / 76; Pulse 60; Resp 15; Pulse Ox 100% ; jl7 10:51 Body Mass Index 34.33 (90.72 kg, 162.56 cm) ph ED Course: 10:50 Patient arrived in ED. ph 10:52 Patient has correct armband on for positive identification. Placed in gown. Bed in low mm9 position. Call light in reach. Side rails up X2. Warm blanket given. Pillow given. SOAKS/UNDERWEAR. Client placed on continuous cardiac and pulse oximetry monitoring. NIBP monitoring applied. sanitary plumber on. Pulse ox on. NIBP on. 10:57 Triage completed. ph 10:57 Patient maintains SpO2 saturation greater than 95% on room air. ph 10:59 Arm band placed on Patient placed in an exam room, on a stretcher, on pest locator, ph on pulse oximetry. 11:02 Bebe Mata RN is Primary Nurse. ph 11:04 Nicolas Gonzalez MD is Attending Physician. [facility] 11:30 Provided Education on: discharge. jl7 11:30 No provider procedures requiring assistance completed. Patient did not have IV access jl7 during this emergency room visit. 11:50 EKG done, by ED staff, reviewed by Nicolas Gonzalez MD. [email or web address] Administered Medications: No medications were administered Medication: 10:57 VIS not applicable for this client. ph Outcome: 11:27 Discharge ordered by . sparkle 11:50 Discharged to home ambulatory. jl7 11:50 Condition: stable 11:50 Discharge instructions given to patient, Instructed on discharge instructions, follow up and referral plans. Demonstrated understanding of instructions, follow-up care. 11:50 Patient left the ED. jl7 11:52 Patient left the ED. jl7 Signatures: Nicolas Gonzalez MD MD cha Hall, Patricia, RN RN Joao Deleon RN RN Geno Monaco mm9
--- NOTE | 2023-06-15 11:27 | EDPHYS ---
Physician Documentation [facility] [place] Name: March Dom Age: 38 yrs Sex: Female : 1985 Arrival Date: 06/15/2023 Time: 10:44 Bed 5 Private MD: JOSH Physician Nicolas Gonzalez HPI: 06/15 11:17 This 38 yrs old Female presents to ER via EMS with complaints of Chest Pain, sparkle Seizure. 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 - Social history:: Smoking status: Patient reports the use of cigarette tobacco products, smokes one pack cigarettes per day. Patient/guardian denies using alcohol, street drugs. ROS: 11:22 Constitutional: Negative for fever, chills, and weight loss, Eyes: Negative for injury, sparkle pain, redness, and discharge, ENT: Negative for injury, pain, and discharge, Neck: Negative for injury, pain, and swelling, Respiratory: Negative for shortness of breath, cough, wheezing, and pleuritic chest pain, Abdomen/GI: Negative for abdominal pain, nausea, vomiting, diarrhea, and constipation, Back: Negative for injury and pain, : Negative for injury, bleeding, discharge, and swelling, MS/Extremity: Negative for injury and deformity, Skin: Negative for injury, rash, and discoloration, Psych: Negative for depression, anxiety, suicide ideation, homicidal ideation, and hallucinations, Allergy/Immunology: Negative for hives, rash, and allergies, Endocrine: Negative for neck swelling, polydipsia, polyuria, polyphagia, and marked weight changes, Hematologic/Lymphatic: Negative for swollen nodes, abnormal bleeding, and unusual bruising. 11:22 Cardiovascular: Positive for chest pain, of the chest, ANXIETY, IN CUSTODY. 11:22 Neuro: Positive for seizure activity. Exam: 11:22 Constitutional: This is a well developed, well nourished patient who is awake, alert, sparkle and in no acute distress. Head/Face: Normocephalic, atraumatic. Eyes: Pupils equal round and reactive to light, extra-ocular motions intact. Lids and lashes normal. Conjunctiva and sclera are non-icteric and not injected. Cornea within normal limits. Periorbital areas with no swelling, redness, or edema. ENT: Nares patent. No nasal discharge, no septal abnormalities noted. Tympanic membranes are normal and external auditory canals are clear. Oropharynx with no redness, swelling, or masses, exudates, or evidence of obstruction, uvula midline. Mucous membranes moist. Neck: Trachea midline, no thyromegaly or masses palpated, and no cervical lymphadenopathy. Supple, full range of motion without nuchal rigidity, or vertebral point tenderness. No Meningismus. Chest/axilla: Normal chest wall appearance and motion. Nontender with no deformity. No lesions are appreciated. Cardiovascular: Regular rate and rhythm with a normal S1 and S2. No gallops, murmurs, or rubs. Normal PMI, no JVD. No pulse deficits. Respiratory: Lungs have equal breath sounds bilaterally, clear to auscultation and percussion. No rales, rhonchi or wheezes noted. No increased work of breathing, no retractions or nasal flaring. Abdomen/GI: Soft, non-tender, with normal bowel sounds. No distension or tympany. No guarding or rebound. No evidence of tenderness throughout. Back: No spinal tenderness. No costovertebral tenderness. Full range of motion. Skin: Warm, dry with normal turgor. Normal color with no rashes, no lesions, and no evidence of cellulitis. MS/ Extremity: Pulses equal, no cyanosis. Neurovascular intact. Full, normal range of motion. Neuro: Awake and alert, GCS 15, oriented to person, place, time, and situation. Cranial nerves II-XII grossly intact. Motor strength 5/5 in all extremities. Sensory grossly intact. Cerebellar exam normal. Normal gait. Psych: Awake, alert, with orientation to person, place and time. Behavior, mood, and affect are within normal limits. 11:22 Musculoskeletal/extremity: DVT Exam: No signs of deep vein thrombosis. no pain, no swelling, no tenderness, negative Homans' sign noted on exam, no appreciated bluish discoloration, no erythema, no increased warmth. 11:52 ECG was reviewed by the Attending Physician. [facility] Vital Signs: 10:51 BP 144 / 60; Pulse 61; Resp 18; Temp 97.5; Pulse Ox 100% on R/A; Weight 90.72 kg; ph Height 5 ft. 4 in. ; 11:30 BP 164 / 76; Pulse 60; Resp 15; Pulse Ox 100% ; jl7 10:51 Body Mass Index 34.33 (90.72 kg, 162.56 cm) ph MDM: 11:04 Patient medically screened. sparkle 11:24 Differential diagnosis: abnormal EKG, acute myocardial infarction, acute pericarditis, sparkle anxiety, coronary artery disease chest wall pain, congestive heart failure Cholelithiasis esophagitis, gastritis, gastroesophageal reflux disease (GERD), hiatal hernia, mitral valve prolapse, pancreatitis, pneumonia, pulmonary embolus, stable angina, thoracic aortic disection, unstable angina. HEART Score: History: Slightly Suspicious (0), ECG: Normal (0), Age: < or = 45 years (0), Risk Factors: > or = 3 Risk factors for atherosclerotic disease (2), [Active Smoker] [+ Family HX] [Obesity] Total Score = 0. AUBREY Risk Score: 1 - Three or more CAD risk factors, TOTAL SCORE = 1. Data reviewed: vital signs, nurses notes, EKG. Consideration of Admission/Observation Escalation of care including admission/observation considered. I considered the following discharge prescriptions or medication management in the emergency department Medications were administered in the Emergency Department. See MAR. Independent interpretation of the following test(s) in the Emergency Department EKG: See my EKG interpretation above. Test considered but Not performed: Labs: NO LABS. 06/15 11:19 Order name: EKG; Complete Time: 11:19 sparkle 06/15 11:19 Order name: EKG - Nurse/Tech; Complete Time: 11:48 sparkle EC:52 Rate is 54 beats/min. Rhythm is regular. QRS [place] is Normal. [place] interval is normal. QRS sparkle interval is normal. QT interval is normal. No Q waves. T waves are Normal. No ST changes noted. Clinical impression: Sinus bradycardia and No evidence of ischemia. Interpreted by me. Reviewed by me. Administered Medications: No medications were administered Disposition Summary: 06/15/23 11:27 Discharge Ordered Location: Home sparkle Problem: an acute exacerbation sparkle Symptoms: have improved sparkle Condition: Stable sparkle Diagnosis - Adjustment disorder with anxiety sparkle - Anxiety disorder, unspecified sparkle - Other seizures - NOT EPILEPTIC sparkle - Tobacco abuse counseling sparkle - Tobacco use sparkle Followup: sparkle - With: Private Physician - When: 2 - 3 days - Reason: Recheck today's complaints, Continuance of care, Re-evaluation by your physician Discharge Instructions: - Discharge Summary Sheet sparkle - Panic Attack sparkle - Seizure, Adult sparkle - Tobacco Use Disorder sparkle - Seizure, Adult, [id number] sparkle - Panic Attack, [id number] sparkle - Managing Anxiety, Adult sparkle Forms: - Medication Reconciliation Form sparkle - Thank You Letter sparkle - Antibiotic Education sparkle - Prescription Opioid Use sparkle - Patient Portal Instructions sparkle Signatures: Nicolas Gonzalez MD MD cha Hall, Patricia, RN RN ph
[2023-06-15 11:56] VITALS: TEMP 97.5; O2SAT 100
[2023-06-15 11:58] VITALS: BP 164/76
[2023-06-15] MEDS ORDERED: NA CHLORIDE 0.9% 1,000 ML ONE (12:45)
[2023-06-15] MEDS ORDERED: METOPROLOL TAR 50 MG TAB ONE (12:45)
--- NOTE | 2023-06-17 11:48 | EKG ---
Test Date: 2023-06-15 Test Time: 11:44:55 Patrol Conductor: ELSA MEASUREMENT RESULTS: Intervals: Rate: 54 IN: 102 QRSD: 96 QT: 390 QTc: 369 [place]: P: 18 IN: 102 QRS: 62 T: 37 INTERPRETIVE STATEMENTS: Sinus bradycardia with short IN Septal infarct, age undetermined Abnormal ECG Compared to ECG 01/09/2022 13:00:01 Myocardial infarct finding now present Sinus rhythm no longer present Electronically Signed On 06-17-23 11:45:32 CDT by Nayan Cote
== END 2023-06-15 11:52 | disposition home or self-care (01) ==
LOC: ER 10:44
DX: F43.22 Adjustment disorder with anxiety (principal); R56.9 Unspecified convulsions; Z72.0 Tobacco use; Z71.6 Tobacco abuse counseling; Z88.0 Allergy status to penicillin; Z88.8 Allergy status to other drugs, medicaments and biological substances
CPT/HCPCS: 93005; 99285; J7030

== ENCOUNTER 2023-09-22 12:48 | Emergency (ER) | payer OTHER ==
[2012-07-31 21:46] VITALS: BP 135/80
--- OUTSIDE RECORDS SUMMARY | 2023-09-22 12:53 | XMS REPORT | Continuity of Care Document ---
:1985 Author Organization [facility] t Address [address] [place] [address] Care Team Providers Name Role Phone PCP, PATIENT DOES NOT HAVE A Primary Care Physician UnavailVINCENT Padilla Attending Clinician Unavailable VINCENT SOTO Attending Clinician Unavailable Celena Gautam Attending Clinician RADIOLOGY Attending Clinician Unavailable Vincent Soto MD Attending Clinician Doctor Unassigned, [place] Attending Clinician Unavailable Carlos Simpson Attending Clinician CARLOS STONER Attending Clinician Unavailable Radha Gonzales Attending Clinician Daily Acosta Attending Clinician Willis Alas Attending Clinician WILLIS WANG Attending Clinician Unavailable Adrian Guardado MD Attending Clinician Katalina Lewis MD Attending Clinician CARLOS STONER Admitting Clinician Unavailable WILLIS WANG Admitting Clinician Unavailable Payers Payer Name Policy Type Policy Number Effective Date Expiration Date Bessie herrera [facility] [id number] 2014 MEDICAID 00:00:00 Problems Condition Condition Condition Status Onset Resolution Last Treating Co mments Source Name Details Category Date Date Treatment Clinician Date Drug-seeki Drug-seeki Disease Active 2016-12 U nivers ng ng 12-20 ity of behavior behavior 00:00: [place] 00 Medical Branch Obesity Obesity Disease Active 2015-12 Univers (BMI (BMI 1-22 ity of 30-39.9) 30-39.9) 00:00: [place] 00 Medical Branch Allergies, Adverse Reactions, Alerts Allergy Allergy Status Severity Reaction(s) Onset Inactive Treating Comm ents Source Name Type Date Date Clinician Penicill Propensi Active Swelling Univ ers in ty to 3 ity of adverse 00:00: [place] reaction 00 Medical s Branch PENICILL DRUG Active Swelling Univer s IN INGREDI 02-17 ity of 00:00: [place] 00 Medical Branch Penicill Propensi Active Swelling Univ ers in ty to 02-17 ity of adverse 00:00: [place] reaction 00 Medical s Branch Social History Social Habit Start Date Stop Date Quantity Comments Source Exposure to Not sure [facility] SARS-CoV-2 (event) [facility] History of tobacco Cigarette Smoker University of use [facility] Tobacco use and 2021-04-21 2021-04-21 Never used Universit y of exposure 00:00:00 00:00:[address] [facility] Cigarettes smoked 2021-04-21 2021-04-21 Univers ity of current (pack per 00:00:00 00:00:00 ) - Reported Branch Cigarette 2021-04-21 2021-04-21 University of pack-years 00:00:00 00:00:[address] [facility] Alcohol intake 2021-04-21 2021-04-21 Current University of 00:00:00 00:00:00 non-drinker of [facility] alcohol Branch (finding) Sex [birth year] Universit y of 00:00:00 00:00:[address] [facility] Smoking Status Start Date Stop Date Source Current every day smoker 2021-04-21 00:00:00 Uni versity [facility] [place] [facility] Medications Ordered Filled Start Stop Current Ordering Indication Dosage Frequency Signature Comments Components Source Medication Medication Date Date Medication? Clinician (SIG) Name Name predniSONE 2020- No [id number] 40mg Take 2 Univers 20 mg 05-26 tablets by ity of tablet 00:00: 04:59 mouth [place] 00 :00 daily for Medical 3 days. Branch ketorolac 2020- No 60mg 60 mg, Unive rs (TORADOL) 05-25 Intramuscu ity of injection 17:45: 16:37 lar, ONCE, [place] 60 mg 00 :00 1 dose, Medical Karen Branch 05/25/21 at 1245, FARIDA
Fa culty member approving Restricted medication : EMERGENCY ROOM, dexamethaso No 10mg 10 mg, Uni vers ne 05-25 Intramuscu ity of (DECADRON 17:30: 16:36 lar, ONCE, [place] PHOSPHATE) 00 :00 1 dose, Medica l injection Karen Branch 10 mg 05/25/21 at 1230, STAT ciprofloxac 2020- No [id number] 4[drp] Place 4 Univers in-dexameth 05-2505 Drops in ity of asone 00:00: 04:59 left ear 2 [place] 0.3-0.1 % 00 :00 (two) Medical otic drops times Branch daily for 10 days. ketorolac 2020- No 30mg 30 mg, Unive rs (TORADOL) 04-21 Slow IV ity of injection 18:15: 17:14 Push, [place] 30 mg 00 :00 ONCE, 1 Medical dose, Fri Branch 04/21/21 at 1315, FARIDA
Fa culty member approving Restricted medication : CARLOS STONER ondansetron 2020- No 4mg 4 mg, Univ ers (ZOFRAN-ODT 04-21 Oral, ity of ) 18:15: 17:07 ONCE, 1 [place] disintegrat 00 :00 dose, Fri Med ical ing tablet 04/21/21 at Bra nc 4 mg 1315, Routine diphenhydrA 2020- No 25mg 25 mg, Uni vers MINE -21 04- Oral, ity of (BENADRYL) 17:00: 17:03 ONCE, 1 [place] as tablet 25 00 :00 dose, Fri Medic al mg 04/21/21 at Branch 1200, FARIDA dexamethaso No 10mg 10 mg, Uni vers ne 04-21 Oral, ity of (DECADRON 17:00: 17:02 ONCE, [...] or confirmed COVID-19 infection? Yes benzonatate Yes [id number] 100mg Take 1 Univers 100 mg 5-21 capsule by ity of capsule 00:00: mouth 3 [place] 00 (three) Medical times Branch daily as needed for Cough. albuterol Yes [id number] 2{puff} Inhale 2 Univers 90 5-21 Puffs ity of mcg/actuati 00:00: every 4 [place] as on inhaler 00 (four) Medical hours as Branch needed for Wheezing or Shortness of Breath. benzonatate Yes [id number] 100mg Take 1 Univers 100 mg 5-21 capsule by ity of capsule 00:00: mouth 3 [place] 00 (three) Medical times Branch daily as needed for Cough. albuterol Yes [id number] 2{puff} Inhale 2 Univers 90 5-21 Puffs ity of mcg/actuati 00:00: every 4 [place] as on inhaler 00 (four) Medical hours as Branch needed for Wheezing or Shortness of Breath. benzonatate 0 Yes [id number] 100mg Take 1 Univers 100 mg 5-21 capsule by ity of capsule 00:00: mouth 3 [place] 00 (three) Medical times Branch daily as needed for Cough. albuterol Yes [id number] 2{puff} Inhale 2 Univers 90 5-21 Puffs ity of mcg/actuati 00:00: every 4 [place] as on inhaler 00 (four) Medical hours as Branch needed for Wheezing or Shortness of Breath. benzonatate Yes [id number] 100mg Take 1 Univers 100 mg 5-21 capsule by ity of capsule 00:00: mouth 3 [place] 00 (three) Medical times Branch daily as needed for Cough. albuterol Yes [id number] 2{puff} Inhale 2 Univers 90 5-21 Puffs ity of mcg/actuati 00:00: every 4 [place] on inhaler 00 (four) Medical hours as Branch needed for Wheezing or Shortness of Breath. dicyclomine No 20mg 20 mg, Uni vers (BENTYL) 01-14 Oral, ONCE ity of tablet 20 03:30: 02:40 NOW, 1 [place] mg 00 :00 dose, Fri Medical 01/13/21 at Branch 2130, Routine NaCl 0.9% 2020- No 1000mL at 999 Uni vers (NS) bolus 01-14 mL/hr, ity of infusion 03:30: 04:06 1,000 mL, [place] as 1,000 mL 00 :00 IV Medical Infusion, [place] ONCE, 1 dose, 01/13/21 at 2130, STAT ondansetron 2020- No 4mg 4 mg, Slow Univers (ZOFRAN 01-14 IV Push, ity of (PF)) 03:30: 02:34 ONCE, 1 [place] injection 4 00 :00 dose, Fri Med ical mg 01/13/21 at Branch 2130, Routine ondansetron Yes [id number] 4mg Take 1 Univers (ZOFRAN 2-12 tablet by ity of ODT) 4 mg 00:00: mouth [place] disintegrat 00 every 8 Medic al ing tablet (eight) Branch hours as needed for Nausea and Vomiting (N/V). dicyclomine Yes [id number] 20mg Take 1 Univers 20 mg 2-12 tablet by ity of tablet 00:00: mouth 3 [place] 00 (three) Medical times Branch daily as needed for Abdominal pain. ondansetron 2020-0 Yes [id number] 4mg Take 1 Univers (ZOFRAN 2-12 tablet by ity of ODT) 4 mg 00:00: mouth [place] disintegrat 00 every 8 Medic al ing tablet (eight) Branch hours as needed for Nausea and Vomiting (N/V). dicyclomine 2020-0 Yes [id number] 20mg Take 1 Univers 20 mg 2-12 tablet by ity of tablet 00:00: mouth 3 [place] 00 (three) Medical times Branch daily as needed for Abdominal pain. ondansetron 2020-0 Yes [id number] 4mg Take 1 Univers (ZOFRAN 2-12 tablet by ity of ODT) 4 mg 00:00: mouth [place] disintegrat 00 every 8 Medic al ing tablet (eight) Branch hours as needed for Nausea and Vomiting (N/V). dicyclomine 2020-0 Yes [id number] 20mg Take 1 Univers 20 mg 2-12 tablet by ity of tablet 00:00: mouth 3 [place] 00 (three) Medical times Branch daily as needed for Abdominal pain. ondansetron 2020-0 Yes [id number] 4mg Take 1 Univers (ZOFRAN 2-12 tablet by ity of ODT) 4 mg 00:00: mouth [place] disintegrat 00 every 8 Medic al ing tablet (eight) Branch hours as needed for Nausea and Vomiting (N/V). dicyclomine 2020-0 Yes [id number] 20mg Take 1 Univers 20 mg 2-12 tablet by ity of tablet 00:00: mouth 3 [place] 00 (three) Medical times Branch daily as needed for Abdominal pain. ondansetron 2020-0 Yes [id number] 4mg Take 1 Univers (ZOFRAN 2-12 tablet by ity of ODT) 4 mg 00:00: mouth [place] disintegrat 00 every 8 Medic al ing tablet (eight) Branch hours as needed for Nausea and Vomiting (N/V). dicyclomine 2020-0 Yes [id number] 20mg Take 1 Univers 20 mg 2-12 tablet by ity of tablet 00:00: mouth 3 [place] 00 (three) Medical times Branch daily as needed for Abdominal pain. dicyclomine 2019-12 2020- No 20mg 20 mg, Uni vers (BENTYL) 0-27 10-27 Oral, ity of capsule 20 20:00: 19:04 ONCE, 1 [place] mg 00 :00 dose, [facility] 09/27/20 Branch at 1500, Routine maalox:diph 2019-12- No 15mL 15 mL, Uni vers enhydrAMINE 0-27 09-27 Oral ity of :lidocaine 19:30: 18:25 ([place] 2 % viscous 00 :00 Swallow), Med ical 1:1:1 ONCE, 1 Branch (FIRST-MOUT dose, [facility] HWASH BLM) 09/27/20 oral at 1430, suspension Routine 15 mL iohexol 2019-12 2020- No 120mL 120 mL, Unive rs (OMNIPAQUE 0-27 09-27 Intravenou it y of 350 18:15: 17:57 s, ONCE, 1 [place] BULK-150 00 :00 dose, [facility] Medica l mL) 09/27/20 Branch injection at 1315, 120 mL Routine ondansetron 2019-12- No 4mg 4 mg, Slow Univers (ZOFRAN 0-27 09-27 IV Push, ity of (PF)) 18:00: 16:56 ONCE, 1 [place] injection 4 00 :00 dose, [facility] Med ical mg 09/27/20 Branch at 1300, FARIDA morpHINE 2019-12- No 4mg 4 mg, Slow Un marine injection 4 0-27 10-27 IV Push, ity of mg 18:00: 16:57 ONCE, 1 [place] 00 :00 dose, [facility] 09/27/20 Branch at 1300, STAT famotidine 2019-12 Yes [id number] 40mg Take 1 Univers (PEPCID) 40 0-27 tablet by ity of mg tablet 00:00: mouth [place] 00 daily. Medical Branch dicyclomine 2019-12 Yes [id number] 20mg Take 1 Univers 20 mg 0-27 tablet by ity of tablet 00:00: mouth 4 00 (four) Medical times Branch daily. famotidine 2019-12 Yes [id number] 40mg Take 1 Univers (PEPCID) 40 0-27 tablet by ity of mg tablet 00:00: mouth [place] 00 daily. Medical Branch dicyclomine 2019-12 Yes [id number] 20mg Take 1 Univers 20 mg 0-27 tablet by ity of tablet 00:00: mouth 4 [place] 00 (four) Medical times [place] daily. famotidine 2019- Yes [id number] 40mg Take 1 Univers (PEPCID) 40 0-27 tablet by ity of mg tablet 00:00: mouth [place] 00 daily. Medical Branch dicyclomine 2019- Yes [id number] 20mg Take 1 Univers 20 mg 0-27 tablet by ity of tablet 00:00: mouth [place] ([facility]) Medical times [place] daily. famotidine 2019- Yes [id number] 40mg Take 1 Univers (PEPCID) 40 0-27 tablet by ity of mg tablet 00:00: mouth [place] 00 daily. Medical Branch dicyclomine 2019- Yes [id number] 20mg Take 1 Univers 20 mg 0-27 tablet by ity of tablet 00:00: mouth [place] ([facility]) Medical times [place] daily. famotidine 2019- Yes [id number] 40mg Take 1 Univers (PEPCID) 40 0-27 tablet by ity of mg tablet 00:00: mouth [place] 00 daily. Medical Branch dicyclomine 2019- Yes [id number] 20mg Take 1 Univers 20 mg 0-27 tablet by ity of tablet 00:00: mouth [place] ([facility]) Medical times [place] daily. famotidine 2019- Yes [id number] 40mg Take 1 Univers (PEPCID) 40 0-27 tablet by ity of mg tablet 00:00: mouth [place] 00 daily. Medical Branch dicyclomine 2019-12 Yes [id number] 20mg Take 1 Univers 20 mg 0-27 tablet by ity of tablet 00:00: [facility] [place] ([facility]) Medical times [place] daily. ondansetron 2019- No 4mg 4 mg, Slow Univers (ZOFRAN 04-09 IV Push, ity of (PF)) 20:30: 20:01 ONCE, 1 [place] injection 4 00 :00 dose, Sat Med ical mg 04/09/20 at Branch 1530, FARIDA FENTanyl PF 2020- No 50ug 50 mcg, Un marine (SUBLIMAZE 04-09 Slow IV ity o f (PF)) 20:30: 20:01 Push, [place] injection 00 :00 ONCE, 1 Medical 50 mcg dose, Sat Branch 5/9/20 at 1530, Routine ketorolac 2020-0 2020- No 15mg 15 mg, Unive rs (TORADOL) - 05-09 Slow IV ity of injection 19:30: 18:27 Push, [place] 15 mg 00 :00 ONCE, 1 Medical dose, Sat Branch 04/09/20 at 1430, Routine
adjunct psychology faculty member approving Restricted medication : WILLIS WANG ibuprofen 2020-0 Yes [id number] 800mg Take 1 Univers 800 mg 5-09 tablet by ity of tablet 00:00: mouth [place] 00 every 6 Medical (six) Branch hours as needed for Pain (scale 4-6). traMADol 50 2020-0 Yes [id number] 50mg Take 1 Univers mg tablet 5-09 tablet by ity o f 00:00: mouth [place] 00 every 6 Medical (six) Branch hours as needed for Pain (scale 7-10). ibuprofen 2020-0 Yes [id number] 800mg Take 1 Univers 800 mg 5-09 tablet by ity of tablet 00:00: mouth [place] 00 every 6 Medical (six) Branch hours as needed for Pain (scale 4-6). traMADol 50 2020-0 Yes [id number] 50mg Take 1 Univers mg tablet 5-09 tablet by ity o f 00:00: mouth [place] 00 every 6 Medical (six) Branch hours as needed for Pain (scale 7-10). ibuprofen 2020-0 Yes [id number] 800mg Take 1 Univers 800 mg 5-09 tablet by ity of tablet 00:00: mouth [place] 00 every 6 Medical (six) Branch hours as needed for Pain (scale 4-6). traMADol 50 2020-0 Yes [id number] 50mg Take 1 Univers mg tablet 5-09 tablet by ity o f 00:00: mouth [place] 00 every 6 Medical (six) Branch hours as needed for Pain (scale 7-10). ibuprofen 2020-0 Yes [id number] 800mg Take 1 Univers 800 mg 5-09 tablet by ity of tablet 00:00: mouth [place] 00 every 6 Medical (six) Branch hours as needed for Pain (scale 4-6). traMADol 50 2020-0 Yes [id number] 50mg Take 1 Univers mg tablet 5-09 tablet by ity o f 00:00: mouth [place] 00 every 6 Medical (six) Branch hours as needed for Pain (scale 7-10). ibuprofen 2020-0 Yes [id number] 800mg Take 1 Univers 800 mg 5-09 tablet by ity of tablet 00:00: mouth [place] 00 every 6 Medical (six) Branch hours as needed for Pain (scale 4-6). traMADol 50 2020-0 Yes [id number] 50mg Take 1 Univers mg tablet 5-09 tablet by ity o f 00:00: mouth [place] 00 every 6 Medical (six) Branch hours as needed for Pain (scale 7-10). ibuprofen 2020-0 Yes [id number] 800mg Take 1 Univers 800 mg 5-09 tablet by ity of tablet 00:00: mouth [place] 00 every 6 Medical (six) Branch hours as needed for Pain (scale 4-6). traMADol 50 2020-0 Yes [id number] 50mg Take 1 Univers mg tablet 5-09 tablet by ity o f 00:00: mouth [place] 00 every 6 Medical (six) Branch hours as needed for Pain (scale 7-10). ibuprofen 2020-0 Yes [id number] 800mg Take 1 Univers 800 mg 5-09 tablet by ity of tablet 00:00: mouth [place] 00 every 6 Medical (six) Branch hours as needed for Pain (scale 4-6). traMADol 50 2020-0 Yes [id number] 50mg Take 1 Univers mg tablet 5-09 tablet by ity o f 00:00: mouth [place] 00 every 6 Medical (six) Branch hours as needed for Pain (scale 7-10). ibuprofen 2020-0 Yes [id number] 800mg Take 1 Univers 800 mg 5-09 tablet by ity of tablet 00:00: mouth [place] 00 every 6 Medical (six) Branch hours as needed for Pain (scale 4-6). traMADol 50 2020-0 Yes [id number] 50mg Take 1 Univers mg tablet 5-09 tablet by ity o f 00:00: mouth [place] 00 every 6 Medical (six) Branch hours as needed for Pain (scale 7-10). ondansetron 2019-2019- No 4mg 4 mg, Univ ers (ZOFRAN-ODT 12-26 Oral, ity of ) 10:00: 08:58 ONCE, 1 [place] disintegrat 00 :00 dose, Sat Med ical ing tablet 12/26/19 at Bra nch 4 mg 0400, Routine ketorolac 2019-0 2020- No 60mg 60 mg, Unive rs (TORADOL) 12-26 Intramuscu ity of injection 09:45: 09:07 lar, ONCE, [place] 60 mg 00 :00 1 dose, Medical Sat Branch 12/26/19 at 0345, FARIDA
Fa culty member approving Restricted medication : ADRIAN GUARDADO FENTanyl PF 2019- 2020- No 50ug 50 mcg, Un marine (SUBLIMAZE 12-26 Intramuscu it y of (PF)) 09:45: 08:59 lar, ONCE, [place] injection 00 :00 1 dose, Medical 50 mcg Sat Branch 12/26/19 at 0345, Routine ofloxacin 2019-0 2020- No [id number] 5[drp] Place 5 Univers 0.3 % otic 12-26 [id number] Drops in ity of drops 00:00: 05:59 left ear 2 [place] 00 :00 (two) Medical times Branch daily for 7 days. ketorolac 2019-0 2020- No 30mg 30 mg, Unive rs (TORADOL) 12-19 Slow IV ity of injection 22:00: 21:03 Push, [place] 30 mg 00 :00 ONCE, 1 Medical dose, Sat Branch 12/19/19 at 1600, Routine
adjunct psychology faculty member approving Restricted medication : KATALINA LEWIS iohexol 2019-0 2020- No 120mL 120 mL, Unive rs (OMNIPAQUE 12-19 Intravenou it y of 350 21:30: 21:24 s, ONCE, 1 [place] BULK-100 00 :00 dose, Sat Medica l mL) 12/19/19 at Branch injection 1530, 120 mL Routine dicyclomine 2019-0 Yes [id number] 20mg Take 1 Univers 20 mg 1-18 tablet by ity of tablet 00:00: mouth [place] 00 every 6 Medical (six) Branch hours as needed for Abdominal pain. ondansetron 2020-0 Yes [id number] 4mg Take 1 Univers (ZOFRAN) 4 1-18 tablet by ity of mg tablet 00:00: mouth [place] 00 every 8 Medical (eight) Branch hours as needed for Nausea and Vomiting (N/V). phenazopyri 2020-0 Yes [id number] 200mg Take 1 Univers dine 200 mg 1-18 tablet by ity of tablet 00:00: mouth 3 00 (three) Medical times Branch daily. dicyclomine 2020-0 Yes [id number] 20mg Take 1 Univers 20 mg 1-18 tablet by ity of tablet 00:00: mouth [place] 00 every 6 Medical (six) Branch hours as needed for Abdominal pain. ondansetron 2020-0 Yes [id number] 4mg Take 1 Univers (ZOFRAN) 4 1-18 tablet by ity of mg tablet 00:00: mouth [place] 00 every 8 Medical (eight) Branch hours as needed for Nausea and Vomiting (N/V). phenazopyri 2020-0 Yes [id number] 200mg Take 1 Univers dine 200 mg 1-18 tablet by ity of tablet 00:00: mouth 3 (three) Medical times Branch daily. dicyclomine 2020-0 Yes [id number] 20mg Take 1 Univers 20 mg 1-18 tablet by ity of tablet 00:00: mouth [place] 00 every 6 Medical (six) Branch hours as needed for Abdominal pain. ondansetron 2020-0 Yes [id number] 4mg Take 1 Univers (ZOFRAN) 4 1-18 tablet by ity of mg tablet 00:00: mouth [place] 00 every 8 Medical (eight) Branch hours as needed for Nausea and Vomiting (N/V). phenazopyri 2020-0 Yes [id number] 200mg Take 1 Univers dine 200 mg 1-18 tablet by ity of tablet 00:00: mouth 3 (three) Medical times Branch daily. dicyclomine 2020-0 Yes [id number] 20mg Take 1 Univers 20 mg 1-18 tablet by ity of tablet 00:00: mouth [place] 00 every 6 Medical (six) Branch hours as needed for Abdominal pain. ondansetron 2020-0 Yes [id number] 4mg Take 1 Univers (ZOFRAN) 4 1-18 tablet by ity of mg tablet 00:00: mouth [place] 00 every 8 Medical (eight) Branch hours as needed for Nausea and Vomiting (N/V). phenazopyri 2020-0 Yes [id number] 200mg Take 1 Univers dine 200 mg 1-18 tablet by ity of tablet 00:00: mouth 3 (three) Medical times Branch daily. dicyclomine 2020-0 Yes [id number] 20mg Take 1 Univers 20 mg 1-18 tablet by ity of tablet 00:00: mouth [place] 00 every 6 Medical (six) Branch hours as needed for Abdominal pain. ondansetron 2020-0 Yes [id number] 4mg Take 1 Univers (ZOFRAN) 4 1-18 tablet by ity of mg tablet 00:00: mouth [place] 00 every 8 Medical (eight) Branch hours as needed for Nausea and Vomiting (N/V). phenazopyri 2020-0 Yes [id number] 200mg Take 1 Univers dine 200 mg 1-18 tablet by ity of tablet 00:00: mouth 3 [place] 00 (three) Medical times Branch daily. dicyclomine 2020-0 Yes [id number] 20mg Take 1 Univers 20 mg 1-18 tablet by ity of tablet 00:00: mouth [place] 00 every 6 Medical (six) Branch hours as needed for Abdominal pain. ondansetron 2020-0 Yes [id number] 4mg Take 1 Univers (ZOFRAN) 4 1-18 tablet by ity of mg tablet 00:00: mouth [place] 00 every 8 Medical (eight) Branch hours as needed for Nausea and Vomiting (N/V). phenazopyri 2020-0 Yes [id number] 200mg Take 1 Univers dine 200 mg 1-18 tablet by ity of tablet 00:00: mouth 3 [place] 00 (three) Medical times Branch daily. dicyclomine 2020-0 Yes [id number] 20mg Take 1 Univers 20 mg 1-18 tablet by ity of tablet 00:00: mouth [place] 00 every 6 Medical (six) Branch hours as needed for Abdominal pain. ondansetron 2020-0 Yes [id number] 4mg Take 1 Univers (ZOFRAN) 4 1-18 tablet by ity of mg tablet 00:00: mouth [place] 00 every 8 Medical (eight) Branch hours as needed for Nausea and Vomiting (N/V). phenazopyri 2020-0 Yes [id number] 200mg Take 1 Univers dine 200 mg 1-18 tablet by ity of tablet 00:00: mouth 3 [place] 00 (three) Medical times Branch daily. dicyclomine 2020-0 Yes [id number] 20mg Take 1 Univers 20 mg 1-18 tablet by ity of tablet 00:00: mouth [place] 00 every 6 Medical (six) Branch hours as needed for Abdominal pain. ondansetron 2020-0 Yes [id number] 4mg Take 1 Univers (ZOFRAN) 4 1-18 tablet by ity of mg tablet 00:00: mouth [place] 00 every 8 Medical (eight) Branch hours as needed for Nausea and Vomiting (N/V). phenazopyri 2020-0 Yes [id number] 200mg Take 1 Univers dine 200 mg 1-18 tablet by ity of tablet 00:00: mouth 3 [place] 00 (three) Medical times Branch daily. dicyclomine 2020-0 Yes [id number] 20mg Take 1 Univers 20 mg 1-18 tablet by ity of tablet 00:00: mouth [place] 00 every 6 Medical (six) Branch hours as needed for Abdominal pain. ondansetron 2020-0 Yes [id number] 4mg Take 1 Univers (ZOFRAN) 4 1-18 tablet by ity of mg tablet 00:00: mouth [place] 00 every 8 Medical (eight) Branch hours as needed for Nausea and Vomiting (N/V). phenazopyri 2020-0 Yes [id number] 200mg Take 1 Univers dine 200 mg 1-18 tablet by ity of tablet 00:00: mouth 3 00 (three) Medical times Branch daily. dicyclomine 2020-0 Yes [id number] 20mg Take 1 Univers 20 mg 1-18 tablet by ity of tablet 00:00: mouth [place] 00 every 6 Medical (six) Branch hours as needed for Abdominal pain. ondansetron 2020-0 Yes [id number] 4mg Take 1 Univers (ZOFRAN) 4 1-18 tablet by ity of mg tablet 00:00: mouth [place] 00 every 8 Medical (eight) Branch hours as needed for Nausea and Vomiting (N/V). phenazopyri 2020-0 Yes [id number] 200mg Take 1 Univers dine 200 mg 1-18 tablet by ity of tablet 00:00: mouth 3 00 (three) Medical times Branch daily. traMADol 2018-12 Yes [id number] 50mg Take 1 Un marine (ULTRAM) 50 2-22 tablet by ity of mg tablet 00:00: mouth [place] 00 every 8 Medical (eight) Branch hours as needed for Pain (scale 4-6). traMADol 2018-12 Yes [id number] 50mg Take 1 Un marine (ULTRAM) 50 2-22 tablet by ity of mg tablet 00:00: mouth [place] 00 every 8 Medical (eight) Branch hours as needed for Pain (scale 4-6). traMADol 2018-12 Yes [id number] 50mg Take 1 Un marine (ULTRAM) 50 2-22 tablet by ity of mg tablet 00:00: mouth [place] 00 every 8 Medical (eight) Branch hours as needed for Pain (scale 4-6). traMADol 2018-12 Yes [id number] 50mg Take 1 Un marine (ULTRAM) 50 2-22 tablet by ity of mg tablet 00:00: mouth [place] 00 every 8 Medical (eight) Branch hours as needed for Pain (scale 4-6). traMADol 2018-12 Yes [id number] 50mg Take 1 Un marine (ULTRAM) 50 2-22 tablet by ity of mg tablet 00:00: mouth [place] 00 every 8 Medical (eight) Branch hours as needed for Pain (scale 4-6). traMADol 2018-12 Yes [id number] 50mg Take 1 Un marine (ULTRAM) 50 2-22 tablet by ity of mg tablet 00:00: mouth [place] 00 every 8 Medical (eight) Branch hours as needed for Pain (scale 4-6). traMADol 2018-12 Yes [id number] 50mg Take 1 Un marine (ULTRAM) 50 2-22 tablet by ity of mg tablet 00:00: mouth [place] 00 every 8 Medical (eight) Branch hours as needed for Pain (scale 4-6). traMADol 2018-12 Yes [id number] 50mg Take 1 Un marine (ULTRAM) 50 2-22 tablet by ity of mg tablet 00:00: mouth [place] 00 every 8 Medical (eight) Branch hours as needed for Pain (scale 4-6). traMADol 2018-12 Yes [id number] 50mg Take 1 Un marine (ULTRAM) 50 2-22 tablet by ity of mg tablet 00:00: mouth [place] 00 every 8 Medical (eight) Branch hours as needed for Pain (scale 4-6). traMADol 2018-12 Yes [id number] 50mg Take 1 Un marine (ULTRAM) 50 2-22 tablet by ity of mg tablet 00:00: mouth [place] 00 every 8 Medical (eight) Branch hours as needed for Pain (scale 4-6). albuterol 2018-12 Yes [id number] 2{puff} Inhale 2 Univers 90 0-19 Puffs ity of mcg/actuati 00:00: every 4 [place] on inhaler 00 (four) Medical hours as Branch needed for Wheezing or Shortness of Breath. benzonatate 2018-12 Yes [id number] 100mg Take 1 Univers 100 mg 0-19 capsule by ity of capsule 00:00: mouth 3 [place] 00 (three) Medical times Branch daily as needed for Cough. albuterol 2018-12 Yes [id number] 2{puff} Inhale 2 Univers 90 0-19 Puffs ity of mcg/actuati 00:00: every 4 Nathen as on inhaler 00 (four) Medical hours as Branch needed for Wheezing or Shortness of Breath. benzonatate 2018-12 Yes [id number] 100mg Take 1 Univers 100 mg 0-19 capsule by ity of capsule 00:00: mouth 3 [place] 00 (three) Medical times Branch daily as needed for Cough. albuterol 2018-12 Yes [id number] 2{puff} Inhale 2 Univers 90 0-19 Puffs ity of mcg/actuati 00:00: every 4 Nathen as on inhaler 00 (four) Medical hours as Branch needed for Wheezing or Shortness of Breath. benzonatate 2018-12 Yes [id number] 100mg Take 1 Univers 100 mg 0-19 capsule by ity of capsule 00:00: mouth 3 [place] 00 (three) Medical times Branch daily as needed for Cough. albuterol 2018-12 Yes [id number] 2{puff} Inhale 2 Univers 90 0-19 Puffs ity of mcg/actuati 00:00: every 4 [place] as on inhaler 00 (four) Medical hours as Branch needed for Wheezing or Shortness of Breath. benzonatate 2018-12 Yes [id number] 100mg Take 1 Univers 100 mg 0-19 capsule by ity of capsule 00:00: mouth 3 [place] 00 (three) Medical times Branch daily as needed for Cough. albuterol 2018-12 Yes [id number] 2{puff} Inhale 2 Univers 90 0-19 Puffs ity of mcg/actuati 00:00: every 4 [place] as on inhaler 00 (four) Medical hours as Branch needed for Wheezing or Shortness of Breath. benzonatate 2018-12 Yes [id number] 100mg Take 1 [facility] 100 mg 0-19 capsule by ity of capsule 00:00: mouth 3 [place] 00 (three) Medical times Branch daily as needed for Cough. albuterol 2018-12 Yes [id number] 2{puff} Inhale 2 Univers 90 0-19 Puffs ity of mcg/actuati 00:00: every 4 [place] as on inhaler 00 (four) Medical hours as Branch needed for Wheezing or Shortness of Breath. benzonatate 2018-12 Yes [id number] 100mg Take 1 Univers 100 mg 0-19 capsule by ity of capsule 00:00: mouth 3 [place] 00 (three) Medical times Branch daily as needed for Cough. albuterol 2018-12 Yes [id number] 2{puff} Inhale 2 Univers 90 0-19 Puffs ity of mcg/actuati 00:00: every 4 [place] as on inhaler 00 (four) Medical hours as Branch needed for Wheezing or Shortness of Breath. benzonatate 2018-12 Yes [id number] 100mg Take 1 [facility] 100 mg 0-19 capsule by ity of capsule 00:00: mouth 3 (three) Medical times Branch daily as needed for Cough. albuterol 2018-12 Yes [id number] 2{puff} Inhale 2 Univers 90 0-19 Puffs ity of mcg/actuati 00:00: every 4 [place] as on inhaler 00 (four) Medical hours as Branch needed for Wheezing or Shortness of Breath. benzonatate 2018-12 Yes [id number] 100mg Take 1 [facility] 100 mg 0-19 capsule by ity of capsule 00:00: mouth 3 (three) Medical times Branch daily as needed for Cough. albuterol 2018-12 Yes [id number] 2{puff} Inhale 2 Univers 90 0-19 Puffs ity of mcg/actuati 00:00: every 4 [place] as on inhaler 00 (four) Medical hours as Branch needed for Wheezing or Shortness of Breath. benzonatate 2018-12 Yes [id number] 100mg Take 1 [facility] 100 mg 0-19 capsule by ity of capsule 00:00: mouth 3 [place] 00 (three) Medical times Branch daily as needed for Cough. albuterol 2018-12 Yes [id number] 2{puff} Inhale 2 Univers 90 0-19 Puffs ity of mcg/actuati 00:00: every 4 [place] as on inhaler 00 (four) Medical hours as Branch needed for Wheezing or Shortness of Breath. benzonatate 2018-12 Yes [id number] 100mg Take 1 [facility] 100 mg 0-19 capsule by ity of capsule 00:00: mouth 3 [place] 00 (three) Medical times Branch daily as needed for Cough. pantoprazol 2018-12 Yes [id number] 40mg Take 1 Univers e 40 mg EC 0-15 tablet by ity of tablet 00:00: mouth [place] 00 daily. Medical Branch pantoprazol 2018-12 Yes [id number] 40mg Take 1 Univers e 40 mg EC 0-15 tablet by ity of tablet 00:00: mouth [place] 00 daily. Medical Branch pantoprazol 2018-12 Yes [id number] 40mg Take 1 Univers e 40 mg EC 0-15 tablet by ity of tablet 00:00: mouth [place] 00 daily. Medical Branch pantoprazol 2018-12 Yes [id number] 40mg Take 1 Univers e 40 mg EC 0-15 tablet by ity of tablet 00:00: mouth [place] 00 daily. Medical Branch pantoprazol 2018-12 Yes [id number] 40mg Take 1 Univers e 40 mg EC 0-15 tablet by ity of tablet 00:00: mouth [place] 00 daily. Medical Branch pantoprazol 2018-12 Yes [id number] 40mg Take 1 Univers e 40 mg EC 0-15 tablet by ity of tablet 00:00: mouth [place] 00 daily. Medical Branch pantoprazol 2018-12 Yes [id number] 40mg Take 1 Univers e 40 mg EC 0-15 tablet by ity of tablet 00:00: mouth [place] 00 daily. Medical Branch pantoprazol 2018-12 Yes [id number] 40mg Take 1 Univers e 40 mg EC 0-15 tablet by ity of tablet 00:00: mouth [place] 00 daily. Medical Branch pantoprazol 2018-12 Yes [id number] 40mg Take 1 Univers e 40 mg EC 0-15 tablet by ity of tablet 00:00: mouth [place] 00 daily. Medical Branch pantoprazol 2018-12 Yes [id number] 40mg Take 1 Univers e 40 mg EC 0-15 tablet by ity of tablet 00:00: mouth [place] 00 daily. Medical Branch Vital Signs Vital Name Observation Time Observation Value Comments Source Systolic blood 2021-05-25 16:22:03 135 mm[Hg] Univer sity of pressure [place] [facility] Diastolic blood 2021-05-25 16:22:03 75 mm[Hg] Unive rsity of pressure [place] [facility] Heart rate 2021-05-25 16:22:03 75 /min [facility] [place] [facility] Body temperature 2021-05-25 16:22:03 37.67 Suha [facility] ers[facility] [place] [facility] Respiratory rate 2021-05-25 16:22:03 17 /min [facility] [place] [facility] Body height 2021-05-25 16:18:00 160 cm [facility] [place] [facility] Body weight 2021-05-25 16:18:00 101.152 kg [facility] [place] [facility] BMI 2021-05-25 16:18:00 39.50 kg/m2 [facility] [place] [facility] Oxygen saturation in 2021-05-25 16:18:00 98 /min University of Arterial blood by [facility] ricky Pulse oximetry Branch Systolic blood 2021-04-21 18:22:31 132 mm[Hg] Univer sity of pressure [place] [facility] Diastolic blood 2021-04-21 18:22:31 89 mm[Hg] Unive rsity of pressure [place] [facility] Heart rate 2021-04-21 18:22:31 77 /min [facility] [place] [facility] Respiratory rate 2021-04-21 18:22:31 16 /min Univ ersity [facility] [place] [facility] Oxygen saturation in 2021-04-21 18:22:31 97 /min University of Arterial blood by [place] [email or web address] Pulse oximetry Branch Body temperature 2021-04-21 15:20:00 36.78 Suha [facility] [place] [facility] Body weight 2021-04-21 15:20:00 127.007 kg [facility] [place] [facility] BMI 2021-04-21 15:20:00 51.21 kg/m2 [facility] [place] [facility] Systolic blood 2021-01-14 04:08:00 124 mm[Hg] Univer sity of pressure [place] [facility] Diastolic blood 2021-01-14 04:08:00 84 mm[Hg] Unive rsity of pressure [place] [facility] Heart rate 2021-01-14 04:08:00 69 /min [facility] [place] [facility] Respiratory rate 2021-01-14 04:08:00 16 /min Univ ers[facility] [place] [facility] Oxygen saturation in 2021-01-14 04:08:00 98 /min University of Arterial blood by [facility] ricky Pulse oximetry Branch Body temperature 2021-01-14 00:34:00 37.56 Suha [facility] [place] [facility] Body weight 2021-01-14 00:34:00 127.007 kg [facility] [place] [facility] BMI 2021-01-14 00:34:00 51.21 kg/m2 [facility] [place] [facility] Systolic blood 2020-09-27 18:30:00 127 mm[Hg] Univer sity of pressure [place] [facility] Diastolic blood 2020-09-27 18:30:00 77 mm[Hg] Unive rsity of pressure [place] [facility] Heart rate 2020-09-27 18:30:00 66 /min [facility] [place] [facility] Respiratory rate 2020-09-27 18:30:00 18 /min Univ ers[facility] [place] [facility] Oxygen saturation in 2020-09-27 18:30:00 97 /min University of Arterial blood by [facility] Pulse oximetry Branch Body temperature 2020-09-27 16:14:00 37.33 Suha [facility] [place] [facility] Body weight 2020-09-27 16:14:00 127.007 kg [facility] [place] [facility] BMI 2020-09-27 16:14:00 51.21 kg/m2 [facility] [place] [facility] Systolic blood 2020-04-09 21:00:00 142 mm[Hg] Univer sity of pressure [place] [facility] Diastolic blood 2020-04-09 21:00:00 77 mm[Hg] Unive rsity of pressure [place] [facility] Heart rate 2020-04-09 21:00:00 62 /min [facility] [place] [facility] Respiratory rate 2020-04-09 21:00:00 18 /min Univ [facility] [place] [facility] Oxygen saturation in 2020-04-09 21:00:00 98 /min University of Arterial blood by [facility] ricky Pulse oximetry Branch Body temperature 2020-04-09 18:10:00 36.89 Suha [facility] [place] [facility] Body weight 2020-04-09 18:10:00 108.863 kg [facility] [place] [facility] BMI 2020-04-09 18:10:00 43.90 kg/m2 [facility] [place] [facility] Systolic blood 2020-04-09 21:00:00 142 mm[Hg] Univer sity of pressure [place] [facility] Diastolic blood 2020-04-09 21:00:00 77 mm[Hg] Unive rsity of pressure [place] [facility] Heart rate 2020-04-09 21:00:00 62 /min [facility] [place] [facility] Respiratory rate 2020-04-09 21:00:00 18 /min Univ [facility] [place] [facility] Oxygen saturation in 2020-04-09 21:00:00 98 /min [facility] of Arterial blood by [facility] Pulse oximetry Branch Body temperature 2020-04-09 18:10:00 36.89 Suha [facility] [place] [facility] Body weight 2020-04-09 18:10:00 108.863 kg [facility] [place] [facility] BMI 2020-04-09 18:10:00 43.90 kg/m2 [facility] [place] [facility] Systolic blood 2019-12-26 09:36:00 130 mm[Hg] Univer sity of pressure [place] [facility] Diastolic blood 2019-12-26 09:36:00 81 mm[Hg] Unive rsity of pressure [place] [facility] Heart rate 2019-12-26 09:36:00 77 /min [facility] [place] [facility] Respiratory rate 2019-12-26 09:36:00 18 /min Univ ers[facility] [place] [facility] Oxygen saturation in 2019-12-26 09:36:00 98 /min University of Arterial blood by [facility] Pulse oximetry Branch Body temperature 2019-12-26 08:07:00 36.61 Suha [facility] [place] [facility] Body height 2019-12-26 08:07:00 157.5 cm [facility] [place] [facility] Body weight 2019-12-26 08:07:00 108.863 kg [facility] [place] [facility] BMI 2019-12-26 08:07:00 43.90 kg/m2 [facility] [place] [facility] Systolic blood 2019-12-26 09:36:00 130 mm[Hg] Univer sity of pressure [place] [facility] Diastolic blood 2019-12-26 09:36:00 81 mm[Hg] Unive rsity of pressure [place] [facility] Heart rate 2019-12-26 09:36:00 77 /min [facility] [place] [facility] Respiratory rate 2019-12-26 09:36:00 18 /min Univ ers[facility] [place] [facility] Oxygen saturation in 2019-12-26 09:36:00 98 /min University of Arterial blood by [place] Medi ricky Pulse oximetry Branch Body temperature 2019-12-26 08:07:00 36.61 Suha [facility] [place] [facility] Body height 2019-12-26 08:07:00 157.5 cm [facility] [place] [facility] Body weight 2019-12-26 08:07:00 108.863 kg [facility] [place] [facility] BMI 2019-12-26 08:07:00 43.90 kg/m2 [facility] [place] [facility] Systolic blood 2019-12-19 22:00:00 140 mm[Hg] Univer sity of pressure [place] [facility] Diastolic blood 2019-12-19 22:00:00 79 mm[Hg] Unive rsity of pressure [place] [facility] Heart rate 2019-12-19 22:00:00 77 /min [facility] [place] [facility] Oxygen saturation in 2019-12-19 22:00:00 98 /min [facility] of Arterial blood by [place] [facility] ricky Pulse oximetry Branch Respiratory rate 2019-12-19 21:00:00 18 /min Univ ers[facility] [place] [facility] Body temperature 2019-12-19 20:36:00 37.33 Suha [facility] [place] [facility] Body weight 2019-12-19 20:36:00 108.863 kg [facility] [place] [facility] BMI 2019-12-19 20:36:00 42.51 kg/m2 [facility] [place] [facility] Systolic blood 2019-12-19 22:00:00 140 mm[Hg] Univer sity of pressure [place] [facility] Diastolic blood 2019-12-19 22:00:00 79 mm[Hg] Unive rsity of pressure [place] [facility] Heart rate 2019-12-19 22:00:00 77 /min [facility] [place] [facility] Oxygen saturation in 2019-12-19 22:00:00 98 /min University of Arterial blood by [place] [facility] ricky Pulse oximetry Branch Respiratory rate 2019-12-19 21:00:00 18 /min Univ ers[facility] [place] [facility] Body temperature 2019-12-19 20:36:00 37.33 Suha [facility] [place] [facility] Body weight 2019-12-19 20:36:00 108.863 kg [facility] [place] [facility] BMI 2019-12-19 20:36:00 42.51 kg/m2 [facility] Procedures Procedure Date / Time Performing Clinician Source Performed NOTICE OF PRIVACY 2021-05-25 16:10:28 Doctor Unassigned, No [facility] PRACTICES Name Medical Branch CONSENT/REFUSAL FOR 2021-05-25 16:09:55 [facility] Name Medical Branch REFERRAL- 2021-05-18 05:01:00 Doctor Unassigned, No [facility] REQUEST/RESPONSE Name Medical Branch XR CHEST 1 VW 2021-04-21 17:07:37 Carlos Stoner [facility] COVID-19 (ID NOW RAPID 2021-04-21 17:02:00 Carlos Stoner [facility] TESTING) Medical Branch CONSENT/REFUSAL FOR 2021-04-21 15:01:21 Doctor Unassigned, No Un [facility] DIAGNOSIS AND TREATMENT Name Medical Branch LIPASE 2021-01-14 01:45:00 [facility] [place] [facility] HEPATIC FUNCTION PANEL 2021-01-14 01:45[id number] ([facility]B,T.PRO,[facility] T,BU/BC,ALT,AST,ALK PHOS) BASIC METABOLIC PANEL 2021-01-14 01:45:00 [facility] (NA, K, CL, CO2, Medical Branch GLUCOSE, BUN, CREATININE, CA) CBC WITH DIFF 2021-01-14 01:45:00 [place] [facility] URINALYSIS 2021-01-14 01:41:00 [facility] POCT TEST 2021-01-14 01:41:00 Celena [facility] CONSENT/REFUSAL FOR 2021-01-14 00:30:05 Doctor Unassigned, No [facility] Name Medical Branch CT ABDOMEN PELVIS W 2020-09-27 18:03:47 Daily Howell [facility] CONTRAST Medical Branch LIPASE 2020-09-27 16:54:00 Daily Howell [facility] COMP. METABOLIC PANEL 2020-09-27 16:54:00 Daily Howell [facility] ([id number]) Medical Branch CBC WITH DIFF 2020-09-27 16:22:00 Daily Howell [facility] URINALYSIS 2020-09-27 16:22:00 Daily Howell [facility] POCT TEST 2020-09-27 16:22:00 Daily Howell [facility] NOTICE OF PRIVACY 2020-09-27 15:51:58 Doctor Unassigned, No [facility] PRACTICES Name Medical Branch CONSENT/REFUSAL FOR 2020-09-27 15:51:41 Doctor Unassigned, No [facility] DIAGNOSIS AND TREATMENT Name Medical [place] CT ABDOMEN PELVIS WO 2020-04-09 20:27:49 Willis Wang [facility] COMP. METABOLIC PANEL 2020-04-09 18:25:00 Willis Wang [facility] ([id number]) Medical Branch URINALYSIS 2020-04-09 18:25:00 Willis Wang [facility] CBC WITH DIFFERENTIAL 2020-04-09 18:25:00 Willis Wang [facility] POCT TEST 2020-04-09 18:19:00 Willis Wang [facility] EKG-12 LEAD 2019-12-26 08:35:47 Adrian Guardado [facility] CT ABDOMEN PELVIS W 2019-12-19 21:28:52 Katalina Lewis [facility] CONTRAST [facility] URINALYSIS 2019-12-19 21:09:00 Katalina Lewis [facility] LIPASE 2019-12-19 20:46:00 Katalina Lewis [facility] COMP. METABOLIC PANEL 2019-12-19 20:46:00 Katalina Lewis [facility] ([id number]) Medical [place] CBC WITH DIFFERENTIAL 2019-12-19 20:46:00 Katalina Lewis [facility] Encounters Start End Encounter Admission Attending Care Care Encounter Source Date/Time Date/Time Type Type Clinicians Facility Department ID 2021-10-02 Emergency [facility] [id number] Univers 03:34:[address] [facility] 2021-09-30 Emergency [facility] [id number] Univers 23:28:[address] [facility] 2021-09-30 Emergency [facility] [id number] Univers 01:18:[address] [facility] 2021-06-02 2021-06-02 Outpatient R VINCENT SOTO [facility] [id number] Univers 10:00:00 10:00:00 JOSEVINCENT ity of [facility] 2021-05-25 2021-05-25 Emergency [place], [facility] [id number] Univers 11:22:00 12:01:00 Celena Perdomo [id number] i ty of [place] [id number] [facility] 084 Branch 2021-05-25 2021-05-25 Outpatient R RADIOLOGY [facility] [id number] Univers 00:00:00 00:00:[address] [facility] 2021-05-23 2021-05-23 Candi Soto [facility] [id number] Univers 00:00:00 00:00:00 (Out) Vincent Perdomo [id number] ity [place] [id number] Wi dical nal 092 Branch [facility] 2021-05-18 2021-05-18 Orders Doctor ISHAN [id number] Univers 00:00:00 00:00:00 Only Unassigned, ALE [id number] ity of [place] [facility] 4.2.7.2.686 [place] as [id number] [facility] 009 Branch 2021-04-21 2021-04-21 [facility] [id number] Univers 10:21:00 13:26:00 Carlos Perdomo [id number] ity of [place] [id number] [place] [address] Branch 2021-04-21 2021-04-21 Emergency X MARC, [facility] ERT [id number] Univers 10:21:00 13:26:00 CARLOS ity of [facility] 2021-01-13 2021-01-13 Emergency [facility] [id number] Univers 18:36:00 22:10:00 Radha Perdomo [id number] i ty of [place] 4.2.7.2.686 [facility] [id number] [place] [address] Branch 2020-09-27 2020-09-27 Emergency Daily Howell [facility] [id number] Univers 11:07:00 14:11:00 Cary Perdomo [id number] i ty of [place] 4.2.7.2.686 [facility] [id number] [address] 2020-09-27 2020-09-27 Orders Doctor ISHAN [id number] Univers 00:00:00 00:00:00 Only Unassigned, ALE [id number] ity of [place] [facility] 4.2.7.2.686 [facility] [id number] [address] 2020-04-09 2020-04-09 Emergency [facility] [id number] 13:11:51 16:26:00 Willis Perdomo [id number] [place] 4.2.7.2.686 [place] [id number] [facility] 2020-04-09 2020-04-09 Emergency [facility] [id number] Univers 13:11:51 16:26:00 Willis Perdomo [id number] i ty of [place] 4.2.7.2.686 [facility] [id number] [address] 2020-04-09 2020-04-09 Emergency X [facility] ERT [id number] Univers 13:11:51 16:26:00 WILLIS ity of [facility] 2019-12-26 2019-12-26 Emergency [facility] [id number] [facility] 02:03:08 03:42:00 Adrian Hirsch Galvin [id number] i ty of [place] [id number] [facility] [id number] [place] 852174 [place] 2019-12-26 2019-12-26 [facility] [id number] 02:03:08 03:42:00 Adrian Hirsch [place] [id number] [place] [id number] [place] [id number] 084 2019-12-19 2019-12-19 Emergency Radha Mai [facility] 1.2.840. [id number] [facility] 14:29:58 16:35:00 Katalina Lewis [place] [id number] ity of [place] [id number] [facility] [id number] [address] 2019-12-19 2019-12-19 Emergency Radha Mai [facility] 1.2.840. 114 [id number] 14:29:58 16:35:00 Katalina Lewis [place] [id number] [place] [address] [place] [address] [id number] 084 Results Test Description Test Time Test Comments Results Result [facility] e Comments Chest 1 View 2021-04-02 No acute University o f 1 cardiopulmonary [facility] 18:21:45 abnormality. [place] Preliminary Report Dictated by Resident: Jabari Gaytan MD., have reviewed this study and [facility].EXAM: XR CHEST 1 VW HISTORY: 36 [...] Test Item Value Reference Range Interpretation Comme nts SARS-CoV-2 Rapid ID NOW (test code Not Detected Not Detected = 83658-7) PATT (test code = PATT) ID NOW COVID-19 Assay is an isothermal nucleic acid amplification test intended for the qualitative detection of nucleic acid from SARS-CoV-2 viral RNA in nasopharyngeal (THEATRICAL PERFORMER) specimens. It is used under Emergency Use [...] indicated. Lab Interpretation (test code = Normal 37298-3) [facility]32:00 Test Item Value Reference Range Interpretation Comments APPEARANCE (test code = Cloudy Clear A 2109700136) COLOR (test code = Natalie Yellow A 6273254691) PH (test code = 4.8-8.0 3548909656) SP GRAVITY (test code = 1.003-1.030 1147184718) GLU U QUAL (test code = Normal Normal 9475144678) BLOOD (test code = Negative Negative 2574699597) KETONES (test code = 5 mg/dL Negative A 9256870621) PROTEIN (test code = 100 mg/dL Negative A 2887-8) UROBILIN (test code = 2.0 mg/dL Normal A 1614935252) BILIRUBIN (test code = 2 mg/dL Negative A 4317337652) NITRITE (test code = Negative Negative 4794741406) LEUK RACHAEL (test code = 25/uL Negative A 9874136906) RBC/HPF (test code = See_Comment H [Autom ated message] 6298238356) The system [employer] generated this result transmit alex reference range : 0 - 3 HPF. The refe rence range was not u sed to interpret th is result as normal/abnormal . WBC/HPF (test code = See_Comment [Autom ated message] 5164087722) The system [employer] generated this result transmit alex reference range : 0 - 5 HPF. The refe rence range was not u sed to interpret th is result as normal/abnormal . BACTERIA (test code = Moderate Negative A 2535310177) MUCOUS (test code = Marked Negative LPF A 3241570790) AMORPHOUS (test code = Rare Rare HPF 5955854140) SQ EPITH (test code = HPF 7899688017) Lab Interpretation (test Abnormal code = 16885-0) [facility] Metabolic Panel (NA, K, CL, CO2, GLUCOSE, BUN, CREATININE, CA)2021-01-14 02:18:00 Test Item Value Reference Range Interpretation Comments NA (test code = 137 mmol/L 135-145 4802488609) K (test code = 4.1 mmol/L 3.5-5 7782713403) CL (test code = 103 mmol/L 98-108 2576824483) CO2 TOTAL (test code = 29 mmol/L 23-31 1321219631) AGAP (test code = 2-16 9058853945) BUN (test code = 10 mg/dL 7-23 2059303647) GLUCOSE (test code = 100 mg/dL 70-110 4179793081) CREATININE (test code 0.66 mg/dL 0.5-1.04 = 5063151449) CALCIUM (test code = 9.0 mg/dL 8.6-10.6 6089331710) eGFR Calculation mL/min/1.73m2 (Non-) (test code = 2895198665) eGFR Calculation mL/min/1.73m2 () (test code = 4177370225) PATT (test code = PATT) Association of [...] or urine or abnormalities in imaging tests). [facility] (ALB, T.PRO, BILI T, BU/BC, ALT, AST, ALK PHOS)2021-01-14 02:18:00 Test Item Value Reference Range Interpretation Comments TOTAL BILI (test code = 0361927527) 0.4 mg/dL 0.1-1.1 BILI UNCON (test code = 0583396090) 0.3 mg/dL 0.1-1.1 BILI CONJ (test code = 8459705404) 0.0 mg/dL 0-0.3 T PROTEIN (test code = 5609515556) 7.1 g/dL 6.3-8.2 ALBUMIN (test code = 0934466779) 4.3 g/dL 3.5-5 ALK PHOS (test code = 1129807712) 80 U/L 34-122 ALTv (test code = 1742-6) 19 U/L 5-35 AST(SGOT) (test code = 8086483371) 24 U/L 13-40 Lab Interpretation (test code = Normal 04140-9) [facility] Center[facility] [id number] 02:18:00 Test Item Value Reference Range Interpretation Comments LIPASE (test code = 7971671133) 27 U/L 0-220 Lab Interpretation (test code = Normal 78039-8) [facility] with [id number] 02:03:00 Test Item Value Reference Range Interpretation Comments WBC (test code = See_Comment [Automated 7590-2) message] The sy stem which generated this result transmitted reference range : 4.30 - 11.10 10*3/?L. The reference range was not used to interpret this result as normal/abnormal . RBC (test code = See_Comment [Automated 774-8) message] The sy stem which generated this [...] RDW-SD (test code = 47.5 fL 39-49.9 58220-5) RDW-CV (test code = 13.8 % 12-15.5 788-0) PLT (test code = See_Comment [Automated 777-3) message] The sy stem which generated this result transmitted reference range : 166 - 358 10*3/ ?L. The reference r kwaku was not used to interpret this result as normal/abnormal . MPV (test code = 9.6 fL 9.5-12.9 73035-8) NRBC/100 WBC (test See_Comment [Automat ed code = 4413806898) message] The system which generated this result transmitted reference range : 0.0 - 10.0 /100 WBCs. The refer ence range was not u sed to interpret th is result as normal/abnormal . NRBC x10^3 (test code <0.01 See_Comment [Auto mated = 1278915591) message] The s ystem which generated this result transmitted reference range : 10*3/?L. The reference range was not used to interpret this result as normal/abnormal . GRAN MAT (NEUT) % 54.6 % (test code = 770-8) IMM GRAN % (test code 0.40 % = 5130057952) LYMPH % (test code = 30.3 % 736-9) MONO % (test code = 12.3 % 5905-5) EOS % (test code = 1.6 % 713-8) BASO % (test code = 0.8 % 706-2) GRAN MAT x10^3(ANC) 5.07 10*3/uL 1.88-7.09 (test code = 0718428859) IMM GRAN x10^3 (test 0.04 10*3/uL 0-0.06 code = 2684735830) LYMPH x10^3 (test code 2.81 10*3/uL 1.32-3.29 = 731-0) MONO x10^3 (test code 1.14 10*3/uL 0.33-0.92 H = 742-7) EOS x10^3 (test code = 0.15 10*3/uL 0.03-0.39 711-2) BASO x10^3 (test code 0.07 10*3/uL 0.01-0.07 = 704-7) Lab Interpretation Abnormal (test code = 34925-2) [facility] [id number] 01:41:00 Test Item Value Reference Range Interpretation Comments POCT PREG (test code = 1605) Negative On board controls acceptable with Present C Line (test code = 3574) POCT PREG LOT # (test code = HCG [id number]) POCT PREG TEST DATE (test 08/31/2022 code = 3576) Lab Interpretation (test code = Normal 12717-3) [facility] [id number] 18:13:13CT Abdomen and Pelvis with intravenous contrast. CLINICAL HISTORY: Abdominal infection including peritonitis. DOSE: Up-to-date CT equipment and radiation dose reduction techniques wereemployed. CTDIvol: 16.17 mGy. DLP: 889 mGy-cm. TECHNIQUE : Contiguous axial imaging from the level of the lung basesthr ough the pubic symphysis were performed after the uncomplicatedadministration of Omnipaque contrast material. Coronal and sagittalreconstructions were obtained. Auto mA and/or iterative reconstruction wereused to reduce radiation dose. FINDINGS: Comparison is made with 04/09/2020 study. Lower lungs: Clear. Previously described focal opacity in the right lowerlung is not appreciated at the current time.No pleural effusion orpericardial effusion. Liver, Gallbladder and Spleen: Liver is enlarged, measuring 19 cm inlength. Cholecystectomy noted. There is mild generalized dilatation of theintrahepatic aswell as extrahepatic bile duct. Pancreatic duct is notdilated. Spleen measures 11.5 x 5 cm. Peritoneum: ?No free air or free fluid. No lymphadenopathy. Pancreas and Adrenals: ?Unremarkable pancreas. 21mm right adrenal glandnodule is unchanged. There is mild hypertrophy noted in the lateral limb oftheleft adrenal gland. Kidneys and Ureters: ?No visible calculi in the renal collecting systems. No hydroureter or hydronephrosis. Vessels: Normal. Retroperitoneum: No abnormal fluid or lymphadenopathy. Bowel: Generalized diverticulosis of the large bowel without any acutechanges. Normal appendix is visualized. Small bowel gas pattern isunremarkable. Bladder and Reproductive Organs: Slightly enlarged left ovary due tomultiple cysts including one corpus luteum of 14 mm size. Multiple smallcystic lesionsalso noted in the right ovary, consistent with physiologicchanges. Grossly unremarkable unopacified urinary bladder. Bones: Unremarkable. Soft tissues: Unremarkable. CONCLUSION:1. No acute intra-abdominal or pelvic abnormalities.2. Mild hepatomegaly. S/P cholecystectomy. Mild generalized dilatation ofthe biliary ducts could be secondary to cholecystectomy.3. Stable right adrenal gland nodule.4. Bilateral cystic lesions in the ovaries, consistent with physiologicchanges. [facility], Radiant Results Inft User - 09/27/2020 1:14 PM CDTCT Abdomen and Pelvis with intravenous contrast.CLINICAL HISTORY: Abdominal infection including peritonitis.DOSE: Up-to-date CT equipment and radiation dose reduction techniques wereemployed. CTDIvol: 16.17 mGy. DLP: 889 mGy-cm.TECHNIQUE : Contiguous axial imaging from the level of the lung basesthrough the pubic symphysis were performed after the uncomplicatedadministrationof Omnipaque contrast material. Coronal and sagittalreconstructions were obtained. Auto mA and/or iterative reconstruction wereused to reduce radiation dose.FINDINGS: Comparison is made with 04/09/2020 [facility].Lower lungs: Clear. Previously described focal opacity in the right lowerlung is not appreciatedat the current time. No pleural effusion orpericardial effusion.Liver, Gallbladder and Spleen: Liveris enlarged, measuring 19 cm inlength. Cholecystectomy noted. [...] Small bowel gas pattern isunremarkable.Bladder and Reproductive Organs: Slightly enlarged left ovary [...] cystic lesions in the ovaries, consistent with physiologicchanges.[facility] [id number] 17:18:00 Test Item Value Reference Range Interpretation Comments NA (test code = 136 mmol/L 135-145 2419478092) K (test code = 4.4 mmol/L 3.5-5 1013827573) CL (test code = 108 mmol/L 98-108 6654647339) CO2 TOTAL (test code = 25 mmol/L 23-31 9887717077) AGAP (test code = 2-16 4642592091) BUN (test code = 7 mg/dL 7-23 2694014350) GLUCOSE (test code = 105 mg/dL 70-110 9801367071) CREATININE (test code 0.57 mg/dL 0.5-1.04 = 8060917705) TOTAL BILI (test code 0.6 mg/dL 0.1-1.1 = 8345828717) CALCIUM (test code = 9.0 mg/dL 8.6-10.6 5687049174) T PROTEIN (test code = 6.5 g/dL 6.3-8.2 4337971176) ALBUMIN (test code = 3.9 g/dL 3.5-5 7641068611) ALK PHOS (test code = 58 U/L 34-122 3598260741) ALTv (test code = 15 U/L 5-35 1742-6) AST(SGOT) (test code = 25 U/L 13-40 3544559053) eGFR Calculation mL/min/1.73m2 (Non-) (test code = 1366360007) eGFR Calculation mL/min/1.73m2 () (test code = 8732935116) PATT (test code = PATT) Association of [...] or urine or abnormalities in imaging tests). [facility] CenterLip[facility], [id number] 17:17:00 Test Item Value Reference Range Interpretation Comments LIPASE (test code = 9789385504) 352 U/L 0-220 H Lab Interpretation (test code = Abnormal 33065-4) [facility] CenterUrinalysis2020-[facility] 17:16:00 Test Item Value Reference Range Interpretation Comments APPEARANCE (test code = Clear Clear 6333207651) COLOR (test code = Pale Yellow Yellow A 0323144108) PH (test code = 4.8-8.0 6837955560) SP GRAVITY (test code = 1.003-1.030 0363867024) GLU U QUAL (test code = Negative Negative 6945778963) BLOOD (test code = Negative Negative 8246574685) KETONES (test code = Negative Negative 5277211613) PROTEIN (test code = Negative Negative 2887-8) UROBILIN (test code = 0.2 mg/dL See_Comment [Auto mated 7135449794) message] The sy stem which generated this result transmitted reference range : 0-1.0 mg/dL. Th e reference range was not used to interpret this result as normal/abnormal . BILIRUBIN (test code = Negative Negative 8741607033) NITRITE (test code = Negative Negative 2243763210) LEUK RACHAEL (test code = Negative Negative 4980787353) RBC/HPF (test code = See_Comment [Autom ated 7877720579) message] The sy stem which generated this result transmitted reference range : 0 - 3 HPF. The reference range was not used to interpret this result as normal/abnormal . WBC/HPF (test code = See_Comment [Autom ated 2945862848) message] The sy stem which generated this result transmitted reference range : 0 - 5 HPF. The reference range was not used to interpret this result as normal/abnormal . BACTERIA (test code = Few Negative A 2623532629) MUCOUS (test code = Slight Negative LPF A 6507358831) AMORPHOUS (test code = Few Rare HPF A 0550025230) SQ EPITH (test code = HPF 2111883420) Lab Interpretation Abnormal (test code = 92619-4) [facility] with [id number] 16:34:00 Test Item Value Reference Range Interpretation Comments WBC (test code = See_Comment [Automated message] 6690-2) The system Bevalley generated this result transmitted ref erence range: 4.30 - 1 1.10 10*3/?L. The re ference range was not u sed to interpret this result as normal/abnor mal. RBC (test code = See_Comment [Automated message] 459-8) The system Bevalley generated this result transmitted ref erence range: [...] RDW-SD (test code 42.7 fL 39-49.9 = 12457-2) RDW-CV (test code 13.1 % 12-15.5 = 788-0) PLT (test code = See_Comment [Automated message] 777-3) The system whic h generated this result transmitted ref erence range: 166 - 35 8 10*3/?L. The re ference range was not u sed to interpret this result as normal/abnor mal. MPV (test code = 9.9 fL 9.5-12.9 38840-3) NRBC/100 WBC (test See_Comment [Automat ed message] code = 1316751916) The syste m which generated this result transmitted ref erence range: 0.0 - 10 .0 /100 WBCs. The refer ence range was not u sed to interpret this result as normal/abnor mal. NRBC x10^3 (test <0.01 See_Comment [Automated message] code = 6220292036) The syste m which generated this result transmitted ref erence range: 10*3/?L. The reference range was not used to interpr et this result as normal/abnormal . GRAN MAT (NEUT) % 58.9 % (test code = 770-8) IMM GRAN % (test 0.10 % code = 7886295841) LYMPH % (test code 29.6 % = 736-9) MONO % (test code 8.6 % = 5905-5) EOS % (test code = 2.3 % 713-8) BASO % (test code 0.5 % = 706-2) GRAN MAT 5.94 10*3/uL 1.88-7.09 x10^3(ANC) (test code = 5457984473) IMM GRAN x10^3 <0.03 0-0.06 (test code = 0196425755) LYMPH x10^3 (test 2.99 10*3/uL 1.32-3.29 code = 731-0) MONO x10^3 (test 0.87 10*3/uL 0.33-0.92 code = 742-7) EOS x10^3 (test 0.23 10*3/uL 0.03-0.39 code = 711-2) BASO x10^3 (test 0.05 10*3/uL 0.01-0.07 code = 704-7) [facility] [id number] 16:22:00 Test Item Value Reference Range Interpretation Comments POCT PREG (test code = 1605) negative On board controls acceptable with present C Line (test code = 3574) POCT PREG LOT # (test code = 3575) [id number] POCT PREG TEST DATE (test 2022-03-01 code = 3576) Lab Interpretation (test code = Normal 17188-3) [facility] WO [id number] 21:25:29 No hydronephrosis or radiopaque nephrolithiasis. Right [...] wereobtained. ?Auto mA and/or iterative reconstruction were used to reduceradiation dose. FINDINGS: LOWER THORAX: A focal opacity is noted in the right lower lobe (2:9). LIVER: The liver is enlarged measuring approximately 20 cm craniocaudally. GALLBLADDER AND BILIARY TREE: Prior cholecystectomy. No intra orextrahepatic biliary ductal dilatation. SPLEEN: Unremarkable. PANCREAS: No ductal dilation or masses. ADRENAL GLANDS: Right adrenal nodule measuring 2.1 cm withaverage centraldensity of 14 Hounsfield units. Left adrenal is unremarkable. KIDNEYS: No hydronephrosis, stones, or masses. PERITONEUM AND RETROPERITONEUM: No free air or fluid collection. LYMPH NODES:No intra-abdominal or pelvic lymph node enlargement. GI TRACT: No dilation or bowel wall thickening.Appendix is normal. PELVIS/BLADDER: Bladder is distended with [...] of contrast. Coronal and sagittal reconstructions wereobtained. Auto mA and/or iterative reconstruction were used to reduceradiation dose.FINDINGS:LOWER THORAX: A focal opacity is noted in the right lower lobe (2:9).LIVER: The liver is enlarged measuring approximately 20 cm craniocaudally.GALLBLADDER AND BILIARY TREE: Prior cholecystectomy. No intra orextrahepatic biliary ductal dilatation.SPLEEN: Unremarkable.PANCREAS: No ductal dilation or masses.ADRENAL GLANDS: Right adrenal nodule measuring 2.1 cm with averagecentraldensity of 14 Hounsfield units. Left adrenal is unremarkable.KIDNEYS: No hydronephrosis, stones, or masses.PERITONEUM AND RETROPERITONEUM: No free air or fluid collection.LYMPH NODES: No intra-abdominal or pelvic lymph node enlargement.GI TRACT: No dilation or bowel wall thickening. Appendix isnormal.PELVIS/BLADDER: Bladder is distended with no wall thickening. 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 Attention to follow-up exam is recommended to document two-yearstability.Focal opacity in the right lower lobe is nonspecific, possibly related toatelectasis versus an early infectious or inflammatory process. Recommend afollow-up chest CT in 6 monthsto ensure resolution.Preliminary Report Dictated by Resident: Odell Escalante MD., have reviewed this study and agree with the abovereport.[facility] Center[facility]IN[facility]IS2020-[facility]-09 19:13:00 Test Item Value Reference Range Interpretation Comments APPEARANCE (test code = Hazy Clear A 5382887004) COLOR (test code = Yellow Yellow 6678568404) PH (test code = 4.8-8.0 9275425922) SP GRAVITY (test code = 1.003-1.030 H 7264733822) GLU U QUAL (test code = Normal Normal 5490058911) BLOOD (test code = 3+ Negative A 2319223789) KETONES (test code = Negative Negative 2890744666) PROTEIN (test code = Negative Negative 2887-8) UROBILIN (test code = Normal Normal 2968108266) BILIRUBIN (test code = Negative Negative 5282807391) NITRITE (test code = Negative Negative 1813024742) LEUK RACHAEL (test code = Negative Negative 6783962759) RBC/HPF (test code = See_Comment H [Autom ated message] 6367373132) The system Bevalley generated this result transmitted ref erence range: 0 - 3 HP F. The reference range was not used to int erpret this result as normal/abnormal . WBC/HPF (test code = See_Comment [Autom ated message] 1892881014) The system Bevalley generated this result transmitted ref erence range: 0 - 5 HP F. The reference range was not used to int erpret this result as normal/abnormal . BACTERIA (test code = Negative Negative 6291367614) MUCOUS (test code = Slight Negative LPF A 2551755807) SQ EPITH (test code = HPF 7534237151) Lab Interpretation (test Abnormal code = 58919-4) [facility]. METABOLIC PANEL (26389)2020-04-09 18:52:00 Test Item Value Reference Range Interpretation Comments NA (test code = 140 mmol/L 135-145 8503243489) K (test code = 4.2 mmol/L 3.5-5 9908297726) CL (test code = 108 mmol/L 98-108 3756754365) CO2 TOTAL (test code = 25 mmol/L 23-31 5911087938) AGAP (test code = 2-16 8372875604) BUN (test code = 13 mg/dL 7-23 4740454213) GLUCOSE (test code = 97 mg/dL 70-110 9704413924) CREATININE (test code 0.98 mg/dL 0.5-1.04 = 7702055279) TOTAL BILI (test code 0.1 mg/dL 0.1-1.1 = 6312537196) CALCIUM (test code = 9.2 mg/dL 8.6-10.6 0764790660) T PROTEIN (test code = 6.8 g/dL 6.3-8.2 3217211993) ALBUMIN (test code = 4.1 g/dL 3.5-5 9173880493) ALK PHOS (test code = 68 U/L 34-122 3915446041) ALTv (test code = 19 U/L 5-35 1742-6) AST(SGOT) (test code = 24 U/L 13-40 0194360572) eGFR Calculation mL/min/1.73m2 (Non-) (test code = 7888901754) eGFR Calculation mL/min/1.73m2 () (test code = 5165397557) PATT (test code = PATT) Association of [...] or urine or abnormalities in imaging tests). [facility] WITH [id number] 18:40:00 Test Item Value Reference Range Interpretation [...] RDW-SD (test code = 43.3 fL 39-49.9 88930-2) RDW-CV (test code = 12.8 % 12-15.5 788-0) PLT (test code = See_Comment H [Automated 777-3) message] The sy stem which generated this result transmitted reference range : 166 - 358 10*3/ ?L. The reference r kwaku was not used to interpret this result as normal/abnormal . MPV (test code = 9.6 fL 9.5-12.9 97178-3) NRBC/100 WBC (test See_Comment [Automat ed code = 8732986053) message] The system which generated this result transmitted reference range : 0.0 - 10.0 /100 WBCs. The refer ence range was not u sed to interpret th is result as normal/abnormal . NRBC x10^3 (test code <0.01 See_Comment [Auto mated = 3688084325) message] The s ystem which generated this result transmitted reference range : 10*3/?L. The reference range was not used to interpret this result as normal/abnormal . GRAN MAT (NEUT) % 61.2 % (test code = 770-8) IMM GRAN % (test code 0.40 % = 4734417796) LYMPH % (test code = 25.5 % 736-9) MONO % (test code = 9.3 % 5905-5) EOS % (test code = 2.9 % 713-8) BASO % (test code = 0.7 % 706-2) GRAN MAT x10^3(ANC) 7.09 10*3/uL 1.88-7.09 (test code = 4351985656) IMM GRAN x10^3 (test 0.05 10*3/uL 0-0.06 code = 7559332445) LYMPH x10^3 (test code 2.95 10*3/uL 1.32-3.29 = 731-0) MONO x10^3 (test code 1.08 10*3/uL 0.33-0.92 H = 742-7) EOS x10^3 (test code = 0.34 10*3/uL 0.03-0.39 711-2) BASO x10^3 (test code 0.08 10*3/uL 0.01-0.07 H = 704-7) Lab Interpretation Abnormal (test code = 57088-2) [facility] CenterPOCT [id number] 18:19:00 Test Item Value Reference Range Interpretation Comments POCT PREG (test code = 1605) negative On board controls acceptable with C present Line (test code = 3574) Lab Interpretation (test code = Normal 01002-5) [facility] CenterUrinalysis2020-01-18 21:59:00 Test Item Value Reference Range Interpretation Comments APPEARANCE (test code = Clear Clear 1972829453) COLOR (test code = Straw Yellow A 1463055115) PH (test code = 4.8-8.0 3821997068) SP GRAVITY (test code = 1.003-1.030 3225438924) GLU U QUAL (test code = Normal Normal 3124542602) BLOOD (test code = 1+ Negative A 2328182428) KETONES (test code = 20 mg/dL Negative A 5282650654) PROTEIN (test code = Negative Negative 2887-8) UROBILIN (test code = Normal Normal 9731402481) BILIRUBIN (test code = Negative Negative 7367939864) NITRITE (test code = Negative Negative 7439625020) LEUK RACHAEL (test code = Negative Negative 3793127485) RBC/HPF (test code = See_Comment [Autom ated message] 3617200198) The system Bevalley generated this result transmitted ref erence range: 0 - 3 HP F. The reference range was not used to int erpret this result as normal/abnormal . WBC/HPF (test code = <1 See_Comment [Autom ated message] 1174792470) The system Bevalley generated this result transmitted ref erence range: 0 - 5 HP F. The reference range was not used to int erpret this result as normal/abnormal . BACTERIA (test code = Few Negative A 9278416299) SQ EPITH (test code = HPF 9658084649) Lab Interpretation (test Abnormal code = 48264-5) [facility] W [id number] 21:42:26 1. No acute inflammatory changes or signs of bowel obstruction.2. No signs of kidney stones or hydronephrosis.3. 3. A 1.7 cm right adrenal gland nodule is noted. Comparisons priorstudies/reports is recommended. AFC: 84180.RL: 86702. Ordering Physician: Katalina Lewis History: Abdominal pain. [...] Results Inft User - 12/19/2019 3:43 PM [facility] Physician: Katalina LewisHistory: Abdominal pain.Comparison Study: None. Technique: Abdomen and pelvis CT with intravenous contrast. CT scan doneaccording to ALARA (As Low as Reasonably Achievable).Findings: Lungs: No infiltrates or effusions. No pneumothorax. No pulmonary nodulesor masses.Cardio vascular: Heart is not enlarged. Aorta and IVC are unremarkable.Liver: Normal.Gallbladder: Surgically absent.Pancreas: Normal.Spleen: Normal.Kidneys: Normal. Adrenal glands: A 1.8 cm heterogeneous nodule involves the right adrenalgland with Hounsfield units in the 70s. Left adrenal gland is unremarkabl e.Bowel: Normal stomach. Normal small bowel. Normal appendix. Normal colon.Free air or free fluid: None.Lymphadenopathy: None.Reproductive organs: Uterus and adnexal structures are unremarkable.Urinarybladder: Normal.Groins: No signs of hernia or lymphadenopathy.Bones and soft tissues: Bones are unremarkable. Soft tissues areunremarkable.IMPRESSION1. No acute inflammatory changes or signs of bowel obstruction.2. No signs of kidney stones or hydronephrosis.3. 3. A 1.7 cm right adrenal gland nodule is noted. Comparisons priorstudies/reports is recommended.AFC: 13543.RL: 22460. [facility] 2019-12-19 21:13:00 Test Item Value Reference Range Interpretation Comments NA (test code = 139 mmol/L 135-145 2570024821) K (test code = 4.1 mmol/L 3.5-5 9283735166) CL (test code = 106 mmol/L 98-108 3633745734) CO2 TOTAL (test code = 25 mmol/L 23-31 1107244199) AGAP (test code = 2-16 0993245474) BUN (test code = 12 mg/dL 7-23 1841478978) GLUCOSE (test code = 102 mg/dL 70-110 8495613193) CREATININE (test code 0.63 mg/dL 0.5-1.04 = 9841663376) TOTAL BILI (test code 0.4 mg/dL 0.1-1.1 = 0626768345) CALCIUM (test code = 9.8 mg/dL 8.6-10.6 8423545467) T PROTEIN (test code = 7.9 g/dL 6.3-8.2 2369633739) ALBUMIN (test code = 4.6 g/dL 3.5-5 0541793870) ALK PHOS (test code = 78 U/L 34-122 0251397833) ALTv (test code = 19 U/L 5-35 1742-6) AST(SGOT) (test code = 22 U/L 13-40 2874827367) eGFR Calculation mL/min/1.73m2 (Non-) (test code = 1764728135) eGFR Calculation mL/min/1.73m2 () (test code = 2365689542) PATT (test code = PATT) Association of [...] or urine or abnormalities in imaging tests). [facility] CenterLipase, [id number] 21:13:00 Test Item Value Reference Range Interpretation Comments LIPASE (test code = 7431662756) 22 U/L 0-220 Lab Interpretation (test code = Normal 22143-8) [facility] CenterCBC WITH [id number] 20:58:00 Test Item Value Reference Range Interpretation [...] RDW-SD (test code = 41.2 fL 39-49.9 45826-0) RDW-CV (test code = 12.2 % 12-15.5 788-0) PLT (test code = See_Comment H [Automated 777-3) message] The sy stem which generated this result transmitted reference range : 166 - 358 10*3/ ?L. The reference r kwaku was not used to interpret this result as normal/abnormal . MPV (test code = 9.8 fL 9.5-12.9 01570-5) NRBC/100 WBC (test See_Comment [Automat ed code = 7323782402) message] The system which generated this result transmitted reference range : 0.0 - 10.0 /100 WBCs. The refer ence range was not u sed to interpret th is result as normal/abnormal . NRBC x10^3 (test code <0.01 See_Comment [Auto mated = 7772990457) message] The s ystem which generated this result transmitted reference range : 10*3/?L. The reference range was not used to interpret this result as normal/abnormal . GRAN MAT (NEUT) % 64.0 % (test code = 770-8) IMM GRAN % (test code 0.40 % = 7204426867) LYMPH % (test code = 26.3 % 736-9) MONO % (test code = 7.2 % 5905-5) EOS % (test code = 1.5 % 713-8) BASO % (test code = 0.6 % 706-2) GRAN MAT x10^3(ANC) 7.19 10*3/uL 1.88-7.09 H (test code = 0623309995) IMM GRAN x10^3 (test 0.04 10*3/uL 0-0.06 code = 1292880398) LYMPH x10^3 (test code 2.96 10*3/uL 1.32-3.29 = 731-0) MONO x10^3 (test code 0.81 10*3/uL 0.33-0.92 = 742-7) EOS x10^3 (test code = 0.17 10*3/uL 0.03-0.39 711-2) BASO x10^3 (test code 0.07 10*3/uL 0.01-0.07 = 704-7) Lab Interpretation Abnormal (test code = 48605-7) [facility]
--- NOTE | 2023-09-22 14:03 | RAD REPORT ---
EXAM DESCRIPTION: CT - [facility] - 09/22/2023 1:49 pm CLINICAL HISTORY: Trauma, head and neck injury. seizure, fall, head and neck injury COMPARISON: Soft Tissue Neck W/Contr dated 10/07/2018; Soft Tissue Neck W/Contr dated 07/17/2016 TECHNIQUE: Axial 5 mm thick images of the head were obtained. Axial 2 mm thick images of the cervical spine were obtained with sagittal and coronal reconstruction images generated and reviewed. All CT scans are performed using dose optimization technique as appropriate and may include automated exposure control or mA/KV adjustment according to patient size. FINDINGS: CT HEAD WITHOUT CONTRAST: No acute hemorrhage, hydrocephalus or extra-axial collection is identified.No areas of brain edema or midline shift. Chiari 1 malformation is likely present.This is difficult to confirm on sagittal give n artifact but there does appear to be crowding at the foramen magnum on axial. The paranasal sinuses and mastoids are clear.The calvarium is intact. CT CERVICAL SPINE WITHOUT CONTRAST: No fracture or subluxation.No prevertebral soft tissues swelling is identified. IMPRESSION: No acute intracranial or cervical spine findings. 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 Nonemergent MRI could confirm.
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
== END 2023-09-22 15:00 | disposition home or self-care (01) ==
LOC: ER 12:48
DX: G40.509 Epileptic seizures related to external causes, not intractable, without status epilepticus (principal); S09.90XA Unspecified injury of head, initial encounter; Z88.0 Allergy status to penicillin; Z88.8 Allergy status to other drugs, medicaments and biological substances
CPT/HCPCS: 70450; 72125; 99283

== ENCOUNTER → 2024-01-23 | Emergency (ER) | payer OTHER ==
[~2024-01-23] MED LIST: DIPHENOX/ATROP SULF 1 TAB PO ONE; ONDANSETRON 4 MG (ODT) TAB ONE
--- OUTSIDE RECORDS SUMMARY | 2024-01-23 08:18 | XMS REPORT | Continuity of Care Document ---
Author Name Unknown Address [address] [facility] Jose Alfredo. [address] [place] [address] [facility] thconnect Address [address] [facility]. [address] [place] [address] Care Team Providers Care Load Dispatcher Name Role Phone PCP, PATIENT DOES NOT HAVE A Primary Care Physic didi Unavailable VINCENT SOTO Attending Clinician Unavail able VINCENT SOTO Attending Clinician Unavail able Celena Gautam Attending Clinician [phone] RADIOLOGY Attending Clinician Unavailable Vincent Soto MD Attending Clinician [phone] Doctor Unassigned, [place] Attending Clinician U Carlos Talamantes Attending Clinician [phone] CARLOS STONER Attending Clinician UnavailRadha Licea Attending Clinician [phone] Daily Acosta Attending Clinician [phone] Willis Alas Attending Clinician + [phone] WILLIS WANG Attending Clinician Unavailable Adrian Guardado MD Attending Clinician [phone] Yarima MD, [place] S Attending Clinician + [phone] CARLOS STONER Admitting Clinician UnavailWILLIS Mccray Admitting Clinician Unavailable Payers Payer Name Policy Type Policy Number Effective Date Expirati on Date Source [employer] MEDICA[employer] [id number] 2014 00:00:00 Problems Condition Name Condition Details Condition Category Status Onset Date Resolution Date Last Treatment Date Treating Clinician Comments Source Drug-seeki ng behavior Drug-seeki ng behavior Disease Active 2016-12 00:00: 00 [facility] Obesity (BMI 30-39.9) Obesity (BMI 30-39.9) Disease Active 2015-12 00:00: 00 [facility] Allergies, Adverse Reactions, Alerts Allergy Name Allergy Type Status Severity Reaction(s) Onset Date Inactive Date Treating Clinician Comments Source Penicill in Propensi ty to adverse reaction s Active Swelling 02-17 00:00: 00 [facility] PENICILL IN DRUG INGREDI Active Swelling 02-17 00:00: 00 [facility] Penicill in Propensi ty to adverse reaction s Active Swelling 02-17 00:00: 00 [facility] Social History Social Habit Start Date Stop Date Quantity Comments Source Exposure to SARS-CoV-2 (event) Not sure [facility] History of tobacco use Cigarette Smoker [facility] Tobacco use and exposure 2021-04-21 00:00:00 2021-04-21 00:00:00 Never used [facility] Cigarettes smoked current (pack per day) - Reported 2021-04-21 00:00:00 2021-04-21 00:00:00 [facility] Cigarette pack-years 2021-04-21 00:00:00 2021-04-21 00:00:00 [facility] Alcohol intake 2021-04-21 00:00:00 2021-04-21 00:00:00 Current non-drinker of alcohol (finding) [facility] Sex Assigned At 1985 00:00:00 1985 00:00:00 [facility] Smoking Status Start Date Stop Date Source Current every day smoker 2021-04-21 00:00:00 [facility] Medications Ordered Medication Name Filled Medication Name Start Date Stop Date Current Medication? Ordering Clinician Indication Dosage Frequency Signature (SIG) Comments Components Source predniSONE 20 mg tablet 05-26 00:00: 00 05-30 04:59 :00 No [id number] 40mg Take 2 tablets by mouth daily for 3 days. [facility] ketorolac (TORADOL) injection 60 mg 05-25 17:45: 00 05-25 16:37 :00 No 60mg 60 mg, Intramuscu lar, ONCE, 1 dose, Karen 05/25/21 at 1245, FARIDA
Fa culty member approving Restricted medication : EMERGENCY ROOM, [facility] dexamethaso ne (DECADRON PHOSPHATE) injection 10 mg 05-25 17:30: 00 05-25 16:36 :00 No 10mg 10 mg, Intramuscu lar, ONCE, 1 dose, [facility] 05/25/21 at 1230, STAT [facility] ciprofloxac in-dexameth asone 0.3-0.1 % otic drops 05-25 00:00: 00 06-05 04:59 :00 No [id number] 4[drp] Place 4 Drops in left ear 2 (two) times daily for 10 days. [facility] ketorolac (TORADOL) injection 30 mg 04-21 18:15: 00 04-21 17:14 :00 No 30mg 30 mg, Slow IV Push, ONCE, 1 dose, Sat04/21/21 at 1315, FARIDA
Fa culty member approving Restricted medication : CARLOS STONER [facility] ondansetron (ZOFRAN-ODT ) disintegrat ing tablet 4 mg 04-21 18:15: 00 04-21 17:07 :00 No 4mg 4 mg, Oral, ONCE, 1 dose, Sat04/21/21 at 1315, Routine [facility] diphenhydrA MINE (BENADRYL) tablet 25 mg 2021-0 5-21 17:00: 00 04-21 17:03 :00 No 25mg 25 mg, Oral, ONCE, 1 dose, Sat04/21/21 at 1200, FARIDA [facility] dexamethaso ne (DECADRON PHOSPHATE) injection 10 mg 04-21 17:00: 00 04-21 17:02 :00 No 10mg 10 mg, Oral, ONCE, 1 dose, Sat04/21/21 at 1200, Routine [facility] albuterol (VENTOLIN) inhaler 2 Puff 04-21 17:00: 00 04-21 16:05 :00 No 2{puff} 2 Puff, Inhalation , ONCE, 1 dose, Sat04/21/21 at 1200, FARIDA
Is this order for a patient with suspected or confirmed COVID-19 infection? Yes [facility] benzonatate 100 mg capsule 04-21 00:00: 00 Yes [id number] 100mg Take 1 capsule by mouth 3 (three) times daily as needed for Cough. [facility] albuterol 90 mcg/actuati on inhaler 04-21 00:00: 00 Yes [id number] 2{puff} Inhale 2 Puffs every 4 (four) hours as needed for Wheezing or Shortness of Breath. [facility] benzonatate 100 mg capsule 04-21 00:00: 00 Yes [id number] 100mg Take 1 capsule by mouth 3 (three) times daily as needed for Cough. [facility] albuterol 90 mcg/actuati on inhaler 04-21 00:00: 00 Yes [id number] 2{puff} Inhale 2 Puffs every 4 (four) hours as needed for Wheezing or Shortness of Breath. [facility] benzonatate 100 mg capsule 04-21 00:00: 00 Yes [id number] 100mg Take 1 capsule by mouth 3 (three) times daily as needed for Cough. [facility] albuterol 90 mcg/actuati on inhaler 04-21 00:00: 00 Yes [id number] 2{puff} Inhale 2 Puffs every 4 (four) hours as needed for Wheezing or Shortness of Breath. [facility] benzonatate 100 mg capsule 04-21 00:00: 00 Yes [id number] 100mg Take 1 capsule by mouth 3 (three) times daily as needed for Cough. [facility] albuterol 90 mcg/actuati on inhaler 04-21 00:00: 00 Yes [id number] 2{puff} Inhale 2 Puffs every 4 (four) hours as needed for Wheezing or Shortness of Breath. [facility] dicyclomine (BENTYL) tablet 20 mg 01-14 03:30: 00 01-14 02:40 :00 No 20mg 20 mg, Oral, ONCE NOW, 1 dose, 01/13/21 at 2130, Routine [facility] NaCl 0.9% (NS) bolus infusion 1,000 mL 01-14 03:30: 00 01-14 04:06 :00 No 1000mL at 999 mL/hr, 1,000 mL, IV Infusion, ONCE, 1 dose, 01/13/21 at 2130, STAT [facility] ondansetron (ZOFRAN (PF)) injection 4 mg 01-14 03:30: 00 01-14 02:34 :00 No 4mg 4 mg, Slow IV Push, ONCE, 1 dose, 01/13/21 at 2130, Routine [facility] ondansetron (ZOFRAN ODT) 4 mg disintegrat ing tablet 01-13 00:00: 00 Yes [id number] 4mg Take 1 tablet by mouth every 8 (eight) hours as needed for Nausea and Vomiting (N/V). [facility] dicyclomine 20 mg tablet 01-13 00:00: 00 Yes [id number] 20mg Take 1 tablet by mouth 3 (three) times daily as needed for Abdominal pain. [facility] ondansetron (ZOFRAN ODT) 4 mg disintegrat ing tablet 01-13 00:00: 00 Yes [id number] 4mg Take 1 tablet by mouth every 8 (eight) hours as needed for Nausea and Vomiting (N/V). [facility] dicyclomine 20 mg tablet 01-13 00:00: 00 Yes [id number] 20mg Take 1 tablet by mouth 3 (three) times daily as needed for Abdominal pain. [facility] ondansetron (ZOFRAN ODT) 4 mg disintegrat ing tablet 01-13 00:00: 00 Yes [id number] 4mg Take 1 tablet by mouth every 8 (eight) hours as needed for Nausea and Vomiting (N/V). [facility] dicyclomine 20 mg tablet 01-13 00:00: 00 Yes [id number] 20mg Take 1 tablet by mouth 3 (three) times daily as needed for Abdominal pain. [facility] ondansetron (ZOFRAN ODT) 4 mg disintegrat ing tablet 01-13 00:00: 00 Yes [id number] 4mg Take 1 tablet by mouth every 8 (eight) hours as needed for Nausea and Vomiting (N/V). [facility] dicyclomine 20 mg tablet 01-13 00:00: 00 Yes [id number] 20mg Take 1 tablet by mouth 3 (three) times daily as needed for Abdominal pain. [facility] ondansetron (ZOFRAN ODT) 4 mg disintegrat ing tablet 01-13 00:00: 00 Yes [id number] 4mg Take 1 tablet by mouth every 8 (eight) hours as needed for Nausea and Vomiting (N/V). [facility] dicyclomine 20 mg tablet 01-13 00:00: 00 Yes [id number] 20mg Take 1 tablet by mouth 3 (three) times daily as needed for Abdominal pain. [facility] dicyclomine (BENTYL) capsule 20 mg 2019-12 20:00: 00 09-27 19:04 :00 No 20mg 20 mg, Oral, ONCE, 1 dose, Sat09/27/20 at 1500, Routine [facility] maalox:diph enhydrAMINE :lidocaine 2 % viscous 1:1:1 (FIRST-MOUT HWASH BLM) oral suspension 15 mL 2019-12 19:30: 00 09-27 18:25 :00 No 15mL 15 mL, Oral (Swish & Swallow), ONCE, 1 dose, 09/27/20 at 1430, Routine [facility] iohexol (OMNIPAQUE 350 BULK-150 mL) injection 120 mL 2019-12 18:15: 00 09-27 17:57 :00 No 120mL 120 mL, Intravenou s, ONCE, 1 dose, 09/27/20 at 1315, Routine [facility] ondansetron (ZOFRAN (PF)) injection 4 mg 2019-12 18:00: 00 09-27 16:56 :00 No 4mg 4 mg, Slow IV Push, ONCE, 1 dose, 09/27/20 at 1300, FARIDA [facility] morpHINE injection 4 mg 2019-12 18:00: 00 09-27 16:57 :00 No 4mg 4 mg, Slow IV Push, ONCE, 1 dose, 09/27/20 at 1300, STAT [facility] famotidine (PEPCID) 40 mg tablet 2019-12 00:00: 00 Yes [id number] 40mg Take 1 tablet by mouth daily. [facility] dicyclomine 20 mg tablet 2019-12 00:00: 00 Yes [id number] 20mg Take 1 tablet by mouth 4 (four) times daily. [facility] famotidine (PEPCID) 40 mg tablet 2019-12 00:00: 00 Yes [id number] 40mg Take 1 tablet by mouth daily. [facility] dicyclomine 20 mg tablet 2019-12 00:00: 00 Yes [id number] 20mg Take 1 tablet by mouth 4 (four) times daily. [facility] famotidine (PEPCID) 40 mg tablet 2019-12 00:00: 00 Yes [id number] 40mg Take 1 tablet by mouth daily. [facility] dicyclomine 20 mg tablet 2019-12 00:00: 00 Yes [id number] 20mg Take 1 tablet by mouth 4 (four) times daily. [facility] famotidine (PEPCID) 40 mg tablet 2019-12 00:00: 00 Yes [id number] 40mg Take 1 tablet by mouth daily. [facility] dicyclomine 20 mg tablet 2019-12 00:00: 00 Yes [id number] 20mg Take 1 tablet by mouth 4 (four) times daily. [facility] famotidine (PEPCID) 40 mg tablet 2019-12 00:00: 00 Yes [id number] 40mg Take 1 tablet by mouth daily. [facility] dicyclomine 20 mg tablet 2019-12 00:00: 00 Yes [id number] 20mg Take 1 tablet by mouth 4 (four) times daily. [facility] famotidine (PEPCID) 40 mg tablet 2019-12 00:00: 00 Yes [id number] 40mg Take 1 tablet by mouth daily. [facility] dicyclomine 20 mg tablet 2019-12 00:00: 00 Yes [id number] 20mg Take 1 tablet by mouth 4 (four) times daily. [facility] ondansetron (ZOFRAN (PF)) injection 4 mg 04-09 20:30: 00 04-09 20:01 :00 No 4mg 4 mg, Slow IV Push, ONCE, 1 dose, 04/09/20 at 1530, FARIDA [facility] FENTanyl PF (SUBLIMAZE (PF)) injection 50 mcg 04-09 20:30: 00 04-09 20:01 :00 No 50ug 50 mcg, Slow IV Push, ONCE, 1 dose, 04/09/20 at 1530, Routine [facility] ketorolac (TORADOL) injection 15 mg 04-09 19:30: 00 04-09 18:27 :00 No 15mg 15 mg, Slow IV Push, ONCE, 1 dose, 04/09/20 at 1430, Routine
member of the legislative assembly approving Restricted medication : WILLIS WANG [facility] mg tablet 04-09 00:00: 00 Yes [id number] 800mg Take 1 tablet by mouth every 6 (six) hours as needed for Pain (scale 4-6). [facility] tra[facility] 50 mg tablet 04-09 00:00: 00 Yes [id number] 50mg Take 1 tablet by mouth every 6 (six) hours as needed for Pain (scale 7-10). [facility] 800 mg tablet 04-09 00:00: 00 Yes [id number] 800mg Take 1 tablet by mouth every 6 (six) hours as needed for Pain (scale 4-6). [facility] traMADol 50 mg tablet 04-09 00:00: 00 Yes [id number] 50mg Take 1 tablet by mouth every 6 (six) hours as needed for Pain (scale 7-10). [facility] mg tablet 04-09 00:00: 00 Yes [id number] 800mg Take 1 tablet by mouth every 6 (six) hours as needed for Pain (scale 4-6). [facility] traMADol 50 mg tablet 04-09 00:00: 00 Yes [id number] 50mg Take 1 tablet by mouth every 6 (six) hours as needed for Pain (scale 7-10). [facility] ibuprofen 800 mg tablet 04-09 00:00: 00 Yes [id number] 800mg Take 1 tablet by mouth every 6 (six) hours as needed for Pain (scale 4-6). [facility] traMADol 50 mg tablet 04-09 00:00: 00 Yes [id number] 50mg Take 1 tablet by mouth every 6 (six) hours as needed for Pain (scale 7-10). [facility] ibuprofen 800 mg tablet 04-09 00:00: 00 Yes [id number] 800mg Take 1 tablet by mouth every 6 (six) hours as needed for Pain (scale 4-6). [facility] tra[facility] mg tablet 04-09 00:00: 00 Yes [id number] 50mg Take 1 tablet by mouth every 6 (six) hours as needed for Pain (scale 7-10). [facility] ibuprofen 800 mg tablet 04-09 00:00: 00 Yes [id number] 800mg Take 1 tablet by mouth every 6 (six) hours as needed for Pain (scale 4-6). [facility] traMADol 50 mg tablet 04-09 00:00: 00 Yes [id number] 50mg Take 1 tablet by mouth every 6 (six) hours as needed for Pain (scale 7-10). [facility] ibuprofen 800 mg tablet 04-09 00:00: 00 Yes [id number] 800mg Take 1 tablet by mouth every 6 (six) hours as needed for Pain (scale 4-6). [facility] traMADol 50 mg tablet 04-09 00:00: 00 Yes [id number] 50mg Take 1 tablet by mouth every 6 (six) hours as needed for Pain (scale 7-10). [facility] ibuprofen 800 mg tablet 04-09 00:00: 00 Yes [id number] 800mg Take 1 tablet by mouth every 6 (six) hours as needed for Pain (scale 4-6). [facility] traMADol 50 mg tablet 04-09 00:00: 00 Yes [id number] 50mg Take 1 tablet by mouth every 6 (six) hours as needed for Pain (scale 7-10). [facility] ondansetron (ZOFRAN-ODT ) disintegrat ing tablet 4 mg 12-26 10:00: 00 12-26 08:58 :00 No 4mg 4 mg, Oral, ONCE, 1 dose, 12/26/19 at 0400, Routine [facility] ketorolac (TORADOL) injection 60 mg 12-26 09:45: 00 12-26 09:07 :00 No 60mg 60 mg, Intramuscu lar, ONCE, 1 dose, 12/26/19 at 0345, FARIDA
Fa culty member approving Restricted medication : ADRIAN GUARDADO [facility] FENTanyl PF (SUBLIMAZE (PF)) injection 50 mcg 12-26 09:45: 00 12-26 08:59 :00 No 50ug 50 mcg, Intramuscu lar, ONCE, 1 dose, 12/26/19 at 0345, Routine [facility] ofloxacin 0.3 % otic drops 12-26 00:00: 00 01-03 05:59 :00 No [id number] 5[drp] Place 5 Drops in left ear 2 (two) times daily for 7 days. [facility] ketorolac (TORADOL) injection 30 mg 12-19 22:00: 00 12-19 21:03 :00 No 30mg 30 mg, Slow IV Push, ONCE, 1 dose, 12/19/19 at 1600, Routine
member of the legislative assembly approving Restricted medication : KATALINA LEWIS [facility] iohexol (OMNIPAQUE 350 BULK-100 mL) injection 120 mL 12-19 21:30: 00 12-19 21:24 :00 No 120mL 120 mL, Intravenou s, ONCE, 1 dose, 12/19/19 at 1530, Routine [facility] dicyclomine 20 mg tablet 12-19 00:00: 00 Yes [id number] 20mg Take 1 tablet by mouth every 6 (six) hours as needed for Abdominal pain. [facility] ondansetron (ZOFRAN) 4 mg tablet 12-19 00:00: 00 Yes [id number] 4mg Take 1 tablet by mouth every 8 (eight) hours as needed for Nausea and Vomiting (N/V). [facility] phenazopyri dine 200 mg tablet 12-19 00:00: 00 Yes [id number] 200mg Take 1 tablet by mouth 3 (three) times daily. [facility] dicyclomine 20 mg tablet 12-19 00:00: 00 Yes [id number] 20mg Take 1 tablet by mouth every 6 (six) hours as needed for Abdominal pain. [facility] ondansetron (ZOFRAN) 4 mg tablet 2020-0 -18 00:00: 00 Yes [id number] 4mg Take 1 tablet by mouth every 8 (eight) hours as needed for Nausea and Vomiting (N/V). [facility] phenazopyri dine 200 mg tablet 2019-0 -18 00:00: 00 Yes [id number] 200mg Take 1 tablet by mouth 3 (three) times daily. [facility] dicyclomine 20 mg tablet 2019-0 -18 00:00: 00 Yes [id number] 20mg Take 1 tablet by mouth every 6 (six) hours as needed for Abdominal pain. [facility] ondansetron (ZOFRAN) 4 mg tablet 2019-0 -18 00:00: 00 Yes [id number] 4mg Take 1 tablet by mouth every 8 (eight) hours as needed for Nausea and Vomiting (N/V). [facility] phenazopyri dine 200 mg tablet 2019-0 18 00:00: 00 Yes [id number] 200mg Take 1 tablet by mouth 3 (three) times daily. [facility] dicyclomine 20 mg tablet 2019-0 -18 00:00: 00 Yes [id number] 20mg Take 1 tablet by mouth every 6 (six) hours as needed for Abdominal pain. [facility] ondansetron (ZOFRAN) 4 mg tablet 2019-0 18 00:00: 00 Yes [id number] 4mg Take 1 tablet by mouth every 8 (eight) hours as needed for Nausea and Vomiting (N/V). [facility] phenazopyri dine 200 mg tablet 2019-0 -18 00:00: 00 Yes [id number] 200mg Take 1 tablet by mouth 3 (three) times daily. [facility] dicyclomine 20 mg tablet 2020-0 -18 00:00: 00 Yes [id number] 20mg Take 1 tablet by mouth every 6 (six) hours as needed for Abdominal pain. [facility] ondansetron (ZOFRAN) 4 mg tablet 2020-0 -18 00:00: 00 Yes [id number] 4mg Take 1 tablet by mouth every 8 (eight) hours as needed for Nausea and Vomiting (N/V). [facility] phenazopyri dine 200 mg tablet 2020-0 -18 00:00: 00 Yes [id number] 200mg Take 1 tablet by mouth 3 (three) times daily. [facility] dicyclomine 20 mg tablet 2020-0 -18 00:00: 00 Yes [id number] 20mg Take 1 tablet by mouth every 6 (six) hours as needed for Abdominal pain. [facility] ondansetron (ZOFRAN) 4 mg tablet 2019-0 -18 00:00: 00 Yes [id number] 4mg Take 1 tablet by mouth every 8 (eight) hours as needed for Nausea and Vomiting (N/V). [facility] phenazopyri dine 200 mg tablet 2019-0 -18 00:00: 00 Yes [id number] 200mg Take 1 tablet by mouth 3 (three) times daily. [facility] dicyclomine 20 mg tablet 2019-0 -18 00:00: 00 Yes [id number] 20mg Take 1 tablet by mouth every 6 (six) hours as needed for Abdominal pain. [facility] ondansetron (ZOFRAN) 4 mg tablet 2019-0 18 00:00: 00 Yes [id number] 4mg Take 1 tablet by mouth every 8 (eight) hours as needed for Nausea and Vomiting (N/V). [facility] phenazopyri dine 200 mg tablet 2019-0 18 00:00: 00 Yes [id number] 200mg Take 1 tablet by mouth 3 (three) times daily. [facility] dicyclomine 20 mg tablet 2020-0 -18 00:00: 00 Yes [id number] 20mg Take 1 tablet by mouth every 6 (six) hours as needed for Abdominal pain. [facility] ondansetron (ZOFRAN) 4 mg tablet 2019-0 -18 00:00: 00 Yes [id number] 4mg Take 1 tablet by mouth every 8 (eight) hours as needed for Nausea and Vomiting (N/V). [facility] phenazopyri dine 200 mg tablet 2020-0 -18 00:00: 00 Yes [id number] 200mg Take 1 tablet by mouth 3 (three) times daily. [facility] dicyclomine 20 mg tablet 12-19 00:00: 00 Yes [id number] 20mg Take 1 tablet by mouth every 6 (six) hours as needed for Abdominal pain. [facility] ondansetron (ZOFRAN) 4 mg tablet 12-19 00:00: 00 Yes [id number] 4mg Take 1 tablet by mouth every 8 (eight) hours as needed for Nausea and Vomiting (N/V). [facility] phenazopyri dine 200 mg tablet 12-19 00:00: 00 Yes [id number] 200mg Take 1 tablet by mouth 3 (three) times daily. [facility] dicyclomine 20 mg tablet 12-19 00:00: 00 Yes [id number] 20mg Take 1 tablet by mouth every 6 (six) hours as needed for Abdominal pain. [facility] ondansetron (ZOFRAN) 4 mg tablet 12-19 00:00: 00 Yes [id number] 4mg Take 1 tablet by mouth every 8 (eight) hours as needed for Nausea and Vomiting (N/V). [facility] phenazopyri dine 200 mg tablet 12-19 00:00: 00 Yes [id number] 200mg Take 1 tablet by mouth 3 (three) times daily. [facility] traMADol (ULTRAM) 50 mg tablet 2018-12 00:00: 00 Yes [id number] 50mg Take 1 tablet by mouth every 8 (eight) hours as needed for Pain (scale 4-6). [facility] traMADol (ULTRAM) 50 mg tablet 2018-12 00:00: 00 Yes [id number] 50mg Take 1 tablet by mouth every 8 (eight) hours as needed for Pain (scale 4-6). [facility] traMADol (ULTRAM) 50 mg tablet 2018-12 00:00: 00 Yes [id number] 50mg Take 1 tablet by mouth every 8 (eight) hours as needed for Pain (scale 4-6). [facility] traMADol (ULTRAM) 50 mg tablet 2018-12 00:00: 00 Yes [id number] 50mg Take 1 tablet by mouth every 8 (eight) hours as needed for Pain (scale 4-6). [facility] traMADol (ULTRAM) 50 mg tablet 2018-12 00:00: 00 Yes [id number] 50mg Take 1 tablet by mouth every 8 (eight) hours as needed for Pain (scale 4-6). [facility] traMADol (ULTRAM) 50 mg tablet 2018-12 00:00: 00 Yes [id number] 50mg Take 1 tablet by mouth every 8 (eight) hours as needed for Pain (scale 4-6). [facility] traMADol (ULTRAM) 50 mg tablet 2018-12 00:00: 00 Yes [id number] 50mg Take 1 tablet by mouth every 8 (eight) hours as needed for Pain (scale 4-6). [facility] traMADol (ULTRAM) 50 mg tablet 2018-12 00:00: 00 Yes [id number] 50mg Take 1 tablet by mouth every 8 (eight) hours as needed for Pain (scale 4-6). [facility] traMADol (ULTRAM) 50 mg tablet 2018-12 00:00: 00 Yes [id number] 50mg Take 1 tablet by mouth every 8 (eight) hours as needed for Pain (scale 4-6). [facility] traMADol (ULTRAM) 50 mg tablet 2018-12 00:00: 00 Yes [id number] 50mg Take 1 tablet by mouth every 8 (eight) hours as needed for Pain (scale 4-6). [facility] albuterol 90 mcg/actuati on inhaler 2018-12 00:00: 00 Yes [id number] 2{puff} Inhale 2 Puffs every 4 (four) hours as needed for Wheezing or Shortness of Breath. [facility] benzonatate 100 mg capsule 2018-12 00:00: 00 Yes [id number] 100mg Take 1 capsule by mouth 3 (three) times daily as needed for Cough. [facility] albuterol 90 mcg/actuati on inhaler 2018-12 00:00: 00 Yes [id number] 2{puff} Inhale 2 Puffs every 4 (four) hours as needed for Wheezing or Shortness of Breath. [facility] benzonatate 100 mg capsule 2018-12 00:00: 00 Yes [id number] 100mg Take 1 capsule by mouth 3 (three) times daily as needed for Cough. [facility] albuterol 90 mcg/actuati on inhaler 2018-12 00:00: 00 Yes [id number] 2{puff} Inhale 2 Puffs every 4 (four) hours as needed for Wheezing or Shortness of Breath. [facility] benzonatate 100 mg capsule 2018-12 00:00: 00 Yes [id number] 100mg Take 1 capsule by mouth 3 (three) times daily as needed for Cough. [facility] albuterol 90 mcg/actuati on inhaler 2018-12 00:00: 00 Yes [id number] 2{puff} Inhale 2 Puffs every 4 (four) hours as needed for Wheezing or Shortness of Breath. [facility] benzonatate 100 mg capsule 2018-12 00:00: 00 Yes [id number] 100mg Take 1 capsule by mouth 3 (three) times daily as needed for Cough. [facility] albuterol 90 mcg/actuati on inhaler 2018-12 00:00: 00 Yes [id number] 2{puff} Inhale 2 Puffs every 4 (four) hours as needed for Wheezing or Shortness of Breath. [facility] benzonatate 100 mg capsule 2018-12 00:00: 00 Yes [id number] 100mg Take 1 capsule by mouth 3 (three) times daily as needed for Cough. [facility] albuterol 90 mcg/actuati on inhaler 2018-12 00:00: 00 Yes [id number] 2{puff} Inhale 2 Puffs every 4 (four) hours as needed for Wheezing or Shortness of Breath. [facility] benzonatate 100 mg capsule 2018-12 00:00: 00 Yes [id number] 100mg Take 1 capsule by mouth 3 (three) times daily as needed for Cough. [facility]/actuati on inhaler 2018-12 00:00: 00 Yes [id number] 2{puff} Inhale 2 Puffs every 4 (four) hours as needed for Wheezing or Shortness of Breath. [facility] benzonatate 100 mg capsule 2018-12 00:00: 00 Yes [id number] 100mg Take 1 capsule by mouth 3 (three) times daily as needed for Cough. [facility] albuterol 90 mcg/actuati on inhaler 2018-12 00:00: 00 Yes [id number] 2{puff} Inhale 2 Puffs every 4 (four) hours as needed for Wheezing or Shortness of Breath. [facility] benzonatate 100 mg capsule 2018-12 00:00: 00 Yes [id number] 100mg Take 1 capsule by mouth 3 (three) times daily as needed for Cough. [facility] albuterol 90 mcg/actuati on inhaler 2018-12 00:00: 00 Yes [id number] 2{puff} Inhale 2 Puffs every 4 (four) hours as needed for Wheezing or Shortness of Breath. [facility] benzonatate 100 mg capsule 2018-12 00:00: 00 Yes [id number] 100mg Take 1 capsule by mouth 3 (three) times daily as needed for Cough. [facility] albuterol 90 mcg/actuati on inhaler 2018-12 00:00: 00 Yes [id number] 2{puff} Inhale 2 Puffs every 4 (four) hours as needed for Wheezing or Shortness of Breath. [facility] benzonatate 100 mg capsule 2018-12 00:00: 00 Yes [id number] 100mg Take 1 capsule by mouth 3 (three) times daily as needed for Cough. [facility] pantoprazol e 40 mg EC tablet 2018-12 00:00: 00 Yes [id number] 40mg Take 1 tablet by mouth daily. [facility] pantoprazol e 40 mg EC tablet 2018-12 00:00: 00 Yes [id number] 40mg Take 1 tablet by mouth daily. [facility] pantoprazol e 40 mg EC tablet 2018-12 00:00: 00 Yes [id number] 40mg Take 1 tablet by mouth daily. [facility] pantoprazol e 40 mg EC tablet 2018-12 00:00: 00 Yes [id number] 40mg Take 1 tablet by mouth daily. [facility] pantoprazol e 40 mg EC tablet 2018-12 00:00: 00 Yes [id number] 40mg Take 1 tablet by mouth daily. [facility] pantoprazol e 40 mg EC tablet 2018-12 00:00: 00 Yes [id number] 40mg Take 1 tablet by mouth daily. [facility] pantoprazol e 40 mg EC tablet 2018-12 00:00: 00 Yes [id number] 40mg Take 1 tablet by mouth daily. [facility] pantoprazol e 40 mg EC tablet 2018-12 00:00: 00 Yes [id number] 40mg Take 1 tablet by mouth daily. [facility] pantoprazol e 40 mg EC tablet 2018-12 00:00: 00 Yes [id number] 40mg Take 1 tablet by mouth daily. [facility] pantoprazol e 40 mg EC tablet 2018-12 00:00: 00 Yes [id number] 40mg Take 1 tablet by mouth daily. [facility] Vital Signs Vital Name Observation Time Observation Value Comments S sharon Systolic blood pressure 2021-05-25 16:22:03 135 mm[Hg] [facility] Diastolic blood pressure 2021-05-25 16:22:03 75 mm[Hg] [facility] Heart rate 2021-05-25 16:22:03 75 /min [facility] Body temperature 2021-05-25 16:22:03 37.67 Suha [facility] Respiratory rate 2021-05-25 16:22:03 17 /min [facility] Body height 2021-05-25 16:18:00 160 cm [facility] Body weight 2021-05-25 16:18:00 101.152 kg [facility] BMI 2021-05-25 16:18:00 39.50 kg/m2 [facility] Oxygen saturation in Arterial blood by Pulse oximetry 2021-05-25 16:18:00 98 /min [facility] Systolic blood pressure 2021-04-21 18:22:31 132 mm[Hg] [facility] Diastolic blood pressure 2021-04-21 18:22:31 89 mm[Hg] [facility] Heart rate 2021-04-21 18:22:31 77 /min [facility] Respiratory rate 2021-04-21 18:22:31 16 /min [facility] Oxygen saturation in Arterial blood by Pulse oximetry 2021-04-21 18:22:31 97 /min [facility] Body temperature 2021-04-21 15:20:00 36.78 Suha [facility] Body weight 2021-04-21 15:20:00 127.007 kg [facility] BMI 2021-04-21 15:20:00 51.21 kg/m2 [facility] Systolic blood pressure 2021-01-14 04:08:00 124 mm[Hg] [facility] Diastolic blood pressure 2021-01-14 04:08:00 84 mm[Hg] [facility] Heart rate 2021-01-14 04:08:00 69 /min [facility] Respiratory rate 2021-01-14 04:08:00 16 /min [facility] Oxygen saturation in Arterial blood by Pulse oximetry 2021-01-14 04:08:00 98 /min [facility] Body temperature 2021-01-14 00:34:00 37.56 Suha [facility] Body weight 2021-01-14 00:34:00 127.007 kg [facility] BMI 2021-01-14 00:34:00 51.21 kg/m2 [facility] Systolic blood pressure 2020-09-27 18:30:00 127 mm[Hg] [facility] Diastolic blood pressure 2020-09-27 18:30:00 77 mm[Hg] [facility] Heart rate 2020-09-27 18:30:00 66 /min [facility] Respiratory rate 2020-09-27 18:30:00 18 /min [facility] Oxygen saturation in Arterial blood by Pulse oximetry 2020-09-27 18:30:00 97 /min [facility] Body temperature 2020-09-27 16:14:00 37.33 Suha [facility] Body weight 2020-09-27 16:14:00 127.007 kg [facility] BMI 2020-09-27 16:14:00 51.21 kg/m2 [facility] Systolic blood pressure 2020-04-09 21:00:00 142 mm[Hg] [facility] Diastolic blood pressure 2020-04-09 21:00:00 77 mm[Hg] [facility] Heart rate 2020-04-09 21:00:00 62 /min [facility] Respiratory rate 2020-04-09 21:00:00 18 /min [facility] Oxygen saturation in Arterial blood by Pulse oximetry 2020-04-09 21:00:00 98 /min [facility] Body temperature 2020-04-09 18:10:00 36.89 Suha [facility] Body weight 2020-04-09 18:10:00 108.863 kg [facility] BMI 2020-04-09 18:10:00 43.90 kg/m2 [facility] Systolic blood pressure 2020-04-09 21:00:00 142 mm[Hg] [facility] Diastolic blood pressure 2020-04-09 21:00:00 77 mm[Hg] [facility] Heart rate 2020-04-09 21:00:00 62 /[facility] Respiratory rate 2020-04-09 21:00:00 18 /min [facility] Oxygen saturation in Arterial blood by Pulse oximetry 2020-04-09 21:00:00 98 /min [facility] Body temperature 2020-04-09 18:10:00 36.89 Suha [facility] Body weight 2020-04-09 18:10:00 108.863 kg [facility] BMI 2020-04-09 18:10:00 43.90 kg/m2 [facility] Systolic blood pressure 2019-12-26 09:36:00 130 mm[Hg] [facility] Diastolic blood pressure 2019-12-26 09:36:00 81 mm[Hg] [facility] Heart rate 2019-12-26 09:36:00 77 /min [facility] Respiratory rate 2019-12-26 09:36:00 18 /min [facility] Oxygen saturation in Arterial blood by Pulse oximetry 2019-12-26 09:36:00 98 /min [facility] Body temperature 2019-12-26 08:07:00 36.61 Suha [facility] Body height 2019-12-26 08:07:00 157.5 cm [facility] Body weight 2019-12-26 08:07:00 108.863 kg [facility] BMI 2019-12-26 08:07:00 43.90 kg/m2 [facility] Systolic blood pressure 2019-12-26 09:36:00 130 mm[Hg] [facility] Diastolic blood pressure 2019-12-26 09:36:00 81 mm[Hg] [facility] Heart rate 2019-12-26 09:36:00 77 /min [facility] Respiratory rate 2019-12-26 09:36:00 18 /min [facility] Oxygen saturation in Arterial blood by Pulse oximetry 2019-12-26 09:36:00 98 /min [facility] Body temperature 2019-12-26 08:07:00 36.61 Suha [facility] Body height 2019-12-26 08:07:00 157.5 cm [facility] Body weight 2019-12-26 08:07:00 108.863 kg [facility] BMI 2019-12-26 08:07:00 43.90 kg/m2 [facility] Systolic blood pressure 2019-12-19 22:00:00 140 mm[Hg] [facility] Diastolic blood pressure 2019-12-19 22:00:00 79 mm[Hg] [facility] Heart rate 2019-12-19 22:00:00 77 /[facility] O[facility] saturation in Arterial blood by Pulse oximetry 2019-12-19 22:00:00 98 /min [facility] Respiratory rate 2019-12-19 21:00:00 18 /min [facility] Body temperature 2019-12-19 20:36:00 37.33 Suha [facility] Body weight 2019-12-19 20:36:00 108.863 kg [facility] BMI 2019-12-19 20:36:00 42.51 kg/m2 [facility] Systolic blood pressure 2019-12-19 22:00:00 140 mm[Hg] [facility] Diastolic blood pressure 2019-12-19 22:00:00 79 mm[Hg] [facility] Heart rate 2019-12-19 22:00:00 77 /min [facility] Oxygen saturation in Arterial blood by Pulse oximetry 2019-12-19 22:00:00 98 /min [facility] Respiratory rate 2019-12-19 21:00:00 18 /min [facility] Body temperature 2019-12-19 20:36:00 37.33 Suha [facility] Body weight 2019-12-19 20:36:00 108.863 kg [facility] BMI 2019-12-19 20:36:00 42.51 kg/m2 [facility] Procedures Procedure Date / Time Performed Performing Clinician Source NOTICE OF PRIVACY PRACTICES 2021-05-25 16:10:28 Doctor Unassigned, [place] [facility] CONSENT/REFUSAL FOR DIAGNOSIS AND TREATMENT 2021-05-25 16:09:55 Doctor Unassigned, [place] [facility] REFERRAL- REQUEST/RESPONSE 2021-05-18 05:01:00 Doctor Unassigned, [place] [facility] XR CHEST 1 VW 2021-04-21 17:07:37 Carlos Stoner [facility] COVID-19 (ID NOW RAPID TESTING) 2021-04-21 17:02:00 Carlos Stoner [facility] CONSENT/REFUSAL FOR DIAGNOSIS AND TREATMENT 2021-04-21 15:01:21 Doctor Unassigned, [place] [facility] LIPASE 2021-01-14 01:45:[address] [facility] HEPATIC FUNCTION PANEL (48442) (ALB,T.PRO,BILI T,BU/BC,ALT,AST,ALK PHOS) 2021-01-14 01:45:00 Burak [facility] BASIC METABOLIC PANEL (NA, K, CL, CO2, GLUCOSE, BUN, CREATININE, CA) 2021-01-14 01:45:00 Burak [facility] CBC WITH DIFF 2021-01-14 01:45:00 Celena Sumner [facility] URINALYSIS 2021-01-14 01:41:[address] [facility] POCT TEST 2021-01-14 01:41:00 Jen Sumner [facility] CONSENT/REFUSAL FOR DIAGNOSIS AND TREATMENT 2021-01-14 00:30:05 Doctor Unassigned, [place] [facility] CT ABDOMEN PELVIS W CONTRAST 2020-09-27 18:03:47 Daily Howell [facility] LIPASE 2020-09-27 16:54:00 Daily [facility] COMP. METABOLIC PANEL (27521) 2020-09-27 16:54:00 Daily Howell [facility] CBC WITH DIFF 2020-09-27 16:22:00 Daily Howell [facility] URINALYSIS 2020-09-27 16:22:00 Dialy [facility] POCT TEST 2020-09-27 16:22:00 Daily Howell [facility] NOTICE OF PRIVACY PRACTICES 2020-09-27 15:51:58 Doctor Unassigned, [place] [facility] CONSENT/REFUSAL FOR DIAGNOSIS AND TREATMENT 2020-09-27 15:51:41 Doctor Unassigned, [place] [facility] CT ABDOMEN PELVIS WO CONTRAST 2020-04-09 20:27:49 Willis Wang [facility] COMP. METABOLIC PANEL (32411) 2020-04-09 18:25:00 Willis Wang [facility] URINALYSIS 2020-04-09 18:25:00 Willis [facility] CBC WITH DIFFERENTIAL 2020-04-09 18:25:00 Harrison Wang [facility] POCT TEST 2020-04-09 18:19:00 Willis Wang [facility] EKG-12 LEAD 2019-12-26 08:35:47 Adrian Guardado [facility] CT ABDOMEN PELVIS W CONTRAST 2019-12-19 21:28:52 Katalina Lewis [facility] URINALYSIS 2019-12-19 21:09:00 Katalina Lewis [facility] LIPASE 2019-12-19 20:46:00 Katalina Lewis [facility] COMP. METABOLIC PANEL (60576) 2019-12-19 20:46:00 Katalina Lewis [facility] CBC WITH DIFFERENTIAL 2019-12-19 20:46:00 Debby Lewis [facility] Encounters Start Date/Time End Date/Time Encounter Type Admission Type Attending Clinicians Care Facility Care Department Encounter ID Source 2021-10-02 03:34:33 Emergency [facility] [id number] [facility] 2021-09-30 23:28:28 Emergency [facility] [id number] [facility] 2021-09-30 01:18:04 Emergency [facility] [id number] [facility] 2021-06-02 10:00:00 2021-06-02 10:00:00 Outpatient VINCENT MUNOZ HOWARD [facility] [id number] [facility] 2021-05-25 11:22:00 2021-05-25 12:01:00 Emergency Celena Sumner [facility] [id number] 350.1.13.10 4.2.7.2.686 [id number] [facility] 2021-05-25 00:00:00 2021-05-25 00:00:00 Outpatient R RADIOLOGY [facility] [id number] [facility] 2021-05-23 00:00:00 2021-05-23 00:00:00 Letter (Out) Vincent Soto Cornelius [facility] Professio [facility]ly [facility] 1.2.840.114 350.1.13.10 4.2.7.2.686 [id number] [facility] 2021-05-18 00:00:00 2021-05-18 00:00:00 Orders Only Doctor Unassigned, [place] [facility] 1.2840.114 350.1.13.10 4.2.7.2.686 [id number] [facility] 2021-04-21 10:21:00 2021-04-21 13:26:00 Emergency Carlos Stoner [facility] 1.2840.114 350.1.13.10 4.2.7.2.686 [id number] [facility] 2021-04-21 10:21:00 2021-04-21 13:26:00 Emergency X CARLOS STONER [facility] ERT [id number] [facility] 2021-01-13 18:36:00 2021-01-13 22:10:00 Emergency Radha Mai [facility] 1.2840.114 350.1.13.10 4.2.7.2.686 [id number] [facility] 2020-09-27 11:07:00 2020-09-27 14:11:00 Emergency Daily Howell [facility] 1.2840.114 350.1.13.10 4.2.7.2.686 [id number] [facility] 2020-09-27 00:00:00 2020-09-27 00:00:00 Orders Only Doctor Unassigned, [place] [facility] 1.2.840.114 350.1.13.10 4.2.7.2.686 [id number] [facility] 2020-04-09 13:11:51 2020-04-09 16:26:00 Emergency Willis Wang [facility] 1.2.840.114 350.1.13.10 4.2.7.2.686 [id number] 2020-04-09 13:11:51 2020-04-09 16:26:00 Emergency Willis Wang [facility] 1.2.840.114 350.1.13.10 4.2.7.2.686 [id number] [facility] 2020-04-09 13:11:51 2020-04-09 16:26:00 Emergency X WILLIS WANG [facility] ERT [id number] [facility] 2019-12-26 02:03:08 2019-12-26 03:42:00 Emergency Adrian Guardado [facility] 1.2.840.114 350.1.13.10 4.2.7.2.686 [id number] [facility] 2019-12-26 02:03:08 2019-12-26 03:42:00 Emergency Adrian Guardado [facility] 1.2.840.114 350.1.13.10 4.2.7.2.686 [id number] 2019-12-19 14:29:58 2019-12-19 16:35:00 Emergency Radha Mai Wakili S [facility] 1.2.840.114 350.1.13.10 4.2.7.2.686 [id number] [facility] 2019-12-19 14:29:58 2019-12-19 16:35:00 Emergency SergeiRadha Wakili S [facility] 1.2.840.114 350.1.13.10 4.2.7.2.686 [id number] Results Test Description Test Time Test Comments Results Resul t Comments Source Chest 1 View 2021-04-02 18:21:45 No acute cardiopulmonary abnormality. Preliminary Report Dictated by Resident: Jabari Gaytan [...] normal. No acute osseous abnormality is present. [facility], Radiant Results Inft User - 04/21/2021 1:22 [...] cardiopulmonary abnormality.Prelimina ry Report Dictated by Resident: Jabari Garrett MD., have reviewed this study and agree with theabove report. [facility] [place] [place]13 02:32:00* Test Item Value Reference Range Interpretation Comme nts APPEARANCE (test code = 7457426819) Cloudy Clear A COLOR (test code = 5767339832) Natalie Yellow A PH (test code = 6383162243) 4.8-8.0 SP GRAVITY (test code = 2858080036) 1.003-1.030 GLU U QUAL (test code = 4866594082) Normal Normal BLOOD (test code = 9186474518) Negative Negative KETONES (test code = 1075613606) 5 mg/dL Negative A PROTEIN (test code = 2887-8) 100 mg/dL Negative A UROBILIN (test code = 6442251505) 2.0 mg/dL Normal A BILIRUBIN (test code = 1273487202) 2 mg/dL Negative A NITRITE (test code = 9734071937) Negative Negative LEUK RACHAEL (test code = 2101993540) 25/uL Negative A RBC/HPF (test code = 9768671835) See_Comment H [Automated [employer]] The system which generated this result transmitted reference range: 0 - 3 HPF. The reference range was not used to interpret this result as normal/abnormal. WBC/HPF (test code = 9488497952) See_Comment [Automated [employer]] The system which generated this result transmitted reference range: 0 - 5 HPF. The reference range was not used to interpret this result as normal/abnormal. BACTERIA (test code = 6170565333) Moderate Negative A MUCOUS (test code = 9306332167) Marked Negative LPF A AMORPHOUS (test code = 0422809244) Rare Rare HPF SQ EPITH (test code = 8230826641) HPF Lab Interpretation (test code = 09213-6) [facility]normal [facility] (NA, K, CL, CO2, GLUCOSE, BUN, CREATININE, CA)2021-01-14 02:18:00* Test Item Value Reference Range Interpretation Comme nts NA (test code = 0524757247) 137 mmol/L 135-145 K (test code = 1506700416) 4.1 mmol/L 3.5-5 CL (test code = 6582197067) 103 mmol/L 98-108 CO2 TOTAL (test code = 0374532503) 29 mmol/L 23-31 AGAP (test code = 8224666284) 2-16 BUN (test code = 9765571947) 10 mg/dL 7-23 GLUCOSE (test code = 4814258245) 100 mg/dL 70-110 CREATININE (test code = 5554282779) 0.66 mg/dL 0.5-1.04 CALCIUM (test code = 5568495469) 9.0 mg/dL 8.6-10.6 eGFR Calculation (Non-) (test code = 8207427565) mL/min/1.73m2 eGFR Calculation () (test code = 6103621798) mL/min/1.73m2 PATT (test code = PATT) Association of [...] or urine or abnormalities in imaging tests). [facility] (ALB, T.PRO, BILI T, BU/BC, ALT, AST, ALK PHOS)2021-01-14 02:18:00* Test Item Value Reference Range Interpretation Comme nts TOTAL BILI (test code = 9200702292) 0.4 mg/dL 0.1-1.1 BILI UNCON (test code = 7198739318) 0.3 mg/dL 0.1-1.1 BILI CONJ (test code = 0994680412) 0.0 mg/dL 0-0.3 T PROTEIN (test code = 3517472122) 7.1 g/dL 6.3-8.2 ALBUMIN (test code = 3896333355) 4.3 g/dL 3.5-5 ALK PHOS (test code = 2526026663) 80 U/L 34-122 ALTv (test code = 1742-6) 19 U/L 5-35 AST(SGOT) (test code = 4865397508) 24 U/L 13-40 Lab Interpretation (test cod e = 77949-8) Normal [facility] [id number] 02:18:00* Test Item Value Reference Range Interpretation Comme nts LIPASE (test code = 7228156830) 27 U/L 0-220 Lab Interpretation (test cod e = 22309-8) Normal [facility] with [id number] 02:03:00* Test Item Value Reference Range Interpretation Comme nts WBC (test code = 6690-2) See_Comment [Automated [employer]] The system which generated this result transmitted reference range: 4.30 - 11.10 10*3/?L. The reference range was not used to interpret this result as normal/abnormal. RBC (test code = 789-8) See_Comment [Automated [employer] GBS] The system which generated this result transmitted reference range: 3.93 - 5.25 10*6/?L. The reference range was not used to interpret this result as normal/abnormal. HGB (test code = 718-7) 14.0 g/dL 11.6-15 HCT (test code = 4544-3) 42.9 % 35.7-45.2 MCV (test code = 787-2) 93.5 fL 80.6-95.5 MCH (test code = 785-6) 30.5 pg 25.9-32.8 MCHC (test code = 786-4) 32.6 g/dL 31.6-35.1 RDW-SD (test code = 93744-8) 47.5 fL 39-49.9 RDW-CV (test code = 788-0) 13.8 % 12-15.5 PLT (test code = 777-3) See_Comment [Automated messa ge] The system which generated this result transmitted reference range: 166 - 358 10*3/?L. The reference range was not used to interpret this result as normal/abnormal. MPV (test code = 08274-8) 9.6 fL 9.5-12.9 NRBC/100 WBC (test code = 6540593466) See_Comment [Automated [employer]] The system which generated this result transmitted reference range: 0.0 - 10.0 /100 WBCs. The reference range was not used to interpret this result as normal/abnormal. NRBC x10^3 (test code = 5200738046) <0.01 See_Comment [Automated messa ge] The system which generated this result transmitted reference range: 10*3/?L. The reference range was not used to interpret this result as normal/abnormal. GRAN MAT (NEUT) % (test code = 770-8) 54.6 % IMM GRAN % (test code = 0675776907) 0.40 % LYMPH % (test code = 736-9) 30.3 % MONO % (test code = 5905-5) 12.3 % EOS % (test code = 713-8) 1.6 % BASO % (test code = 706-2) 0.8 % GRAN MAT x10^3(ANC) (test code = 5060814320) 5.07 10*3/uL 1.88-7.09 IMM GRAN x10^3 (test code = 8775798787) 0.04 10*3/uL 0-0.06 LYMPH x10^3 (test code = 731-0) 2.81 10*3/uL 1.32-3.29 MONO x10^3 (test code = 742-7) 1.14 10*3/uL 0.33-0.92 H EOS x10^3 (test code = 711-2) 0.15 10*3/uL 0.03-0.39 BASO x10^3 (test code = 704-7) 0.07 10*3/uL 0.01-0.07 Lab Interpretation (test code = 75298-9) Abnormal [facility] [id number] 01:41:00* Test Item Value Reference Range Interpretation Comme nts POCT PREG (test code = 1605) Negative On board controls acceptable with C Line (test code = 3574) Present POCT PREG LOT # (test code = 3575) HCG [id number] POCT PREG TEST DATE ( test code = 3576) 08/31/2022 Lab Interpretation (test cod e = 39617-9) Normal [facility] P[facility] W [id number] 18:13:13CT Abdomen and Pelvis with intravenous contrast. CLINICAL HISTORY: Abdominal infection including peritonitis. DOSE: Up-to-date CT equipment and radiation dose reduction techniques wereemployed. CTDIvol: 16.17 mGy. DLP: 889 mGy-cm. TECHNIQUE : Contiguous axial imaging from the level of the lung bases through the pubic symphysis were performed after the [...] corpus luteum of 14 mm size. Multiple sma llcystic lesions also noted in the right ovary, consistent with physiologicchanges. Grossly unremarkable unopacified urinary bladder. Bones: Unremarkable. Soft tissues: Unremarkable. CONCLUSION:1. Noacute intra-abdominal or pelvic abnormalities.2. Mild hepatomegaly. S/P cholecystectomy. Mild genera lized dilatation ofthe biliary ducts could be secondary to cholecystectomy.3. Stable right adrenal gland nodule.4. Bilateral cystic lesions in the ovaries, consistent with physiologicchanges. [facility], Radiant Results Inft User - 09/27/2020 1:14 PM CDTCT Abdomen and Pelvis with intravenous contrast.CLINICAL HISTORY: Abdominal infection including peritonitis.DOSE: Up-to-date CT equipment and radiationdose reduction techniques wereemployed. CTDIvol: 16.17 mGy. DLP: 889 mGy-cm.TECHNIQUE : Contiguous axial imaging from the level of the lung basesthrough the pubic symphysis were performed after the un complicatedadministration of Omnipaque contrast material. Coronal and sagittalreconstructions were obtained. Auto mA and/or iterative reconstruction wereused to reduce radiation dose.FINDINGS: Comparison is made with 04/09/2020 study.Lower lungs: Clear. Previously described focal opacity in the right lowerlung is not appreciated at the current time. No pleural effusion orpericardial effusion.Liver,Gallbladder and Spleen: Liver is enlarged, measuring 19 [...] ovary due tomultiple cysts including one corpus l uteum of 14 mm size. Multiple smallcystic lesions also noted in the right ovary, consistent with physiologicchanges.Grossly unremarkable unopacified urinary bladder.Bones: Unremarkable.Soft tissues: Unremarkable.CONCLUSION:1. No acute intra-abdominal or pelvic abnormalities.2. Mild hepatomegaly. S/P cholecystectomy. Mild generalized dilatation ofthe biliary ducts could be secondary to cholecystectomy.3. Stable right adrenal gland nodule.4. Bilateral cystic lesions in the ovaries, consistent with physiologicchanges.[facility]abolic [id number] 17:18:00* Test Item Value Reference Range Interpretation Comme nts NA (test code = 5990887590) 136 mmol/L 135-145 K (test code = 6365653299) 4.4 mmol/L 3.5-5 CL (test code = 3022386608) 108 mmol/L 98-108 CO2 TOTAL (test code = 7919295563) 25 mmol/L 23-31 AGAP (test code = 8770274539) 2-16 BUN (test code = 4210035814) 7 mg/dL 7-23 GLUCOSE (test code = 1988849922) 105 mg/dL 70-110 CREATININE (test code = 1219489714) 0.57 mg/dL 0.5-1.04 TOTAL BILI (test code = 5326448241) 0.6 mg/dL 0.1-1.1 CALCIUM (test code = 4530657260) 9.0 mg/dL 8.6-10.6 T PROTEIN (test code = 5182414636) 6.5 g/dL 6.3-8.2 ALBUMIN (test code = 2718910846) 3.9 g/dL 3.5-5 ALK PHOS (test code = 3191382675) 58 U/L 34-122 ALTv (test code = 1742-6) 15 U/L 5-35 AST(SGOT) (test code = 6434889451) 25 U/L 13-40 eGFR Calculation (Non-) (test code = 9183779269) mL/min/1.73m2 eGFR Calculation () (test code = 3414774834) mL/min/1.73m2 PATT (test code = PATT) Association of [...] or urine or abnormalities in imaging tests). [facility] HospitalLipase, [id number] 17:17:00* Test Item Value Reference Range Interpretation Comme nts LIPASE (test code = 3101690895) 352 U/L 0-220 H Lab Interpretation (test cod e = 73179-0) Abnormal [facility] HospitalUrinalysis2020-10-27 17:16:00* Test Item Value Reference Range Interpretation Comme nts APPEARANCE (test code = 1845350567) Clear Clear COLOR (test code = 0351499444) Pale Yellow Yellow A PH (test code = 0238104218) 4.8-8.0 SP GRAVITY (test code = 0546553789) 1.003-1.030 GLU U QUAL (test code = 1688414152) Negative Negative BLOOD (test code = 0953653874) Negative Negative KETONES (test code = 2112948953) Negative Negative PROTEIN (test code = 2887-8) Negative Negative UROBILIN (test code = 2296332975) 0.2 mg/dL See_Comment [Automated [employer]] The system which generated this result transmitted reference range: 0-1.0 mg/dL. The reference range was not used to interpret this result as normal/abnormal. BILIRUBIN (test code = 8552665225) Negative Negative NITRITE (test code = 7921648477) Negative Negative LEUK RACHAEL (test code = 4700946222) Negative Negative RBC/HPF (test code = 0169083344) See_Comment [Automated messa ge] The system which generated this result transmitted reference range: 0 - 3 HPF. The reference range was not used to interpret this result as normal/abnormal. WBC/HPF (test code = 9349649381) See_Comment [Automated messa ge] The system which generated this result transmitted reference range: 0 - 5 HPF. The reference range was not used to interpret this result as normal/abnormal. BACTERIA (test code = 5835525114) Few Negative A MUCOUS (test code = 3856860616) Slight Negative LPF A AMORPHOUS (test code = 4793456176) Few Rare HPF A SQ EPITH (test code = 3718314500) HPF Lab Interpretation (test code = 90650-2) Abnormal [facility] with [id number] 16:34:00* Test Item Value Reference Range Interpretation Comme nts WBC (test code = 6690-2) See_Comment [Automated messa ge] The system which generated this result transmitted reference range: 4.30 - 11.10 10*3/?L. The reference range was not used to interpret this result as normal/abnormal. RBC (test code = 789-8) See_Comment [Automated [employer]] The system which generated this result transmitted reference range: 3.93 - 5.25 10*6/?L. The reference range was not used to interpret this result as normal/abnormal. HGB (test code = 718-7) 13.1 g/dL 11.6-15 HCT (test code = 4544-3) 38.5 % 35.7-45.2 MCV (test code = 787-2) 89.7 fL 80.6-95.5 MCH (test code = 785-6) 30.5 pg 25.9-32.8 MCHC (test code = 786-4) 34.0 g/dL 31.6-35.1 RDW-SD (test code = 68084-8) 42.7 fL 39-49.9 RDW-CV (test code = 788-0) 13.1 % 12-15.5 PLT (test code = 777-3) See_Comment [Automated messa ge] The system which generated this result transmitted reference range: 166 - 358 10*3/?L. The reference range was not used to interpret this result as normal/abnormal. MPV (test code = 47279-7) 9.9 fL 9.5-12.9 NRBC/100 WBC (test code = 9701197980) See_Comment [Automated me ssage] The system which generated this result transmitted reference range: 0.0 - 10.0 /100 WBCs. The reference range was not used to interpret this result as normal/abnormal. NRBC x10^3 (test code = 3656778201) <0.01 See_Comment [Automated me ssage] The system which generated this result transmitted reference range: 10*3/?L. The reference range was not used to interpret this result as normal/abnormal. GRAN MAT (NEUT) % (test code = 770-8) 58.9 % IMM GRAN % (test code = 3531623948) 0.10 % LYMPH % (test code = 736-9) 29.6 % MONO % (test code = 5905-5) 8.6 % EOS % (test code = 713-8) 2.3 % BASO % (test code = 706-2) 0.5 % GRAN MAT x10^3(ANC) (test code = 4545157888) 5.94 10*3/uL 1.88-7.09 IMM GRAN x10^3 (test code = 3427835472) <0.03 0-0.06 LYMPH x10^3 (test code = 731-0) 2.99 10*3/uL 1.32-3.29 MONO x10^3 (test code = 742-7) 0.87 10*3/uL 0.33-0.92 EOS x10^3 (test code = 711-2) 0.23 10*3/uL 0.03-0.39 BASO x10^3 (test code = 704-7) 0.05 10*3/uL 0.01-0.07 [facility] HospitalPOVA [id number] 16:22:00* Test Item Value Reference Range Interpretation Comme nts POCT PREG (test code = 1605) negative On board controls acceptable with C Line (test code = 3574) present POCT PREG LOT # (test code = 3575) [id number] POCT PREG TEST DATE ( test code = 3576) 2022-03-01 Lab Interpretation (test cod e = 49483-7) Normal [facility] WO [id number] 21:25:29No hydronephrosis or radiopaque nephrolithiasis. 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 Attention to follow-up exam is recommended to document two-yearstability. Focal opacity in theright lower lobe is nonspecific, possibly related toatelectasis [...] is enlarged measuring approximately 20 cm craniocaudally. GALLBLADDERAND BILIARY TREE: Prior cholecystectomy. No intra orextrahepatic biliary ductal dilatation. SPLEEN:Unremarkable. PANCREAS: No ductal dilation or masses. ADRENAL GLANDS: Right adrenal nodule measuring 2.1 cm with average centraldensity of 14 Hounsfield units. Left adrenal is unremarkable. KIDNEYS: No hydronephrosis, stones, or masses. PERITONEUM AND RETROPERITONEUM: No free air or fluid collection. LYMPH NODES: No intra- abdominal or pelvic lymph node enlargement. GI TRACT: No dilation or bowel wall thickening. Appendix is normal. PELVIS/BLADDER: Bladder is distended with no wall thickening. The uterusand adnexa are unremarkable. VESSELS: Unremarkable. BONES AND SOFT TISSUES: No suspicious lytic or sclerotic bony lesions.Chronic healed fracture of left ninth rib. [facility], Radiant Results InftUser - 04/09/2020 4:26 PM CDTCT ABDOMEN PELVIS WO CONTRASTHISTORY: 35 years-old; Female; Flank pain, stone disease suspected COMPARISON: 12/19/2019TECHNIQUE AND FINDINGS: Contiguous axial imaging fromthe level of the lungbases through the pubic symphysis was performed without the intravenousadministration of contrast. Coronal and sagittal reconstructions wereobtained. Auto mA and/or iterative elena nstruction were used to reduceradiation dose.FINDINGS:LOWER THORAX: A focal opacity is noted in theright lower lobe (2:9).LIVER: The liver is enlarged [...] dilation or bowel wall thickening. Appendix is normal.PELVIS/BLADDER: Bladder is distended with no wall [...] reviewed this study and agree with the abovereport.[facility] HospitalURINALYSIS2020-05-09 19:13:00* Test Item Value Reference Range Interpretation Comme nts APPEARANCE (test code = 2181448354) Hazy Clear A COLOR (test code = 2499230865) Yellow Yellow PH (test code = 2227397193) 4.8-8.0 SP GRAVITY (test code = 3594429977) 1.003-1.030 H GLU U QUAL (test code = 5955891237) Normal Normal BLOOD (test code = 4989153687) 3+ Negative A KETONES (test code = 5717789771) Negative Negative PROTEIN (test code = 2887-8) Negative Negative UROBILIN (test code = 5988163890) Normal Normal BILIRUBIN (test code = 0399627559) Negative Negative NITRITE (test code = 2599434483) Negative Negative LEUK RACHAEL (test code = 8447318640) Negative Negative RBC/HPF (test code = 4378632697) See_Comment H [Automated [employer]] The system which generated this result transmitted reference range: 0 - 3 HPF. The reference range was not used to interpret this result as normal/abnormal. WBC/HPF (test code = 5359344570) See_Comment [Automated [employer]] The system which generated this result transmitted reference range: 0 - 5 HPF. The reference range was not used to interpret this result as normal/abnormal. BACTERIA (test code = 1318038980) Negative Negative MUCOUS (test code = 3761982748) Slight Negative LPF A SQ EPITH (test code = 3816216846) HPF Lab Interpretation (test code = 92802-7) [facility] (09037)2020-04-09 18:52:00* Test Item Value Reference Range Interpretation Comme nts NA (test code = 1549491809) 140 mmol/L 135-145 K (test code = 9259490904) 4.2 mmol/L 3.5-5 CL (test code = 5326859191) 108 mmol/L 98-108 CO2 TOTAL (test code = 7172577577) 25 mmol/L 23-31 AGAP (test code = 8555553652) 2-16 BUN (test code = 5673526228) 13 mg/dL 7-23 GLUCOSE (test code = 9392662712) 97 mg/dL 70-110 CREATININE (test code = 8253307720) 0.98 mg/dL 0.5-1.04 TOTAL BILI (test code = 9861237209) 0.1 mg/dL 0.1-1.1 CALCIUM (test code = 7146502253) 9.2 mg/dL 8.6-10.6 T PROTEIN (test code = 8057693382) 6.8 g/dL 6.3-8.2 ALBUMIN (test code = 4921292893) 4.1 g/dL 3.5-5 ALK PHOS (test code = 7653474212) 68 U/L 34-122 ALTv (test code = 1742-6) 19 U/L 5-35 AST(SGOT) (test code = 0655794176) 24 U/L 13-40 eGFR Calculation (Non-) (test code = 9315047080) mL/min/1.73m2 eGFR Calculation () (test code = 1511568205) mL/min/1.73m2 PATT (test code = PATT) Association of [...] or urine or abnormalities in imaging tests). [facility] WITH [id number] 18:40:00* Test Item Value Reference Range Interpretation Comme nts WBC (test code = 6690-2) See_Comment H [Automated messa ge] The system which generated this result transmitted reference range: 4.30 - 11.10 10*3/?L. The reference range was not used to interpret this result as normal/abnormal. RBC (test code = 789-8) See_Comment [Automated messa ge] The system which generated this result transmitted reference range: 3.93 - 5.25 10*6/?L. The reference range was not used to interpret this result as normal/abnormal. HGB (test code = 718-7) 13.0 g/dL 11.6-15 HCT (test code = 4544-3) 38.6 % 35.7-45.2 MCV (test code = 787-2) 92.3 fL 80.6-95.5 MCH (test code = 785-6) 31.1 pg 25.9-32.8 MCHC (test code = 786-4) 33.7 g/dL 31.6-35.1 RDW-SD (test code = 00506-5) 43.3 fL 39-49.9 RDW-CV (test code = 788-0) 12.8 % 12-15.5 PLT (test code = 777-3) See_Comment H [Automated messa ge] The system which generated this result transmitted reference range: 166 - 358 10*3/?L. The reference range was not used to interpret this result as normal/abnormal. MPV (test code = 35429-8) 9.6 fL 9.5-12.9 NRBC/100 WBC (test code = 7882930057) See_Comment [Automated [employer] ssage] The system which generated this result transmitted reference range: 0.0 - 10.0 /100 WBCs. The reference range was not used to interpret this result as normal/abnormal. NRBC x10^3 (test code = 3303058464) <0.01 See_Comment [Automated messa ge] The system which generated this result transmitted reference range: 10*3/?L. The reference range was not used to interpret this result as normal/abnormal. GRAN MAT (NEUT) % (test code = 770-8) 61.2 % IMM GRAN % (test code = 1101683578) 0.40 % LYMPH % (test code = 736-9) 25.5 % MONO % (test code = 5905-5) 9.3 % EOS % (test code = 713-8) 2.9 % BASO % (test code = 706-2) 0.7 % GRAN MAT x10^3(ANC) (test code = 9181982819) 7.09 10*3/uL 1.88-7.09 IMM GRAN x10^3 (test code = 4174496672) 0.05 10*3/uL 0-0.06 LYMPH x10^3 (test code = 731-0) 2.95 10*3/uL 1.32-3.29 MONO x10^3 (test code = 742-7) 1.08 10*3/uL 0.33-0.92 H EOS x10^3 (test code = 711-2) 0.34 10*3/uL 0.03-0.39 BASO x10^3 (test code = 704-7) 0.08 10*3/uL 0.01-0.07 H Lab Interpretation (test code = 84110-3) Abnormal [facility]PO[facility] [id number] 18:19:00* Test Item Value Reference Range Interpretation Comme nts POCT PREG (test code = 1605) negative On board controls acceptable with C Line (test code = 3574) present Lab Interpretation (test cod e = 68925-6) Normal [facility] HospitalUrinalysis2020-01-18 21:59:00* Test Item Value Reference Range Interpretation Comme nts APPEARANCE (test code = 2203196533) Clear Clear COLOR (test code = 0809158498) Straw Yellow A PH (test code = 4695321073) 4.8-8.0 SP GRAVITY (test code = 9882767174) 1.003-1.030 GLU U QUAL (test code = 3870844799) Normal Normal BLOOD (test code = 2031861860) 1+ Negative A KETONES (test code = 0898344743) 20 mg/dL Negative A PROTEIN (test code = 2887-8) Negative Negative UROBILIN (test code = 0012308804) Normal Normal BILIRUBIN (test code = 3986434172) Negative Negative NITRITE (test code = 2813623626) Negative Negative LEUK RACHAEL (test code = 1261924499) Negative Negative RBC/HPF (test code = 2568609245) See_Comment [Automated [employer]] The system which generated this result transmitted reference range: 0 - 3 HPF. The reference range was not used to interpret this result as normal/abnormal. WBC/HPF (test code = 3625387488) <1 See_Comment [Automated [employer]] The system which generated this result transmitted reference range: 0 - 5 HPF. The reference range was not used to interpret this result as normal/abnormal. BACTERIA (test code = 2916875835) Few Negative A SQ EPITH (test code = 5480415112) HPF Lab Interpretation (test code = 59163-6) Abnormal [facility] W [id number] 21:42:261. No acute inflammatory changes or signs of bowel obstruction.2. No signs of kidney stones or hydronephrosis.3. 3. A 1.7 cm right adrenal gland nodule is noted. Comparisons priorstudies/reports is recommended. AFC: 69692.RL: 23263. Ordering Physician: Katalina Lewis History: Abdominal pain. Comparison Study: None. Technique: Abdomen and pelvis CT with intravenous contrast. CT scan doneaccording to ALARA (As Low as Reasonably Achievable). Findings: ? Lungs: No infiltrates or effusions. No pneumothorax. No pulmonary nodulesor masses .Cardiovascular: Heart is not enlarged. Aorta and IVC are unremarkable.Liver: Normal.Gallbladder: Surgically absent.Pancreas: Normal.Spleen: Normal.Kidneys: Normal. Adrenal glands: A 1.8 cm heterogeneous nodule involves the right adrenalgland with Hounsfield units in the 70s. Left adrenal gland is u nremarkable.Bowel: Normal stomach. Normal small bowel. Normal appendix. Normal colon.Free air or free fluid: None.Lymphadenopathy: None.Reproductive organs: Uterus and adnexal structures are unremarkable.Urinary bladder: Normal.Groins: No signs of hernia or lymphadenopathy.Bones and soft tissues: Bones are unremarkable. Soft tissues areunremarkable. [facility], Radiant Results Inft User - 12/19/2019 3:43 PM CSTOrdering Physician: Katalina LewisHistory: Abdominal pain.Comparison Study: None. [...] signs of hernia or lymphadenopathy.Bones and soft tis sues: Bones are unremarkable. Soft tissues areunremarkable.IMPRESSION1. No acute inflammatory changes or signs of bowel obstruction.2. No signs of kidney stones or hydronephrosis.3. 3. A 1.7 cm rightadrenal gland nodule is noted. Comparisons priorstudies/reports is recommended.AFC: 87598.RL: 88502. [facility] Complete Metabolic [id number] 21:13:00* Test Item Value Reference Range Interpretation Comme nts NA (test code = 6443446997) 139 mmol/L 135-145 K (test code = 4721022819) 4.1 mmol/L 3.5-5 CL (test code = 9227622262) 106 mmol/L 98-108 CO2 TOTAL (test code = 9859241948) 25 mmol/L 23-31 AGAP (test code = 0468340314) 2-16 BUN (test code = 4030723408) 12 mg/dL 7-23 GLUCOSE (test code = 1223746992) 102 mg/dL 70-110 CREATININE (test code = 6165227242) 0.63 mg/dL 0.5-1.04 TOTAL BILI (test code = 4845842728) 0.4 mg/dL 0.1-1.1 CALCIUM (test code = 0940885810) 9.8 mg/dL 8.6-10.6 T PROTEIN (test code = 6259311524) 7.9 g/dL 6.3-8.2 ALBUMIN (test code = 3597652471) 4.6 g/dL 3.5-5 ALK PHOS (test code = 8079926816) 78 U/L 34-122 ALTv (test code = 1742-6) 19 U/L 5-35 AST(SGOT) (test code = 7531574985) 22 U/L 13-40 eGFR Calculation (Non-) (test code = 3265350383) mL/min/1.73m2 eGFR Calculation () (test code = 4591266866) mL/min/1.73m2 PATT (test code = PATT) Association of [...] or urine or abnormalities in imaging tests). [facility] HospitalLipase, [id number] 21:13:00* Test Item Value Reference Range Interpretation Comme nts LIPASE (test code = 0280321280) 22 U/L 0-220 Lab Interpretation (test cod e = 65890-2) Normal [facility] WITH [id number] 20:58:00* Test Item Value Reference Range Interpretation Comme nts WBC (test code = 6690-2) See_Comment H [Automated messa ge] The system which generated this result transmitted reference range: 4.30 - 11.10 10*3/?L. The reference range was not used to interpret this result as normal/abnormal. RBC (test code = 789-8) See_Comment [Automated messa ge] The system which generated this result transmitted reference range: 3.93 - 5.25 10*6/?L. The reference range was not used to interpret this result as normal/abnormal. HGB (test code = 718-7) 13.3 g/dL 11.6-15 HCT (test code = 4544-3) 40.5 % 35.7-45.2 MCV (test code = 787-2) 92.0 fL 80.6-95.5 MCH (test code = 785-6) 30.2 pg 25.9-32.8 MCHC (test code = 786-4) 32.8 g/dL 31.6-35.1 RDW-SD (test code = 04107-8) 41.2 fL 39-49.9 RDW-CV (test code = 788-0) 12.2 % 12-15.5 PLT (test code = 777-3) See_Comment H [Automated messa ge] The system which generated this result transmitted reference range: 166 - 358 10*3/?L. The reference range was not used to interpret this result as normal/abnormal. MPV (test code = 14559-5) 9.8 fL 9.5-12.9 NRBC/100 WBC (test code = 7097739532) See_Comment [Automated me ssage] The system which generated this result transmitted reference range: 0.0 - 10.0 /100 WBCs. The reference range was not used to interpret this result as normal/abnormal. NRBC x10^3 (test code = 2691871499) <0.01 See_Comment [Automated messa ge] The system which generated this result transmitted reference range: 10*3/?L. The reference range was not used to interpret this result as normal/abnormal. GRAN MAT (NEUT) % (test code = 770-8) 64.0 % IMM GRAN % (test code = 4909329321) 0.40 % LYMPH % (test code = 736-9) 26.3 % MONO % (test code = 5905-5) 7.2 % EOS % (test code = 713-8) 1.5 % BASO % (test code = 706-2) 0.6 % GRAN MAT x10^3(ANC) (test code = 5804359660) 7.19 10*3/uL 1.88-7.09 H IMM GRAN x10^3 (test code = 2716041190) 0.04 10*3/uL 0-0.06 LYMPH x10^3 (test code = 731-0) 2.96 10*3/uL 1.32-3.29 MONO x10^3 (test code = 742-7) 0.81 10*3/uL 0.33-0.92 EOS x10^3 (test code = 711-2) 0.17 10*3/uL 0.03-0.39 BASO x10^3 (test code = 704-7) 0.07 10*3/uL 0.01-0.07 Lab Interpretation (test code = 63655-1) Abnormal [facility]
--- NOTE | 2024-01-23 08:35 | ER ---
Nurse's Notes [facility] Michelle Name: Yina Fernandes Age: 38 yrs Sex: Female : 1985 Arrival Date: 01/23/2024 Time: 08:13 Bed IW1 Private MD: Diagnosis: Diarrhea, unspecified;Vomiting, unspecified Presentation: 01/23 08:20 Chief complaint: Patient states: vomiting this morning, she blacked out this morning iw and passed out yesterday , she's had fever and diarrhea , symptoms started 2 days ago. Coronavirus screen: Client presents with at least one sign or symptom that may indicate coronavirus-19. Ebola Screen: Patient negative for fever greater than or equal to 101.5 degrees Fahrenheit, and additional compatible Ebola Virus Disease symptoms Patient denies exposure to infectious person. Patient denies travel to an Ebola-affected area in the 21 days before illness onset. No symptoms or risks identified at this time. 08:20 Method Of Arrival: Ambulatory iw 08:20 Acuity: NAWAF 3 iw 08:22 Initial Sepsis Screen: Does the patient meet any 2 criteria? No. Patient's initial iw sepsis screen is negative. Does the patient have a suspected source of infection? No. Patient's initial sepsis screen is negative. Risk Assessment: Do you want to hurt yourself or someone else? Patient reports no desire to harm self or others. Onset of symptoms was January 21, 2024. Historical: - Allergies: 08:21 PENICILLINS; iw 08:21 Nitroglycerin; iw - PMHx: 08:21 Anxiety; Crohn's; depressive disorder; Seizure; iw - PSHx: 08:21 Adenoid excision; Cholecystectomy; Ligation of fallopian tube; Tonsillectomy; iw - Family history:: not pertinent. - Hospitalizations: : No recent hospitalization is reported. Vital Signs: 08:20 BP 152 / 90; Pulse 65; Resp 16; Temp 98.5(O); Pulse Ox 99% on R/A; Weight 104.33 kg; iw Height 5 ft. 3 in. ; 08:20 Body Mass Index 40.74 (104.33 kg, 160.02 cm) iw ED Course: 08:16 Patient arrived in ED. mg5 08:18 David Jim MD is Attending Physician. rn 08:21 Triage completed. iw 08:21 Arm band placed on. iw 09:22 Jigna James RN is Primary Nurse. iw Administered Medications: 09:39 Drug: Diphenoxylate-Atropine PO 2 tabs PO once Route: PO; iw 09:40 Drug: Ondansetron PO 4 mg PO once Route: PO; iw Outcome: 08:34 Discharge ordered by . rn 09:40 Patient left the ED. iw Signatures: Jigna James RN RN iw Nieto, Roman, MD MD rn Gardner, [place] mg5 Corrections: (The following items were deleted from the chart) 08:22 08:20 BP 152 / 90; Pulse 65bpm; Resp 16bpm; Pulse Ox 99% RA; iw iw
--- NOTE | 2024-01-23 08:35 | EDPHYS ---
Physician Documentation [facility] Name: Yina Fernandes Age: 38 yrs Sex: Female : 1985 Arrival Date: 01/23/2024 Time: 08:13 Bed IW1 Private MD: ED Physician David Jim HPI: 01/23 08:30 This 38 yrs old Female presents to ER via Ambulatory with complaints of Flu Symptoms, rn Syncope. 08:31 The patient presents to the emergency department with nausea, vomiting, diarrhea. rn Onset: The symptoms/episode began/occurred 2 day(s) ago. Possible causes: unknown. The symptoms are aggravated by nothing. The symptoms are alleviated by nothing. Severity of symptoms: At their worst the symptoms were moderate in the emergency department the symptoms are unchanged. The patient has not experienced similar symptoms in the past. Patient reports nausea/vomiting/diarrhea/congestion that began 2 days ago. Patient reports son just came home with the same problems and is getting over it without medication. He was tested for COVID and flu and negative. Patient denies any fever. No blood in the stool. No blood in emesis.. Historical: - Allergies: 08:21 PENICILLINS; iw 08:21 Nitroglycerin; iw - PMHx: 08:21 Anxiety; Crohn's; depressive disorder; Seizure; iw - PSHx: 08:21 Adenoid excision; Cholecystectomy; Ligation of fallopian tube; Tonsillectomy; iw - Family history:: not pertinent. - Hospitalizations: : No recent hospitalization is reported. ROS: 08:31 Constitutional: Negative for fever, chills, and weight loss, Cardiovascular: Negative rn for chest pain, palpitations, and edema, Respiratory: Negative for shortness of breath, cough, wheezing, and pleuritic chest pain, Abdomen/GI: Positive for nausea/vomiting/diarrhea. Negative for abdominal pain MS/Extremity: Negative for injury and deformity, Skin: Negative for injury, rash, and discoloration, Neuro: Negative for headache, weakness, numbness, tingling, and seizure, Exam: 08:31 Constitutional: This is a well developed, well nourished patient who is awake, alert, rn and in no acute distress. Cardiovascular: Regular rate and rhythm. No pulse deficits. Respiratory: No increased work of breathing, no retractions or nasal flaring. Abdomen/GI: Soft, non-tender Neuro: Awake and alert, GCS 15 Vital Signs: 08:20 BP 152 / 90; Pulse 65; Resp 16; Temp 98.5(O); Pulse Ox 99% on R/A; Weight 104.33 kg; iw Height 5 ft. 3 in. ; 08:20 Body Mass Index 40.74 (104.33 kg, 160.02 cm) iw MDM: 08:18 Patient medically screened. rn 08:31 Differential diagnosis: viral gastroenteritis, gastroenteritis. Data reviewed: vital rn signs, nurses notes, and as a result, I will discharge patient. Counseling: I had a detailed discussion with the patient and/or guardian regarding the historical points, exam findings, and any diagnostic results supporting the discharge/admit diagnosis, the need for outpatient follow up, to return to the emergency department if symptoms worsen or persist or if there are any questions or concerns that arise at home. Special discussion: I discussed with the patient/guardian in detail that at this point there is no indication for admission to the hospital. It is understood, however, that if the symptoms persist or worsen the patient needs to return immediately for re-evaluation. Administered Medications: 09:39 Drug: Diphenoxylate-Atropine PO 2 tabs PO once Route: PO; iw 09:40 Drug: Ondansetron PO 4 mg PO once Route: PO; iw Disposition Summary: 01/23/24 08:34 Discharge Ordered Notes: Location: Home rn Problem: new rn Symptoms: are unchanged rn Condition: Stable rn Diagnosis - Diarrhea, unspecified rn - Vomiting, unspecified rn Followup: rn - With: Private Physician - When: As needed - Reason: Recheck today's complaints, Re-evaluation by your physician Discharge Instructions: - Discharge Summary Sheet rn - Diarrhea, Adult rn - Nausea and Vomiting, Adult rn Forms: - Work release form iw - Medication Reconciliation Form rn - Thank You Letter rn - Antibiotic learning and development consultant - Prescription Opioid Use rn - Patient Portal Instructions rn - Leadership Thank You Letter rn Prescriptions: - ondansetron 4 mg Oral Tablet,disintegrating - take 1 tablet ORAL route every 8 hours As needed; 10 tablet; Refills: 0, rn Product Selection Permitted Signatures: Jigna James RN RN iw David Jim MD MD rn
[2024-01-23 10:00] VITALS: BP 152/90; TEMP 98.5; O2SAT 99
== END ==
LOC: ER 08:13
DX: R19.7 Diarrhea, unspecified (principal); R11.10 Vomiting, unspecified; Z88.0 Allergy status to penicillin; Z88.8 Allergy status to other drugs, medicaments and biological substances
CPT/HCPCS: 99282; Q0162

== ENCOUNTER 2025-01-23 22:24 | Emergency (ER) | payer OTHER ==
--- OUTSIDE RECORDS SUMMARY | 2025-01-23 22:28 | XMS REPORT | Continuity of Care Document ---
Author Name Unknown Address [address] [facility] [address] Alfredo. [address] [place] [address] [facility] thconnect Address [address] [facility] [address] Alfred[address] [place] [address] Care Team Providers Care Medical Billing Instructor Name Role Phone PATRICIA Cormier [facility], [facility] Care Physician Unavailable Daily CHAUHAN Attending Clinician Unavailable Daily Acosta Attending Clinician [phone] VINCENT SOTO Attending Clinician Unavail able VINCENT SOTO Attending Clinician Unavail able Celena Gautam Attending Clinician [phone] RADIOLOGY Attending Clinician Unavailable Vincent Soto MD Attending Clinician [phone] Doctor Unassigned, [place] Attending Clinician U Carlos Talamantes Attending Clinician [phone] CARLOS STONER Attending Clinician Unavaila Radha Jones Attending Clinician [phone] Willis Alas Attending Clinician [phone] WILLIS WANG Attending Clinician Unavailable Adrian Guardado MD Attending Clinician Katalina Lewis MD Attending Clinician Daily CHAUHAN Admitting Clinician Unavailable CARLOS STONER Admitting Clinician UnavailWILLIS Mccray Admitting Clinician Unavailable Payers Payer Name Policy Type Policy Number Effective Date Expirati on Date Source [employer] [id number] 2014 00:00:00 [facility] [id number] 2023 00:00:00 [facility] [id number] 2024 00:00:00 Problems Condition Name Condition Details Condition Category Status Onset Date Resolution Date Last Treatment Date Treating Clinician Comments Source Drug-seeki ng behavior Drug-seeki ng behavior Disease Active 2016-12 00:00: 00 [facility] Obesity (BMI 30-39.9) Obesity (BMI 30-39.9) Disease Active 2015-12 00:00: 00 [facility] Allergies, Adverse Reactions, Alerts Allergy Name Allergy Type Status Severity Reaction(s) Onset Date Inactive Date Treating Clinician Comments Source METOCLOP RAMIDE DRUG INGREDI Active Anxiety 03-10 00:00: 00 [facility] Metoclop ramide Propensi ty to adverse reaction s Active Anxiety 03-10 00:00: 00 [facility] Penicill in Propensi ty to adverse reaction s Active Swelling 02-17 00:00: 00 [facility] PENICILL IN DRUG INGREDI Active Swelling 02-17 00:00: 00 [facility] Penicill in Propensi ty to adverse reaction s Active Swelling 02-17 00:00: 00 [facility] Social History Social Habit Start Date Stop Date Quantity Comments Source Exposure to SARS-CoV-2 (event) Not sure [facility] of tobacco use Cigarette Smoker [facility] History of Social function 2024-03-10 00:00:00 2024-03-10 00:00:00 [facility] Alcohol intake 2024-03-10 00:00:00 2024-03-10 00:00:00 0 /d [facility] Tobacco use and exposure 2018-02-20 00:00:00 2018-02-20 00:00:00 Smokeless tobacco non-user [facility] Cigarettes smoked current (pack per day) - Reported 2018-02-20 00:00:00 2018-02-20 00:00:00 [facility] Cigarette pack-years 2018-02-20 00:00:00 2018-02-20 00:00:00 [facility] Sex Assigned At 1985 00:00:00 1985 00:00:00 [facility] Smoking Status Start Date Stop Date Source Smokes tobacco daily 2018-02-20 00:00:00 [facility] Medications Ordered Medication Name Filled Medication Name Start Date Stop Date Current Medication? Ordering Clinician Indication Dosage Frequency Signature (SIG) Comments Components Source NaCl 0.9% (NS) bolus infusion 500 mL 03-10 16:00: 00 03-10 17:00 :00 No 500mL at 999 mL/hr, 500 mL, IV Infusion, ONCE, 1 dose, On Sat03/10/24 at 1100, STAT [facility] diphenhydrA MINE (BENADRYL) injection 25 mg 03-10 16:00: 00 03-10 15:03 :00 No 25mg 25 mg, Slow IV Push, ONCE, 1 dose, On Sat03/10/24 at 1100, STAT [facility] metoclopram helio HCl (REGLAN) injection 10 mg 03-10 16:00: 00 03-10 15:03 :00 No 10mg 10 mg, Slow IV Push, ONCE, 1 dose, On Sat03/10/24 at 1100, [facility] ketorolac (TORADOL) injection 15 mg 03-10 16:00: 00 03-10 15:03 :00 No 15mg 15 mg, Slow IV Push, ONCE, 1 dose, On Sat03/10/24 at 1100, [facility] iopamidol (ISOVUE 370-500 mL) injection 85 mL 03-10 15:15: 00 03-10 15:15 :00 No [id number] 85mL 85 mL, Intravenou s, ONCE, 1 dose, On Sat03/10/24 at 1015, Routine [facility] predniSONE 20 mg tablet 05-26 00:00: 00 05-30 04:59 :00 No [id number] 40mg Take 2 tablets by mouth daily for 3 days. [facility] ketorolac (TORADOL) injection 60 mg 05-25 17:45: 00 05-25 16:37 :00 No 60mg 60 mg, Intramuscu lar, ONCE, 1 dose, Karen 05/25/21 at 1245, [facility]
Fa culty member approving Restricted medication : EMERGENCY ROOM, [facility] dexamethaso ne (DECADRON PHOSPHATE) injection 10 mg 05-25 17:30: 00 05-25 16:36 :00 No 10mg 10 mg, Intramuscu lar, ONCE, 1 dose, Karen 05/25/21 at 1230, STAT [facility] ciprofloxac in-dexameth asone 0.3-0.1 % otic drops 05-25 00:00: 00 06-05 04:59 :00 No [id number] 4[drp] Place 4 Drops in left ear 2 (two) times daily for 10 days. [facility] ketorolac (TORADOL) injection 30 mg 04-21 18:15: 04-21 17:14 :00 No 30mg 30 mg, Slow IV Push, ONCE, 1 dose, Sat04/21/21 at 1315, [facility]
Fa culty member approving Restricted medication : CARLOS STONER [facility] ondansetron (ZOFRAN-ODT ) disintegrat ing tablet 4 mg 04-21 18:15: 00 04-21 17:07 :00 No 4mg 4 mg, Oral, ONCE, 1 dose, 04/21/21 at 1315, Routine [facility] diphenhydrA MINE (BENADRYL) tablet 25 mg 04-21 17:00: 00 04-21 17:03 :00 No 25mg 25 mg, Oral, ONCE, 1 dose, Sat04/21/21 at 1200, FARIDA [facility] dexamethaso ne (DECADRON PHOSPHATE) injection 10 mg 04-21 17:00: 00 04-21 17:02 :00 No 10mg 10 mg, Oral, ONCE, 1 dose, Sat04/21/21 at 1200, Routine [facility] albuterol (VENTOLIN) inhaler 2 Puff 04-21 17:00: 00 04-21 16:05 :00 No 2{puff} 2 Puff, Inhalation , ONCE, 1 dose, Sat04/21/21 at 1200, [facility]
Is this order for a patient with suspected or confirmed COVID-19 infection? Yes [facility] benzonatate 100 mg capsule 04-21 00:00: 00 Yes [id number] 100mg Take 1 capsule by mouth 3 (three) times daily as needed for Cough. [facility] albuterol 90 mcg/actuati on inhaler 04-21 00:00: 00 Yes [id number] 2{puff} Inhale 2 Puffs every 4 (four) hours as needed for Wheezing or Shortness of Breath. [facility] dicyclomine (BENTYL) tablet 20 mg 01-14 03:30: 00 01-14 02:40 :00 No 20mg 20 mg, Oral, ONCE NOW, 1 dose, Sat01/13/21 at 2130, Routine [facility] NaCl 0.9% (NS) bolus infusion 1,000 mL 01-14 03:30: 00 01-14 04:06 :00 No 1000mL at 999 mL/hr, 1,000 mL, IV Infusion, ONCE, 1 dose, Sat01/13/21 at 2130, STAT [facility] ondansetron (ZOFRAN (PF)) injection 4 mg 01-14 03:30: 00 01-14 02:34 :00 No 4mg 4 mg, Slow IV Push, ONCE, 1 dose, 01/13/21 at 2130, Routine [facility] ondansetron (ZOFRAN ODT) 4 mg disintegrat ing tablet 01-13 00:00: 00 Yes [id number] 4mg Take 1 tablet by mouth every 8 (eight) hours as needed for Nausea and Vomiting (N/V). [facility] dicyclomine 20 mg tablet 01-13 00:00: 00 Yes [id number] 20mg Take 1 tablet by mouth 3 (three) times daily as needed for Abdominal pain. [facility] dicyclomine (BENTYL) capsule 20 mg 2019-12 20:00: 00 09-27 19:04 :00 No 20mg 20 mg, Oral, ONCE, 1 dose, 09/27/20 at 1500, Routine [facility] maalox:diph enhydrAMINE :lidocaine 2 % viscous 1:1:1 (FIRST-MOUT HWASH BLM) oral suspension 15 mL 2019-12 19:30: 00 09-27 18:25 :00 No 15mL 15 mL, Oral (Swish & Swallow), ONCE, 1 dose, 09/27/20 at 1430, Routine [facility] iohexol (OMNIPAQUE 350 BULK-150 mL) injection 120 mL 2019-12 18:15: 00 09-27 17:57 :00 No 120mL 120 mL, Intravenou s, ONCE, 1 dose, 09/27/20 at 1315, Routine [facility] ondansetron (ZOFRAN (PF)) injection 4 mg 2019-12 18:00: 00 09-27 16:56 :00 No 4mg 4 mg, Slow IV Push, ONCE, 1 dose, 09/27/20 at 1300, FARIDA [facility] morpHINE injection 4 mg 2019-12 18:00: 09-27 16:57 :00 No 4mg 4 mg, Slow IV Push, ONCE, 1 dose, 09/27/20 at 1300, STAT [facility] famotidine (PEPCID) 40 mg tablet 2019-12 00:00: 00 Yes [id number] 40mg Take 1 tablet by mouth daily. [facility] dicyclomine 20 mg tablet 2019-12 00:00: 00 Yes [id number] 20mg Take 1 tablet by mouth 4 (four) times daily. [facility] ondansetron (ZOFRAN (PF)) injection 4 mg 04-09 20:30: 04-09 20:01 :00 No 4mg 4 mg, Slow IV Push, ONCE, 1 dose, 04/09/20 at 1530, FARIDA [facility] FENTanyl PF (SUBLIMAZE (PF)) injection 50 mcg 04-09 20:30: 04-09 20:01 :00 No 50ug 50 mcg, Slow IV Push, ONCE, 1 dose, 04/09/20 at 1530, Routine [facility] ketorolac (TORADOL) injection 15 mg 04-09 19:30: 00 04-09 18:27 :00 No 15mg 15 mg, Slow IV Push, ONCE, 1 dose, 04/09/20 at 1430, Routine
pricing/signage team member approving Restricted medication : WILLIS WANG [facility] ibuprofen 800 mg tablet 04-09 00:00: 00 Yes [id number] 800mg Take 1 tablet by mouth every 6 (six) hours as needed for Pain (scale 4-6). [facility] traMADol 50 mg tablet 04-09 00:00: 00 Yes [id number] 50mg Take 1 tablet by mouth every 6 (six) hours as needed for Pain (scale 7-10). [facility] ondansetron (ZOFRAN-ODT ) disintegrat ing tablet 4 mg 12-26 10:00: 00 12-26 08:58 :00 No 4mg 4 mg, Oral, ONCE, 1 dose, 12/26/19 at 0400, Routine [facility] ketorolac (TORADOL) injection 60 mg 12-26 09:45: 00 12-26 09:07 :00 No 60mg 60 mg, Intramuscu lar, ONCE, 1 dose, 12/26/19 at 0345, FAR[place]
Fa culty member approving Restricted medication : ADRIAN GUARDADO [facility] FENTanyl PF (SUBLIMAZE (PF)) injection 50 mcg 12-26 09:45: 00 12-26 08:59 :00 No 50ug 50 mcg, Intramuscu lar, ONCE, 1 dose, 12/26/19 at 0345, Routine [facility] ofloxacin 0.3 % otic drops 12-26 00:00: 00 01-03 05:59 :00 No [id number] 5[drp] Place 5 Drops in left ear 2 (two) times daily for 7 days. [facility] ketorolac (TORADOL) injection 30 mg 12-19 22:00: 00 12-19 21:03 :00 No 30mg 30 mg, Slow IV Push, ONCE, 1 dose, 12/19/19 at 1600, Routine
pricing/signage team member approving Restricted medication : KATALINA LEWIS [facility] iohexol (OMNIPAQUE 350 BULK-100 mL) injection 120 mL 12-19 21:30: 00 12-19 21:24 :00 No 120mL 120 mL, Intravenou s, ONCE, 1 dose, 12/19/19 at 1530, Routine [facility] dicyclomine 20 mg tablet 12-19 00:00: 00 Yes [id number] 20mg Take 1 tablet by mouth every 6 (six) hours as needed for Abdominal pain. [facility] ondansetron (ZOFRAN) 4 mg tablet 12-19 00:00: 00 Yes [id number] 4mg Take 1 tablet by mouth every 8 (eight) hours as needed for Nausea and Vomiting (N/V). [facility] phenazopyri dine 200 mg tablet 12-19 00:00: 00 Yes [id number] 200mg Take 1 tablet by mouth 3 (three) times daily. [facility] traMADol (ULTRAM) 50 mg tablet 2018-12 00:00: 00 Yes [id number] 50mg Take 1 tablet by mouth every 8 (eight) hours as needed for Pain (scale 4-6). [facility] albuterol 90 mcg/actuati on inhaler 2018-12 00:00: 00 Yes [id number] 2{puff} Inhale 2 Puffs every 4 (four) hours as needed for Wheezing or Shortness of Breath. [facility] benzonatate 100 mg capsule 2018-12 00:00: 00 Yes [id number] 100mg Take 1 capsule by mouth 3 (three) times daily as needed for Cough. [facility] pantoprazol e 40 mg EC tablet 2018-12 00:00: 00 Yes [id number] 40mg Take 1 tablet by mouth daily. [facility] Vital Signs Vital Name Observation Time Observation Value Comments S ource Systolic blood pressure 2024-03-10 17:45:00 157 mm[Hg] [facility] Diastolic blood pressure 2024-03-10 17:45:00 70 mm[Hg] [facility] Heart rate 2024-03-10 17:45:00 65 /min [facility] Respiratory rate 2024-03-10 17:45:00 18 /min [facility] Oxygen saturation in Arterial blood by Pulse oximetry 2024-03-10 17:45:00 99 /min [facility] Body temperature 2024-03-10 13:09:[address] [facility] Body height 2024-03-10 13:09:00 160 cm [facility] Body weight 2024-03-10 13:09:00 99.791 kg [facility] BMI 2024-03-10 13:09:00 38.97 kg/m2 [facility] Systolic blood pressure 2021-05-25 16:22:03 135 mm[Hg] [facility] Diastolic blood pressure 2021-05-25 16:22:03 75 mm[Hg] [facility] Heart rate 2021-05-25 16:22:03 75 /min [facility] Body temperature 2021-05-25 16:22:[address] [facility] Respiratory rate 2021-05-25 16:22:03 17 /min [facility] Body height 2021-05-25 16:18:00 160 cm [facility] Body weight 2021-05-25 16:18:00 101.152 kg [facility] BMI 2021-05-25 16:18:00 39.50 kg/m2 [facility] Oxygen saturation in Arterial blood by Pulse oximetry 2021-05-25 16:18:00 98 /min [facility] Systolic blood pressure 2021-04-21 18:22:31 132 mm[Hg] [facility] Diastolic blood pressure 2021-04-21 18:22:31 89 mm[Hg] [facility] Heart rate 2021-04-21 18:22:31 77 /min [facility] Respiratory rate 2021-04-21 18:22:31 16 /min [facility] Oxygen saturation in Arterial blood by Pulse oximetry 2021-04-21 18:22:31 97 /min [facility] Body temperature 2021-04-21 15:20:[address] [facility] Body weight 2021-04-21 15:20:00 127.007 kg [facility] BMI 2021-04-21 15:20:00 51.21 kg/m2 [facility] Systolic blood pressure 2021-01-14 04:08:00 124 mm[Hg] [facility] Diastolic blood pressure 2021-01-14 04:08:00 84 mm[Hg] [facility] Heart rate 2021-01-14 04:08:00 69 /min [facility] Respiratory rate 2021-01-14 04:08:00 16 /min [facility] Oxygen saturation in Arterial blood by Pulse oximetry 2021-01-14 04:08:00 98 /min [facility] Body temperature 2021-01-14 00:34:[address] [facility] Body weight 2021-01-14 00:34:00 127.007 kg [facility] BMI 2021-01-14 00:34:00 51.21 kg/m2 [facility] Systolic blood pressure 2020-09-27 18:30:00 127 mm[Hg] [facility] Diastolic blood pressure 2020-09-27 18:30:00 77 mm[Hg] [facility] Heart rate 2020-09-27 18:30:00 66 /min [facility] Respiratory rate 2020-09-27 18:30:00 18 /min [facility] Oxygen saturation in Arterial blood by Pulse oximetry 2020-09-27 18:30:00 97 /min [facility] Body temperature 2020-09-27 16:14:[address] [facility] Body weight 2020-09-27 16:14:00 127.007 kg [facility] BMI 2020-09-27 16:14:00 51.21 kg/m2 [facility] Systolic blood pressure 2020-04-09 21:00:00 142 mm[Hg] [facility] Diastolic blood pressure 2020-04-09 21:00:00 77 mm[Hg] [facility] Heart rate 2020-04-09 21:00:00 62 /min [facility] Respiratory rate 2020-04-09 21:00:00 18 /min [facility] Oxygen saturation in Arterial blood by Pulse oximetry 2020-04-09 21:00:00 98 /min [facility] Body temperature 2020-04-09 18:10:[address] [facility] Body weight 2020-04-09 18:10:00 108.863 kg [facility] BMI 2020-04-09 18:10:00 43.90 kg/m2 [facility] Systolic blood pressure 2020-04-09 21:00:00 142 mm[Hg] [facility] Diastolic blood pressure 2020-04-09 21:00:00 77 mm[Hg] [facility] Heart rate 2020-04-09 21:00:00 62 /min [facility] Respiratory rate 2020-04-09 21:00:00 18 /min [facility] Oxygen saturation in Arterial blood by Pulse oximetry 2020-04-09 21:00:00 98 /min [facility] Body temperature 2020-04-09 18:10:[address] [facility] Body weight 2020-04-09 18:10:00 108.863 kg [facility] BMI 2020-04-09 18:10:00 43.90 kg/m2 [facility] Systolic blood pressure 2019-12-26 09:36:00 130 mm[Hg] [facility] Diastolic blood pressure 2019-12-26 09:36:00 81 mm[Hg] [facility] Heart rate 2019-12-26 09:36:00 77 /min [facility] Respiratory rate 2019-12-26 09:36:00 18 /min [facility] Oxygen saturation in Arterial blood by Pulse oximetry 2019-12-26 09:36:00 98 /min [facility] Body temperature 2019-12-26 08:07:[address] [facility] Body height 2019-12-26 08:07:00 157.5 cm [facility] Body weight 2019-12-26 08:07:00 108.863 kg [facility] BMI 2019-12-26 08:07:00 43.90 kg/m2 [facility] Systolic blood pressure 2019-12-26 09:36:00 130 mm[Hg] [facility] Diastolic blood pressure 2019-12-26 09:36:00 81 mm[Hg] [facility] Heart rate 2019-12-26 09:36:00 77 /min [facility] Respiratory rate 2019-12-26 09:36:00 18 /min [facility] Oxygen saturation in Arterial blood by Pulse oximetry 2019-12-26 09:36:00 98 /min [facility] Body temperature 2019-12-26 08:07:[address] [facility] Body height 2019-12-26 08:07:00 157.5 cm [facility] Body weight 2019-12-26 08:07:00 108.863 kg [facility] BMI 2019-12-26 08:07:00 43.90 kg/m2 [facility] Systolic blood pressure 2019-12-19 22:00:00 140 mm[Hg] [facility] Diastolic blood pressure 2019-12-19 22:00:00 79 mm[Hg] [facility] Heart rate 2019-12-19 22:00:00 77 /min [facility] Oxygen saturation in Arterial blood by Pulse oximetry 2019-12-19 22:00:00 98 /min [facility] Respiratory rate 2019-12-19 21:00:00 18 /min [facility] Body temperature 2019-12-19 20:36:[address] [facility] Body weight 2019-12-19 20:36:00 108.863 kg [facility] BMI 2019-12-19 20:36:00 42.51 kg/m2 [facility] Systolic blood pressure 2019-12-19 22:00:00 140 mm[Hg] [facility] Diastolic blood pressure 2019-12-19 22:00:00 79 mm[Hg] [facility] Heart rate 2019-12-19 22:00:00 77 [facility]terial blood by Pulse oximetry 2019-12-19 22:00:00 98 /min [facility] Respiratory rate 2019-12-19 21:00:00 18 /min [facility] Body temperature 2019-12-19 20:36:[address] [facility] Body weight 2019-12-19 20:36:00 108.863 kg [facility] BMI 2019-12-19 20:36:00 42.51 kg/m2 [facility] Procedures Procedure Date / Time Performed Performing Clinician Source CT HEAD WO CONTRAST 2024-03-10 14:00:[address] [facility] CT STROKE ANGIOGRAM HEAD 2024-03-10 14:00:[address] [facility] CT STROKE ANGIOGRAM NECK 2024-03-10 14:00:[address] [facility] COMP. METABOLIC PANEL ([id number]) 2024-03-10 13:31:[address] [facility] CBC WITH DIFF 2024-03-10 13:31:00 Daily Chauhan [facility] URINALYSIS 2024-03-10 13:31:00 Daily Chauhan [facility] NOTICE OF PRIVACY PRACTICES 2021-05-25 16:10:28 Doctor Unassigned, [place] [facility] CONSENT/REFUSAL FOR DIAGNOSIS AND TREATMENT 2021-05-25 16:09:55 Doctor Unassigned, [place] [facility] REFERRAL- REQUEST/RESPONSE 2021-05-18 05:01:00 Doctor Unassigned, [place] [facility] XR CHEST 1 VW 2021-04-21 17:07:[address] [facility] COVID-19 (ID NOW RAPID TESTING) 2021-04-21 17:02:[address] [facility] CONSENT/REFUSAL FOR DIAGNOSIS AND TREATMENT 2021-04-21 15:01:21 Doctor Unassigned, [place] [facility] LIPASE 2021-01-14 01:45:00 Celena Sumner [facility] HEPATIC FUNCTION PANEL ([id number]) (ALB,T.PRO,BILI T,BU/BC,ALT,AST,ALK PHOS) 2021-01-14 01:45:[address] [facility] BASIC METABOLIC PANEL (NA, K, CL, CO2, GLUCOSE, BUN, CREATININE, CA) 2021-01-14 01:45:[address] [facility] CBC WITH DIFF 2021-01-14 01:45:00 Celena Sumner [facility] URINALYSIS 2021-01-14 01:41:00 Celena Sumner [facility] POCT TEST 2021-01-14 01:41:[address] [facility] CONSENT/REFUSAL FOR DIAGNOSIS AND TREATMENT 2021-01-14 00:30:05 Doctor Unassigned, [place] [facility] CT ABDOMEN PELVIS W CONTRAST 2020-09-27 18:03:[address] [facility] LIPASE 2020-09-27 16:54:00 Daily Chauhan [facility] COMP. METABOLIC PANEL ([id number]) 2020-09-27 16:54:[address] [facility] CBC WITH DIFF 2020-09-27 16:22:00 Daily Chauhan [facility] URINALYSIS 2020-09-27 16:22:00 Daily Chauhan [facility] POCT TEST 2020-09-27 16:22:[address] [facility] NOTICE OF PRIVACY PRACTICES 2020-09-27 15:51:58 Doctor Unassigned, [place] [facility] CONSENT/REFUSAL FOR DIAGNOSIS AND TREATMENT 2020-09-27 15:51:41 Doctor Unassigned, [place] [facility] CT ABDOMEN PELVIS WO CONTRAST 2020-04-09 20:27:[address] [facility] COMP. METABOLIC PANEL ([id number]) 2020-04-09 18:25:[address] [facility] URINALYSIS 2020-04-09 18:25:00 Willis [facility] CBC WITH DIFFERENTIAL 2020-04-09 18:25:[address] [facility] POCT TEST 2020-04-09 18:19:[address] [facility] EKG-12 LEAD 2019-12-26 08:35:47 Adrian [facility] ABDOMEN PELVIS W CONTRAST 2019-12-19 21:28:[address] [facility] URINALYSIS 2019-12-19 21:09:00 Katalina Lewis [facility] LIPASE 2019-12-19 20:46:00 Katalina Lewis [facility] COMP. METABOLIC PANEL ([id number]) 2019-12-19 20:46:[address] [facility] CBC WITH DIFFERENTIAL 2019-12-19 20:46:[address] [facility] Encounters Start Date/Time End Date/Time Encounter Type Admission Type Attending [facility] Facility Care Department Encounter ID Source 2021-10-02 03:34:33 Emergency [facility] [id number] [facility] 2021-09-30 23:28:28 Emergency [facility] [id number] [facility] 2021-09-30 01:18:04 Emergency [facility] [id number] [facility] 2024-03-10 08:11:00 2024-03-10 12:59:00 Emergency X Daily [facility]AU[facility] ERT [id number] [facility] 2024-03-10 08:11:00 2024-03-10 12:59:00 Emergency Daily Chauhan [facility] 1..840.114 350.1.13.10 4.2.7.2.686 [id number] 084 [id number] [facility] 2021-06-02 10:00:00 2021-06-02 10:00:00 Outpatient VINCENT MUNOZ [facility] [id number] [facility] 2021-05-25 11:22:00 2021-05-25 12:01:00 Emergency Celena Sumner [facility] 1..840.114 350.1.13.10 4.2.7.2.686 [id number] 084 [id number] [facility] 2021-05-25 00:00:00 2021-05-25 00:00:00 Outpatient R [facility] [id number] [facility] 2021-05-23 00:00:00 2021-05-23 00:00:00 Letter (Out) Vincent Soto [facility] 1..840.114 350.1.13.10 4.2.7.2.686 [id number] 092 [id number] [facility] 2021-05-18 00:00:00 2021-05-18 00:00:00 Orders Only Doctor Unassigned, [place] [facility] 1.2.840.114 350.1.13.10 4.2.7.2.686 [id number] 009 [id number] [facility] 2021-04-21 10:21:00 2021-04-21 13:26:00 Emergency Carlos Stoner [facility] 1.2.840.114 350.1.13.10 4.2.7.2.686 [id number] 084 [id number] [facility] 2021-04-21 10:21:00 2021-04-21 13:26:00 Emergency X CHARLIELESLIEBARAK [facility] ERT [id number] [facility] 2021-01-13 18:36:00 2021-01-13 22:10:00 Emergency Pinky Maiann [facility] 1.2.840.114 350.1.13.10 4.2.7.2.686 [id number] 084 [id number] [facility] 2020-09-27 11:07:00 2020-09-27 14:11:00 Emergency Daily Chauhan [facility] 1.2.840.114 350.1.13.10 4.2.7.2.686 [id number] 084 [id number] [facility] 2020-09-27 00:00:00 2020-09-27 00:00:00 Orders Only Doctor Unassigned, [place] [facility] 1.2.840.114 350.1.13.10 4.2.7.2.686 [id number] 009 [id number] [facility] 2020-04-09 13:11:51 2020-04-09 16:26:00 Emergency Willis Wang [facility] 1.2.840.114 350.1.13.10 4.2.7.2.686 [id number] 084 [id number] 2020-04-09 13:11:51 2020-04-09 16:26:00 Emergency Willis Wang [facility] 1.2.840.114 350.1.13.10 4.2.7.2.686 [id number] 084 [id number] [facility] 2020-04-09 13:11:51 2020-04-09 16:26:00 Emergency X WILLIS WANG [facility] ERT [id number] [facility] 2019-12-26 02:03:08 2019-12-26 03:42:00 Emergency Adrian Guardado [facility] 1.2.840.114 350.1.13.10 4.2.7.2.686 [id number] 084 [id number] [facility] 2019-12-26 02:03:08 2019-12-26 03:42:00 Emergency Adrian Guardado [facility] 1.2.840.114 350.1.13.10 4.2.7.2.686 [id number] [id number] 2019-12-19 14:29:58 2019-12-19 16:35:00 Emergency Radha Mai [facility] 1.2.840.114 350.1.13.10 4.2.7.2.686 [id number] 084 [id number] [facility] 2019-12-19 14:29:58 2019-12-19 16:35:00 [facility] 1.2.840.114 350.1.13.10 4.2.7.2.686 [id number] 084 [id number] Results Test Description Test Time Test Comments Results Result Comments Source CT STROKE ANGIOGRAM HEAD 14:42:08 CT STROKE ANGIOGRAM HEAD, CT STROKE ANGIOGRAM NECK HISTORY: Female 38 years Neuro deficit, acute, stroke suspected COMPARISON: Concurrent CT head. TECHNIQUE: CT angiographic images of the head and neck were obtained afteradministration of IV contrast. Multiplanar reformats including maximumintensity projection images submitted for review. FINDINGS: CTA HEAD: Bilateral intradural vertebral arteries are patent. 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 The superior cerebellar arteries are unremarkable. The posteriorcerebral arteries are unremarkable. The distal cervical, petrous, cavernous and supraclinoid internal carotidarteries are patent and unremarkable. The anterior and middle cerebral arteries are unremarkable. An anteriorcommunicating artery is visualized. No dissection, aneurysm or AVM. Dural venous sinuses are patent. CT ANGIOGRAM NECK: Classic three-vessel arch anatomy identified. ?The great vessel ostia arepatent. The subclavian arteries demonstrate normal contrast opacification. The bilateral common and internal carotid arteries are patent andunremarkable. The vertebral artery ostia are patent. No dissection or stenosis isidentified within the cervical segments. ? [facility] CT STROKE ANGIOGRAM NECK 14:42:08 CT STROKE ANGIOGRAM HEAD, CT STROKE ANGIOGRAM NECK HISTORY: Female 38 years Neuro deficit, acute, stroke suspected COMPARISON: Concurrent CT head. TECHNIQUE: CT angiographic images of the head and neck were obtained afteradministration of IV contrast. Multiplanar reformats including maximumintensity projection images submitted for review. FINDINGS: CTA HEAD: Bilateral intradural vertebral arteries are patent. 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 The superior cerebellar arteries are unremarkable. The posteriorcerebral arteries are unremarkable. The distal cervical, petrous, cavernous and supraclinoid internal carotidarteries are patent and unremarkable. The anterior and middle cerebral arteries are unremarkable. An anteriorcommunicating artery is visualized. No dissection, aneurysm or AVM. Dural venous sinuses are patent. CT ANGIOGRAM NECK: Classic three-vessel arch anatomy identified. ?The great vessel ostia arepatent. The subclavian arteries demonstrate normal contrast opacification. The bilateral common and internal carotid arteries are patent andunremarkable. The vertebral artery ostia are patent. No dissection or stenosis isidentified within the cervical segments. ? [facility] CT HEAD WO CONTRAST 14:29:56 EXAM: CT HEAD WO CONTRAST HISTORY: 38 years-old Female; Provided indication: Headache, new orworsening, neuro deficit (Age 18-49y) . TECHNIQUE: Axial CT of the head was performed and reconstructed at 5 mmintervals. Coronal and sagittal reformatted images were generated. COMPARISON: CT head the fourth 20/04/2019 FINDINGS: The ventricles and cerebral sulci are normal in caliber and configuration.No midline shift or pathological extra-axial fluid collection is present.The basal cisterns are unremarkable. No acute intracranial hemorrhage or significant mass effect is visualized.No parenchymal attenuation abnormality is seen. The rollins-white matterdifferentiation is preserved. Partially empty sella. Cerebellar tonsillar ectopia, incompletely imaged. The mastoid air cells and paranasal air sinuses are clear. The calvariumand central skull base are unremarkable. [facility] with [id number] 14:20:31* Test Item Value Reference Range Interpretation Comme nts WBC (test code = 6690-2) 6.93 4.30-11.10 RBC (test code = 789-8) 4.46 3.93-5.25 HGB (test code = 718-7) 14.1 g/dL 11.6-15.0 HCT (test code = 4544-3) 42.1 % 35.7-45.2 MCV (test code = 787-2) 94.4 fL 80.6-95.5 MCH (test code = 785-6) 31.6 pg 25.9-32.8 MCHC (test code = 786-4) 33.5 g/dL 31.6-35.1 RDW-SD (test code = 87091-7) 44.5 fL 39.0-49.9 RDW-CV (test code = 788-0) 12.9 % 12.0-15.5 PLT (test code = 777-3) 344 166-358 MPV (test code = 05295-8) 10.3 fL 9.5-12.9 NRBC/100 WBC (test code = 1758709960) 0.0 0.0-10.0 NRBC x10^3 (test code = 8131639916) See_Comment [Automated me ssage] The system which generated this result transmitted reference range: 10*3/?L. The reference range was not used to interpret this result as normal/abnormal. GRAN MAT (NEUT) % (test code = 770-8) 51.8 % IMM GRAN % (test code = 1528377316) 0.30 % LYMPH % (test code = 736-9) 33.5 % MONO % (test code = 5905-5) 10.2 % EOS % (test code = 713-8) 3.2 % BASO % (test code = 706-2) 1.0 % GRAN MAT x10^3(ANC) (test code = 6828832472) 3.59 10*3/uL 1.88-7.09 IMM GRAN x10^3 (test code = 3922697127) 0.00-0.06 LYMPH x10^3 (test code = 731-0) 2.32 10*3/uL 1.32-3.29 MONO x10^3 (test code = 742-7) 0.71 10*3/uL 0.33-0.92 EOS x10^3 (test code = 711-2) 0.22 10*3/uL 0.03-0.39 BASO x10^3 (test code = 704-7) 0.07 10*3/uL 0.01-0.07 [facility] 1 [id number] 18:21:45No acute cardiopulmonary abnormality. Preliminary Report Dictated by Resident: Nikita Huynh I, Jabari Carballo MD., have reviewed this study and agree with theove report.EXAM: XR CHEST 1 VW HISTORY: 36 years-old Female; cough "Cough, congestion, ear "itchiness" x3days "when the rain started".?" TECHNIQUE: Single frontal view of the chest. COMPARISON: Chest radiographs dated 09/19/2019 FINDIN GS: The lungs are moderately well-expanded, and clear apart from mild perihilarvascular congestion.A trace opacity in the lingula, unchanged from theprior x-ray consistent with atelectasis. No focalconsolidation, pleuraleffusion, or pneumothorax is visualized. The cardiomediastinal silhouette is normal. No acute osseous abnormality is present. [facility], Radiant Results Inft User - 04/21/2021 1:22 PM CDTEXAM: XR CHEST 1 VWHISTORY: 36 years-old Female; cough "Cough, congestion, ear "itchiness" x3days "when the rain started".?"TECHNIQUE: Single frontal view of the chest.COMPARISON: Chest radiographs dated 09/19/2019FINDINGS:The lungs are moderately well-expanded, and clear apart from mild perihilarvascular congestion. A trace opacity in the lingula, unchanged from theprior x-ray consistent with atelectasis. No focal consolidation, pleuraleffusion, or pneumothorax is visualized. The cardiomedi astinal silhouette is normal. No acute osseous abnormality is present. IMPRESSIONNo acute cardiopulmonary abnormality.Preliminary Report Dictated by Resident: Nikita Smith, Jabari Kaur MD., have reviewed this study and agree with theabove report.[facility] (ID NOW RAPID TESTING)2021-04-21 17:28:13* Test Item Value Reference Range Interpretation Comme nts SARS-CoV-2 Rapid ID NOW (test code = 83337-3) Not Detected Not Detected PATT (test code = PATT) ID NOW COVID-19 As say is an isothermal nucleic acid amplification test intended for the qualitative detection of nucleic acid from SARS-CoV-2 viral RNA in nasopharyngeal (ASSISTANT FLOOR COVERING PRINTER) specimens. It is used under Emergency Use [...] clinically indicated. Lab Interpretation (test code = 62680-7) Normal [facility]2021-[facility]-13 02:32:00* Test Item Value Reference Range Interpretation Comme nts APPEARANCE (test code = 6692356968) Cloudy Clear A COLOR (test code = 9146799133) Natalie Yellow A PH (test code = 6312164639) 4.8-8.0 SP GRAVITY (test code = 3184825667) 1.003-1.030 GLU U QUAL (test code = 4155871968) Normal Normal BLOOD (test code = 4301174252) Negative Negative KETONES (test code = 5065591689) 5 mg/dL Negative A PROTEIN (test code = 2887-8) 100 mg/dL Negative A UROBILIN (test code = 5224300416) 2.0 mg/dL Normal A BILIRUBIN (test code = 1545183074) 2 mg/dL Negative A NITRITE (test code = 3265803368) Negative Negative LEUK RACHAEL (test code = 5717663752) 25/uL Negative A RBC/HPF (test code = 5787728968) See_Comment H [Automated Allocadea ge] The system which generated this result transmitted reference range: 0 - 3 HPF. The reference range was not used to interpret this result as normal/abnormal. WBC/HPF (test code = 3120515277) See_Comment [Automated Allocadea ge] The system which generated this result transmitted reference range: 0 - 5 HPF. The reference range was not used to interpret this result as normal/abnormal. BACTERIA (test code = 7302732842) Moderate Negative A MUCOUS (test code = 2312184732) Marked Negative LPF A AMORPHOUS (test code = 1367724680) Rare Rare HPF SQ EPITH (test code = 7441021117) HPF Lab Interpretation (test code = 92433-1) Abnormal [facility] Metabolic Panel (NA, K, CL, CO2, GLUCOSE, BUN, CREATININE, CA)2021-01-14 02:18:00* Test Item Value Reference Range Interpretation Comme nts NA (test code = 8411288236) 137 mmol/L 135-145 K (test code = 2902766310) 4.1 mmol/L 3.5-5 CL (test code = 7282850098) 103 mmol/L 98-108 CO2 TOTAL (test code = 8452277115) 29 mmol/L 23-31 AGAP (test code = 7183441773) 2-16 BUN (test code = 2960464649) 10 mg/dL 7-23 GLUCOSE (test code = 0872758286) 100 mg/dL 70-110 CREATININE (test code = 8596038920) 0.66 mg/dL 0.5-1.04 CALCIUM (test code = 4362521513) 9.0 mg/dL 8.6-10.6 eGFR Calculation (Non-) (test code = 5730208577) mL/min/1.73m2 eGFR Calculation () (test code = 6727740426) mL/min/1.73m2 PATT (test code = PATT) Association [...] or urine or abnormalities in imaging tests). [facility] (ALB, T.PRO, BILI T, BU/BC, ALT, AST, ALK PHOS)2021-01-14 02:18:00* Test Item Value Reference Range Interpretation Comme nts TOTAL BILI (test code = 4073935396) 0.4 mg/dL 0.1-1.1 BILI UNCON (test code = 4622522048) 0.3 mg/dL 0.1-1.1 BILI CONJ (test code = 9893996467) 0.0 mg/dL 0-0.3 T PROTEIN (test code = 0636280329) 7.1 g/dL 6.3-8.2 ALBUMIN (test code = 8110660132) 4.3 g/dL 3.5-5 ALK PHOS (test code = 4268449697) 80 U/L 34-122 ALTv (test code = 1742-6) 19 U/L 5-35 AST(SGOT) (test code = 7639801315) 24 U/L 13-40 Lab Interpretation (test cod e = 02344-1) Normal [facility] Gfgmn9614-13-67 02:18:00* Test Item Value Reference Range Interpretation Comme nts LIPASE (test code = 2813475452) 27 U/L 0-220 Lab Interpretation (test cod e = 97917-7) Normal [facility] with Ludsdzqdqhtd8223-39-98 02:03:00* Test Item Value Reference Range Interpretation Comme nts WBC (test code = 6690-2) See_Comment [Automated Strava] The system which generated this result transmitted reference range: 4.30 - 11.10 10*3/?L. The reference range was not used to interpret this result as normal/abnormal. RBC (test code = 789-8) See_Comment [Automated Allocadea [employer]] The system which generated this result transmitted [...] 32.6 g/dL 31.6-35.1 RDW-SD (test code = 64930-0) 47.5 fL 39-49.9 RDW-CV (test code = 788-0) 13.8 % 12-15.5 PLT (test code = 777-3) See_Comment [Automated messa ge] The system which generated this result transmitted reference range: 166 - 358 10*3/?L. The reference range was not used to interpret this result as normal/abnormal. MPV (test code = 46074-4) 9.6 fL 9.5-12.9 NRBC/100 WBC (test code = 7319442329) See_Comment [Automated me ssage] The system which generated this result transmitted reference range: 0.0 - 10.0 /100 WBCs. The reference range was not used to interpret this result as normal/abnormal. NRBC x10^3 (test code = 5571971054) <0.01 See_Comment [Automated messa ge] The system which generated this result transmitted reference range: 10*3/?L. The reference range was not used to interpret this result as normal/abnormal. GRAN MAT (NEUT) % (test code = 770-8) 54.6 % IMM GRAN % (test code = 6962420882) 0.40 % LYMPH % (test code = 736-9) 30.3 % MONO % (test code = 5905-5) 12.3 % EOS % (test code = 713-8) 1.6 % BASO % (test code = 706-2) 0.8 % GRAN MAT x10^3(ANC) (test code = 9915846668) 5.07 10*3/uL 1.88-7.09 IMM GRAN x10^3 (test code = 8791310878) 0.04 10*3/uL 0-0.06 LYMPH x10^3 (test code = 731-0) 2.81 10*3/uL 1.32-3.29 MONO x10^3 (test code = 742-7) 1.14 10*3/uL 0.33-0.92 H EOS x10^3 (test code = 711-2) 0.15 10*3/uL 0.03-0.39 BASO x10^3 (test code = 704-7) 0.07 10*3/uL 0.01-0.07 Lab Interpretation (test code = 77112-6) Abnormal [facility] Jyjy4050-22-34 01:41:00* Test Item Value Reference Range Interpretation Comme nts POCT PREG (test code = 1605) Negative On board controls acceptable with C Line (test code = 3574) Present POCT PREG LOT # (test code = 3575) HCG [id number] POCT PREG TEST DATE ( test code = 3576) 08/31/2022 Lab Interpretation (test cod e = 78141-5) Normal [facility] P[facility] W [id number] 18:13:13CT Abdomen and Pelvis with intravenous contrast. [...] lesions in the ovaries, consistent with physiologicchanges. [facility], Radiant Results Inft User - 09/27/2020 [...] cystic lesions in the ovaries, consistent with physiologicchanges.[facility] Metabolic Lddhm3134-25-98 17:18:00* Test Item Value Reference Range Interpretation Comme nts NA (test code = 6392483492) 136 mmol/L 135-145 K (test code = 4891737862) 4.4 mmol/L 3.5-5 CL (test code = 1465822215) 108 mmol/L 98-108 CO2 TOTAL (test code = 8472737593) 25 mmol/L 23-31 AGAP (test code = 2037226143) 2-16 BUN (test code = 3764886543) 7 mg/dL 7-23 GLUCOSE (test code = 3166279458) 105 mg/dL 70-110 CREATININE (test code = 4193831934) 0.57 mg/dL 0.5-1.04 TOTAL BILI (test code = 5228586536) 0.6 mg/dL 0.1-1.1 CALCIUM (test code = 4389872157) 9.0 mg/dL 8.6-10.6 T PROTEIN (test code = 6137109796) 6.5 g/dL 6.3-8.2 ALBUMIN (test code = 0705240848) 3.9 g/dL 3.5-5 ALK PHOS (test code = 8348153418) 58 U/L 34-122 ALTv (test code = 1742-6) 15 U/L 5-35 AST(SGOT) (test code = 0992259176) 25 U/L 13-40 eGFR Calculation (Non-) (test code = 2387860823) mL/min/1.73m2 eGFR Calculation () (test code = 4961753782) mL/min/1.73m2 PATT (test code = PATT) Association [...] or urine or abnormalities in imaging tests). [facility], Cezvj9695-31-11 17:17:00* Test Item Value Reference Range Interpretation Comme nts LIPASE (test code = 6329096310) 352 U/L 0-220 H Lab Interpretation (test cod e = 96655-0) [facility]normal [facility] Hospital[facility]inalysis2020-10-27 17:16:00* Test Item Value Reference Range Interpretation Comme nts APPEARANCE (test code = 7174130510) Clear Clear COLOR (test code = 4825466501) Pale Yellow Yellow A PH (test code = 2316698120) 4.8-8.0 SP GRAVITY (test code = 0273780610) 1.003-1.030 GLU U QUAL (test code = 6781870062) Negative Negative BLOOD (test code = 6162026091) Negative Negative KETONES (test code = 9705600046) Negative Negative PROTEIN (test code = 2887-8) Negative Negative UROBILIN (test code = 1236215712) 0.2 mg/dL See_Comment [Automated [employer]] The system which generated this result transmitted reference range: 0-1.0 mg/dL. The reference range was not used to interpret this result as normal/abnormal. BILIRUBIN (test code = 9416715138) Negative Negative NITRITE (test code = 1930005113) Negative Negative LEUK RACHAEL (test code = 8111224167) Negative Negative RBC/HPF (test code = 3353679788) See_Comment [Automated messa ge] The system which generated this result transmitted reference range: 0 - 3 HPF. The reference range was not used to interpret this result as normal/abnormal. WBC/HPF (test code = 5187843701) See_Comment [Automated messa ge] The system which generated this result transmitted reference range: 0 - 5 HPF. The reference range was not used to interpret this result as normal/abnormal. BACTERIA (test code = 3159840775) Few Negative A MUCOUS (test code = 8553474197) Slight Negative LPF A AMORPHOUS (test code = 3200439805) Few Rare HPF A SQ EPITH (test code = 2484878199) HPF Lab Interpretation (test code = 47347-2) Abnormal [facility] with Qvqnsyxljzje4102-48-16 16:34:00* Test Item Value Reference Range Interpretation [...] 34.0 g/dL 31.6-35.1 RDW-SD (test code = 24209-9) 42.7 fL 39-49.9 RDW-CV (test code = 788-0) 13.1 % 12-15.5 PLT (test code = 777-3) See_Comment [Automated messa ge] The system which generated this result transmitted reference range: 166 - 358 10*3/?L. The reference range was not used to interpret this result as normal/abnormal. MPV (test code = 56640-3) 9.9 fL 9.5-12.9 NRBC/100 WBC (test code = 0689699531) See_Comment [Automated me ssage] The system which generated this result transmitted reference range: 0.0 - 10.0 /100 WBCs. The reference range was not used to interpret this result as normal/abnormal. NRBC x10^3 (test code = 2000542761) <0.01 See_Comment [Automated me ssage] The system which generated this result transmitted reference range: 10*3/?L. The reference range was not used to interpret this result as normal/abnormal. GRAN MAT (NEUT) % (test code = 770-8) 58.9 % IMM GRAN % (test code = 9558533224) 0.10 % LYMPH % (test code = 736-9) 29.6 % MONO % (test code = 5905-5) 8.6 % EOS % (test code = 713-8) 2.3 % BASO % (test code = 706-2) 0.5 % GRAN MAT x10^3(ANC) (test code = 0456541279) 5.94 10*3/uL 1.88-7.09 IMM GRAN x10^3 (test code = 0578017537) <0.03 0-0.06 LYMPH x10^3 (test code = 731-0) 2.99 10*3/uL 1.32-3.29 MONO x10^3 (test code = 742-7) 0.87 10*3/uL 0.33-0.92 EOS x10^3 (test code = 711-2) 0.23 10*3/uL 0.03-0.39 BASO x10^3 (test code = 704-7) 0.05 10*3/uL 0.01-0.07 [facility] Qkif2458-15-08 16:22:00* Test Item Value Reference Range Interpretation Comme nts POCT PREG (test code = 1605) negative On board controls acceptable with C Line (test code = 3574) present POCT PREG LOT # (test code = 3575) [id number] POCT PREG TEST DATE ( test code = 3576) 2022-03-01 Lab Interpretation (test cod e = 19676-8) Normal [facility] PEL[facility] WO IKVGCSMK0043-82-90 21:25:29No hydronephrosis or radiopaque nephrolithiasis. Right adrenal [...] reviewed this study and agree with the abovereport.[facility] OsxjurRHVDNMLFFS6052-29-10 19:13:00* Test Item Value Reference Range Interpretation Comme nts APPEARANCE (test code = 0900886060) Hazy Clear A COLOR (test code = 9048435777) Yellow Yellow PH (test code = 8874996695) 4.8-8.0 SP GRAVITY (test code = 2637128373) 1.003-1.030 H GLU U QUAL (test code = 8862267518) Normal Normal BLOOD (test code = 8438228702) 3+ Negative A KETONES (test code = 9144957060) Negative Negative PROTEIN (test code = 2887-8) Negative Negative UROBILIN (test code = 9076033905) Normal Normal BILIRUBIN (test code = 2242925686) Negative Negative NITRITE (test code = 0834812229) Negative Negative LEUK RACHAEL (test code = 5698362149) Negative Negative RBC/HPF (test code = 9687652200) See_Comment H [Automated messa ge] The system which generated this result transmitted reference range: 0 - 3 HPF. The reference range was not used to interpret this result as normal/abnormal. WBC/HPF (test code = 3492400855) See_Comment [Automated messa ge] The system which generated this result transmitted reference range: 0 - 5 HPF. The reference range was not used to interpret this result as normal/abnormal. BACTERIA (test code = 3549460751) Negative Negative MUCOUS (test code = 7466470470) Slight Negative LPF A SQ EPITH (test code = 2546694798) HPF Lab Interpretation (test code = 61299-6) Abnormal [facility]. METABOLIC PANEL (06036)2020-04-09 18:52:00* Test Item Value Reference Range Interpretation Comme nts NA (test code = 7017607205) 140 mmol/L 135-145 K (test code = 9349971575) 4.2 mmol/L 3.5-5 CL (test code = 2393902662) 108 mmol/L 98-108 CO2 TOTAL (test code = 7827900878) 25 mmol/L 23-31 AGAP (test code = 7450680483) 2-16 BUN (test code = 4873569678) 13 mg/dL 7-23 GLUCOSE (test code = 0657817368) 97 mg/dL 70-110 CREATININE (test code = 0012114600) 0.98 mg/dL 0.5-1.04 TOTAL BILI (test code = 2276973099) 0.1 mg/dL 0.1-1.1 CALCIUM (test code = 4873219122) 9.2 mg/dL 8.6-10.6 T PROTEIN (test code = 1533018965) 6.8 g/dL 6.3-8.2 ALBUMIN (test code = 2269306572) 4.1 g/dL 3.5-5 ALK PHOS (test code = 1485267026) 68 U/L 34-122 ALTv (test code = 1742-6) 19 U/L 5-35 AST(SGOT) (test code = 1807090282) 24 U/L 13-40 eGFR Calculation (Non-) (test code = 2399474172) mL/min/1.73m2 eGFR Calculation () (test code = 2973195310) mL/min/1.73m2 PATT (test code = PATT) Association [...] or urine or abnormalities in imaging tests). [facility] WITH NIWRVBJWROYO2945-19-82 18:40:00* Test Item Value Reference Range Interpretation [...] 33.7 g/dL 31.6-35.1 RDW-SD (test code = 83702-2) 43.3 fL 39-49.9 RDW-CV (test code = 788-0) 12.8 % 12-15.5 PLT (test code = 777-3) See_Comment H [Automated messa ge] The system which generated this result transmitted reference range: 166 - 358 10*3/?L. The reference range was not used to interpret this result as normal/abnormal. MPV (test code = 46627-9) 9.6 fL 9.5-12.9 NRBC/100 WBC (test code = 1736037589) See_Comment [Automated [employer] ssage] The system which generated this result transmitted reference range: 0.0 - 10.0 /100 WBCs. The reference range was not used to interpret this result as normal/abnormal. NRBC x10^3 (test code = 3344624481) <0.01 See_Comment [Automated messa ge] The system which generated this result transmitted reference range: 10*3/?L. The reference range was not used to interpret this result as normal/abnormal. GRAN MAT (NEUT) % (test code = 770-8) 61.2 % IMM GRAN % (test code = 4505999527) 0.40 % LYMPH % (test code = 736-9) 25.5 % MONO % (test code = 5905-5) 9.3 % EOS % (test code = 713-8) 2.9 % BASO % (test code = 706-2) 0.7 % GRAN MAT x10^3(ANC) (test code = 5957654890) 7.09 10*3/uL 1.88-7.09 IMM GRAN x10^3 (test code = 9243267522) 0.05 10*3/uL 0-0.06 LYMPH x10^3 (test code = 731-0) 2.95 10*3/uL 1.32-3.29 MONO x10^3 (test code = 742-7) 1.08 10*3/uL 0.33-0.92 H EOS x10^3 (test code = 711-2) 0.34 10*3/uL 0.03-0.39 BASO x10^3 (test code = 704-7) 0.08 10*3/uL 0.01-0.07 H Lab Interpretation (test code = 12040-1) [facility]normal [id number] 18:19:00* Test Item Value Reference Range Interpretation Comme nts POCT PREG (test code = 1605) negative On board controls acceptable with C Line (test code = 3574) present Lab Interpretation (test cod e = 41193-5) Normal [facility] 21:59:00* Test Item Value Reference Range Interpretation Comme nts APPEARANCE (test code = 8623313628) Clear Clear COLOR (test code = 8025446528) Straw Yellow A PH (test code = 0884244300) 4.8-8.0 SP GRAVITY (test code = 3394007278) 1.003-1.030 GLU U QUAL (test code = 0581764023) Normal Normal BLOOD (test code = 5606926210) 1+ Negative A KETONES (test code = 7906669487) 20 mg/dL Negative A PROTEIN (test code = 2887-8) Negative Negative UROBILIN (test code = 6365671886) Normal Normal BILIRUBIN (test code = 7801597754) Negative Negative NITRITE (test code = 0511333001) Negative Negative LEUK RACHAEL (test code = 3545014516) Negative Negative RBC/HPF (test code = 3494239163) See_Comment [Automated [employer]] The system which generated this result transmitted reference range: 0 - 3 HPF. The reference range was not used to interpret this result as normal/abnormal. WBC/HPF (test code = 8495463696) <1 See_Comment [Automated [employer]] The system which generated this result transmitted reference range: 0 - 5 HPF. The reference range was not used to interpret this result as normal/abnormal. BACTERIA (test code = 6684964390) Few Negative A SQ EPITH (test code = 6471727729) HPF Lab Interpretation (test code = 22551-5) [facility]normal [facility] PELVIS W [id number] 21:42:261. No acute inflammatory changes or signs of bowel obstruction.2. No signs of kidney stones or hydronephrosis.3. 3. A 1.7 cm right adrenal gland nodule is noted. Comparisons priorstudies/reports is recommended. AFC: 01564.RL: 77693. Ordering Physician: Katalina Lewis History: Abdominal pain. [...] User - 12/19/2019 3:43 PM CSTOrdering Physician: Wakili S YarimaHistory: Abdominal pain.Comparison Study: None. Technique: Abdomen and [...] nodule is noted. Comparisons priorstudies/reports is recommended.AFC: 76519.RL: 85890. [facility] Complete Metabolic [id number] 21:13:00* Test Item Value Reference Range Interpretation Comme nts NA (test code = 6432161485) 139 mmol/L 135-145 K (test code = 7871500302) 4.1 mmol/L 3.5-5 CL (test code = 6977997397) 106 mmol/L 98-108 CO2 TOTAL (test code = 5209943908) 25 mmol/L 23-31 AGAP (test code = 1522123000) 2-16 BUN (test code = 9121417867) 12 mg/dL 7-23 GLUCOSE (test code = 9099721328) 102 mg/dL 70-110 CREATININE (test code = 0898323458) 0.63 mg/dL 0.5-1.04 TOTAL BILI (test code = 9634897033) 0.4 mg/dL 0.1-1.1 CALCIUM (test code = 7942448082) 9.8 mg/dL 8.6-10.6 T PROTEIN (test code = 8727646456) 7.9 g/dL 6.3-8.2 ALBUMIN (test code = 7306265027) 4.6 g/dL 3.5-5 ALK PHOS (test code = 1732594707) 78 U/L 34-122 ALTv (test code = 1742-6) 19 U/L 5-35 AST(SGOT) (test code = 8486369049) 22 U/L 13-40 eGFR Calculation (Non-) (test code = 8504839805) mL/min/1.73m2 eGFR Calculation () (test code = 8076383331) mL/min/1.73m2 PATT (test code = PATT) Association [...] or urine or abnormalities in imaging tests). [facility] BranchLipase, [id number] 21:13:00* Test Item Value Reference Range Interpretation Comme nts LIPASE (test code = 8072505471) 22 U/L 0-220 Lab Interpretation (test cod e = 32648-8) Normal [facility] WITH [id number] 20:58:00* Test Item Value Reference Range Interpretation [...] 32.8 g/dL 31.6-35.1 RDW-SD (test code = 81337-7) 41.2 fL 39-49.9 RDW-CV (test code = 788-0) 12.2 % 12-15.5 PLT (test code = 777-3) See_Comment H [Automated messa ge] The system which generated this result transmitted reference range: 166 - 358 10*3/?L. The reference range was not used to interpret this result as normal/abnormal. MPV (test code = 12645-9) 9.8 fL 9.5-12.9 NRBC/100 WBC (test code = 1698045103) See_Comment [Automated me ssage] The system which generated this result transmitted reference range: 0.0 - 10.0 /100 WBCs. The reference range was not used to interpret this result as normal/abnormal. NRBC x10^3 (test code = 7130684625) <0.01 See_Comment [Automated messa ge] The system which generated this result transmitted reference range: 10*3/?L. The reference range was not used to interpret this result as normal/abnormal. GRAN MAT (NEUT) % (test code = 770-8) 64.0 % IMM GRAN % (test code = 8291643787) 0.40 % LYMPH % (test code = 736-9) 26.3 % MONO % (test code = 5905-5) 7.2 % EOS % (test code = 713-8) 1.5 % BASO % (test code = 706-2) 0.6 % GRAN MAT x10^3(ANC) (test code = 5034805699) 7.19 10*3/uL 1.88-7.09 H IMM GRAN x10^3 (test code = 2222343757) 0.04 10*3/uL 0-0.06 LYMPH x10^3 (test code = 731-0) 2.96 10*3/uL 1.32-3.29 MONO x10^3 (test code = 742-7) 0.81 10*3/uL 0.33-0.92 EOS x10^3 (test code = 711-2) 0.17 10*3/uL 0.03-0.39 BASO x10^3 (test code = 704-7) 0.07 10*3/uL 0.01-0.07 Lab Interpretation (test code = 30184-7) Abnormal [facility] Notes Date/Time Note Provider Source 2024-03-10 12:51:05 Patient dc home. Follow up with neurology. Verbalized understanding. Signed paper work. [facility] 2024-03-10 08:09:10 Patient reports headache for 3 days. History of migraines. Also reports she has ICP and had seizures before and is not on medications for it. T Grady RN [facility]
[2025-01-23] MEDS ORDERED: ASPIRIN 81 MG CHEWABLE TABLET ONE (23:20)
[2025-01-23] MEDS ORDERED: ONDANSETRON 4 MG/2 ML VIAL ONE (23:25)
[2025-01-23 23:36] LABS: Absolute Basophils 0.1 K/uL (0-0.5); Absolute Eosinophils 0.3 K/uL (0-0.5); Absolute Lymphocytes (CBC) 3.4 K/uL (0.7-4.9); Absolute Monocytes 1.3 K/uL (0.1-1.3); Absolute Neutrophil 7.9 K/uL (1.8-8.0); Basophils % 0.7 % (0-1.3); Eosinophils % 2.5 % (0-4.4); Hemoglobin 13.2 g/dL (12.0-15.0); Lymphocytes % 26.3 % (15.3-44.8); MCH 30.8 pg (27.0-35.0); MCHC 32.9 g/dL (32.0-36.0); MCV 93.7 fL (80-100); MPV 7.9 fL (7.6-11.3); Monocytes % 9.7 % (3.3-12.3); Neutrophils % 60.8 % (41.7-73.7); Nucleated Red Blood Cells % 0.1 % (0-0); Platelets 354 thou/uL (152-406); RBC Red Blood Cell Count 4.27 M/uL (3.86-4.86); Red Cell Distribution Width 13.4 % (12.1-15.2)
--- NOTE | 2025-01-24 00:22 | RAD REPORT ---
EXAM: XR Chest, 1 View CLINICAL HISTORY: The patient is 39 years old and is Female; CHEST PAIN TECHNIQUE: Frontal view of the chest. COMPARISON: No relevant prior studies available. FINDINGS: LUNGS: Unremarkable. No consolidation. PLEURAL SPACE: Unremarkable. No pneumothorax. HEART: Unremarkable. No cardiomegaly. MEDIASTINUM: Unremarkable. Normal mediastinal contour. BONES/JOINTS: Unremarkable. No acute fracture. UPPER ABDOMEN: Unremarkable as visualized. IMPRESSION: No acute cardiopulmonary process. Electronically signed by: Syeda Pickens MD 01/23/2025 11:25 PM [facility] Due to temporary technical issues with the PACS/FlowPlay reporting system, reports are being tobi d by the in-house radiologist without review as a courtesy to ensure prompt reporting the interpreting radiologist is fully responsible for the content of the report. Transcribed Date/Time: 01/24/2025 12:21 AM
[2025-01-24 00:23] LABS: Anion Gap 9.9 mEq/L (5.0-15.0); Potassium 3.9 mEq/L (3.5-5.1)
[2025-01-24] MEDS ORDERED: ONDANSETRON 4 MG/2 ML VIAL ONE (01:07)
[2025-01-24] MEDS ORDERED: KETOROLAC 30 MG/ML INJ ONE (01:07)
[2025-01-24] MEDS ORDERED: MORPHINE 4 MG/ML SYR ONE (01:08)
[2025-01-24] MEDS ORDERED: NA CHLORIDE 0.9% 1,000 ML ONE (01:52)
[2025-01-24] MEDS ORDERED: DIPHENHYDRAMINE 50 MG/ML VIAL ONE (02:25)
[2025-01-24] MEDS ORDERED: METOCLOPRAMIDE 10 MG/2mL INJ ONE (02:26)
[2025-01-24 02:34] LABS: Influenza A Ag Negative; Influenza B Ag Negative; SARS-CoV-2 Antigen Rapid Res Negative (Negative)
--- NOTE | 2025-01-24 03:45 | RAD REPORT ---
EXAM: CT Head Without Intravenous Contrast CLINICAL HISTORY: HEADACHE TECHNIQUE: Axial computed tomography images of the head/brain without intravenous contrast. Sagittal and coron al reformatted images were created and reviewed. This CT exam was performed using one or more of the following dose reduction techniques: automated exposure control, adjustment of the mA and/or kV according to patient size, and/or use of iterative reconstruction technique. COMPARISON: CT Head dated 09/22/2023 FINDINGS: Brain: Cerebellar tonsils descend approximately 7 mm below the foramen magnum, similar to the prior . No hemorrhage. No significant white matter disease. Ventricles: Unremarkable. No ventriculomegaly. Bones/joints: Unremarkable. No acute fracture. Soft tissues: Unremarkable. Sinuses: Unremarkable as visualized. No acute sinusitis. Mastoid air cells: Unremarkable as visualized. No mastoid effusion. IMPRESSION: 1. No acute intracranial or extra-axial abnormality. 2. Cerebellar tonsils descend approximately 7 mm below the foramen magnum, similar to the prior. Fi ndings can be seen in the setting of Chiari I malformation. Consider nonemergent cervical spine MR for further characterization. 3. Other findings as above. Electronically signed by: Karen Segal MD 01/24/2025 03:38 AM [facility] Due to temporary technical issues with the PACS/GraphOn reporting system, reports are being tobi d by the in-house radiologist without review as a courtesy to ensure prompt reporting the interpreting radiologist is fully responsible for the content of the report. Transcribed Date/Time: 01/24/2025 3:45 AM
--- NOTE | 2025-01-24 03:59 | EDPHYS ---
Physician Documentation [facility] Michelle Name: Yina Fernandes Age: 39 yrs Sex: Female : 1985 Arrival Date: 01/23/2025 Time: 22:24 Bed 14 Private MD: ED Physician Amador Carrera HPI: 01/23 23:26 This 39 yrs old Female presents to ER via Ambulatory with complaints of Chest Pain. ms3 23:26 39-year-old female with past medical history of anxiety, Crohn's disease, depression, ms3 seizures presents to the emergency department for chest pain that is been intermittent for 1 week. Patient notes the pain to be constant since 1 PM. She rates pain a 7/10 and describes the pain as stabbing. She denies any alleviating or inciting factors. Patient endorses shortness of breath, nausea, vomiting. Patient denies diarrhea.. 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 - Infectious Disease History:: Denies. - Social history:: Smoking status: Patient reports the use of cigarette tobacco products, smokes one-half pack cigarettes per day. ROS: 23:26 Constitutional: Negative for fever, and chills. Cardiovascular: Negative for chest ms3 pain, and palpitations. MS/Extremity: Negative for injury and deformity, 23:26 Cardiovascular: Positive for chest pain, 23:26 Respiratory: Positive for shortness of breath, 23:26 Abdomen/GI: Positive for nausea, vomiting, Negative for diarrhea, Exam: 22:56 ECG was reviewed by the Attending Physician. ms3 23:26 Constitutional: This is a well developed, well nourished patient who is awake, alert, ms3 and in no acute distress. Cardiovascular: Regular rate and rhythm with a normal S1 and S2. No gallops, murmurs, or rubs. Normal PMI, no JVD. No pulse deficits. Respiratory: Lungs have equal breath sounds bilaterally, clear to auscultation and percussion. No rales, rhonchi or wheezes noted. No increased work of breathing, no retractions or nasal flaring. Abdomen/GI: Soft, non-tender, with normal bowel sounds. No distension or tympany. No guarding or rebound. No evidence of tenderness throughout. Skin: Warm, dry with normal turgor. Normal color with no rashes, no lesions, and no evidence of cellulitis. MS/ Extremity: Pulses equal, no cyanosis. Neurovascular intact. Full, normal range of motion. Vital Signs: 22:30 BP 150 / 91; Pulse 80; Resp 19; Temp 98.2; Pulse Ox 99% on R/A; Weight 113.4 kg; Height rg5 5 ft. 3 in. ; Pain 7/10; 23:35 BP 134 / 76; Pulse 83; Resp 18; Pulse Ox 98% on R/A; 5 01/24 02:33 BP 125 / 74; Pulse 61; Resp 17; Pulse Ox 97% on R/A; Pain 7/10; rg5 03:39 BP 121 / 79; Pulse 63; Resp 17; Pulse Ox 98% on R/A; 5 01/23 22:30 Body Mass Index 44.29 (113.40 kg, 160.02 cm) [facility] 01/23 22:30 Pain Scale: Adult 5 01/24 02:33 Pain Scale: Adult [facility] MDM: 01/23 22:33 Medical Screening Exam initiated ms3 23:26 Differential diagnosis: abnormal EKG, acute myocardial infarction, coronary artery ms3 disease pneumonia, pulmonary embolus. 23:39 ED course: Patient years criteria negative. Not , no clinical signs of DVT, no ms3 Hemoptysis, PE not most likely diagnosis, D dimer is less than 1000ng/mL. PE excluded.. 01/24 01:58 ED course: Patient states she is still having headache. . ms3 04:04 HEART Score: History: Slightly Suspicious (0), ECG: Normal (0), Age: < or = 45 years ms3 (0), Risk Factors: No Risk Factors Known (0), Troponin: < or = 1 x Normal Limit (0), Total Score = 0. The patient was given aspirin in the Emergency Department. Data reviewed: vital signs, nurses notes, lab test result(s), EKG, radiologic studies, and as a result, I will discharge patient. I considered the following discharge prescriptions or medication management in the emergency department Medications were administered in the Emergency Department. See MAR. Independent interpretation of the following test(s) in the Emergency Department EKG: See my EKG interpretation above. Counseling: I had a detailed discussion with the patient and/or guardian regarding the historical points, exam findings, and any diagnostic results supporting the discharge/admit diagnosis, lab results, radiology results, the need for outpatient follow up, to return to the emergency department if symptoms worsen or persist or if there are any questions or concerns that arise at home. Response to treatment: the patient's symptoms have resolved after treatment, the patient's pain is gone, and as a result, I will discharge patient. Special discussion: Based on the patient's history, exam, and Dx evaluation, there is no indication for emergent intervention or inpatient Tx. It is understood by the patient/guardian that if the Sx's persist or worsen they need to return immediately for re-evaluation. ED course: On reevaluation patient's symptoms resolved, patient is alert and oriented x 4, no apparent distress, nontoxic-appearing, speaking full sentences. Discussed labs with negative troponins, chest x-ray that does not show pneumonia or other acute abnormality. Discussed CT head that does not reveal intracranial hemorrhage. Discussed with the patient need for nonemergent MRI as she likely has Chiari I malformation. Patient to follow-up with her primary care physician in 2 to 3 days. Patient understands and agrees with plan. All questions were answered. Return precautions discussed include worsening symptoms, or any other concerns.. 01/23 22:29 Order name: Basic Metabolic Panel; Complete Time: 00:37 ms3 01/23 22:29 Order name: CBC with Diff; Complete Time: 23:39 ms3 01/23 22:29 Order name: Magnesium; Complete Time: 00:37 ms3 01/23 22:29 Order name: NT PRO-BNP; Complete Time: 00:37 ms3 01/23 22:29 Order name: Troponin HS; Complete Time: 00:37 ms3 01/23 22:34 Order name: D-Dimer; Complete Time: 23:29 ms3 01/24 00:49 Order name: Troponin High Sensitivity; Complete Time: 01:52 ms3 01/24 01:55 Order name: COVID-19 Ag + Flu A+B Ag; Complete Time: 02:45 ms3 01/23 22:29 Order name: XRAY Chest (1 view) 01/24 01:58 Order name: CT Head Brain wo Cont 3 01/23 22:29 Order name: Cardiac monitoring; Complete Time: 23:12 ms3 01/23 22:29 Order name: EKG - Nurse/Tech; Complete Time: 23:12 ms3 01/23 22:29 Order name: IV Saline Lock; Complete Time: 23:12 ms3 01/23 22:29 Order name: Labs collected and sent; Complete Time: 23:12 ms3 01/23 22:29 Order name: O2 Per Protocol; Complete Time: 23:12 ms3 01/23 22:29 Order name: O2 Sat Monitoring; Complete Time: 23:12 ms3 EC/22 22:56 Rate is 66 beats/min. Rhythm is regular. QRS [place] is Normal. [place] interval is shortened. ms3 QRS interval is normal. QT interval is normal. Clinical impression: Normal ECG. Interpreted by me. Reviewed by me. Administered Medications: 23:25 Drug: Aspirin PO Chewable Tablet 324 mg PO once; 81 mg tablets x 4 Route: PO; 5 01/24 04:04 Follow up: Response: No adverse reaction 5 01/23 23:30 Drug: Ondansetron IVP 4 mg IVP once; over 2 minutes Route: IVP; Site: left antecubital; rg5 23:46 Follow up: Response: No adverse reaction 5 01/24 01:15 Drug: morphine IVP or IV 4 mg IVP once over 4 mins Route: IVP; Infused Over: 4 mins; rg5 Site: left antecubital; 02:32 Follow up: Response: No adverse reaction; Pain is decreased rg5 01:16 Drug: Ondansetron IVP 2 mg IVP once; over 2 minutes Route: IVP; Site: left antecubital; rg5 02:32 Follow up: Response: No adverse reaction rg5 01:16 Drug: Ketorolac IVP 10 mg 10 mg IVP once Route: IVP; Site: left antecubital; rg5 02:32 Follow up: Response: No adverse reaction; Pain is decreased rg5 01:58 Drug: NS 0.9% IV 1000 ml IV at 1000 ml once; to be given as a bolus over 60 minutes rg5 Route: IV; Rate: 1000 ml; Site: left antecubital; 04:04 Follow up: IV Status: Completed infusion; IV Intake: 1000ml rg5 02:15 Drug: metoCLOPramide IVP 10 mg IVP once; over 1 to 2 minutes Route: IVP; Site: left rg5 antecubital; 04:04 Follow up: Response: No adverse reaction rg5 02:15 Drug: diphenhydrAMINE IVP 25 mg IVP once Route: IVP; Site: left antecubital; rg5 04:03 Follow up: Response: No adverse reaction rg5 Disposition Summary: 01/24/25 03:59 Discharge Ordered Notes: Location: Home ms3 Condition: Stable ms3 Diagnosis - Chest pain, unspecified ms3 - Headache ms3 Followup: ms3 - With: Nayan Cote MD - When: 1 - 2 days - Reason: Recheck today's complaints Followup: ms3 - With: Bernardo Bernabe DO - When: 2 - 3 days - Reason: Recheck today's complaints Discharge Instructions: - Discharge Summary Sheet ms3 - Nonspecific Chest Pain, Adult ms3 - General Headache Without Cause ms3 Forms: - Medication Reconciliation Form ms3 - Antibiotic Education ms3 - Prescription Opioid Use ms3 - Patient Portal Instructions ms3 - Leadership Thank You Letter ms3 Signatures: Dispatcher [employer] EDMS Amador Carrera DO DO ms3 Jah King RN RN rg5 Corrections: (The following items were deleted from the chart) 01/23 22:30 22:30 BASIC METABOLIC PANEL+C.LAB.BRZ ordered. EDMS EDMS 22:30 22:30 CBC+H.LAB.BRZ ordered. EDMS EDMS 22:30 22:30 MAGNESIUM+C.LAB.BRZ ordered. EDMS EDMS 22:30 22:30 PROBNP+C.LAB.BRZ ordered. EDMS EDMS 22:30 22:30 Troponin High Sensitivity+C.LAB.BRZ ordered. EDMS EDMS 22:30 22:30 Chest Single View+RAD.RAD.BRZ ordered. EDMS EDMS
--- NOTE | 2025-01-24 03:59 | ER ---
[facility]urse[facility] Name: Yina Fernandes Age: 39 yrs Sex: Female : 1985 Arrival Date: 01/23/2025 Time: 22:24 Bed 14 Private MD: Diagnosis: Chest pain, unspecified;Headache Presentation: 01/23 22:30 Chief complaint: Patient states: having on \T\ off chest pain for a wk now but today rg5 waking up around 3pm, the pain is getting worst. I am nauseated earlier vomited 4x. 22:30 Coronavirus screen: Vaccine status: Client denies travel out of the [place] in the last 14 rg5 days. Ebola Screen: Patient negative for fever greater than or equal to 101.5 degrees Fahrenheit, and additional compatible Ebola Virus Disease symptoms. Initial Sepsis Screen: Does the patient meet any 2 criteria? No. Patient's initial sepsis screen is negative. Does the patient have a suspected source of infection? No. Patient's initial sepsis screen is negative. Risk Assessment: Do you want to hurt yourself or someone else? Patient reports no desire to harm self or others. Onset of symptoms was January 23, 2025. 22:30 Method Of Arrival: Ambulatory rg5 22:30 Acuity: NAWAF 3 rg5 Triage Assessment: 22:30 General: Appears uncomfortable, Behavior is calm, cooperative, appropriate for age. rg5 Pain: Complains of pain in chest Pain currently is 7 out of 10 on a pain scale. Quality of pain is described as aching. EENT: No signs and/or symptoms were reported regarding the EENT system. Neuro: Level of Consciousness is awake, alert, obeys commands, Oriented to person, place, time, situation. Cardiovascular: Reports chest pain, shortness of breath, Capillary refill < 3 seconds Patient's skin is warm and dry. Rhythm is sinus rhythm. Respiratory: Reports shortness of breath cough that is Airway is patent Trachea midline Respiratory effort is even, unlabored, Respiratory pattern is regular, symmetrical, Breath sounds are clear bilaterally. GI: Abdomen is round obese. : No signs and/or symptoms were reported regarding the genitourinary system. Derm: Skin is intact, Skin is dry, Skin is normal. Musculoskeletal: Circulation, motion, and sensation intact. Range of motion: intact in all extremities. 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 - Infectious Disease History:: Denies. - Social history:: Smoking status: Patient reports the use of cigarette tobacco products, smokes one-half pack cigarettes per day. Screenin:30 [facility] ED Fall Risk Assessment (Adult) History of falling in the last 3 months, rg5 including since admission No falls in past 3 months (0 pts) Confusion or Disorientation No (0 pts) Intoxicated or Sedated No (0 pts) Impaired Gait No (0 pts) Mobility Assist Device Used No (0 pt) Altered Elimination No (0 pt) Score/Fall Risk Level 0 - 2 = Low Risk Oriented to surroundings, Maintained a safe environment, Hourly rounding (assess needs \T\ fall precautionary measures) done. Abuse screen: Denies threats or abuse. Nutritional screening: No deficits noted. Tuberculosis screening: No symptoms or risk factors identified. Assessment: 22:30 Pain: Complains of pain in chest Pain does not radiate. Pain began 4 hours ago. rg5 22:30 General: Appears uncomfortable, Behavior is calm, cooperative. rg5 23:37 Reassessment: No changes from previously documented assessment. Patient and/or family rg5 updated on plan of care and expected duration. Pain level reassessed. Patient is alert, oriented x 3, equal unlabored respirations, skin warm/dry/pink. 01/24 00:00 Reassessment: Patient and/or family updated on plan of care and expected duration. Pain rg5 level reassessed. Patient is alert, oriented x 3, equal unlabored respirations, skin warm/dry/pink. Patient states symptoms have not improved. 01:25 Reassessment: Patient and/or family updated on plan of care and expected duration. Pain rg5 level reassessed. Patient is alert, oriented x 3, equal unlabored respirations, skin warm/dry/pink. 03:18 Reassessment: Patient and/or family updated on plan of care and expected duration. Pain rg5 level reassessed. Patient is alert, oriented x 3, equal unlabored respirations, skin warm/dry/pink. Patient states feeling better. Patient states symptoms have improved. 04:22 Reassessment: Patient and/or family updated on plan of care and expected duration. Pain rg5 level reassessed. Patient is alert, oriented x 3, equal unlabored respirations, skin warm/dry/pink. Patient states feeling better. Patient states symptoms have improved. Vital Signs: 01/23 22:30 BP 150 / 91; Pulse 80; Resp 19; Temp 98.2; Pulse Ox 99% on R/A; Weight 113.4 kg; Height rg5 5 ft. 3 in. ; Pain 7/10; 23:35 BP 134 / 76; Pulse 83; Resp 18; Pulse Ox 98% on R/A; rg5 01/24 02:33 BP 125 / 74; Pulse 61; Resp 17; Pulse Ox 97% on R/A; Pain 7/10; rg5 03:39 BP 121 / 79; Pulse 63; Resp 17; Pulse Ox 98% on R/A; rg5 01/23 22:30 Body Mass Index 44.29 (113.40 kg, 160.02 cm) rg5 01/23 22:30 Pain Scale: Adult rg5 01/24 02:33 Pain Scale: Adult rg5 ED Course: 01/23 22:25 Patient arrived in ED. [id number] 22:28 Amador Carrera DO is Attending Physician. ms3 22:30 Arm band placed on right wrist. EKG completed in triage. Results shown to MD. rg5 22:30 Patient has correct armband on for positive identification. Bed in low position. Call rg5 light in reach. Side rails up X 1. Client placed on continuous cardiac and pulse oximetry monitoring. NIBP monitoring applied. traffic monitor specialist on. Pulse ox on. NIBP on. Door closed. Noise minimized. Warm blanket given. 22:30 No provider procedures requiring assistance completed. Inserted saline lock: 20 gauge rg5 in left antecubital area, using aseptic technique. Blood collected. Flushed with 10 mL NS. Patient maintains SpO2 saturation greater than 95% on room air. 22:46 XRAY Chest (1 view) In Process Unspecified. EDMS 23:10 Jah King, DUTCH is Primary Nurse. rg5 23:16 Triage completed. rg5 01/24 02:17 CT Head Brain wo Cont In Process Unspecified. EDMS 03:58 Nayan Cote MD is Referral Physician. ms3 03:58 Bernardo Bernabe DO is Referral Physician. ms3 04:23 Provided Education on: post er care. rg5 04:23 IV discontinued, bleeding controlled, No redness/swelling at site. Pressure dressing rg5 applied. Administered Medications: 01/23 23:25 Drug: Aspirin PO Chewable Tablet 324 mg PO once; 81 mg tablets x 4 Route: PO; rg5 01/24 04:04 Follow up: Response: No adverse reaction rg5 01/23 23:30 Drug: Ondansetron IVP 4 mg IVP once; over 2 minutes Route: IVP; Site: left antecubital; rg5 23:46 Follow up: Response: No adverse reaction rg5 01/24 01:15 Drug: morphine IVP or IV 4 mg IVP once over 4 mins Route: IVP; Infused Over: 4 mins; rg5 Site: left antecubital; 02:32 Follow up: Response: No adverse reaction; Pain is decreased rg5 01:16 Drug: Ondansetron IVP 2 mg IVP once; over 2 minutes Route: IVP; Site: left antecubital; rg5 02:32 Follow up: Response: No adverse reaction rg5 01:16 Drug: Ketorolac IVP 10 mg 10 mg IVP once Route: IVP; Site: left antecubital; rg5 02:32 Follow up: Response: No adverse reaction; Pain is decreased rg5 01:58 Drug: NS 0.9% IV 1000 ml IV at 1000 ml once; to be given as a bolus over 60 minutes rg5 Route: IV; Rate: 1000 ml; Site: left antecubital; 04:04 Follow up: IV Status: Completed infusion; IV Intake: 1000ml rg5 02:15 Drug: metoCLOPramide IVP 10 mg IVP once; over 1 to 2 minutes Route: IVP; Site: left rg5 antecubital; 04:04 Follow up: Response: No adverse reaction rg5 02:15 Drug: diphenhydrAMINE IVP 25 mg IVP once Route: IVP; Site: left antecubital; rg5 04:03 Follow up: Response: No adverse reaction rg5 Medication: 01/23 22:30 VIS not applicable for this client. rg5 Intake: 01/24 04:04 IV: 1000ml; Total: 1000ml. rg5 Outcome: 03:59 Discharge ordered by . ms3 04:23 Discharged to home ambulatory, rg5 04:23 Condition: stable 04:23 Discharge instructions given to patient, Instructed on discharge instructions, follow up and referral plans. Demonstrated understanding of instructions, follow-up care, 04:25 Patient left the ED. rg5 Signatures: Dispatcher [employer] EDMS Amador Carrera DO DO ms3 Arely [id number] Jah King, RN RN rg5
[2025-01-24 04:43] VITALS: TEMP 98.2
[2025-01-24 04:48] VITALS: BP 121/79; O2SAT 98
--- NOTE | 2025-01-25 12:00 | EKG ---
Test Date: 2025-01-23 Test Time: 22:36:59 Director Private: ELSA MEASUREMENT RESULTS: Intervals: Rate: 66 IA: 102 QRSD: 98 QT: 360 QTc: 377 [place]: P: 26 IA: 102 QRS: 58 T: 58 INTERPRETIVE STATEMENTS: Sinus rhythm with short IA Otherwise normal ECG Compared to ECG 06/15/2023 11:44:55 Sinus bradycardia no longer present Myocardial infarct finding no longer present Electronically Signed On 01-25-25 11:58:45 HEEL BREASTER by Shalom Mix
== END 2025-01-24 04:25 | disposition home or self-care (01) ==
LOC: ER 22:24
DX: R07.9 Chest pain, unspecified (principal); R51.9 Headache, unspecified; F17.210 Nicotine dependence, cigarettes, uncomplicated; Z11.52 Encounter for screening for COVID-19
CPT/HCPCS: 96361; 93005; 85025; 80048; 36415; 83735; 85379; 84484 ×2; 83880; 70450; 71045; 96375; 96374; 99285; 87428; J2765; J1200; J2405 ×2; J7030